=== PATIENT | female | born 1945 | race Caucasian/White ===

== ENCOUNTER → 2016-05-14 | Outpatient (CLI) | payer BC ==
[~2016-05-14] MED LIST: ACYC-251 PO; ALBU1AER9 INH; ANAS1TAB19 PO; CALC500C3; DILT120C68 PO; HYDR12.55 PO; IBUP-103 PO; LORA10TA51 PO; LOSA50TA6 PO; MOME220A INH; MOME50SP5; NORITATE TOP; NXM/40 PO; SULF5LOT2 TOP; VSK5 PO
[2016-05-14 13:24] VITALS: BP 118/78; PULSE 64; TEMP 36.8; O2SAT 98
--- NOTE | 2016-05-14 15:53 | Radiation Oncology Follow-Up ---
Radiation Oncology Follow-Up Date of Visit May 14, 2016. Reason For Visit 3 month follow-up Radiation Completion Date 10-14-2015 to chest wall , supraclavicula, and axilla area Diagnosis (1) Breast cancer of upper-outer quadrant of right female breast Status: Resolved Onset Date: 04/29/2015 Location: 04/29/2015 Histology Subtype: lobular Stage: lll (A) Permanent Comment: Right breast mass found on physical examination Status post biopsy 04/29/2015 revealing a lobular carcinoma Estrogen receptor, positive progesterone, receptor positive HER-2/jorge negative Status post right modified radical mastectomy with lymph node dissection and left total mastectomy 06/04/2015 Pathologic stage pT3 pN2 M0 Oncotype DX score of 2 Status post completion of radiation therapy to the chest wall, supraclavicular, and axilla 10/14/2015 received 6120 cGy Last Edited By: Tammy Trejo on Oct 18, 2015 14:05 History of Present Illness Ms. Montilla is a 69-year-old female with a history of breast cancer. The patient's sister was diagnosed with a salivary gland cancer and breast cancer and is alive and well following treatment. She was noted at the time of a routine examination by Dr. Zena Smith to have a right breast mass. She had previously undergone an ultrasound-guided core biopsy the right breast in 2008 and a fine-needle aspiration of the left breast in 2002 both of which were negative for malignancy. She had undergone bilateral digital screening mammograms on 06/27/2014. At that time no evidence of malignancy was noted and a one-year screening mammogram was recommended. The biopsy marker clip in the right breast at the 12 o'clock position was again noted from her prior biopsy. In April 2015 Dr. Smith palpated a 4 cm breast mass in the upper outer quadrant of the right breast. She arranged for the patient to undergo a unilateral right digital diagnostic mammogram and targeted right breast ultrasound. This was performed on 04/22/2015. A triangular skin marker was noted in the area of palpable abnormality in the upper outer middle one third of the right breast. On spot compression CC view a possible obscured mass with irregular borders was noted measuring 1.1 x 1.3 cm. This was not clearly identified on spot compression and MLO views. Real-time High-resolution sonographic evaluation was performed 10 to 10:30 position of the right breast 4 cm from the nipple. On palpation moldable firm lump was noted and an ultrasound at the 10:30 position of the right breast 2 cm from the nipple an irregular hypoechoic solid-appearing mass was noted measuring 5.5 x 4.2 x 4.8 mm. Adjacent 10:00 right breast position 3 cm from the nipple was a circumscribed oval anechoic simple cyst measuring 7.0 x 5.4 x 7.3 mm. An ultrasound-guided cyst aspiration as well as an ultrasound-guided core needle biopsy was recommended for the cystic and solid masses in the right breast at the 10:00 and 10:30 position respectively. On 04/29/2015 an ultrasound-guided cyst aspiration and an ultrasound-guided core needle biopsy was performed in the right upper outer quadrant. The ultrasound core biopsy revealed an infiltrating lobular carcinoma Nafisa grade 1 of 3. No lymphovascular or perineural invasion was seen. Estrogen receptors were positive (100%, strong). Progesterone receptors were positive ( 100%, strong). HER-2/jorge overexpression was negative (1+). Ki-67 was positive in 10% of the tumor cells. The tumor cells were assessed by FISH analysis and were also negative confirming the results obtained by IHC. Case: [id number]. The patient was seen in consultation at [facility]. They reviewed the tissue from [facility]. They agreed with the original diagnosis. Accession #: [id number]. The patient was seen by Dr. Shon Montesinos for surgical evaluation. He recommended preoperative bilateral MRIs. These were performed on 05/23/2015. In the right breast upper outer quadrant from 9 to 10:00 middle third depth a large avidly enhancing mass was noted with mixed kinetics corresponding to the biopsy-proven invasive carcinoma. Overall the tumor measured 5.7 cm x 2.6 cm 3.9 cm however there was a sonographic evidence of this larger mass on ultrasound from April 22. The mass did not involve the skin, chest wall, pectoralis muscles and is distant from the nipple. Contained within the anterior aspect of this larger mass with a smaller more avidly enhancing area with washout kinetics measuring 0.9 x 0.6 cm likely corresponding to the lesion biopsied under ultrasound. Biopsy clip susceptibility artifact was seen just anterior/inferior to the smaller area. Also within the right breast a 1.6 cm cyst is seen in the superior portion. On the sagittal post contrast images 8 was 0.5 cm enhancing focus was noted in the midsternum. No suspicious adenopathy was identified. In the left breast no suspicious masses or enhancements were seen. A nuclear medicine bone scan was suggested to further evaluate the sternal lesion. The patient discussed at length the surgical treatment options with Dr. Montesinos. This included a discussion of partial mastectomy which was felt not to be an option given the large area of abnormal enhancement seen on MRI. He discussed right breast mastectomy and was interested in pursuing contralateral prophylactic mastectomy for cosmetic considerations. Dr. Montesinos discussed the potential role for immediate reconstruction. The patient understood that she would need postoperative radiation and decided that she did not wish to proceed with consideration of reconstruction at that time. Therefore on 06/04/2015 the patient underwent a right breast modified radical mastectomy, right axillary sentinel node biopsy and left breast total mastectomy. The left breast tissue revealed benign breast parenchyma with fibrocystic change but no in situ or invasive carcinoma identified. The right axillary sentinel node biopsy revealed a metastatic carcinoma measuring 1.3 cm with 1 mm of the pericapsular invasion. Patient went on to have a right axillary dissection. An additional 13 lymph nodes were taken of which 3 contained metastatic disease. The largest was 0.7 cm. Therefore a total of 4 out of 14 nodes were positive with pericapsular invasion. The total mastectomy specimen on the right revealed an invasive lobular carcinoma Mantee grade 2 measuring 6 cm in maximal dimension. Ductal carcinoma in situ, nuclear grade 2, solid pattern with comedo necrosis was also identified. Lobular carcinoma in situ was also noted. No lymphovascular invasion was identified. The resection margins were negative for carcinoma. The invasive carcinoma was noted 0.2 cm from the nearest posterior margin. . The final stage was therefore pT3 pN2 ER positive, ME positive, HER-2/jorge negative lobular carcinoma. Patient was treated with tangential diehl to the right chest wall from 2015 to 10/01/2015 receiving a dose of 50.4 Gy. The axilla and supraclavicular nodes were treated from August 21 through 09/26/2015 with a dose of 45 Gy. The mastectomy incision was boosted from 10/02/2015 through 10/14/2015 for a dose of 10.8 Gy area of the total chest wall boost was 61.2 Gy. Interim History (3 months she continues to have problems with discomfort of the right shoulder. She has pain in the right lateral chest wall. She continues with physical therapy. She states there continues to be "cording issues" he reviewed this may be improving. She continues to have pain can be up to level V. She is followed at the lymphedema clinic and continues therapy to her arm. She continues on Arimidex which she feels may attribute to her generalized arthralgias. She had issues with dysphagia. This was evaluated with an upper GI endoscopy. She also had a CT of the neck which led to the finding of an abnormality of her thyroid. This continues to be followed and she'll be having a recheck ultrasound in [place]. She was recently hospitalized to rule out pulmonary embolism. She developed shortness of breath and pain in the right chest. CT angiography was performed and she did not have pulmonary embolism. She had a cardiac evaluation with a nuclear stress test. This was negative. She also had pulmonary function studies. She is being followed by Dr. Saldaña. She now has developed a feeling of weakness in regards to her voice. She has difficulty projecting her voice. She also has a feeling of phlegm in the throat. She has been referred by her primary care physician to ENT. She'll be seen next Wednesday by . Allergies Coded Allergies: Shrimp (Verified Allergy, Severe, THROAT CLOSING, ITCHING, 04/01/16) Shrimp Flavor (Verified Allergy, Severe, THROAT CLOSING, ITCHING, 04/01/16 ) Dust Mite Extract (Verified Allergy, Intermediate, ALLERGY TEST RESULT, ) Gluten (Verified Allergy, Intermediate, CELIAC DISEASE, 04/01/16) Gluten Meal (Verified Allergy, Intermediate, CELIAC DISEASE, 04/01/16) Latex (Verified Allergy, Intermediate, RASH, 04/01/16) Peanut (Verified Allergy, Intermediate, INCONSISTENT ALLERGY TEST RESULT , 04/01/16) Peanut-containing Drug Products (Verified Allergy, Intermediate, INCONSISTENT ALLERGY TEST RESULT, 04/01/16) Penicillins (Verified Allergy, Intermediate, RASH, 04/01/16) Sulfa Antibiotics (Verified Allergy, Intermediate, RASH, 04/01/16) Erythromycin (Verified Adverse Reaction, Mild, STOMACH PAIN, 04/01/16) Home Medications Scheduled Anastrozole (Arimidex), 1 TAB PO DAILY Calcium Carbonate (Tums), 500 MG prn Esomeprazole Magnesium (Nexium), 40 MG PO DAILY Hydrochlorothiazide (Hydrochlorothiazide), 6.25 MG PO DAILY Loratadine (Claritin), 1 TAB PO DAILY Losartan Potassium (Cozaar), 50 MG PO DAILY Mometasone Furoate (Asmanex 120 Metered Doses), 1 PUFF INH QPM Pindolol (Visken), 2.5 MG PO BID Sulfacetamide Sodium (Acne) (Sodium Sulfacetamide), 1 APPLN TOP Q2D Scheduled PRN Acyclovir (Zovirax), 800 MG PO q4-6H PRN for COLD SORES Albuterol (Proair Hfa), 2 PUFFS INH Q4 PRN for Wheezing Ibuprofen Tab (Advil), 400 MG PO Q6 PRN for Pain or Fever Mometasone Furoate (Nasonex), 2 SPRAY NA DAILY PRN for ALLERGIES [noritate], 1 APPLN TOP Q2D PRN for UNDECIDED Review of Systems Gastrointestinal: Symptoms: WNL Oral: Symptoms: Thick/Viscid/Mucid Saliva Other Oral Symptoms: weak fatigued throat and voice changes if has to talk too long or loud Respiratory: Symptoms: Dry Cough Other Respiratory: " heaviness in the upper part the chest when talks too long " Urinary: Symptoms: WNL Comments: no symptons had RBC and epith noted on report Skin: Symptoms: No Problems Breast: Right Upper Arm Measurement: 31.7 Right Mid Arm Measurement: 25.5 Right Wrist Measurement: 16.5 Left Upper Arm Measurement: 27.5 Left Mid Arm Measurement: 23.5 Left Wrist Measurement: 17.5 Arm Dominence: Right Patient Cosmetic Evaluation: Excellent Staff Cosmetic Evalaluation: Excellent Physical Exam Vital Signs Date Time Temp Pulse Resp B/P Pulse Ox O2 Delivery O2 Flow Rate FiO2 05/14/16 13:24 36.8 64 18 118/78 98 Pain: Pain Onset: since radiation therapy Pain Duration: gets worse at times Side: Bilateral Patient Pain Scale: 0 - 10 Initial Pain Intensity: 4.0 Pain Description: Aching Additional Comments: constant Fatigue: None General Appearance: no apparent distress Eyes: normal inspection, EOMI ENT: normal ENT inspection, hearing grossly normal Neck: no adenopathy, thyroid normal Respiratory/Chest: lungs clear, no respiratory distress, no accessory muscle use Breast: Status post bilateral mastectomies. Incisions are well-healed. There are no masses or tenderness no axillary adenopathy. Using the [place] score cosmesis she has a good outcome. There is no axillary adenopathy. She is no skin retractions. There is no telangiectasis. There is slight cording the area pectoralis minor. Cardiovascular: regular rate, rhythm, no gallop, no murmur Extremities: no pedal edema Neurologic/Psychiatric: no motor/sensory deficits, alert, normal mood/affect Skin: warm/dry Lymphatic: no adenopathy Laboratory Studies Test 03/04/16 15:00 04/01/16 12:55 04/01/16 13:00 04/01/16 21:00 Thyroid Stimulating Hormone (TSH) 2.420 uIu/ml (0.300-4.500) Free Thyroxine 1.06 ng/dl (0.80-1.60) Free Triiodothyronine 2.98 pg/ml (2.30-4.20) White Blood Count 4.29 K/uL (4.8-10.8) Red Blood Count 4.95 M/uL (4.2-5.4) Hemoglobin 14.1 g/dL (12.0-16.0) Hematocrit 42.5 % (37-47) Mean Corpuscular Volume 85.9 fL (80-100) Mean Corpuscular Hemoglobin 28.5 pg (25-34) Mean Corpuscular Hemoglobin Concent 33.2 g/dl (32-36) RDW Standard Deviation 44.5 fL (36.4-46.3) RDW Coefficient of Variation 14.1 % (11.5-14.5) Platelet Count 183 K/uL (130-400) Mean Platelet Volume 10.0 fL (7.4-10.4) Prothrombin Time 10.6 SECONDS (9.0-12.0) Prothrombin Time INR 1.0 (0.9-1.1) PTT 27.1 SECONDS (21.0-31.0) Partial Thromboplastin Ratio 1.0 Sodium Level 142 mmol/L (136-145) Potassium Level 3.7 mmol/L (3.5-5.1) Chloride Level 107 mmol/L (98-107) Carbon Dioxide Level 24 mmol/L (21-32) Anion Gap 11.0 mmol/L (3-11) Blood Urea Nitrogen 21 mg/dl (7-18) Creatinine 0.90 mg/dl (0.60-1.20) Est Creatinine Clear Calc Drug Dose 66.0 ml/min Estimated GFR () 76.1 Estimated GFR (Non- 65.7 BUN/Creatinine Ratio 23.1 (10-20) Random Glucose 93 mg/dl (70-99) Calcium Level 8.8 mg/dl (8.5-10.1) Total Bilirubin 0.5 mg/dl (0.2-1) Aspartate Amino Transferase (AST) 24 U/L (15-37) Alanine Aminotransferase (ALT) 40 U/L (12-78) Alkaline Phosphatase 91 U/L (45-117) Total Creatine Kinase 108 U/L (26-192) Total Protein 7.3 gm/dl (6.4-8.2) Albumin 4.0 gm/dl (3.4-5.0) Globulin 3.3 gm/dl (2.5-4.0) Albumin/Globulin Ratio 1.2 (0.9-2) POC Troponin I 0.000 ng/ml (0-0.045) Creatine Kinase MB Ratio (0-3.0) Test 04/01/16 21:06 04/02/16 05:00 04/02/16 05:02 04/02/16 09:00 Creatine Kinase MB 0.9 ng/ml (0.5-3.6) 0.9 ng/ml (0.5-3.6) Troponin I < 0.015 ng/ml (0-0.045) < 0.015 ng/ml (0-0.045) Creatine Kinase MB Ratio (0-3.0) Sodium Level 144 mmol/L (136-145) Potassium Level 3.7 mmol/L (3.5-5.1) Chloride Level 108 mmol/L (98-107) Carbon Dioxide Level 25 mmol/L (21-32) Anion Gap 11.0 mmol/L (3-11) Blood Urea Nitrogen 20 mg/dl (7-18) Creatinine 0.89 mg/dl (0.60-1.20) Est Creatinine Clear Calc Drug Dose 65.4 ml/min Estimated GFR () 77.2 Estimated GFR (Non- 66.6 BUN/Creatinine Ratio 22.6 (10-20) Random Glucose 88 mg/dl (70-99) Estimated Average Glucose 120 mg/dl Hemoglobin A1c 5.8 % (4.5-5.6) Calcium Level 8.6 mg/dl (8.5-10.1) Triglycerides Level 88 mg/dl (0-150) Cholesterol Level 213 mg/dl (0-200) HDL Cholesterol 59 mg/dl LDL Cholesterol, Calculated 136 mg/dl VLDL Cholesterol, Calculated 18 mg/dl Cholesterol/HDL Ratio 3.6 Hepatitis C Antibody Screen NEG (NEG) D-Dimer 430 ug/L FEU (0-500) Test 05/06/16 10:23 Hemoglobin 13.5 g/dL (12.0-16.0) Assessment & Plan Plan: Continue follow-up with her primary care physician as well as medical oncology. She'll be following up in [place] with recheck visit as well as thyroid evaluation and ultrasound. She is following up with Dr. Saldaña in regards to the recent hospitalization. She'll continue with the physical therapy and lymphedema therapy. We asked her to return to our office in 1 year. Total Time In Follow-Up I spent 25 minutes speaking to the patient performing examination. I spent 15 minutes reviewing information in completing this note. Copy To Jesusita Holt MD; Param Murphy Jr,D.O.
== END | disposition home or self-care (01) ==
LOC: C.ONC 13:01
PROVIDERS: ATTEND Radiology Radiation Oncology
DX: Z08 Encounter for follow-up examination after completed treatment for malignant neoplasm (principal); Z92.3 Personal history of irradiation; Z85.3 Personal history of malignant neoplasm of breast

== ENCOUNTER → 2016-05-27 | Outpatient (CLI) | payer BC ==
[~2016-05-27] MED LIST changes: -DILT120C68 PO
== END | disposition home or self-care (01) ==
LOC: C.PAPS 14:30
PROVIDERS: ATTEND Obstetrics & Gynecology
DX: Z01.419 Encounter for gynecological examination (general) (routine) without abnormal findings (principal)

== ENCOUNTER → 2016-10-16 | Outpatient (CLI) | payer BC ==
[~2016-10-16] MED LIST changes: +ACYC-223 PO; -ACYC-251 PO
[2016-10-16 13:04] LABS: BASO % 0.2 %; BASO ABS # 0.01 K/uL (0-0.2); COMPLETE YES; EOS % 7.1 %; HEMATOCRIT 41.9 % (37-47); IG% 0.2 %; LYMPH % 18.5 %; LYMPH ABS # 0.78 K/uL (1.2-3.4); MEAN CORPUSCULAR HEMOGLOBIN 27.5 pg (25-34); MEAN PLATELET VOLUME 9.6 fL (7.4-10.4); MONO % 8.3 %; NEUT % 65.7 %; PLATELET COUNT 233 K/uL (130-400); RED BLOOD COUNT 4.87 M/uL (4.2-5.4); WHITE BLOOD COUNT 4.22 K/uL (4.8-10.8)
[2016-10-16 13:15] LABS: ALT/SGPT 38 U/L (12-78); AST/SGOT 20 U/L (15-37)
[2016-10-21 11:54] LABS: ANAPLASMA PHAGOCYTOPHIL IGG <1:64 (<1:64); ANAPLASMA PHAGOCYTOPHIL IGM <1:20 (<1:20)
== END | disposition home or self-care (01) ==
LOC: C.LAB 11:14
DX: R50.9 Fever, unspecified (principal)

== ENCOUNTER → 2016-12-15 | Outpatient (CLI) | payer BC ==
[~2016-12-15] MED LIST changes: -ACYC-223 PO; +ACYC-251 PO
--- NOTE | 2016-12-15 10:59 | DIAGNOSTIC IMAGING REPORT ---
ABDOMINAL ULTRASOUND, RIGHT UPPER QUADRANT HISTORY: Right upper quadrant abdominal pain.. COMPARISON: Abdominal ultrasound 11/12/2010. Chest CT 10/30/2015. FINDINGS: Pancreas: The pancreatic tail is obscured by overlying bowel gas. The remaining portions of the pancreas are within normal limits. Liver: The liver is echogenic consistent with fatty change. Enlarged measuring 21 cm in length. Stable fatty sparing at the french hepatis. A 1.9 cm cyst within the left hepatic lobe. This is slightly increased in size. Gallbladder: No gallbladder wall thickening. No gallstones. CBD: 4 mm. Right kidney: A few peripelvic cysts. Prominent extrarenal pelvis. This remains unchanged from the [address] No definite hydronephrosis. IMPRESSION: 1. Normal gallbladder. No gallstones. 2. Hepatomegaly demonstrating fatty change. 3. A few right renal peripelvic cysts and a prominent extrarenal pelvis. This remains unchanged. No definite hydronephrosis. Electronically signed by: Jamel Mcclain M.D. 12/15/2016 10:58 AM Dictated Date/Time: 12/15/2016 10:54 AM
== END | disposition home or self-care (01) ==
LOC: C.ULTR 09:59
PROVIDERS: ATTEND Internal Medicine Gastroenterology
DX: R10.11 Right upper quadrant pain (principal); R13.10 Dysphagia, unspecified; R16.0 Hepatomegaly, not elsewhere classified; N28.1 Cyst of kidney, acquired

== ENCOUNTER → 2017-05-13 | Outpatient (CLI) | payer BC ==
[~2017-05-13] MED LIST changes: +ACYC-223 PO; -ACYC-251 PO; +MTRCR45
[2017-05-13 12:54] VITALS: BP 178/98; PULSE 67; TEMP 36.6; O2SAT 98
--- NOTE | 2017-05-13 16:14 | Radiation Oncology Follow-Up ---
Radiation Oncology Follow-Up Date of Visit May 13, 2017. Reason For Visit Annual follow-up Radiation Completion Date 10/13/16 Diagnosis (1) Breast cancer of upper-outer quadrant of right female breast Status: Resolved Onset Date: 04/29/2015 Stage: lll (A) Permanent Comment: Right breast mass found on physical examination Status post biopsy 04/29/2015 revealing a lobular carcinoma Estrogen receptor positive, positive progesterone, receptor positive HER-2/jorge negative Status post right modified radical mastectomy with lymph node dissection and left total mastectomy 06/04/2015 Pathologic stage pT3 pN2 M0 Oncotype DX score of 2 Status post completion of radiation therapy to the chest wall, supraclavicular, and axilla 10/14/2015 received 6120 cGy Last Edited By: Tammy Trejo on May 13, 2017 16:00 History of Present Illness Ms. Montilla is a 69-year-old female with a history of breast cancer. The patient's sister was diagnosed with a salivary gland cancer and breast cancer and is alive and well following treatment. She was noted at the time of a routine examination by Dr. Zena Smith to have a right breast mass. She had previously undergone an ultrasound-guided core biopsy the right breast in 2008 and a fine-needle aspiration of the left breast in 2002 both of which were negative for malignancy. She had undergone bilateral digital screening mammograms on 06/27/2014. At that time no evidence of malignancy was noted and a one-year screening mammogram was recommended. The biopsy marker clip in the right breast at the 12 o'clock position was again noted from her prior biopsy. In April 2015 Dr. Smith palpated a 4 cm breast mass in the upper outer quadrant of the right breast. She arranged for the patient to undergo a unilateral right digital diagnostic mammogram and targeted right breast ultrasound. This was performed on 04/22/2015. A triangular skin marker was noted in the area of palpable abnormality in the upper outer middle one third of the right breast. On spot compression CC view a possible obscured mass with irregular borders was noted measuring 1.1 x 1.3 cm. This was not clearly identified on spot compression and MLO views. Real-time High-resolution sonographic evaluation was performed 10 to 10:30 position of the right breast 4 cm from the nipple. On palpation moldable firm lump was noted and an ultrasound at the 10:30 position of the right breast 2 cm from the nipple an irregular hypoechoic solid-appearing mass was noted measuring 5.5 x 4.2 x 4.8 mm. Adjacent 10:00 right breast position 3 cm from the nipple was a circumscribed oval anechoic simple cyst measuring 7.0 x 5.4 x 7.3 mm. An ultrasound-guided cyst aspiration as well as an ultrasound-guided core needle biopsy was recommended for the cystic and solid masses in the right breast at the 10:00 and 10:30 position respectively. On 04/29/2015 an ultrasound-guided cyst aspiration and an ultrasound-guided core needle biopsy was performed in the right upper outer quadrant. The ultrasound core biopsy revealed an infiltrating lobular carcinoma Nafisa grade 1 of 3. No lymphovascular or perineural invasion was seen. Estrogen receptors were positive (100%, strong). Progesterone receptors were positive ( 100%, strong). HER-2/jorge overexpression was negative (1+). Ki-67 was positive in 10% of the tumor cells. The tumor cells were assessed by FISH analysis and were also negative confirming the results obtained by IHC. Case: [id number]. The patient was seen in consultation at [facility]. They reviewed the tissue from [facility]. They agreed with the original diagnosis. Accession #: [id number]. The patient was seen by Dr. Shon Montesinos for surgical evaluation. He recommended preoperative bilateral MRIs. These were performed on 05/23/2015. In the right breast upper outer quadrant from 9 to 10:00 middle third depth a large avidly enhancing mass was noted with mixed kinetics corresponding to the biopsy-proven invasive carcinoma. Overall the tumor measured 5.7 cm x 2.6 cm 3.9 cm however there was a sonographic evidence of this larger mass on ultrasound from April 22. The mass did not involve the skin, chest wall, pectoralis muscles and is distant from the nipple. Contained within the anterior aspect of this larger mass with a smaller more avidly enhancing area with washout kinetics measuring 0.9 x 0.6 cm likely corresponding to the lesion biopsied under ultrasound. Biopsy clip susceptibility artifact was seen just anterior/inferior to the smaller area. Also within the right breast a 1.6 cm cyst is seen in the superior portion. On the sagittal post contrast images 8 was 0.5 cm enhancing focus was noted in the midsternum. No suspicious adenopathy was identified. In the left breast no suspicious masses or enhancements were seen. A nuclear medicine bone scan was suggested to further evaluate the sternal lesion. The patient discussed at length the surgical treatment options with Dr. Montesinos. This included a discussion of partial mastectomy which was felt not to be an option given the large area of abnormal enhancement seen on MRI. He discussed right breast mastectomy and was interested in pursuing contralateral prophylactic mastectomy for cosmetic considerations. Dr. Montesinos discussed the potential role for immediate reconstruction. The patient understood that she would need postoperative radiation and decided that she did not wish to proceed with consideration of reconstruction at that time. Therefore on 06/04/2015 the patient underwent a right breast modified radical mastectomy, right axillary sentinel node biopsy and left breast total mastectomy. The left breast tissue revealed benign breast parenchyma with fibrocystic change but no in situ or invasive carcinoma identified. The right axillary sentinel node biopsy revealed a metastatic carcinoma measuring 1.3 cm with 1 mm of the pericapsular invasion. Patient went on to have a right axillary dissection. An additional 13 lymph nodes were taken of which 3 contained metastatic disease. The largest was 0.7 cm. Therefore a total of 4 out of 14 nodes were positive with pericapsular invasion. The total mastectomy specimen on the right revealed an invasive lobular carcinoma Nafisa grade 2 measuring 6 cm in maximal dimension. Ductal carcinoma in situ, nuclear grade 2, solid pattern with comedo necrosis was also identified. Lobular carcinoma in situ was also noted. No lymphovascular invasion was identified. The resection margins were negative for carcinoma. The invasive carcinoma was noted 0.2 cm from the nearest posterior margin. . The final stage was therefore pT3 pN2 ER positive, [place] positive, HER-2/jorge negative lobular carcinoma. Patient was treated with tangential diehl to the right chest wall from 2015 to 10/01/2015 receiving a dose of 50.4 Gy. The axilla and supraclavicular nodes were treated from August 21 through 09/26/2015 with a dose of 45 Gy. The mastectomy incision was boosted from 10/02/2015 through 10/14/2015 for a dose of 10.8 Gy area of the total chest wall boost was 61.2 Gy. 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 Ultimately with the use of local medication and patches the skin is healed well. She continues to have a sense of tightness in the right anterior chest wall region especially with raising her arms above her head. She was recently seen [place] [facility] [place]up with a performed a CT scan of the chest on 10/30/2015. There is a exam showed no definite evidence of metastatic disease. They did note a right supraclavicular lymph node that was seen on a prior exam from July where it measured 0.6 cm. On this study. Measured 0.8 cm. They did note that this was a slight increase of uncertain significance and recommended continued surveillance. The discussed with the patient a follow-up CT scan in 4 months. They also discussed a targeted ultrasound of the supraclavicular node which will be scheduled or late November or early December. Interim History The discomfort she has been having of the lateral chest wall has now resolved. She has felt a mild nodularity towards the axilla over the past 3-4 months. There is no associated pain. There is been no changes of the overlying skin. She has completed lymphedema therapy. This ended approximately 6-9 months ago. She did have laser therapy to the incision line to help decrease tightness. She has been seen in follow-up in medical oncology with Dr. Holt. She is now seen on an annual basis with recheck PET scan at that time. She has noted a discomfort in the right lower quadrant over the past several weeks. Bending forward and seems to increase the discomfort. She is planning to see the medical technologist clinical within the month. Today she brought a copy of her PET scan performed in October at [facility]. There was no evidence of FDG avid malignancy. Stable postsurgical changes of bilateral mastectomies and right axillary lymph node dissection. Stable appearance of thyroid gland which demonstrates benign appearing stable nodules ultrasound examination stable diffuse FDG avidity. Multiple liver lesions unchanged without any abnormal FDG activity. Bilateral pelvic cysts with a large left sided parapelvic cyst unchanged. Allergies Coded Allergies: Shrimp (Verified Allergy, Severe, THROAT CLOSING, ITCHING, 04/01/16) Shrimp Flavor (Verified Allergy, Severe, THROAT CLOSING, ITCHING, 04/01/16 ) Dust Mite Extract (Verified Allergy, Intermediate, ALLERGY TEST RESULT, ) Gluten (Verified Allergy, Intermediate, CELIAC DISEASE, 04/01/16) Gluten Meal (Verified Allergy, Intermediate, CELIAC DISEASE, 04/01/16) Latex (Verified Allergy, Intermediate, RASH, 04/01/16) Peanut (Verified Allergy, Intermediate, INCONSISTENT ALLERGY TEST RESULT , 04/01/16) Peanut-containing Drug Products (Verified Allergy, Intermediate, INCONSISTENT ALLERGY TEST RESULT, 04/01/16) Penicillins (Verified Allergy, Intermediate, RASH, 04/01/16) Sulfa Antibiotics (Verified Allergy, Intermediate, RASH, 04/01/16) Erythromycin (Verified Adverse Reaction, Mild, STOMACH PAIN, 04/01/16) Home Medications Scheduled Anastrozole (Arimidex), 1 TAB PO DAILY Calcium Carbonate (Tums), 500 MG prn Esomeprazole Magnesium (Nexium), 40 MG PO DAILY Hydrochlorothiazide (Hydrochlorothiazide), 6.25 MG PO DAILY Loratadine (Claritin), 1 TAB PO DAILY Losartan Potassium (Cozaar), 50 MG PO DAILY Mometasone Furoate (Asmanex 120 Metered Doses), 1 PUFF INH QPM Pindolol (Visken), 2.5 MG PO BID Sulfacetamide Sodium (Acne) (Sodium Sulfacetamide), 1 APPLN TOP Q2D Scheduled PRN Acyclovir (Zovirax), 800 MG PO q4-6H PRN for COLD SORES Albuterol (Proair Hfa), 2 PUFFS INH Q4 PRN for Wheezing Ibuprofen Tab (Advil), 400 MG PO Q6 PRN for Pain or Fever Mometasone Furoate (Nasonex), 2 SPRAY NA DAILY PRN for ALLERGIES [noritate], 1 APPLN TOP Q2D PRN for UNDECIDED Miscellaneous Medications Metronidazole Hcl (Metronidazole) Review of Systems Gastrointestinal: Symptoms: Nausea GI Comments: sometimes a little nausea Oral: Symptoms: No Problems Other Oral Symptoms: weak fatigued throat and voice changes if has to talk too long or loud Respiratory: Symptoms: WNL Respiratory Comments: gets asthma reaction from cold and other unkown triggers Other Respiratory: " heaviness in the upper part the chest when talks too long " Urinary: Symptoms: WNL Comments: small amount leakge Skin: Symptoms: No Problems Breast: Right Upper Arm Measurement: 29.0 Right Mid Arm Measurement: 25.0 Right Wrist Measurement: 17.0 Left Upper Arm Measurement: 28.0 Left Mid Arm Measurement: 25.5 Left Wrist Measurement: 16.5 Arm Dominence: Right Patient Cosmetic Evaluation: Excellent Staff Cosmetic Evalaluation: Excellent Physical Exam Vital Signs Date Time Temp Pulse Resp B/P (MAP) Pulse Ox O2 Delivery O2 Flow Rate FiO2 05/13/17 12:54 36.6 67 18 178/98 98 Fatigue: None General Appearance: no apparent distress Eyes: normal inspection, EOMI ENT: normal ENT inspection, hearing grossly normal Neck: supple, no adenopathy, thyroid normal, no JVD, + pertinent finding ( there is asymmetry with increased palpable tissue in the left supraclavicular area compared to the right.) Respiratory/Chest: lungs clear, no respiratory distress, no accessory muscle use Breast: Status post bilateral mastectomies. There are no visible or palpable lesions of either chest wall. There is no axillary adenopathy bilaterally. There is no telangiectasia. There is some asymmetry of the subcutaneous tissue and fibrous changes along the incision line on the right. These are expected postoperative changes. There are no distinct masses. Cardiovascular: regular rate, rhythm, no gallop, no murmur Abdomen: non tender, soft Extremities: no pedal edema Neurologic/Psychiatric: no motor/sensory deficits, alert, normal mood/affect Skin: warm/dry Pain Management Patient Reports Pain: Yes Side: Right Pain Location: lower right abd Patient Preferred Pain Scale: 0 - 10 Initial Pain Intensity: 2.0 Pain Management Plan 6 of the right lower quadrant and will be evaluated by gynecology. She does not require any pain management through our office. Laboratory Laboratory Results: not applicable Pathology Pathology Results: not applicable Imaging Imaging Studies: were reviewed Imaging Comments Reviewed in the interim history PET scan at [facility] October 2016. Assessment & Plan Plan: We discussed the asymmetry of the supraclavicular area on the left. We discussed possible CAT scan. She is concerned about the amount of radiation she has been exposed to over time. She was in agreement to an ultrasound to determine if there are any enlarged lymph nodes in this area. This may be benign asymmetry. She stated that the oncologist had noted this also on her last examination. PET scan at that time did not show any FDG avidity of supraclavicular nodes. She'll have a recheck visit with a PET scan at [facility] in October. She'll be notified as the results of the ultrasound. We asked her to return to our office in 1 year. She'll also see the medical technologist clinical within the next month in regards to the pelvic discomfort. I've asked her to show her a copy of the last PET scan and review the previous cysts that have been seen. Total Time In Follow-Up I spent 25 minutes speaking to the patient and performing examination. I spent 15 minutes reviewing information in completing this note. Copy To Jesusita Holt MD; Param Murphy Jr,D.O.; Zena Smith M.D. Problem Qualifiers (1) Breast cancer of upper-outer quadrant of right female breast: Estrogen receptor status: positive Qualified Codes: C50.411 - Malignant neoplasm of upper-outer quadrant of right female breast; Z17.0 - Estrogen receptor positive status [ER+]
== END | disposition home or self-care (01) ==
LOC: C.ONC 12:37
PROVIDERS: ATTEND Physician Assistant Medical
DX: Z08 Encounter for follow-up examination after completed treatment for malignant neoplasm (principal); Z92.3 Personal history of irradiation; Z85.3 Personal history of malignant neoplasm of breast

== ENCOUNTER → 2017-05-17 | Outpatient (CLI) | payer BC ==
--- NOTE | 2017-05-17 09:53 | DIAGNOSTIC IMAGING REPORT ---
THYROID ULTRASOUND HISTORY: HX BREAST CA, SYMMETRY OF NECK BILATERAL COMPARISON: Outside hospital thyroid ultrasound 02/10/2016. FINDINGS: Right lobe: 5.6 x 1.5 x 1.5 cm. Heterogeneous thyroid gland resulting in difficult evaluation for a distinct nodule. Dominant hypoechoic nodule within the interpolar region measures 1.4 x 1.0 x 0.7 cm. This is stable in size and appearance. Left lobe: 4.6 x 2 point 2 x 2 x 1 cm. Heterogeneous thyroid gland resulting in difficult evaluation for a distinct nodule. Probable 1.3 cm heterogeneous solid nodule within the interpolar region. This is also unchanged. There is a 1.3 x 1.1 cm hyperechoic possible nodule laterally within the left thyroid lobe. Isthmus: Heterogeneous and thickened measuring up to 7 mm. A 7 x 4 mm hypoechoic nodule along the left side of the isthmus. Miscellaneous: No enlarged lymph nodes identified within the neck. IMPRESSION: 1. No cervical lymphadenopathy identified. 2. Bilateral thyroid nodules as described above. The majority of these are stable in size and appearance compared to the previous study. Electronically signed by: Jamel Mcclain M.D. 05/17/2017 9:52 AM Dictated Date/Time: 05/17/2017 9:46 AM
== END | disposition home or self-care (01) ==
LOC: C.ULTR 08:51
PROVIDERS: ATTEND Physician Assistant Medical
DX: Z85.3 Personal history of malignant neoplasm of breast (principal); E04.1 Nontoxic single thyroid nodule

== ENCOUNTER → 2017-06-02 | Outpatient (CLI) | payer BC | END | disposition home or self-care (01) | LOC: C.PAPS 16:33 | PROVIDERS: ATTEND Obstetrics & Gynecology | DX: Z01.419 Encounter for gynecological examination (general) (routine) without abnormal findings (principal) ==

== ENCOUNTER 2017-06-27 20:18 | Emergency (ER) | payer BC ==
[~2017-06-27] VITALS: Ht 170.2 cm; Wt 83.0 kg
[2017-06-27 20:30] VITALS: TEMP 36.8; Ht 170.2 cm; Wt 83.0 kg
[2017-06-27] MEDS ORDERED: CEFDINIR 300 MG CAP PO STA (20:59)
[2017-06-27] MEDS ORDERED: PHENAZOPYRIDINE HCL 200 MG TAB PO STA (20:59)
--- NOTE | 2017-06-27 21:04 | EMERGENCY ROOM VISIT NOTE ---
History Report prepared by Liyah: Rupert Rosales Under the Supervision of: Dr. Felipe Louis D.O. First contact with patient: 20:51 Chief Complaint: URINARY SYMPTOMS Stated Complaint: UTI? BURNING, SLIGHT BLEEDING History of Present Illness The patient is a 71 year old female who presents to the Emergency Room with complaints of persistent urinary symptoms since this morning. She reports abdominal pain and pain with urination. She currently rates her pain a 5/10 in severity. She states there was blood present in her urine just prior to arriving to the ED for evaluation. She denies any history of UTI. She denies any back pain. She has not noticed if there is a vaginal rash, though she feels that there may be a rash present. She has a history of breast cancer, fibromyalgia, and celiac's disease. She has a history of acid reflux and she has a colonoscopy and endoscopy scheduled in the next two days. She has a history of double mastectomy. She denies any history of abdominal surgeries. Source of History: patient Onset: since this morning Position: other (global ) Symptom Intensity: 5/10 Quality: other (urinary symptoms) Timing: other (persistent) Associated Symptoms: + abdominal pain, + urinary symptoms (pain with urination and blood present), No back pain Review of Systems See HPI for pertinent positives & negatives. A total of 10 systems reviewed and were otherwise negative. Past Medical & Surgical Medical Problems: (1) Asthma (2) Stafford's esophagus (3) Breast cancer of upper-outer quadrant of right female breast (4) Celiac disease (5) Chest pain (6) Fibromyalgia (7) GERD (gastroesophageal reflux disease) (8) Hypertension (9) Melanoma Surgical Problems: (1) History of dilation and curettage Family History FHx: cancer FHx: diabetes FHx: gallbladder disease FHx: heart disease FHx: hypertension FHx: lung disease Social History Smoking Status: Never Smoker Alcohol Use: occasionally Marital Status: Housing Status: lives with significant other Occupation Status: employed Current/Historical Medications Scheduled Anastrozole (Arimidex), 1 TAB PO DAILY Calcium Carbonate (Tums), 500 MG prn Cefdinir (Omnicef), 300 MG PO Q12H Esomeprazole Magnesium (Nexium), 40 MG PO DAILY Hydrochlorothiazide (Hydrochlorothiazide), 6.25 MG PO DAILY Loratadine (Claritin), 1 TAB PO DAILY Losartan Potassium (Cozaar), 50 MG PO DAILY Mometasone Furoate (Asmanex 120 Metered Doses), 1 PUFF INH QPM Pindolol (Visken), 2.5 MG PO BID Sulfacetamide Sodium (Acne) (Sodium Sulfacetamide), 1 APPLN TOP Q2D Scheduled PRN Acyclovir (Zovirax), 800 MG PO q4-6H PRN for COLD SORES Albuterol (Proair Hfa), 2 PUFFS INH Q4 PRN for Wheezing Ibuprofen Tab (Advil), 400 MG PO Q6 PRN for Pain or Fever Mometasone Furoate (Nasonex), 2 SPRAY NA DAILY PRN for ALLERGIES Phenazopyridine HCl (Pyridium), 200 MG PO TID PRN for Burning/Frequency w/ Urination [noritate], 1 APPLN TOP Q2D PRN for UNDECIDED Miscellaneous Medications Metronidazole Hcl (Metronidazole) Allergies Coded Allergies: Shrimp (Verified Allergy, Severe, THROAT CLOSING, ITCHING, 06/27/17) Shrimp Flavor (Verified Allergy, Severe, THROAT CLOSING, ITCHING, 06/27/17) Dust Mite Extract (Verified Allergy, Intermediate, ALLERGY TEST RESULT, ) Gluten (Verified Allergy, Intermediate, CELIAC DISEASE, 06/27/17) Gluten Meal (Verified Allergy, Intermediate, CELIAC DISEASE, 06/27/17) Latex (Verified Allergy, Intermediate, RASH, 06/27/17) Peanut (Verified Allergy, Intermediate, INCONSISTENT ALLERGY TEST RESULT , 06/27/17) Peanut-containing Drug Products (Verified Allergy, Intermediate, INCONSISTENT ALLERGY TEST RESULT, 06/27/17) Penicillins (Verified Allergy, Intermediate, RASH, 06/27/17) Sulfa Antibiotics (Verified Allergy, Intermediate, RASH, 06/27/17) Erythromycin (Verified Adverse Reaction, Mild, STOMACH PAIN, 06/27/17) Physical Exam Vital Signs Date Time Temp Pulse Resp B/P (MAP) Pulse Ox O2 Delivery O2 Flow Rate FiO2 06/27/17 21:57 85 20 141/104 98 06/27/17 20:30 36.8 80 20 162/96 97 Room Air Physical Exam GENERAL: Patient is awake, alert, and in no acute distress. Patient is resting comfortably and showing no signs of anxiety EYES: The conjunctivae are clear. The pupils are round and reactive. EARS, NOSE, MOUTH AND THROAT: The nose is without any evidence of any deformity. Mucous membranes are moist tongue is midline RESPIRATORY: Normal respiratory effort is noted there is no evidence of wheezing rhonchi or rales CARDIOVASCULAR: Regular rate and rhythm noted there no murmurs rubs or gallops normal S1 normal S2 GASTROINTESTINAL: The abdomen is soft. Bowel sounds are present in all quadrants. Abdomen is nontender MUSCULOSKELETAL/EXTREMITIES: There is no evidence of gross deformity full range of motion is noted in the hips and shoulders SKIN: Trace pedal edema bilaterally. NEUROLOGIC: Patient is awake alert and oriented x3. Medical Decision & Procedures Laboratory Results Test 06/27/17 20:40 Urine Color YELLOW Urine Appearance TURBID (CLEAR) Urine pH 5.5 (4.5-7.5) Urine Specific Abrams 1.016 (1.000-1.030) Urine Protein 2+ (NEG) Urine Glucose (UA) NEG (NEG) Urine Ketones NEG (NEG) Urine Occult Blood 3+ (NEG) Urine Nitrite POS (NEG) Urine Bilirubin NEG (NEG) Urine Urobilinogen NEG (NEG) Urine Leukocyte Esterase LARGE (NEG) Urine WBC (Auto) >30 /hpf (0-5) Urine RBC (Auto) >30 /hpf (0-4) Urine Hyaline Casts (Auto) 1-5 /lpf (0-5) Urine Epithelial Cells (Auto) 20-30 /lpf (0-5) Urine Bacteria (Auto) 3+ (NEG) Laboratory results per my review. Medications Administered Medications (Trade) Dose Ordered Sig/Ras Route Start Time Stop Time Status Last Admin Dose Admin Phenazopyridine HCl (Pyridium Tab) 200 mg NOW STAT PO 06/27/17 20:59 06/27/17 21:00 DC 06/27/17 21:15 200 MG Cefdinir (Omnicef Cap) 300 mg ONE STAT PO 06/27/17 20:59 06/27/17 21:00 DC 06/27/17 21:15 300 MG ED Course 2057: The patient was evaluated in room A3. A complete history and physical examination were performed. 2058: Ordered Cefdinir 300 mg PO and Pyridium 200 mg PO 2126: I reassessed the patient at this time. She is resting comfortably. I discussed the results and treatment plan with the patient. I answered all pertaining questions that she had. She expressed understanding and verbalized agreement. The patient will be discharged home. Medical Decision Prior records/ancillary studies reviewed. Triage Nursing notes reviewed. The patient's history was concerning for abdominal pain. Differential diagnosis: Etiologies such as appendicitis, diverticulitis, PUD, biliary pathology, UTI, pancreatitis, obstruction, mesenteric ischemia, aortic pathology, infections, inflammatory bowel disease, renal colic, as well as others were entertained. The patient is a 71-year-old female who presented to the emergency department for an evaluation of dysuria and frequency. The patient was treated with antibiotics as well as Pyridium in the emergency department. I discussed patient's laboratory studies with her. She was encouraged to drink plenty clear liquids and continue all medications as prescribed. Otherwise she was encouraged to follow-up with her family doctor for reevaluation and return to the emergency department immediately if symptoms change or worsen or the need arises. Medication Reconcilliation Current Medication List: was personally reviewed by me Blood Pressure Screening Patient's blood pressure: Elevated blood pressure Blood pressure disposition: Elevated BP felt to be situational Impression Primary Impression: Hemorrhagic cystitis Additional Impression: UTI (urinary tract infection) Scribe Attestation The scribe's documentation has been prepared under my direction and personally reviewed by me in its entirety. I confirm that the note above accurately reflects all work, treatment, procedures, and medical decision making performed by me. Departure Information Dispostion Home / Self-Care Prescriptions Phenazopyridine HCl (Pyridium) 200 Mg Tab 200 MG PO TID Y for Burning/Frequency w/Urination, #6 TAB Prov: Felipe Louis, DO 06/27/17 Cefdinir (OMNICEF) 300 Mg Cap 300 MG PO Q12H, #14 CAP Prov: Felipe Louis, DO 06/27/17 Referrals No Doctor, Assigned (PCP) Forms HOME CARE DOCUMENTATION FORM, IMPORTANT VISIT INFORMATION Patient Instructions ED UTI Cystitis Female, My [facility] [place] [employer] Additional Instructions Drink plenty of clear liquids. Consider using [id number] medication for yeast infection especially in the external region. Called family doctor to schedule follow-up appointment. Problem Qualifiers Additional Impression: UTI (urinary tract infection) Urinary tract infection type: acute cystitis Hematuria presence: with hematuria Qualified Codes: N30.01 - Acute cystitis with hematuria
[2017-06-27] MEDS ORDERED: CEFD300C2 PO (21:24)
[2017-06-27] MEDS ORDERED: PHEN-876 PO (21:25)
[2017-06-27 21:57] VITALS: BP 141/104; PULSE 85; O2SAT 98
--- NOTE | 2017-06-29 15:06 | Pharmacy Progress Note ---
ED Pharmacist Culture FollowUp Date of Service: Jun 29, 2017. Patient was sent home with a prescription for cefdinir 300 mg PO Q12g, which should cover the E. coli growing from the patient's urine culture.
== END 2017-06-27 21:57 | disposition home or self-care (01) ==
LOC: C.EDB 20:19 → C.EDA 21:57
DX: N30.01 Acute cystitis with hematuria (principal); K90.0 Celiac disease; I10 Essential (primary) hypertension; J45.909 Unspecified asthma, uncomplicated; K21.9 Gastro-esophageal reflux disease without esophagitis; K22.70 Barrett's esophagus without dysplasia; Z85.3 Personal history of malignant neoplasm of breast; Z90.13 Acquired absence of bilateral breasts and nipples; Z98.890 Other specified postprocedural states; Z83.3 Family history of diabetes mellitus; Z82.49 Family history of ischemic heart disease and other diseases of the circulatory system; Z79.899 Other long term (current) drug therapy

== ENCOUNTER 2017-12-03 11:42 | Emergency (ER) | payer BC ==
[~2017-12-03] VITALS: Ht 170.2 cm; Wt 81.9 kg
[~2017-12-03 11:42] MED LIST changes: -ANAS1TAB19 PO; +ANAS1TAB59 PO; +BIOT1TAB5 PO; +CALC1CHW PO; -CALC500C3; +CLOTCRE33 TOP; -MTRCR45; +MTRCR45 TD; +OXYC-90 PO
[2017-12-03 11:45] VITALS: TEMP 36.6; Ht 170.2 cm; Wt 81.9 kg
[2017-12-03] MEDS ORDERED: DiphenhydrAMINE HCL 50 MG/ML VIAL IV STA (12:31)
[2017-12-03] MEDS ORDERED: METHYLPREDNISOLONE 125 MG VIAL IV STA (12:31)
[2017-12-03] MEDS ORDERED: ONDANSETRON INJ 2 MG/ML 2 ML VIAL IV STA (12:31)
[2017-12-03] MEDS ORDERED: MoRPHine SULFATE 10 MG/ML CARP/VIAL IV STA (12:31)
[2017-12-03] MEDS ORDERED: OXYCODONE HCL IR 5 MG TAB (IMMEDIATE RELEASE) PO STA (12:45)
[2017-12-03 13:01] LABS: ISTAT IONIZED CALCIUM 1.2 mmol/l (1.12-1.32); ISTAT POTASSIUM 3.9 mEq/L (3.3-5.0)
[2017-12-03] MEDS ORDERED: OPTIRAY 320 IV PRN (13:45)
--- NOTE | 2017-12-03 14:05 | DIAGNOSTIC IMAGING REPORT ---
CHEST CT WITH AND WITHOUT VENOUS CONTRAST CT DOSE: 607.29 mGy.cm HISTORY: Left lower rib pain/rule out metastatic disease TECHNIQUE: Multiaxial CT images of the chest were performed both before and after the intravenous administration of contrast. A dose lowering technique was utilized adhering to the principles of ALARA. COMPARISON: Chest CT 05/01/2016. FINDINGS: There are multiple small scattered lytic lesions seen throughout the visualized osseous structures. This is consistent with metastatic disease or multiple myeloma. There are few old, healed bilateral rib fractures. There is a healing left posterior ninth rib pathologic fracture. Surgical clips within the right axilla. There are suggestion of prior bilateral mastectomy. There are few scattered small hypodense lesions within the liver. These appear similar in size to the prior study and therefore likely represent cysts. The visualized spleen and adrenal glands are unremarkable. Partially visualized mild right hydronephrosis. Small to moderate amount of ascites. There appears to be a omental nodularity concerning for metastatic disease. This is only partially imaged on this study. Small right pleural effusion. No mediastinal or hilar lymphadenopathy. The heart is normal in size. The central pulmonary arteries are patent. Normal caliber thoracic aorta with no evidence for dissection. No pneumothorax. The central airways are patent. Bibasilar linear densities favor subsegmental atelectasis. IMPRESSION: 1. Healing pathologic left posterior ninth rib fracture. 2. Multiple small scattered lytic lesions seen throughout the visualized osseous structures. This is consistent with metastatic disease or multiple myeloma. 3. Small right pleural effusion. 4. Small to moderate amount of ascites. There is also omental nodularity consistent with peritoneal carcinomatosis. 5. Partially visualized mild right hydronephrosis. Electronically signed by: Jamel Mcclain M.D. 12/03/2017 2:04 PM Dictated Date/Time: 12/03/2017 1:37 PM
[2017-12-03 15:20] VITALS: BP 164/93
[2017-12-03] MEDS ORDERED: ONDA4TAB10 SL (15:46)
--- NOTE | 2017-12-03 15:48 | EMERGENCY ROOM VISIT NOTE ---
History First contact with patient: 12:00 Chief Complaint: RIB PAIN Stated Complaint: PAIN IN/ AROUND L RIB CAGE,LOWER BACK AND ABD PAIN History of Present Illness The patient is a 72 year old female who presents to the Emergency Room with complaints of left lower rib pain which radiates towards the back into the abdomen. The pain has been going on for several weeks. She was seen here on November 12 for the same and had a rib x-ray which was negative. She continued to have the pain and was seen by her PCP on Wednesday and had a repeat chest x-ray performed at [facility] which she states revealed a pleural effusion on the right and question of pulmonary nodule. The patient was then seen by oncology, Dr. Joya today and sent over for further evaluation. The patient has known metastases from a prior breast cancer which has now spread into her omentum, mesentery and also peritoneal region as noted on a PET scan CT of October 25 done at a different facility. The patient denies any shortness of breath or fever. She states the pain is definitely worse with movement she states if she is holding still there is minimal pain but if she moves it goes to an 8 out of 10. The patient denies any nausea or vomiting. The patient is currently on [place] for Femera for her cancer. She started this less than 2 weeks ago. The patient states that she does have some pain in the left upper abdomen. The patient admits to normal bowel movements. The patient denies any urinary symptoms of frequency, urgency, dysuria or hematuria. Review of Systems 10 system review was performed and was negative unless stated otherwise history of present illness. Past Medical/Surgical History Medical Problems: (1) Asthma (2) Stafford's esophagus (3) Breast cancer of upper-outer quadrant of right female breast (4) Celiac disease (5) Chest pain (6) Fibromyalgia (7) GERD (gastroesophageal reflux disease) (8) Hypertension (9) Melanoma Surgical Problems: (1) History of dilation and curettage Metastatic cancer to the omentum, mesentery and peritoneal regions of the abdomen. Family History FHx: cancer FHx: diabetes FHx: gallbladder disease FHx: heart disease FHx: hypertension FHx: lung disease Social History Smoking Status: Never Smoker Alcohol Use: occasionally Marital Status: Housing Status: lives with significant other Occupation Status: employed Current/Historical Medications Scheduled Anastrozole (Arimidex), 1 MG PO DAILY Biotin (Biotin), 1,000 MCG PO DAILY Calcium Carbonate-Vitamin D (Caltrate 600+D), 1 TAB PO BID Esomeprazole Magnesium (Nexium), 40 MG PO DAILY Hydrochlorothiazide (Hydrochlorothiazide), 6.25 MG PO DAILY Loratadine (Claritin), 10 MG PO DAILY Losartan Potassium (Cozaar), 50 MG PO DAILY Metronidazole Hcl (Metronidazole), 1 APPLN TD prn Mometasone Furoate (Asmanex 120 Metered Doses), 1 PUFF INH QPM Pindolol (Visken), 5 MG PO BID Sulfacetamide Sodium (Acne) (Sodium Sulfacetamide), 1 APPLN TOP Q2D Scheduled PRN Acyclovir (Zovirax), 800 MG PO q4-6H PRN for COLD SORES Albuterol (Proair Hfa), 2 PUFFS INH Q4 PRN for Wheezing Clotrimazole W/ Betamethasone (Lotrisone), 1 APPLN TOP DIRECTED PRN for skin irritation Ibuprofen Tab (Advil), 200-600 MG PO DIRECTED PRN for Pain or Fever Mometasone Furoate (Nasonex), 2 SPRAY NA DAILY PRN for ALLERGIES Oxycodone Ir (Roxicodone Ir), 5 MG PO Q4H PRN for Severe Pain [noritate], 1 APPLN TOP Q2D PRN for UNDECIDED Physical Exam Vital Signs Date Time Temp Pulse Resp B/P (MAP) Pulse Ox O2 Delivery O2 Flow Rate FiO2 12/03/17 15:20 84 16 164/93 97 Room Air 12/03/17 13:00 75 16 159/84 98 Room Air 12/03/17 12:18 75 12/03/17 11:45 36.6 77 18 165/94 98 Room Air Physical Exam GENERAL: 72-year-old white female appears pleasant and in no acute distress. MENTAL Status: Alert and oriented 3. NECK: Supple, no lymphadenopathy noted. No carotid bruits noted. LUNGS: Clear auscultation without wheezes rales or rhonchi. CARDIAC: Regular rate and rhythm without murmur. Pulses is full and equal throughout. CHEST WALL: No gross bony deformity noted. No erythema or edema noted. No rashes noted. The patient has tenderness to palpation over the left lower mid axilla line ribs. There is also tenderness palpation extending posterior and anterior from this region. ABDOMEN: Positive bowel sounds all 4 quadrants. Soft, tenderness palpation the left upper quadrant otherwise nontender to palpation without organomegaly or masses. LOWER EXTREMITIES: No cyanosis or edema noted. Medical Decision & Procedures ER Provider Diagnostic Interpretation: CHEST CT WITH AND WITHOUT VENOUS CONTRAST CT DOSE: 607.29 mGy.cm HISTORY: Left lower rib pain/rule out metastatic disease TECHNIQUE: Multiaxial CT images of the chest were performed both before and after the intravenous administration of contrast. A dose lowering technique was utilized adhering to the principles of ALARA. COMPARISON: Chest CT 05/01/2016. FINDINGS: There are multiple small scattered lytic lesions seen throughout the visualized osseous structures. This is consistent with metastatic disease or multiple myeloma. There are few old, healed bilateral rib fractures. There is a healing left posterior ninth rib pathologic fracture. Surgical clips within the right axilla. There are suggestion of prior bilateral mastectomy. There are few scattered small hypodense lesions within the liver. These appear similar in size to the prior study and therefore likely represent cysts. The visualized spleen and adrenal glands are unremarkable. Partially visualized mild right hydronephrosis. Small to moderate amount of ascites. There appears to be a omental nodularity concerning for metastatic disease. This is only partially imaged on this study. Small right pleural effusion. No mediastinal or hilar lymphadenopathy. The heart is normal in size. The central pulmonary arteries are patent. Normal caliber thoracic aorta with no evidence for dissection. No pneumothorax. The central airways are patent. Bibasilar linear densities favor subsegmental atelectasis. IMPRESSION: 1. Healing pathologic left posterior ninth rib fracture. 2. Multiple small scattered lytic lesions seen throughout the visualized osseous structures. This is consistent with metastatic disease or multiple myeloma. 3. Small right pleural effusion. 4. Small to moderate amount of ascites. There is also omental nodularity consistent with peritoneal carcinomatosis. 5. Partially visualized mild right hydronephrosis. Electronically signed by: Jamel Mcclain M.D. 12/03/2017 2:04 PM Laboratory Results Test 12/03/17 12:52 Bedside Hemoglobin 10.9 g/dl (12.0-16.0) Bedside Hematocrit 32 % (37-47) Bedside Sodium 141 mEq/L (135-144) Bedside Potassium 3.9 mEq/L (3.3-5.0) Bedside Chloride 105 mEq/L (101-112) Bedside Total CO2 24 mEq/l (24-31) Anion Gap 18.0 mmol/L (16-25) Bedside Blood Urea Nitrogen 20 mg/dl (7-18) Bedside Creatinine 1.0 mg/dl (0.6-1.3) Bedside Glucose (other) 131 mg/dl (70-99) Bedside Ionized Calcium (Alyssa) 1.20 mmol/l (1.12-1.32) Medications Administered Medications (Trade) Dose Ordered Sig/Ras Route Start Time Stop Time Status Last Admin Dose Admin Ondansetron HCl (Zofran Inj) 4 mg NOW STAT IV 12/03/17 12:31 12/03/17 12:36 DC 12/03/17 13:01 4 MG Methylprednisolone Sodium Succinate (Solu-Medrol IV) 125 mg NOW STAT IV 12/03/17 12:31 12/03/17 12:36 DC 12/03/17 13:01 125 MG Diphenhydramine HCl (Benadryl Inj) 50 mg NOW STAT IV 12/03/17 12:31 12/03/17 12:36 DC 12/03/17 13:00 50 MG Oxycodone HCl (Roxicodone Immediate Rel Tab) 5 mg NOW STAT PO 12/03/17 12:45 12/03/17 12:46 DC 12/03/17 13:04 5 MG ED Course The patient was evaluated. I reviewed the patient's PET scan from October 25 which she had a copy with her to the ER. I also contacted Dr. Joya to find out exactly why he sent the patient to the ER. He stated that he would like a CAT scan of the chest to rule out any metastatic disease to the chest. I informed the patient of treatment plan. The patient does have an allergy and therefore I consulted Dr. Quach about premedication. We will premedicate the patient with 50 mg of Benadryl and 125 mg of Solu-Medrol IV. IV access was obtained. I-STAT BMP was ordered and reviewed prior to sending the patient for a CAT scan. The patient was also offered morphine for pain but declined. She was given OxyIR 5 mg p.o. for pain and Zofran 4 mg IV push for associated nausea. CAT scan was interpreted by the radiologist as above with multiple lytic lesions throughout the bony structures within the chest cavity. No evidence of pulmonary nodules. There is also small to moderate amount of ascites within the abdomen noted on the upper abdomen of the CT. The patient was informed of the findings. The patient was independently evaluated by Dr. Quach who agree with treatment plan. The patient was given incentive spirometer instructions by the nurse. She was also instructed to make sure that she uses her oxycodone that she has at home for pain. I will also give her a prescription for Zofran to take in addition for nausea. She is also recommended to take MiraLAX and/or stool softener daily to prevent constipation while on the pain medication. I contacted Dr. Joya, oncology about the findings and he stated to make sure she had pain medication and that they would call her and see her in the office on Wednesday. The patient was informed of treatment plan. She also was given a CD of her CAT scan to take to her oncologist at [place]. The patient was discharged home in stable condition. Medical Decision Differential diagnosis include compression fracture, metastatic cancer, rib fracture, pleuritic chest pain [place] Drug Monitoring Program Search Results: patient reviewed within database Medication Reconcilliation Current Medication List: was personally reviewed by me Blood Pressure Screening Patient's blood pressure: Elevated blood pressure Blood pressure disposition: Elevated BP felt to be situational Impression Primary Impression: Metastatic cancer to bone Additional Impression: Ascites Departure Information Dispostion Home / Self-Care Condition GOOD Prescriptions Ondasetron Odt (ZOFRAN ODT) 4 Mg Tab 4 MG SL Q6H for Nausea, #30 TAB Prov: Beverly Jean PA-C 12/03/17 Referrals No Doctor, Assigned (PCP) Forms HOME CARE DOCUMENTATION FORM, IMPORTANT VISIT INFORMATION, WORK / SCHOOL INSTRUCTIONS Patient Instructions My [facility] [employer] Additional Instructions Take Tylenol and oxycodone as needed for pain. Do not drive while taking the oxycodone. Take Zofran as needed for associated nausea. Recommend taking MiraLAX and or stool softener daily to prevent constipation from the oxycodone. Avoid any strenuous exercise or heavy lifting to prevent fracture. Do the incentive spirometer as instructed by nursing staff. Dr. Joya's office will be calling you for a follow-up appointment on Wednesday. If symptoms worsen in the interim, return to ER. Problem Qualifiers Additional Impression: Ascites Ascites type: malignant Qualified Codes: R18.0 - Malignant ascites
[2017-12-03 16:15] VITALS: PULSE 83; O2SAT 98
--- NOTE | 2017-12-03 18:52 | EMERGENCY ROOM VISIT NOTE ---
ED Visit Note First contact with patient: 12:00 I have personally seen and evaluated the patient with the PA. I agree with the diagnosis and management decisions and have been personally involved in the case. Please see Yahaira Jean PA-C's notes for further details of the history, physical and visit.
== END 2017-12-03 16:15 | disposition home or self-care (01) ==
LOC: C.EDB 11:44 → C.EDC 16:15
DX: C79.51 Secondary malignant neoplasm of bone (principal); R18.0 Malignant ascites; M84.48XD Pathological fracture, other site, subsequent encounter for fracture with routine healing; Z85.3 Personal history of malignant neoplasm of breast; M79.7 Fibromyalgia; I10 Essential (primary) hypertension; K21.9 Gastro-esophageal reflux disease without esophagitis; Z79.899 Other long term (current) drug therapy; Z83.3 Family history of diabetes mellitus; Z82.49 Family history of ischemic heart disease and other diseases of the circulatory system; Z83.79 Family history of other diseases of the digestive system; Z80.9 Family history of malignant neoplasm, unspecified

== ENCOUNTER → 2017-12-09 | Outpatient (CLI) | payer BC ==
[~2017-12-09] MED LIST changes: +ONDA4TAB10 SL
[2017-12-09 11:42] LABS: BASO % 0.4 %; BASO ABS # 0.01 K/uL (0-0.2); EOS % 5.5 %; EOS ABS # 0.15 K/uL (0-0.5); HEMATOCRIT 35.1 % (37-47); HEMOGLOBIN 11.4 g/dL (12.0-16.0); IG# 0.01 K/uL (0.00-0.02); LYMPH % 18.7 %; LYMPH ABS # 0.51 K/uL (1.2-3.4); MEAN CELL VOLUME 85.8 fL (80-100); MEAN CORPUSCULAR HEMOGLOBIN 27.9 pg (25-34); MONO % 6.6 %; MONO ABS # 0.18 K/uL (0.11-0.59); NEUT % 68.4 %; NEUT ABS # 1.87 K/uL (1.4-6.5); PLATELET COUNT 155 K/uL (130-400); RED CELL DISTRIBUTION WIDTH SD 49.7 fL (36.4-46.3); WHITE BLOOD COUNT 2.73 K/uL (4.8-10.8)
[2017-12-09 11:49] LABS: MEAN CORPUSCULAR HGB CONC 32.5 g/dl (32-36)
== END | disposition home or self-care (01) ==
LOC: C.LAB 10:50
PROVIDERS: ATTEND Internal Medicine Hematology & Oncology
DX: C50.911 Malignant neoplasm of unspecified site of right female breast (principal)

== ENCOUNTER → 2017-12-22 | Outpatient (CLI) | payer BC ==
[~2017-12-22] MED LIST changes: -ANAS1TAB59 PO; +DOCU-94 PO; +FMR25 PO; -ONDA4TAB10 SL; -OXYC-90 PO; +PALB125C PO; +TYLOTC500 PO
[2017-12-22 13:00] LABS: BASO % 0.5 %; BASO ABS # 0.01 K/uL (0-0.2); EOS % 3.7 %; EOS ABS # 0.07 K/uL (0-0.5); HEMATOCRIT 33.6 % (37-47); IG# 0.01 K/uL (0.00-0.02); LYMPH % 24.3 %; LYMPH ABS # 0.46 K/uL (1.2-3.4); MEAN CELL VOLUME 88.2 fL (80-100); MEAN CORPUSCULAR HEMOGLOBIN 28.9 pg (25-34); MEAN CORPUSCULAR HGB CONC 32.7 g/dl (32-36); MEAN PLATELET VOLUME 9.3 fL (7.4-10.4); MONO % 12.2 %; MONO ABS # 0.23 K/uL (0.11-0.59); NEUT % 58.8 %; NEUT ABS # 1.11 K/uL (1.4-6.5); PLATELET COUNT 162 K/uL (130-400); RED CELL DISTRIBUTION WIDTH CV 17.4 % (11.5-14.5); RED CELL DISTRIBUTION WIDTH SD 55.1 fL (36.4-46.3); WHITE BLOOD COUNT 1.89 K/uL (4.8-10.8)
[2017-12-22 13:38] LABS: ALBUMIN 3.4 gm/dl (3.4-5.0); ALKALINE PHOSPHATASE 95 U/L (45-117); ALT/SGPT 35 U/L (12-78); AST/SGOT 31 U/L (15-37); BLOOD UREA NITROGEN 23 mg/dl (7-18); CALCIUM 9.2 mg/dl (8.5-10.1); CARBON DIOXIDE 26 mmol/L (21-32); CREATININE 1.15 mg/dl (0.60-1.20); GLUCOSE 88 mg/dl (70-99); POTASSIUM 4.6 mmol/L (3.5-5.1); SODIUM 138 mmol/L (136-145)
[2017-12-26 22:32] LABS: CA 27.29** TC 20123E 2838 U/ML (<38); CA15-3 BREAST ANTIGEN 5819 1563 U/mL (<32)
== END | disposition home or self-care (01) ==
LOC: C.LAB 11:01
PROVIDERS: ATTEND Internal Medicine Hematology & Oncology
DX: C50.411 Malignant neoplasm of upper-outer quadrant of right female breast (principal); Z17.0 Estrogen receptor positive status [ER+]

== ENCOUNTER 2018-09-26 14:09 | Observation (INO) ==
--- OUTSIDE RECORDS SUMMARY | 2018-09-26 14:12 | External Medical Summary | Continuity of Care Document ---
:1945 Author Name Chilo Meyers, Provider Address Unavailable Unavailable , Care Team Providers Name Role Phone Jose Quigley [email or web address] Chandu Saldaña [email or web address] Jill NAVAS JR Unavailable Unavailable Unavailable Unavailable Unavailable Assessments Assessed Problems:HypertensionPalpitationsDyspnea on exertionMetastatic breast cancer Problems Rhinitis (472.0) (J31.0) Rosacea (695.3) (L71.9) Osteopenia (733.90) (M85.80) Nontropical sprue (579.0) (K90.0) Menopausal symptoms (627.2) (N95.1) Breast cyst (610.0) (N60.09) Allergic reaction (995.3) (T78.40XA) Laryngopharyngeal reflux (478.79) (K21.9) Voice fatigue (784.49) (R49.8) Odynophonia (784.1) (R07.0) Dyspnea on exertion (786.09) (R06.09) Hypertension (401.9) (I10) Palpitations (785.1) (R00.2) Metastatic breast cancer (174.9) (C50.919) Rapid heart beat (785.0) (R00.0) BRCA negative (V82.71) (Z13.71) Encounter for routine gynecological examination (V72.31) (Z0 1.419) Chest tightness or pressure (786.59) (R07.89) Asthma (493.90) (J45.909) Infiltrating lobular carcinoma, right Stafford's esophagus (530.85) (K22.70) Chronic reflux esophagitis (530.11) (K21.0) Allergic rhinitis due to dust (477.8) (J30.89) Shortness of breath (786.05) (R06.02) Atypical chest pain (786.59) (R07.89) Cold sore (054.9) (B00.1) Allergies and Adverse Reactions Bactrim TABS (Allergy) Reaction: Rash Erythromycin TABS (Allergy) oxyCODONE HCl TABS (Allergy) Penicillins (Allergy) Reaction: Rash Sulfa Drugs (Allergy) Dust (Allergy) Gluten (Allergy) Latex (Allergy) Peanuts (Allergy) Shellfish (Allergy) Medications Sodium Sulfacetamide 10 % OINT; aPPLY ONE TIME EVERY OTHER D AY. Refills: 0 Clotrimazole 1 % External Cream; USE NEEDED Refills: 0 traMADol HCl - 50 MG Oral Tablet; TAKE 1 TABLET Every 8 hour s Start: 22-Sep-2018 Refills: 0 Lovenox 60 MG/0.6ML Subcutaneous Solution; INJECT 60 MG Twic e daily Start: 22-Sep-2018 Refills: 0 0.6 ML Syringe Aspirin 81 MG Oral Tablet Delayed Release; Take 1 tablet evita ly Start: 22-Sep-2018 Refills: 0 Lasix 20 MG Oral Tablet; TAKE ONE TABLET BY MOUTH ONCE DAILY Start: 22-Sep-2018 Refills: 0 Claritin CAPS Refills: 0 Nasonex 50 MCG/ACT Nasal Suspension Refills: 0 Pindolol 5 MG Oral Tablet; take 1 tablet by mouth twic e a day Mira Saldaña Start: 14-Apr-2016 Quantity: 180 Refills: 3 Noritate 1 % External Cream; APPLY SPARI NGLY TO THE AFFECTED AREA(S) ONCE DAILY DIRECTED. Miar Quigley Start: 21-Oct-2010 Refills: 0 ProAir HFA 108 (90 Base) MCG/ACT Inhalat ion Aerosol Solution; INHALE 2 PUFFS Every 4 hours PRN Mira Quigley Start: 21-Oct-2010 Quantity: 1 8.5 GM Inhaler Refills: 11 Asmanex 120 Metered Doses 220 MCG/INH In halation Aerosol Powder Breath Activated; INHALE 1 PUFFS Daily Mira Quigley Start: 21-Oct-2010 Refills: 0 EpiPen CHAVA Refills: 0 Tylenol TABS Refills: 0 Colace CAPS Refills: 0 Xgeva SOLN Refills: 0 Zantac CAPS Refills: 0 Benadryl TABS Refills: 0 Zofran TABS Refills: 0 Decadron SOLN Refills: 0 Taxol CONC Refills: 0 Lumigan SOLN Refills: 0 Caltrate 600+D 600-400 MG-UNIT CHEW Refills: 0 Cozaar 50 MG Oral Tablet; TAKE 1 TABLET DAILY. Mira Quigley Start: 21-Oct-2010 Refills: 0 Acyclovir 800 MG Oral Tablet; TAKE 1 TAB LET EVERY 8 HOURS, 5 TIMES DAILY FOR 2 DAYS. Refills: 0 NexIUM 40 MG Oral Capsule Delayed Release; TAKE 1 CAPS ULE Daily Mira Quigley Start: 18-Sep-2016 Quantity: 30 Refills: 5 Biotin TABS; Take 1 tablet daily Refills: 0 Procedures History of Dilation And Curettage Status : Completed History of Breast Surgery Puncture Aspiration Of Cyst Status: Completed History of Hallux Valgus (Bunion) Correction Status: Completed History of Mastectomy Bilateral Status: Completed History of Radiation Therapy Status: Com pleted Immunizations Immunizations not documented Family History Unknown Family Member Family history of Nontropical (Celiac) Sprue Status: Active Comments: Family History Family history of Asthma (V17.5) Status: Active Comment s: Family History Family history of Bladder Cancer (V16.52) Status: Active Comments: Family History Father Family history of Coronary Artery Disease Status: Active Family history of deafness or hearing loss (V19.2) (Z82.2) S tatus: Active Family history of hypertension (V17.49) (Z82.49) Status: Act odalys Grandmother Family history of Breast Cancer (V16.3) Status: Active Sister Family history of Salivary gland cancer (142.9) (C08.9) Stat us: Active Family history of malignant neoplasm of breast (V16.3) (Z80. 3) Status: Active Brother Family history of asthma (V17.5) (Z82.5) Status: Active Mother Family history of hypertension (V17.49) (Z82.49) Status: Act odalys Social History - Smoking Status Never smoker Interventions Discussion/SummaryAssessment: 1. Symptomatic premature ventricular beats. Good control with pindolol. no symptoms of asustained arrhythmia. 2. No anginal-type complaints. 3. No evidence of pulmonary vascular congestion. 4. Ascites and significant bilateral leg edema. 5. Borderline low blood pressure today. 6. No bleeding complaints on enoxaparin. Plan: 1. Continue pindolol 5 mg once daily. 2. cardiology follow-up as needed. 3. Continue follow-up with her primary care provider and oncology providers. 4. She is well aware to contact me if she d evelops any new or worsening cardiac type symptoms. Approximately 25 Minutes was spent with the patient. Greater than 50% of time with patient was spent on counseling and coordinating care. Review of her symptoms and condition since she was last seen in Cardiology Clinic. Discussion regarding her cardiac medications. Discussion regarding her ascites and peripheral edema.More than 25 minutes was spent with the patient of which greater than 50% was spent on counseling and coordinating care. Plan of Treatment Planned Observations Planned Goals not documented Results No Known Results Results not documented Vital Signs 22-Sep-2018 14:09 Systolic 100 mm[Hg] Comments: Location: E; Position: Sitting Diastolic 64 mm[Hg] Comments: Location: E; Position: Sitting BMI Calculated 29.26 kg/m2 Weight 181.3 lb BSA Calculated 1.92 m2 Heart Rate 64 /min Encounters Appointment; [facility] 23-Jun-2018 13:15 Encounter Diagnosis: Problem not documented Appointment; Zena Smith M.D. 02-Jun-2017 11:20 Encounter Diagnosis: Problem not documented Appointment; Luis Alberto Saldaña M.D. 29-Mar-2017 15:45 Encounter Diagnosis: Problem not documented Appointment; Luis Alberto Saldaña M.D. 22-Sep-2018 14:15 Encounter Diagnosis: Problem not documented
--- NOTE | 2018-09-26 14:56 | Emergency Department Note ---
ED Visit Note I have seen and examined this patient with Judi Giron and generally agree with the treatment plan as discussed. .
--- NOTE | 2018-09-26 15:07 | Emergency Department Note ---
History of Present Illness General Chief complaint: Abnormal Labs/Diagnostic Testing Stated complaint: HIGH POTASSIUM - SENT BY DR JOYA Time Seen by Provider: 09/26/18 14:34 History of Present Illness Maximum Pain Intensity: 0 This patient is a 72-year-old female presents to the emergency department per recommendations of her oncologist for abnormal lab values. The patient was due for chemotherapy this morning for history of metastatic breast cancer. Labs were drawn. She was told her potassium was high, and to come to the emergency department. She currently has no complaints. No chest pain, heart palpitations or difficulty breathing. No recent illnesses such as fever or chills. No cough. No changes in bowel movements. She is eating and drinking normally. Home Medications Home Medications Medication Instructions Recorded Confirmed Type acyclovir 800 mg PO TID PRN 01/15/18 09/26/18 History albuterol sulfate 2 puff INHALATION Q4H PRN 01/15/18 09/26/18 History biotin 1 mg PO DAILY 01/15/18 09/26/18 History clotrimazole-betamethasone 1 applic TOPICAL BID PRN 01/15/18 09/26/18 History epinephrine [EpiPen] 0.3 mg IM Q3H PRN 01/15/18 09/26/18 History pindolol 5 mg PO BID 01/15/18 09/26/18 History acetaminophen 500 mg tablet 500 mg PO Q6H PRN tab 02/11/18 09/26/18 History calcium carbonate 600 mg(1,500 1 tab PO BID 02/11/18 09/26/18 History mg)-vitamin D3 800 unit chewable tablet metronidazole 1 % topical cream 1 appln TOP Q2D gm 02/11/18 09/26/18 History tramadol 50 mg tablet 50 mg PO Q8H tab 02/11/18 09/26/18 History Asmanex HFA 1 puff INHALATION Q12H 07/18/18 09/26/18 History Lumigan 1 drp OPB DAILY 07/18/18 09/26/18 History enoxaparin [Lovenox] 60 mg SUBCUT BID 07/18/18 09/26/18 History furosemide [Lasix] 20 mg PO DAILY 07/18/18 09/26/18 History loratadine [Claritin] 10 mg PO DAILY 07/18/18 09/26/18 History aspirin 81 mg PO DAILY 07/26/18 09/26/18 History dexamethasone 12 mg PO .SEE INSTRUCTIONS 07/26/18 09/26/18 History esomeprazole magnesium [Nexium] 40 mg PO DAILY 07/26/18 09/26/18 History denosumab [Xgeva] 120 mg SUBCUT .MONTHLY 09/26/18 09/26/18 History docusate sodium 100 mg PO BID PRN 09/26/18 09/26/18 History mometasone 2 spray INTRANASAL DAILY PRN 09/26/18 09/26/18 History ondansetron HCl 8 mg PO Q8H PRN 09/26/18 09/26/18 History prochlorperazine maleate 10 mg PO Q8H PRN 09/26/18 09/26/18 History sulfacetamide sodium (acne) 1 applic TOPICAL Q2D 09/26/18 09/26/18 History [Klaron] Allergies Allergy/AdvReac Type Severity Reaction Status Date / Time oxycodone Allergy SV SHORTNESS Verified 07/29/18 09:21 OF BREATH shrimp Allergy SV THROAT Verified 07/29/18 09:21 CLOSING, ITCHING Penicillins Allergy Intermediate RASH Verified 07/29/18 09:21 Sulfa (Sulfonamide Allergy Intermediate RASH Verified 07/29/18 09:21 Antibiotics) gluten Allergy MO CELIAC Verified 07/29/18 09:21 DISEASE latex Allergy MO RASH Verified 07/29/18 09:21 peanut Allergy MO INCONSISTENT Verified 07/29/18 09:21 ALLERGY TEST RESULT azithromycin Allergy U Unknown Verified 07/29/18 09:21 Dust Mite Extract Allergy Unknown ALLERGY Verified 07/29/18 09:21 TEST RESULT erythromycin base AdvReac Mild STOMACH Verified 07/29/18 09:21 PAIN mivacurium AdvReac MO increased Verified 07/29/18 09:21 blood pressure Past Med/Surg History Medical History Pulmonary embolism Sensorineural hearing loss (SNHL) of right ear (Chronic) Vertigo (Chronic) Abdominal carcinomatosis (Chronic) Pathological fracture of rib of right side (Chronic) Right lateral fifth and eighth rib Pathological fracture of rib of left side (Chronic) Ninth posterior rib Metastatic breast cancer (Chronic) Status post mastectomy 06/04/2015 with radiation therapy completion 10/14/2015 Asthma (Chronic) Melanoma (Chronic) Celiac disease (Chronic) GERD (gastroesophageal reflux disease) (Chronic) Stafford's esophagus (Chronic) Fibromyalgia (Chronic) Bilateral pulmonary embolism (Chronic) On chronic Eliquis therapy Breast cancer of upper-outer quadrant of right female breast (Chronic 04/29/15) " Right breast mass found on physical examination Status post biopsy 04/29/2015 revealing a lobular carcinoma Estrogen receptor positive, positive progesterone, receptor positive HER- 2/jorge negative Status post right modified radical mastectomy with lymph node dissection and left total mastectomy 06/04/2015 Pathologic stage pT3 pN2 M0 Oncotype DX score of 2 Status post completion of radiation therapy to the chest wall, supraclavicular, and axilla 10/14/2015 received 6120 cGy Rib pain and healing pathologic fracture of the left ninth posterior rib PET/CT October 26, 2017 at [facility] showing peritoneal carcinomatosis/ascites. FDG avid right lateral eighth rib activity and T9 vertebral body metabolic activity Status post omental biopsy November 17, 2017 revealing metastatic lobular breast carcinoma Initiation of Ibrance and Femara. She will also start Xgeva." On 05/13/17 16:00 Tammy Trejo wrote " Right breast mass found on physical examination Status post biopsy 04/29/2015 revealing a lobular carcinoma Estrogen receptor positive, positive progesterone, receptor positive HER- 2/jorge negative Status post right modified radical mastectomy with lymph node dissection and left total mastectomy 06/04/2015 Pathologic stage pT3 pN2 M0 Oncotype DX score of 2 Status post completion of radiation therapy to the chest wall, supraclavicular, and axilla 10/14/2015 received 6120 cGy" On 10/18/15 14:05 Tammy Trejo wrote " Right breast mass found on physical examination Status post biopsy 04/29/2015 revealing a lobular carcinoma Estrogen receptor, positive progesterone, receptor positive HER-2/jorge negative Status post right modified radical mastectomy with lymph node dissection and left total mastectomy 06/04/2015 Pathologic stage pT3 pN2 M0 Oncotype DX score of 2 Status post completion of radiation therapy to the chest wall, sup raclavicular, and axilla 10/14/2015 received 6120 cGy" On 10/18/15 14:05 Tammy Trejo wrote " Right breast mass found on physical examination Status post biopsy 04/29/2015 revealing a lobular carcinoma Estrogen receptor, positive progesterone, receptor positive HER-2/jorge negative Status post right modified radical mastectomy with lymph node dissection and left total mastectomy 06/04/2015 Pathologic stage pT3 pN2 M0 Oncotype DX score of 2 Status post completion of radiation therapy to the chest wall, supraclavicular, and axilla 10/14/2015 received 6120 cGy" On 06/26/15 10:03 Tammy Trejo wrote " Right breast mass found on physical examination Status post biopsy 04/29/2015 revealing a lobular carcinoma Estrogen receptor, positive progesterone, receptor positive HER-2/jorge negative Status post right modified radical mastectomy with lymph node dissection and left total mastectomy 06/04/2015 Pathologic stage pT3 pN2 M0" On 06/26/15 09:58 Tammy Trejo wrote " Right breast mass found on physical examination Status post biopsy 04/29/2015 revealing a lobular carcinoma Estrogen receptor, positive progesterone, receptor positive HER-2/jorge negative Status post right modified radical mastectomy with lymph node dissection and left total mastectomy Pathologic stage pT3 pN2 M0" Chest pain (Chronic) Hypertension (Chronic) CVA (cerebral vascular accident) (Acute) Lymphedema (Acute) right arm Hemorrhagic cystitis (Resolved) Hypertension (Resolved) UTI (urinary tract infection) (Resolved) Vaginitis (Resolved) Surgical History History of bunionectomy H/O lymph node biopsy (Resolved) Right axilla H/O mastectomy (Resolved) History of dilation and curettage (Resolved) S/P mastectomy, bilateral Family History Other Cancer Social History Preferred Language: Namibian Communication Ability: Effective Beliefs That Will Affect Care: Spiritual Current Living Situation: Spouse Feels Safe at Home: Yes Safety Concerns: Feels Safe At This Time Smoking Status: Never smoker Second Hand Exposure: No Hx Alcohol Use: No Hx Substance Use: No Review of Systems A total of 10 systems reviewed and were otherwise negative Physical Exam Vital Signs Vital Signs - 24 hr 09/26/18 14:11 09/26/18 16:09 09/26/18 18:00 Temperature 36.6 C Temperature Source Oral Sepsis Recent Fever Within 48 Hours No Sepsis New/Unexplained Change in Mental Status No Sepsis Action Taken by Nursing No Action Required Pulse Rate 87 Pulse Rate [Apical] 99 H 99 H Respiratory Rate 18 16 16 Respiratory Effort / Characteristics Non-Labored Respiratory Depth Normal Blood Pressure 120/78 Blood Pressure [Left Arm] 112/72 114/71 Blood Pressure Mean 92 Blood Pressure Mean [Left Arm] 85 85 Blood Pressure Position Sitting Pulse Oximetry 98 98 97 Oxygen Delivery Method Room Air Room Air Room Air 09/26/18 18:07 Temperature Temperature Source Sepsis Recent Fever Within 48 Hours Sepsis New/Unexplained Change in Mental Status Sepsis Action Taken by Nursing Pulse Rate Pulse Rate [Apical] 97 H Respiratory Rate 18 Respiratory Effort / Characteristics Non-Labored Spontaneous Respiratory Depth Blood Pressure Blood Pressure [Left Arm] Blood Pressure Mean Blood Pressure Mean [Left Arm] Blood Pressure Position Pulse Oximetry 96 Oxygen Delivery Method Room Air Constitutional WD/WN, vitals as above Eyes EOM intact bilaterally ENMT Oral mucosa slightly dry Neck trachea midline Respiratory normal respiratory effort, lungs clear to auscultation Cardiovascular RRR, no murmur, no edema Gastrointestinal (Abdomen) Significant distention noted but soft. Positive ascites. Bowel sounds present. No tenderness to palpation. Musculoskeletal +2 pitting edema without any erythema or warmth appreciated in the lower extremities bilaterally. Skin no rashes, warm and dry Neurologic Alert and oriented x3. No focal motor deficits. Psychiatric Acting appropriately Course Patient was seen and examined Vital signs including blood pressure were reviewed medications list was verified with patient Labs were obtained, and a saline lock was established The patient was put on a monitor The patient's labs were reviewed. The findings were discussed with my supervising physician in addition to the patient and her family. Albuterol nebulizer treatment, calcium gluconate 1 g IV, insulin 10 units IV, dextrose 50 IV ordered EKG was performed and reviewed The case was discussed with oncology The patient was reassessed and resting comfortably. We discussed her work-up and recommendations of her oncologist. She voiced understanding, and was in agreement. I spoke with the [facility] hospitalist group. They kindly agreed to evaluate the patient for possible further inpatient management Consultations Consultation #1: Dr. Joya Consultation #2: Dr. Garcia Administered Medications Enoxaparin Sodium (Lovenox) 60 mg SQ BID JULIAN Stop: 10/26/18 20:59 Last Admin: 09/26/18 21:40 Dose: 60 mg Documented by: [id number] Mometasone Furoate (Asmanex 220mcg) 1 puffs INH Q12H JULIAN Stop: 10/26/18 20:59 Last Admin: 09/26/18 21:41 Dose: Not Given Documented by: [id number] Multivitamins/Minerals (Caltrate Plus) 1 tab PO BID JULIAN Stop: 10/26/18 20:59 Last Admin: 09/26/18 21:41 Dose: Not Given Documented by: [id number] Tramadol HCl (Ultram) 50 mg PO Q8 JULIAN Stop: 10/26/18 21:59 Last Admin: 09/26/18 21:40 Dose: 50 mg Documented by: [id number] Discontinued Medications Albuterol (Ventolin 0.083% 2.5mg/3ml) 2.5 mg NEB NOW STA Stop: 09/26/18 16:18 Last Admin: 09/26/18 18:07 Dose: 2.5 mg Documented by: [id number] Dextrose (Dextrose 50%) 50 ml IV NOW ONE Stop: 09/26/18 16:18 Last Admin: 09/26/18 16:41 Dose: 50 ml Documented by: [id number] Sodium Chloride (Nss 1000ml) 500 mls @ 999 mls/hr IV .Q31M ONE Stop: 09/26/18 16:32 Last Infusion: 09/26/18 17:00 Dose: 0 mls/hr Documented by: [id number] Admin: 09/26/18 16:14 Dose: 999 mls/hr Documented by: [id number] Calcium Gluconate 1,000 mg/ (Sodium Chloride) 60 mls @ 240 mls/hr IV NOW STA Stop: 09/26/18 16:37 Last Infusion: 09/26/18 17:58 Dose: 0 mls/hr Documented by: [id number] Admin: 09/26/18 17:39 Dose: 240 mls/hr Documented by: [id number] Albumin Human (Albumin 25%) 50 mls @ 50 mls/hr IV Q1H JULIAN Stop: 09/26/18 22:20 Last Admin: 09/26/18 22:46 Dose: 50 mls/hr Documented by: [id number] Infusion: 09/26/18 22:31 Dose: 50 mls/hr Documented by: [id number] Admin: 09/26/18 21:31 Dose: 50 mls/hr Documented by: [id number] Insulin Human Regular (Novolin R U-100 Per Unit) 10 units IV NOW STA Stop: 09/26/18 16:18 Last Admin: 09/26/18 16:42 Dose: 10 units Documented by: [id number] Cosigned by: [id number] Medical Decision Making Medical Records Attestation: I reviewed the patient's medical records. Home Medications Current Medication List: was personally reviewed by me Laboratory Data Attestation: I reviewed the patient's lab results. Result diagrams: 09/26/18 15:05 09/26/18 20:54 Lab Results 09/26/18 09/26/18 09/26/18 Range/Units 15:05 15:05 15:05 WBC 5.64 (4.8-10.8) K/uL RBC 3.17 L (4.2-5.4) M/uL Hgb 9.2 L (12.0-16.0) g/dL POC Hgb (12.0-16.0) g/dl Hct 28.8 L (37-47) % POC Hct (37-47) % MCV 90.9 (80-100) fL MCH 29.0 (25-34) pg MCHC 31.9 L (32-36) g/dL RDW Std Deviation 67.6 H (36.4-46.3) fL RDW Coeff of Rachel 20.4 H (11.5-14.5) % Plt Count 255 (130-400) K/uL MPV 8.8 (7.4-10.4) fL Immature Gran % (Auto) 0.5 % Neut % (Auto) 82.8 % Lymph % (Auto) 13.7 % [place] % (Auto) 2.5 % Eos % (Auto) 0.5 % Baso % (Auto) 0.0 % Immature Gran # (Auto) 0.03 H (0.00-0.02) K/uL Neut # (Auto) 4.67 (1.4-6.5) K/uL Lymph # (Auto) 0.77 L (1.2-3.4) K/uL [place] # (Auto) 0.14 (0.11-0.59) K/uL Eos # (Auto) 0.03 (0-0.5) K/uL Baso # (Auto) 0.00 (0-0.2) K/uL Absolute Nucleated RBC 0.00 (0-0) K/uL Nucleated RBC % (auto) 0.0 % Polychromasia 1+ Anisocytosis Present PT 12.4 H (9.0-12.0) Seconds INR 1.2 H (0.9-1.1) APTT 42.1 H (21.0-31.0) Seconds PTT Ratio 1.6 POC Sodium (135-144) mEq/L Sodium 133 L (136-145) mmol/L POC Potassium (3.3-5.0) mEq/L Potassium 5.6 H (3.5-5.1) mmol/L POC Chloride (101-112) mEq/L Chloride 104 (98-107) mmol/L Carbon Dioxide 23 (21-32) mmol/L POC Total CO2 (24-31) mEq/l Anion Gap 6.0 (3-11) POC Anion Gap (16-25) mmol/L POC BUN (7-18) mg/dl BUN 17 (7-18) mg/dl Creatinine 1.37 H (0.6-1.2) mg/dl POC Creatinine (0.6-1.3) mg/dl Est Cr Clr Drug Dosing 41.3 ml/min Est GFR ( Amer) 45.2 Est GFR (Non-Af Amer) 39.0 BUN/Creatinine Ratio 12.5 (10-20) Glucose 144 H (70-99) mg/dl POC Glucose (other) (70-99) mg/dl Calcium 7.9 L (8.5-10.1) mg/dl POC Ioniz Calcium Alyssa (1.12-1.32) mmol/l 09/26/18 Range/Units 15:08 WBC (4.8-10.8) K/uL RBC (4.2-5.4) M/uL Hgb (12.0-16.0) g/dL POC Hgb 9.2 L (12.0-16.0) g/dl Hct (37-47) % POC Hct 27 L (37-47) % MCV (80-100) fL MCH (25-34) pg MCHC (32-36) g/dL RDW Std Deviation (36.4-46.3) fL RDW Coeff of Rachel (11.5-14.5) % Plt Count (130-400) K/uL MPV (7.4-10.4) fL Immature Gran % (Auto) % Neut % (Auto) % Lymph % (Auto) % [place] % (Auto) % Eos % (Auto) % Baso % (Auto) % Immature Gran # (Auto) (0.00-0.02) K/uL Neut # (Auto) (1.4-6.5) K/uL Lymph # (Auto) (1.2-3.4) K/uL [place] # (Auto) (0.11-0.59) K/uL Eos # (Auto) (0-0.5) K/uL Baso # (Auto) (0-0.2) K/uL Absolute Nucleated RBC (0-0) K/uL Nucleated RBC % (auto) % Polychromasia Anisocytosis PT (9.0-12.0) Seconds INR (0.9-1.1) APTT (21.0-31.0) Seconds PTT Ratio POC Sodium 133 L (135-144) mEq/L Sodium (136-145) mmol/L POC Potassium 5.6 H (3.3-5.0) mEq/L Potassium (3.5-5.1) mmol/L POC Chloride 101 (101-112) mEq/L Chloride (98-107) mmol/L Carbon Dioxide (21-32) mmol/L POC Total CO2 19 L (24-31) mEq/l Anion Gap (3-11) POC Anion Gap 19.0 (16-25) mmol/L POC BUN 17 (7-18) mg/dl BUN (7-18) mg/dl Creatinine (0.6-1.2) mg/dl POC Creatinine 1.3 (0.6-1.3) mg/dl Est Cr Clr Drug Dosing ml/min Est GFR ( Amer) Est GFR (Non-Af Amer) BUN/Creatinine Ratio (10-20) Glucose (70-99) mg/dl POC Glucose (other) 153 H (70-99) mg/dl Calcium (8.5-10.1) mg/dl POC Ioniz Calcium Alyssa 1.01 L (1.12-1.32) mmol/l ECG Data Attestation: I personally reviewed and interpreted this ECG as follows: Indication: other Rate (beats per minute): 96 Rhythm: sinus rhythm Findings: + nonspecific-ST abn (Lateral) and + prolonged QT Comparison ECG Date: from (05/2018) Change: no significant change Blood Pressure Blood Pressure Findings: Normal blood pressure MDM Narrative Differential diagnosis: Dehydration, hyperkalemia, other electrolyte abnormality, renal insufficiency, among others This patient is a 72-year-old female presents to the emergency department from her oncologist office with reported hyperkalemia. On exam, the patient's vital signs were stable. She did not have any symptoms. The patient's labs reveal an elevated potassium of 5.6. Creatinine was fairly stable at her baseline at 1.37. There were no EKG changes. The patient was treated in the emergency d epartment as noted above. The case was discussed with her oncologist. He is concerned about the patient's persistent hyperkalemia. For this reason, he recommended hospitalist consultation. They will evaluate the patient for possible further inpatient management. Impression & Plan Hyperkalemia Discharge Plan Visit Data *Final* Discharge Date/Time: 09/26/18 19:40 Chief Complaint: Abnormal Labs/Diagnostic Testing Stated Complaint: HIGH POTASSIUM - SENT BY DR JOYA ED Provider: Ish Mayers ED Midlevel Provider: Judi Giron Discharge Problem: Hyperkalemia Patient Disposition: Admitted As Inpatient Condition: Fair Discharge Instructions Interventions: ED Discharge Assessment Last Done: 09/26/18 19:40
[2018-09-26 15:17] LABS: Eosinophils # (auto) 0.03 K/uL (0-0.5); Eosinophils % (auto) 0.5 %; Hematocrit (blood only) 28.8 % (37-47); Hemoglobin 9.2 g/dL (12.0-16.0); Immature Granulocytes # (auto) 0.03 K/uL (0.00-0.02); Immature Granulocytes % (auto) 0.5 %; Lymphocytes # (auto) 0.77 K/uL (1.2-3.4); Lymphocytes % (auto) 13.7 %; Mean Corpuscular Hgb Conc 31.9 g/dL (32-36); Mean Corpuscular Volume 90.9 fL (80-100); Mean Platelet Volume 8.8 fL (7.4-10.4); Monocytes # (auto) 0.14 K/uL (0.11-0.59); Monocytes % (auto) 2.5 %; Neutrophils # (auto) 4.67 K/uL (1.4-6.5); Neutrophils % (auto) 82.8 %; Platelet Count 255 K/uL (130-400); RDW Coefficient of Variation 20.4 % (11.5-14.5); RDW Standard Deviation 67.6 fL (36.4-46.3); Red Blood Count 3.17 M/uL (4.2-5.4); White Blood Count 5.64 K/uL (4.8-10.8)
[2018-09-26 15:23] LABS: iSTAT Creatinine 1.3 mg/dl (0.6-1.3); iSTAT Hemoglobin 9.2 g/dl (12.0-16.0); iSTAT Ionized Calcium 1.01 mmol/l (1.12-1.32); iSTAT Potassium 5.6 mEq/L (3.3-5.0)
[2018-09-26 15:34] LABS: Anisocytosis Present; Polychromasia 1+
[2018-09-26 15:42] LABS: BUN Creatinine Ratio 12.5 (10-20); Calcium 7.9 mg/dl (8.5-10.1); Creatinine Clr Calc Pharmacy 41.3 ml/min; Est GFR (African American) 45.2; Potassium 5.6 mmol/L (3.5-5.1)
[2018-09-26] MEDS ORDERED: SODIUM CHLORIDE 0.9% 1000ML 500 ML IV ONE (16:02)
[2018-09-26] MEDS ORDERED: DEXTROSE 50% 50 ML SYRINGE IV ONE (16:17)
[2018-09-26] MEDS ORDERED: ALBUTEROL 0.083% NEBU SOLN 3 ML VIAL NEB STA (16:17)
[2018-09-26] MEDS ORDERED: NovoLIN-R INSULIN PER UNIT CHARGE IV STA (16:17)
[2018-09-26] MEDS ORDERED: CALCIUM GLUCONATE 10% 1,000 MG in SODIUM CHLORIDE 0.9% 50 ML IV STA (16:23)
--- NOTE | 2018-09-26 19:09 | History & Physical Report ---
Date of Service September 26, 2018 Assessment & Plan (1) Hyperkalemia: K=5.6 in setting of mild elevateion of BUN and Cr from baseline. Most likely due to renal insufficiency. Patient with recent large-volume paracentesis. Fluid shifts may be contributing to elevation in BUN/Cr. Less likely tumor lysis syndrome although patient with low K as well. Breast cancer is less likely to produce TLS, however, patient with diffusely metastatic disease, presumably large tumor burden which may increase risk. -Observation to med surge with telemetry -Administer Albumin x 2 bottles -Repeat BMP -Check PO4 and Uric acid -Recommend drawing from peripheral stick vs port -If K still elevated on repeat BMP will treat with additional round of medication Present on Admission?: Yes (2) SONYA (acute kidney injury): BUN=17, Cr=1.37 which is mildly up from baseline. ?fluid shifts after large volume paracentesis + volume contraction ?ATN in setting of reported hypotension at home contributing -Albumin as above -Repeat BMP -Monitor I/Os, electrolytes, BUN and Cr -Avoid nephrotoxic agents -Renal dosing where appropriate Present on Admission?: Yes (3) Anemia: H/H=9.2/28.8. Normochromic/normocytic. No active bleeding. ?hemolysis vs bone marrow suppression vs iron deficiency vs chronic disease -Repeat CBC in AM -Peripheral smear -Check LDH Present on Admission?: Yes (4) Metastatic breast cancer: Patient follows with Oncology, currently receiving chemotherapy. Treatment on hold today due to electrolyte abnormalities -Monitor -Consider Oncology consult if TLS suspected by labs (5) Pulmonary embolism: Remote history of PE. -Lovenox 60u BID (6) Hypertension: Blood pressure presently 114/71. Patient reports hypotension at home -Hold antihypertensives for now, Lasix and Pindolol -Continue to monitor (7) GERD (gastroesophageal reflux disease): Chronic. Stable -Continue Nexium (8) Asthma: Chronic. Stable. No respiratory distress. No cough/wheeze -Continue Asmanex F/E/N - Albumin as above, would ideally avoid crystalloid given patient's degree of edema/ascites, Alb=3.3 on prior admission, monitor electrolytes - Mg, PO4 and Uric acid ordered, Low K diet as tolerated Ppx - Lovenox BID therapeutic Code - DNR Dispo - Obs to med/tele History of Present Illness Chief Complaint: Abnormal labs Primary Care Provider: Param Murphy Jr, DO Dottie Montilla is a pleasant 72yo female with history of Stage IV breast cancer presently on chemotherapy. She follows with Dr. Cesario Joya as well as Dr. Persaud in [place]. She had a therapeutic paracentesis performed on 09/23 in which 5L of fluid was removed. She reports receiving Albumin after the procedure. Patient was seen by Dr. Joya today and was to have chemotherapy treatment. Found to have hyperkalemia, K=6.1 as well as mild worsening of her renal function. Labs were [place] [facility] [place] changes noted. She was subsequently sent to the ER for additional workup and treatment. In the ER K was found to be 5.6. She was administered Albumin, Calcium gluconate, Insulin/D50 and NSS. Overall, patient with no complaints. She feels well. States that her blood pressure has been low since Wednesday. She was taking Pindolol at home which she self-discontinued because her blood pressures have been 80/50's. She has had poor appetite due to food tasting like metal but does manage to eat quite a bit. She reports stable baseline SOB. No additional complaints at this time. Allergies Allergy/AdvReac Type Severity Reaction Status Date / Time oxycodone Allergy SV SHORTNESS Verified 07/29/18 09:21 OF BREATH shrimp Allergy SV THROAT Verified 07/29/18 09:21 CLOSING, ITCHING Penicillins Allergy Intermediate RASH Verified 07/29/18 09:21 Sulfa (Sulfonamide Allergy Intermediate RASH Verified 07/29/18 09:21 Antibiotics) gluten Allergy MO CELIAC Verified 07/29/18 09:21 DISEASE latex Allergy MO RASH Verified 07/29/18 09:21 peanut Allergy MO INCONSISTENT Verified 07/29/18 09:21 ALLERGY TEST RESULT azithromycin Allergy U Unknown Verified 07/29/18 09:21 Dust Mite Extract Allergy Unknown ALLERGY Verified 07/29/18 09:21 TEST RESULT erythromycin base AdvReac Mild STOMACH Verified 07/29/18 09:21 PAIN mivacurium AdvReac MO increased Verified 07/29/18 09:21 blood pressure Home Medications Home Medications Medication Instructions Recorded Confirmed Type acyclovir 800 mg PO TID PRN 01/15/18 09/26/18 History albuterol sulfate 2 puff INHALATION Q4H PRN 01/15/18 09/26/18 History biotin 1 mg PO DAILY 01/15/18 09/26/18 History clotrimazole-betamethasone 1 applic TOPICAL BID PRN 01/15/18 09/26/18 History epinephrine [EpiPen] 0.3 mg IM Q3H PRN 01/15/18 09/26/18 History pindolol 5 mg PO BID 01/15/18 09/26/18 History acetaminophen 500 mg tablet 500 mg PO Q6H PRN tab 02/11/18 09/26/18 History calcium carbonate 600 mg(1,500 1 tab PO BID 02/11/18 09/26/18 History mg)-vitamin D3 800 unit chewable tablet metronidazole 1 % topical cream 1 appln TOP Q2D gm 02/11/18 09/26/18 History tramadol 50 mg tablet 50 mg PO Q8H tab 02/11/18 09/26/18 History Asmanex HFA 1 puff INHALATION Q12H 07/18/18 09/26/18 History Lumigan 1 drp OPB DAILY 07/18/18 09/26/18 History enoxaparin [Lovenox] 60 mg SUBCUT BID 07/18/18 09/26/18 History furosemide [Lasix] 20 mg PO DAILY 07/18/18 09/26/18 History loratadine [Claritin] 10 mg PO DAILY 07/18/18 09/26/18 History aspirin 81 mg PO DAILY 07/26/18 09/26/18 History dexamethasone 12 mg PO .SEE INSTRUCTIONS 07/26/18 09/26/18 History esomeprazole magnesium [Nexium] 40 mg PO DAILY 07/26/18 09/26/18 History denosumab [Xgeva] 120 mg SUBCUT .MONTHLY 09/26/18 09/26/18 History docusate sodium 100 mg PO BID PRN 09/26/18 09/26/18 History mometasone 2 spray INTRANASAL DAILY PRN 09/26/18 09/26/18 History ondansetron HCl 8 mg PO Q8H PRN 09/26/18 09/26/18 History prochlorperazine maleate 10 mg PO Q8H PRN 09/26/18 09/26/18 History sulfacetamide sodium (acne) 1 applic TOPICAL Q2D 09/26/18 09/26/18 History [[place]] Past Med/Surg History Medical History Pulmonary embolism Sensorineural hearing loss (SNHL) of right ear (Chronic) Vertigo (Chronic) Abdominal carcinomatosis (Chronic) Pathological fracture of rib of right side (Chronic) Right lateral fifth and eighth rib Pathological fracture of rib of left side (Chronic) Ninth posterior rib Metastatic breast cancer (Chronic) Status post mastectomy 06/04/2015 with radiation therapy completion 10/14/2015 Asthma (Chronic) Melanoma (Chronic) Celiac disease (Chronic) GERD (gastroesophageal reflux disease) (Chronic) Stafford's esophagus (Chronic) Fibromyalgia (Chronic) Bilateral pulmonary embolism (Chronic) On chronic Eliquis therapy Breast cancer of upper-outer quadrant of right female breast (Chronic 04/29/15) " Right breast mass found on physical examination Status post biopsy 04/29/2015 revealing a lobular carcinoma Estrogen receptor positive, positive progesterone, receptor positive HER- 2/jorge negative Status post right modified radical mastectomy with lymph node dissection and left total mastectomy 06/04/2015 Pathologic stage pT3 pN2 M0 Oncotype DX score of 2 Status post completion of radiation therapy to the chest wall, supraclavicular, and axilla 10/14/2015 received 6120 cGy Rib pain and healing pathologic fracture of the left ninth posterior rib PET/CT October 26, 2017 at [facility] showing peritoneal carcinomatosis/ascites. FDG avid right lateral eighth rib activity and T9 vertebral body metabolic activity Status post omental biopsy November 17, 2017 revealing metastatic lobular breast carcinoma Initiation of Ibrance and Femara. She will also start Xgeva." On 05/13/17 16:00 Tammy Trejo wrote " Right breast mass found on physical examination Status post biopsy 04/29/2015 revealing a lobular carcinoma Estrogen receptor positive, positive progesterone, receptor positive HER- 2/jorge negative Status post right modified radical mastectomy with lymph node dissection and left total mastectomy 06/04/2015 Pathologic stage pT3 pN2 M0 Oncotype DX score of 2 Status post completion of radiation therapy to the chest wall, supraclavicular, and axilla 10/14/2015 received 6120 cGy" On 10/18/15 14:05 Tammy Trejo wrote " Right breast mass found on physical examination Status post biopsy 04/29/2015 revealing a lobular carcinoma Estrogen receptor, positive progesterone, receptor positive HER-2/jorge negative Status post right modified radical mastectomy with lymph node dissection and left total mastectomy 06/04/2015 Pathologic stage pT3 pN2 M0 Oncotype DX score of 2 Status post completion of radiation therapy to the chest wall, supraclavicular, and axilla 10/14/2015 received 6120 cGy" On 10/18/15 14:05 Tammy Trejo wrote " Right breast mass found on physical examination Status post biopsy 04/29/2015 revealing a lobular carcinoma Estrogen receptor, positive progesterone, receptor positive HER-2/jorge negative Status post right modified radical mastectomy with lymph node dissection and left total mastectomy 06/04/2015 Pathologic stage pT3 pN2 M0 Oncotype DX score of 2 Status post completion of radiation therapy to the chest wall, supraclavicular, and axilla 10/14/2015 received 6120 cGy" On 06/26/15 10:03 Tammy Trejo wrote " Right breast mass found on physical examination Status post biopsy 04/29/2015 revealing a lobular carcinoma Estrogen receptor, positive progesterone, receptor positive HER-2/jorge negative Status post right modified radical mastectomy with lymph node dissection and left total mastectomy 06/04/2015 Pathologic stage pT3 pN2 M0" On 06/26/15 09:58 Tammy Trejo wrote " Right breast mass found on physical examination Status post biopsy 04/29/2015 revealing a lobular carcinoma Estrogen receptor, positive progesterone, receptor positive HER-2/jorge negative Status post right modified radical mastectomy with lymph node dissection and left total mastectomy Pathologic stage pT3 pN2 M0" Chest pain (Chronic) Hypertension (Chronic) CVA (cerebral vascular accident) (Acute) Lymphedema (Acute) right arm Hemorrhagic cystitis (Resolved) Hypertension (Resolved) UTI (urinary tract infection) (Resolved) Vaginitis (Resolved) Surgical History History of bunionectomy H/O lymph node biopsy (Resolved) Right axilla H/O mastectomy (Resolved) History of dilation and curettage (Resolved) S/P mastectomy, bilateral Family History Other Cancer Social History Preferred Language: Swedish Communication Ability: Effective Beliefs That Will Affect Care: Spiritual Current Living Situation: Spouse Feels Safe at Home: Yes Smoking Status: Never smoker Second Hand Exposure: No Hx Alcohol Use: No Hx Substance Use: No Review of Systems Review of Systems: All systems reviewed & are unremarkable except as noted in HPI & below Physical Exam Physical Exam: General: patient resting comfortably, NAD, non-toxic in appearance, AA&O x 4, chronically ill in appearance Skin: warm, dry, intact, no rashes or lesions HEENT: NC/AT, PERRL, EOMI, anicteric sclera, conjunctiva without injection, external ear normal to inspection and nontender, nares patent, moist mucus membranes, dentition intact, no oropharyngeal lesions, neck supple, trachea midline, no LAD, no thyromegaly, no JVD Heart: +S1/S2, regular with respiratory variation, no m/r/g Lungs: equal air entry bilaterally, no rales/rhonchi/wheezes Abd: +BS, soft, NT, +ascites, no masses Ext: warm, 2+ pulses in UE/LE bilaterally, no clubbing/cyanosis, 3+ pitting edema of bilateral LEs Neuro: nonfocal, patient AA&O x 4, speech intact, no facial droop, moving all extremities on command with equal strength 5/5 Results & Data Vital Signs (Past 12 Hours) Vital Signs Temp Pulse Pulse Resp BP BP Pulse Ox 09/26/18 18:07 97 H 18 96 09/26/18 18:00 99 H 16 114/71 97 09/26/18 16:09 99 H 16 112/72 98 09/26/18 14:11 36.6 C 87 18 120/78 98 Laboratory Results Lab Results 09/26/18 09/26/18 09/26/18 Range/Units 15:05 15:05 15:08 WBC 5.64 (4.8-10.8) K/uL RBC 3.17 L (4.2-5.4) M/uL Hgb 9.2 L (12.0-16.0) g/dL POC Hgb 9.2 L (12.0-16.0) g/dl Hct 28.8 L (37-47) % POC Hct 27 L (37-47) % MCV 90.9 (80-100) fL MCH 29.0 (25-34) pg MCHC 31.9 L (32-36) g/dL RDW Std Deviation 67.6 H (36.4-46.3) fL RDW Coeff of Rachel 20.4 H (11.5-14.5) % Plt Count 255 (130-400) K/uL MPV 8.8 (7.4-10.4) fL Immature Gran % (Auto) 0.5 % Neut % (Auto) 82.8 % Lymph % (Auto) 13.7 % [place] % (Auto) 2.5 % Eos % (Auto) 0.5 % Baso % (Auto) 0.0 % Immature Gran # (Auto) 0.03 H (0.00-0.02) K/uL Neut # (Auto) 4.67 (1.4-6.5) K/uL Lymph # (Auto) 0.77 L (1.2-3.4) K/uL [place] # (Auto) 0.14 (0.11-0.59) K/uL Eos # (Auto) 0.03 (0-0.5) K/uL Baso # (Auto) 0.00 (0-0.2) K/uL Polychromasia 1+ Anisocytosis Present POC Sodium 133 L (135-144) mEq/L Sodium 133 L (136-145) mmol/L POC Potassium 5.6 H (3.3-5.0) mEq/L Potassium 5.6 H (3.5-5.1) mmol/L POC Chloride 101 (101-112) mEq/L Chloride 104 (98-107) mmol/L Carbon Dioxide 23 (21-32) mmol/L POC Total CO2 19 L (24-31) mEq/l Anion Gap 6.0 (3-11) POC Anion Gap 19.0 (16-25) mmol/L POC BUN 17 (7-18) mg/dl BUN 17 (7-18) mg/dl Creatinine 1.37 H (0.6-1.2) mg/dl POC Creatinine 1.3 (0.6-1.3) mg/dl Est Cr Clr Drug Dosing 41.3 ml/min Est GFR ( Amer) 45.2 Est GFR (Non-Af Amer) 39.0 BUN/Creatinine Ratio 12.5 (10-20) Glucose 144 H (70-99) mg/dl POC Glucose (other) 153 H (70-99) mg/dl Calcium 7.9 L (8.5-10.1) mg/dl POC Ioniz Calcium Alyssa 1.01 L (1.12-1.32) mmol/l ECG Additional Comments: NSR at 96, PVC, FP=727, QRS=82, EQl=791, non-specific ST changes in anterior leads Code Status & VTE Plan Code Status DNR VTE Prophylaxis Plan VTE Prophylaxis will be ordered: Yes Critical Care Time Critical Care Time: No (1) Anemia Anemia type: unspecified type Qualified Code(s): D64.9 - Anemia, unspecified (2) Pulmonary embolism Pulmonary embolism type: unspecified Chronicity: unspecified Acute cor pulmonale presence: without acute cor pulmonale Qualified Code(s): I26.99 - Other pulmonary embolism without acute cor pulmonale (3) Hypertension Hypertension type: essential hypertension Qualified Code(s): I10 - Essential (primary) hypertension (4) GERD (gastroesophageal reflux disease) Esophagitis presence: esophagitis presence not specified Qualified Code(s): K21.9 - Gastro-esophageal reflux disease without esophagitis (5) Asthma Asthma severity: unspecified severity Asthma persistence: unspecified Asthma complication type: unspecified Qualified Code(s): J45.909 - Unspecified asthma, uncomplicated
[2018-09-26] MEDS ORDERED: ONDANSETRON INJ 2 MG/ML 2 ML VIAL IV PRN (20:21)
[2018-09-26 20:49] LABS: INR 1.2 (0.9-1.1); Partial Thromboplastin Ratio 1.6; Partial Thromboplastin Time 42.1 Seconds (21.0-31.0); Prothrombin Time 12.4 Seconds (9.0-12.0)
[2018-09-26 21:30] LABS: Albumin Level 2.4 gm/dl (3.4-5.0); BUN Creatinine Ratio 16.4 (10-20); Calcium 8.6 mg/dl (8.5-10.1); Creatinine Clr Calc Pharmacy 45.5 ml/min; Est GFR (African American) 50.5; Est GFR (Non-African American) 43.5; Magnesium 2.4 mg/dl (1.8-2.4); Potassium 5.1 mmol/L (3.5-5.1); Uric Acid 8.1 mg/dl (2.6-7.2)
[2018-09-26] MEDS: ALBUMIN 25% 50 ML IV SCH ×2 (21:31→22:46)
[2018-09-26 21:34] LABS: Bilirubin Direct 0.1 mg/dl (0-0.2); Bilirubin,Total 0.4 mg/dl (0.2-1); Phosphorus 3.5 mg/dl (2.5-4.9); Total Protein 5.8 gm/dl (6.4-8.2)
[2018-09-26] MEDS: TRAMADOL HCL 50 MG TABLET PO SCH (21:40)
[2018-09-26] MEDS: ENOXAPARIN INJ 60 MG/0.6 ML SYR SQ SCH (21:40)
[2018-09-26] MEDS: MOMETASONE FUROATE 14 PUFF/1 INHALER INH SCH (21:41)
[2018-09-26] MEDS: CALCIUM 600MG + VIT D 400 IU TAB PO SCH (21:41)
[2018-09-26 23:18] LABS: Appearance Urine Clear (Clear); Bilirubin Urine Negative (Negative); Blood Urine Negative (Negative); Color Urine Yellow; Glucose Urine UA Negative (Negative); Ketones Urine Negative (Negative); Leukocyte Esterase Urine Negative (Negative); Nitrite Urine Negative (Negative); Protein Urine Negative (Negative); Specific Gravity Urine 1.019 (1.000-1.030); Urobilinogen Urine Negative (Negative)
[2018-09-26] MEDS ORDERED: HEPARIN 100 UNIT/ML 5ML FLUSH FLUSH SCH (23:45)
[2018-09-26] MEDS ORDERED: HEPARIN 100 UNIT/ML 5ML FLUSH ONE (23:54)
[2018-09-27] MEDS ORDERED: HEPARIN 100 UNIT/ML 5ML FLUSH FLUSH PRN (01:32)
[2018-09-27] MEDS: TRAMADOL HCL 50 MG TABLET PO SCH ×3 (05:46→21:54)
[2018-09-27 06:45] LABS: Poikilocytosis Present
[2018-09-27] MEDS: CALCIUM 600MG + VIT D 400 IU TAB PO SCH ×2 (08:03→20:34)
[2018-09-27] MEDS: PANTOprazole 40 MG TAB PO SCH (08:03)
[2018-09-27] MEDS: LORATADINE 10 MG TAB PO SCH (08:03)
[2018-09-27] MEDS: ASPIRIN 81 MG CHEW PO SCH (08:03)
[2018-09-27] MEDS: MOMETASONE FUROATE 14 PUFF/1 INHALER INH SCH ×2 (08:04→20:33)
[2018-09-27] MEDS: ENOXAPARIN INJ 60 MG/0.6 ML SYR SQ SCH ×2 (08:04→20:34)
[2018-09-27] MEDS ORDERED: NON-FORMULARY MEDICATION (Biotin 1 MG) PO SCH (09:00)
[2018-09-27 09:50] LABS: Basophils # (auto) 0.01 K/uL (0-0.2); Basophils % (auto) 0.1 %; Hematocrit (blood only) 26.5 % (37-47); Hemoglobin 8.6 g/dL (12.0-16.0); Immature Granulocytes % (auto) 0.7 %; Lymphocytes # (auto) 0.93 K/uL (1.2-3.4); Lymphocytes % (auto) 6.9 %; Mean Corpuscular Hgb Conc 32.5 g/dL (32-36); Mean Corpuscular Volume 90.4 fL (80-100); Mean Platelet Volume 8.5 fL (7.4-10.4); Monocytes # (auto) 0.93 K/uL (0.11-0.59); Monocytes % (auto) 6.9 %; Neutrophils # (auto) 11.49 K/uL (1.4-6.5); Neutrophils % (auto) 85.4 %; Platelet Count 262 K/uL (130-400); RDW Coefficient of Variation 20.3 % (11.5-14.5); Red Blood Count 2.93 M/uL (4.2-5.4); White Blood Count 13.46 K/uL (4.8-10.8)
[2018-09-27 10:03] LABS: BUN Creatinine Ratio 17.3 (10-20); Calcium 8.3 mg/dl (8.5-10.1); Creatinine Clr Calc Pharmacy 42.7 ml/min; Est GFR (African American) 46.8; Est GFR (Non-African American) 40.4
[2018-09-27 10:11] LABS: Anisocytosis Present; Polychromasia 1+; Tear Drop Cells 1+; Toxic Granulation 1+
--- NOTE | 2018-09-27 13:56 | XRay Report ---
XR chest 2V routine CLINICAL HISTORY: leukocytosis in setting of chemo COMPARISON STUDY: 06/04/2018 FINDINGS: The cardiac and mediastinal contours are normal. There is no evidence of focal pulmonary co nsolidation. There is no evidence of failure. No pleural effusions are visualized.[ There is a left-s ided A-Port catheter. There are surgical clips project over the right axillary region. IMPRESSION: No active disease in the chest. Electronically signed by: Rafael Camacho M.D. 09/27/2018 1:55 PM
--- NOTE | 2018-09-27 16:51 | Family Medicine Progress Note ---
Date of Service September 27, 2018 Assessment & Plan (1) Hyperkalemia: Dottie [id number] female with a past medical history of stage IV breast cancer on chemotherapy with Paxil and recurrent malignant abdominal ascites who was referred to the hospital from oncology after she was found to be hyperkalemic to 6.1 prior to chemo treatment. Hyperkalemia She is noted to have a potassium of 6.1 prior to initiating her recent chemo treatment and was referred to the emergency department. She received albumin, calcium gluconate, insulin/D50, and normal saline in the emergency dept Improved to 5.1 today. Monitor I/os, electrolytes, BUN, creatinine daily Avoid nephrotoxins Metastatic breast cancer Paxol therapy currently on hold pending resolution of her hyperkalemia. Uric acid slightly elevated along with hyperkalemia, however this is in the setting of 5 L of paracentesis fluid removal and a slight creatinine bump suggesting a mild SONYA and clearance problem. Low suspicion for tumor lysis syndrome. We will touch base with her oncologist Dr. Joya tomorrow. May contact patient navigator Masha at [phone]. Patient has a left port in place. Per Dr. Joya would prefer peripheral access if possible, but may use if needed. Leukocytosis Patient has a leukocytosis to 13 today without a clear source of infection. Given that she has recently been neutropenic and infectious work-up is reasonable. Chest x-ray and blood cultures ordered. She is clinically well and afebrile, will defer antibiotics at this time. No signs of UTI. 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 Repeat CBC daily . History of pulmonary embolism Concern for hypercoagulopathy in the setting of known cancer. Continue Lovenox 60 units twice daily Hypertension Blood pressure currently well controlled Antihypertensives held on admission. May restart pindolol 5 mg twice daily, Lasix tomorrow pending clinical course [employer] Nexium converted to Protonix CODE STATUS: DNR DVT prophylaxis: On therapeutic Lovenox as above Supervising Physician Co-Signing Physician Notes I saw the patient concurrent with the resident physician and confirmed nieves portion of the history and physical exam. I agree with the impression and plan as noted above. Patient looks well today. She really has no complaints. Clinically she has no other signs or symptoms of infection. Will check with her outpatient oncologist to see if she has had any recent white blood cell stimulating agents. Will check chest x-ray and blood cultures today. Given how good she looks we will hold off on empiric antibiotics at this point. Belle Beltran reports she feels very well and at her normal baseline today. She notes that if we had told her that her labs were off she would feel at her normal healthy baseline. She notes that she was referred here after her chemotherapy was held in the setting of a potassium 6.1, but was asymptomatic otherwise. Denies fever, chills, sweats, chest pain, chest pressure, abdominal pressure. She notes she recently had 5 L of fluid taken off from her abdomen via paracent esis she had some problems with low blood pressure afterwards but is never had any problems with infection of her ascitic fluid. She has not had any diarrhea or constipation, has not had blood in her bowel movements, and has not had coffee-ground bowel movements. She reports that she has not had any stimulating factor injections to her knowledge, although has had one episode in the past of a sudden spike in her leukocytes which spontaneously resolved without treatment. Review of Systems Review of Systems: Constitutional: Denies fever, chills, malaise Eyes: Denies double vision, vision change, eye pain ENT: Denies ear pain, sore throat, sinus pain Cardiovascular: Denies Chest pain, chest pressure, palpitations, extremity swelling Respiratory: Denies shortness of breath, cough, sputum production, difficulty breathing Gastrointestinal: Denies abdominal pain, nausea, vomiting, constipation, diar kendall Genitourinary: Denies pain with urination, urinary urgency, urinary frequency Musculoskeletal: Denies weakness, new muscle aches/pain, joint aches/pain Integumentary:Denies rash, bruising. Endorses a 2 cm scratch on her left arm where her dog scratched her. Physical Exam Physical Exam: General: A&Ox3. NAD. Cooperative. Left port in place. Clean, well-dressed, no signs of warmth or erythema. HEENT: Atraumatic, normocephalic. Pulm: CTAB A&P. -wheezes, -rales, -rhonchi. Symmetrical chest rise. No increase work of breathing. No respiratory distress. Cardiac: RRR, -mrg. Radial pulses intact and symmetrical. Abdominal: Nontender, nondistended, soft. BS present. Extremity: Left arm with antecubital ecchymoses. 1 cm angular skin flap at site where her dog scratched her. Laying flat, well-healing, without erythema or discharge. Results & Data Vital Signs (Past 12 Hours) Vital Signs Temp Pulse Pulse Resp BP Pulse Ox 09/27/18 04:08 36.3 C L 101 H 16 105/66 98 09/27/18 00:16 36.6 C 105 H 20 112/69 95 09/26/18 23:00 105 H 09/26/18 21:05 36.3 C L 104 H 18 105/74 99 09/26/18 19:38 100 H 18 115/72 96 Resident Activity Tracking Resident Involvement: Resident Care Provided Care Provided: Adult Hospital Medicine
[2018-09-27] MEDS: DOCUSATE SODIUM 100 MG CAP PO PRN (20:34)
[2018-09-28] MEDS: TRAMADOL HCL 50 MG TABLET PO SCH ×2 (05:34→14:33)
[2018-09-28 08:11] LABS: Basophils # (auto) 0.01 K/uL (0-0.2); Basophils % (auto) 0.1 %; Eosinophils # (auto) 0.04 K/uL (0-0.5); Eosinophils % (auto) 0.5 %; Hematocrit (blood only) 26.9 % (37-47); Hemoglobin 8.7 g/dL (12.0-16.0); Immature Granulocytes # (auto) 0.05 K/uL (0.00-0.02); Immature Granulocytes % (auto) 0.6 %; Lymphocytes # (auto) 1.04 K/uL (1.2-3.4); Lymphocytes % (auto) 13.1 %; Mean Corpuscular Hgb Conc 32.3 g/dL (32-36); Mean Corpuscular Volume 90.6 fL (80-100); Mean Platelet Volume 8.1 fL (7.4-10.4); Monocytes # (auto) 0.82 K/uL (0.11-0.59); Monocytes % (auto) 10.3 %; Neutrophils # (auto) 5.99 K/uL (1.4-6.5); Neutrophils % (auto) 75.4 %; Nucleated RBC # (auto) 0.02 K/uL (0-0); Nucleated RBC % (auto) 0.3 %; Platelet Count 229 K/uL (130-400); RDW Coefficient of Variation 20.8 % (11.5-14.5); RDW Standard Deviation 68.3 fL (36.4-46.3); Red Blood Count 2.97 M/uL (4.2-5.4); White Blood Count 7.95 K/uL (4.8-10.8)
[2018-09-28 08:19] LABS: INR 1.2 (0.9-1.1); Prothrombin Time 11.8 Seconds (9.0-12.0)
[2018-09-28] MEDS: ENOXAPARIN INJ 60 MG/0.6 ML SYR SQ SCH (08:21)
[2018-09-28] MEDS: CALCIUM 600MG + VIT D 400 IU TAB PO SCH (08:21)
[2018-09-28] MEDS: LORATADINE 10 MG TAB PO SCH (08:21)
[2018-09-28] MEDS: PANTOprazole 40 MG TAB PO SCH (08:21)
[2018-09-28] MEDS: ASPIRIN 81 MG CHEW PO SCH (08:21)
[2018-09-28] MEDS: MOMETASONE FUROATE 14 PUFF/1 INHALER INH SCH (08:22)
[2018-09-28] MEDS: DOCUSATE SODIUM 100 MG CAP PO PRN (08:25)
[2018-09-28 08:38] LABS: BUN Creatinine Ratio 19.3 (10-20); Calcium 8.1 mg/dl (8.5-10.1); Creatinine Clr Calc Pharmacy 44.6 ml/min; Est GFR (Non-African American) 42.3; Potassium 4.4 mmol/L (3.5-5.1)
[2018-09-28 08:46] LABS: Uric Acid 8.6 mg/dl (2.6-7.2)
[2018-09-28 08:47] LABS: Anisocytosis Present; Tear Drop Cells 1+
[2018-09-28 11:16] VITALS: BP 109/70; TEMP 97.7; O2SAT 98
[2018-09-28] MEDS ORDERED: FUROSEMIDE 20 MG TAB PO SCH (14:00)
[2018-09-28 14:36] VITALS: PULSE 98
--- NOTE | 2018-09-28 17:05 | Discharge Summary ---
Date of Service September 28, 2018 Admission HPI Per Admitting Provider Dottie Montilla is a pleasant 72yo female with history of Stage IV breast cancer presently on chemotherapy. She follows with Dr. Cesario Joya as well as Dr. Persaud in [place]. She had a therapeutic paracentesis performed on 09/23 in which 5L of fluid was removed. She reports receiving Albumin after the procedure. Patient was seen by Dr. Joya today and was to have chemotherapy treatment. Found to have hyperkalemia, K=6.1 as well as mild worsening of her renal function. Labs were drawn from peripheral stick in [facility]. No EKG changes noted. She was subsequently sent to the ER for additional workup and treatment. In the ER K was found to be 5.6. She was administered Albumin, Calcium gluconate, Insulin/D50 and NSS. Overall, patient with no complaints. She feels well. States that her blood pressure has been low since Wednesday. She was taking Pindolol at home which she self-discontinued because her blood pressures have been 80/50's. She has had poor appetite due to food tasting like metal but does manage to eat quite a bit. She reports stable baseline SOB. No additional complaints at this time. Admission Exam Per Admitting Provider General: patient resting comfortably, NAD, non-toxic in appearance, AA&O x 4, chronically ill in appearance Skin: warm, dry, intact, no rashes or lesions HEENT: NC/AT, PERRL, EOMI, anicteric sclera, conjunctiva without injection, external ear normal to inspection and nontender, nares patent, moist mucus membranes, dentition intact, no oropharyngeal lesions, neck supple, trachea m idline, no LAD, no thyromegaly, no JVD Heart: +S1/S2, regular with respiratory variation, no m/r/g Lungs: equal air entry bilaterally, no rales/rhonchi/wheezes Abd: +BS, soft, NT, +ascites, no masses Ext: warm, 2+ pulses in UE/LE bilaterally, no clubbing/cyanosis, 3+ pitting edema of bilateral LEs Neuro: nonfocal, patient AA&O x 4, speech intact, no facial droop, moving all extremities on command with equal strength 5/5 Principal Diagnosis Hyperkalemia Discharge Exam General: A&Ox3. NAD. Cooperative. Left port in place. Clean, well-dressed, no signs of warmth or erythema. HEENT: Atraumatic, normocephalic. Pulm: CTAB A&P. -wheezes, -rales, -rhonchi. Symmetrical chest rise. No increase work of breathing. No respiratory distress. Cardiac: RRR, -mrg. Radial pulses intact and symmetrical. Abdominal: Nontender, nondistended, soft. BS present. Extremity: Left arm with antecubital ecchymoses. 1 cm angular skin flap at site where her dog scratched her. Laying flat, well-healing, without erythema or discharge. Discharge Data Allergies Allergy/AdvReac Type Severity Reaction Status Date / Time oxycodone Allergy SV SHORTNESS Verified 07/29/18 09:21 OF BREATH shrimp Allergy SV THROAT Verified 07/29/18 09:21 CLOSING, ITCHING Penicillins Allergy Intermediate RASH Verified 07/29/18 09:21 Sulfa (Sulfonamide Allergy Intermediate RASH Verified 07/29/18 09:21 Antibiotics) gluten Allergy MO CELIAC Verified 07/29/18 09:21 DISEASE latex Allergy MO RASH Verified 07/29/18 09:21 peanut Allergy MO INCONSISTENT Verified 07/29/18 09:21 ALLERGY TEST RESULT azithromycin Allergy U Unknown Verified 07/29/18 09:21 Dust Mite Extract Allergy Unknown ALLERGY Verified 07/29/18 09:21 TEST RESULT erythromycin base AdvReac Mild STOMACH Verified 07/29/18 09:21 PAIN mivacurium AdvReac MO increased Verified 07/29/18 09:21 blood pressure Consultations 09/26/18 18:08 ED Decision to Admit Stat Hospital Course (1) SONYA (acute kidney injury): Ruby is a 72-year-old female with a past medical history of stage IV breast cancer on chemotherapy with recurrent malignant abdominal ascites who was referred to [facility] after she was found to be hyperkalemic to 6.1 prior to initiating a round of chemo. Hyperkalemia Ruby had a serum potassium of 6.1 on referral to the hospital. Concern was expressed for tumor lysis syndrome as noted below, however she did not show any lab abnormalities of this. She had had 5 L of ascitic fluid taken off via paracentesis recently and it was thought that she may have had decreased clearance in the setting of prerenal SONYA. She was treated with albumin, calcium gluconate, insulin with D50, and normal saline in the emergency department. Her potassium normalized, and her creatinine which was initially elevated to a peak of 1.37 from a normal baseline down trended. She was treated with Lasix on day of discharge. She did not show any EKG abnormalities or signs of arrhythmia during her admission. Leukocytosis Ruby had a leukocytosis to 13 after admission. She was clinically well without any obvious source of infection and remained afebrile. A chest x-ray did not show any sign of pneumonia. UA did not show any sign of urinary infection. She did not appear to have any abdominal tenderness or signs of an ascitic fluid infection. She was not started on antibiotics and watched clinically given her recent immunosuppression and chemo treatment. Blood cultures were drawn but did not show any growth at 24 hours. Her leukocytosis spontaneously resolved the next day. Metastatic breast cancer with recent chemotherapy and concern for tumor lysis Ruby has a history of stage IV metastatic breast cancer with her last round of chemotherapy at the end of August. Given her hyperkalemia and chemotherapy treatment concern has been raised for tumor lysis, however her uric acid was only mildly elevated in the setting of SONYA and her overall risk is low given that she had a solid tumor type with several weeks between her last round of chemo. Her case was discussed with Dr. Joya's career services manager, no interventions or changes were made from an oncology standpoint. She was discharged well-appearing with follow-up to Dr. Joya for further management and potential reinitiation of chemotherapy. Anemia She has a history of chronic normocytic, normochromic anemia in the setting of cancer with chemotherapy treatment. Her hemoglobin remained stable at approximately 9 g/dL. No signs of active bleeding during admission. History of pulmonary embolism Ruby had a history of pulmonary embolism due to hypercoagulopathy in the setting of cancer. She is continued on therapeutic Lovenox 60 units twice daily during admission, and did not show any signs of oxygen desaturation or tachycardia during her admission. (2) Metastatic breast cancer: Total Time Total Time Spent Total Time Spent (In Minutes): 30 Discharge Plan Discharge Items Patient Disposition: Home - Self-Care Reason For Visit: ABNORMAL LABS Discharge Diagnosis: Hyperkalemia Condition: Fair Discharge Goals: Improve disease control and Therapeutic intervention Activity: Resume your previous activity Non-emergency contact: Primary Care Provider and Oncologist Call non-emergency contact if: you have any medication questions, your pain is not controlled, your pain is worsening, your pain is concerning for you and your temperature is above 100.5 Follow-up/Referrals: Param Murphy Jr, [Primary Care Provider] - Diet: Regular Addtl Provider Instructions: You were seen in the hospital for hyperkalemia prior to initiating a chemotherapy treatment. Your potassium levels returned to normal by time of discharge. You were noted to have an elevated white blood cell count during admission, however this returned to normal the next day. There were no other signs of infection and he did not require antibiotics. No new medications or antibiotics have been prescribed. An appointment is being scheduled for you with your primary care provider Dr. Murphy. He should have a follow-up appointment with his office sometime next week. You should receive a call to confirm this appointment, if you do not receive a call in the next 48 hours please call their office [phone]. Please call your oncologist Dr. Joya to schedule a follow-up appointment through their career services manager. You did not show any signs of tumor lysis syndrome, and your potassium had returned to normal at time of discharge. You may resume treatment per his recommendations. If you develop new or concerning symptoms, including shortness of breath, chest pain, fever, chills, difficulty breathing, or pain please call your primary care provider, or present to the emergency room for evaluation if you are very concerned. Prescriptions: Continued tramadol 50 mg tablet 50 mg PO Q8H RF: 0 metronidazole [Noritate] 1 % cream 1 appln TOP Q2D RF: 0 calcium carbonate-vitamin D3 [Caltrate 600 + D] 600 mg (1,500 mg)-800 unit tablet,chewable 1 tab PO BID RF: 0 acetaminophen [Tylenol Extra Strength] 500 mg tablet 500 mg PO Q6H PRN (Reason: Pain) RF: 0 esomeprazole magnesium [Nexium] 40 mg Capsule,Delayed Release(Dr/Ec) 40 mg PO DAILY RF: 0 aspirin 81 mg Tablet,Chewable 81 mg PO DAILY RF: 0 dexamethasone 4 mg Tablet 12 mg PO .SEE INSTRUCTIONS RF: 0 prochlorperazine maleate 10 mg tablet 10 mg PO Q8H PRN (Reason: Nausea And Vomiting) RF: 0 ondansetron HCl 8 mg tablet 8 mg PO Q8H PRN (Reason: Nausea And Vomiting) RF: 0 docusate sodium 100 mg Tablet 100 mg PO BID PRN (Reason: Constipation) RF: 0 mometasone 50 mcg/actuation [place],Non-Aerosol 2 spray INTRANASAL DAILY PRN (Reason: Congestion) RF: 0 sulfacetamide sodium (acne) [Klaron] 10 % Suspension 1 applic TOPICAL Q2D RF: 0 Xgeva 120 mg/1.7 mL (70 mg/mL) Solution 120 mg SUBCUT .MONTHLY RF: 0 acyclovir 800 mg Tablet 800 mg PO TID PRN (Reason: Cold Sores) RF: 0 clotrimazole-betamethasone 1-0.05 % Cream 1 applic TOPICAL BID PRN (Reason: Skin Irritation) RF: 0 epinephrine [EpiPen] 0.3 mg/0.3 mL Auto-Injector 0.3 mg IM Q3H PRN (Reason: Allergic Reaction) RF: 0 albuterol sulfate 90 mcg/actuation Hfa Aerosol Inhaler 2 puff INHALATION Q4H PRN (Reason: Shortness Of Breath) RF: 0 pindolol 5 mg Tablet 5 mg PO BID RF: 0 biotin 1 mg Capsule 1 mg PO DAILY RF: 0 furosemide [Lasix] 20 mg Tablet 20 mg PO DAILY RF: 0 loratadine [Claritin] 10 mg Tablet 10 mg PO DAILY RF: 0 enoxaparin [Lovenox] 60 mg/0.6 mL Syringe 60 mg subcut BID RF: 0 Asmanex HFA 200 mcg/actuation Hfa Aerosol Inhaler 1 puff INHALATION Q12H RF: 0 Lumigan 0.01 % Drops 1 drp OPB DAILY RF: 0 Stand-Alone Forms: [facility] Discharge Orders: Discharge Order (Routine); Ordered 09/28/18 Ordered By: Isacc Batista Admission Data Admit Date/Time: 09/26/18 19:07 Attending Provider: Luciano Cuba Admit Provider: Josephine Garcia Primary Care Provider: Param Murphy Jr Other Providers: Josephine Garcia Service: Telemetry Other Interventions: Discharge Summary Assessment (RN) Last Done: 09/28/18 14:35 DC Date/Time DO NOT enter until pt leaves facility: 09/28/18 17:00 Supervising Physician Co-Signing Physician Notes I saw the patient independent of the resident physician and confirmed nieves portions of the history and physical exam. I agree with the impression and plan as noted above. The patient feels well. She denies cough or shortness of breath. She does note that she has had some increased nasal discharge in the morning which she assumes are from her sinuses. Her potassium this morning was normal at 4.4. Her BUN was 25 and creatinine 1.28. Her white blood cell count normalized at 7.95. She has been afebrile since her admission. Upon examination today she does have some increased edema of the lower extremities, bilaterally. She tells me that this is there chronically but may be a little bit more than usual. There is minimal pitting. Agree with discharge today. I reviewed with her the signs and symptoms of look for and the fact that these may be atypical (no fever) in someone who is undergoing chemotherapy. I would recommend rechecking her potassium in about 5 days; this will coincide with her next appointment with oncology. Will resume her home Lasix dose. She had recently reduced her beta-frank to once daily due to some orthostatic symptoms; this seems reasonable since she really has a lownormal blood pressure. She has had discussions with her environmental science instructor regarding this previously. Resident Activity Tracking Resident Involvement: Resident Care Provided Care Provided: Adult Hospital Medicine
[2018-09-28] MEDS ORDERED: BIMATOPROST 0.01% OP SOLN 2.5 ML BTL OP SCH (21:00)
== END 2018-09-28 17:00 | disposition home or self-care (01) | DRG 683 ==
LOC: ED 14:09 → OBSVTOIN 19:07 → SUATTDRO 19:07 → INTOOBSV 19:07 → 4E 19:07 → 2W 23:05

== ENCOUNTER 2018-11-04 14:12 | Inpatient (IN) ==
[2018-11-04] MEDS ORDERED: SODIUM CHLORIDE 0.9% 1000ML 1,000 ML IV ONE ×2 (14:29→16:52)
[2018-11-04] MEDS ORDERED: METOCLOPRAMIDE HCL INJ 5 MG/ML 2 ML VIAL IV STA (14:29)
[2018-11-04 15:01] LABS: Basophils # (auto) 0.01 K/uL (0-0.2); Basophils % (auto) 0.2 %; Eosinophils # (auto) 0.12 K/uL (0-0.5); Eosinophils % (auto) 1.9 %; Hematocrit (blood only) 25.3 % (37-47); Hemoglobin 8.5 g/dL (12.0-16.0); Immature Granulocytes # (auto) 0.03 K/uL (0.00-0.02); Immature Granulocytes % (auto) 0.5 %; Lymphocytes # (auto) 0.71 K/uL (1.2-3.4); Lymphocytes % (auto) 11.4 %; Mean Corpuscular Hgb Conc 33.6 g/dL (32-36); Mean Corpuscular Volume 89.7 fL (80-100); Mean Platelet Volume 8.8 fL (7.4-10.4); Monocytes # (auto) 1.05 K/uL (0.11-0.59); Monocytes % (auto) 16.9 %; Neutrophils # (auto) 4.29 K/uL (1.4-6.5); Neutrophils % (auto) 69.1 %; Platelet Count 204 K/uL (130-400); RDW Coefficient of Variation 20.1 % (11.5-14.5); RDW Standard Deviation 66.6 fL (36.4-46.3); Red Blood Count 2.82 M/uL (4.2-5.4); White Blood Count 6.21 K/uL (4.8-10.8)
[2018-11-04 15:14] LABS: INR 3.3 (0.9-1.1); Prothrombin Time 31.2 Seconds (9.0-12.0)
[2018-11-04 15:17] LABS: Albumin Level 2.7 gm/dl (3.4-5.0); Calcium 7.9 mg/dl (8.5-10.1); Creatinine Clr Calc Pharmacy 19.6 ml/min; Est GFR (African American) 18.3; Est GFR (Non-African American) 15.8; Potassium 5.4 mmol/L (3.5-5.1)
[2018-11-04 15:20] LABS: Albumin Globulin Ratio 0.9 (0.9-2); Bilirubin,Total 0.6 mg/dl (0.2-1); Total Protein 5.7 gm/dl (6.4-8.2)
--- NOTE | 2018-11-04 15:40 | CT Scan Report ---
CT head/brain wo con CT DOSE: 614.27 mGy.cm HISTORY: Mental status change headache TECHNIQUE: Multiaxial CT images of the head were performed without the use of intravenous contrast. A dose lowering technique was utilized adhering to the principles of ALARA. Comparison: 06/04/2018 Findings: The paranasal sinuses and mastoid air cells are clear. Multiple calvarial or calvarial luce ncies. The described are stable. 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 Mild atrophy of the cerebellar as well as cerebral hemisphere s. The ventricular system is midline. There is no evidence for acute intracranial hemorrhage. Impression: 1. Stable multiple lucencies throughout the calvarium. 2. Findings of several small old infarcts with no acute process. The above report was generated using voice recognition software. It may contain grammatical, syntax or spelling errors. Electronically signed by: Brian Jean M.D. 11/04/2018 3:38 PM
[2018-11-04 15:46] LABS: Anisocytosis Present; Hypochromasia Present; Polychromasia 1+; Spherocytes Occasional; Tear Drop Cells Occasional
[2018-11-04 18:43] LABS: BUN Creatinine Ratio 20.3 (10-20); Calcium 7.5 mg/dl (8.5-10.1); Est GFR (Non-African American) 18.1; Potassium 5.1 mmol/L (3.5-5.1)
--- NOTE | 2018-11-04 19:32 | Emergency Department Note ---
Entered by Jojo Silveira acting as a scribe for History of Present Illness General Chief complaint: Abdominal Pain Stated complaint: KIDNEY CANCER PROBLEMS Time Seen by Provider: 11/04/18 14:19 Source: patient History of Present Illness Onset (ago): day(s) (a few days ago) Location: abdomen Pain Consistency: + other (episode) Maximum Pain Intensity: 4 Relieved By: + other (1/2 liter fluid removed from Pleurix catheter) Associated symptoms: + headaches, + nausea/vomiting and + weakness; no chest pain The patient is a 72 female w/ PMHx metastatic breast cancer, HTN, PE, GERD, and asthma who presents to the ED w/ CC of an episode of abdominal pain starting a few days ago. The patient stats that she has metastatic breast cancer that she follows at [facility] with. She states that two days ago she had a PleurX catheter placed. She reports that she is supposed to have a paracentesis and home health has been coming every other day to drain a liter. She reports that today her [facility] doctor called as they were concerned about her kidney function and Coumadin level. She notes that she is currently being transitioned from Lovenox to Coumadin. The patient complains of a headache, nausea, vomiting, and weakness The patient denies chest pain. Home Medications Home Medications Medication Instructions Recorded Confirmed Type acyclovir 800 mg PO TID PRN 01/15/18 11/04/18 History albuterol sulfate 2 puff INHALATION Q4H PRN 01/15/18 11/04/18 History biotin 1 mg PO DAILY 01/15/18 11/04/18 History clotrimazole-betamethasone 1 applic TOPICAL BID PRN 01/15/18 11/04/18 History epinephrine [EpiPen] 0.3 mg IM Q3H PRN 01/15/18 11/04/18 History pindolol 5 mg PO BID 01/15/18 11/04/18 History acetaminophen 500 mg tablet 500 mg PO Q6H PRN tab 02/11/18 11/04/18 History metronidazole 1 % topical cream 1 appln TOP Q2D gm 02/11/18 11/04/18 History tramadol 50 mg tablet 50 mg PO Q8H tab 02/11/18 11/04/18 History Asmanex HFA 1 puff INHALATION Q12H 07/18/18 11/04/18 History Lumigan 1 drp OPB HS 07/18/18 11/04/18 History loratadine [Claritin] 10 mg PO DAILY 07/18/18 11/04/18 History esomeprazole magnesium [Nexium] 40 mg PO DAILY 07/26/18 11/04/18 History Xgeva 120 mg SUBCUT MONTHLY 09/26/18 11/04/18 History docusate sodium 100 mg PO BID PRN 09/26/18 11/04/18 History mometasone 2 spray INTRANASAL DAILY PRN 09/26/18 11/04/18 History ondansetron HCl 8 mg PO Q8H PRN 09/26/18 11/04/18 History prochlorperazine maleate 10 mg PO Q8H PRN 09/26/18 11/04/18 History sulfacetamide sodium (acne) 1 applic TOPICAL Q2D 09/26/18 11/04/18 History [Klaron] calcium carbonate-vitamin D3 1 tab PO BID 10/07/18 11/04/18 History [Caltrate 600 + D] enoxaparin 80 mg SUBCUT DAILY 11/04/18 11/04/18 History warfarin 5 mg PO DAILY 11/04/18 11/04/18 History Allergies Allergy/AdvReac Type Severity Reaction Status Date / Time oxycodone Allergy SV SHORTNESS Verified 11/04/18 15:07 OF BREATH shrimp Allergy SV THROAT Verified 11/04/18 15:07 CLOSING, ITCHING Penicillins Allergy Intermediate RASH Verified 11/04/18 15:07 Sulfa (Sulfonamide Allergy Intermediate RASH Verified 11/04/18 15:07 Antibiotics) gluten Allergy MO CELIAC Verified 11/04/18 15:07 DISEASE latex Allergy MO RASH Verified 11/04/18 15:07 peanut Allergy MO INCONSISTENT Verified 11/04/18 15:07 ALLERGY TEST RESULT azithromycin Allergy U Unknown Verified 11/04/18 15:07 Dust Mite Extract Allergy Unknown ALLERGY Verified 11/04/18 15:07 TEST RESULT erythromycin base AdvReac Mild STOMACH Verified 11/04/18 15:07 PAIN mivacurium AdvReac MO increased Verified 11/04/18 15:07 blood pressure Past Med/Surg History Medical History Pulmonary embolism Sensorineural hearing loss (SNHL) of right ear (Chronic) Vertigo (Chronic) Abdominal carcinomatosis (Chronic) Pathological fracture of rib of right side (Chronic) Right lateral fifth and eighth rib Pathological fracture of rib of left side (Chronic) Ninth posterior rib Metastatic breast cancer (Chronic) Status post mastectomy 06/04/2015 with radiation therapy completion 10/14/2015 Asthma (Chronic) Melanoma (Chronic) Celiac disease (Chronic) GERD (gastroesophageal reflux disease) (Chronic) Stafford's esophagus (Chronic) Fibromyalgia (Chronic) Bilateral pulmonary embolism (Chronic) On chronic Eliquis therapy Breast cancer of upper-outer quadrant of right female breast (Chronic 04/29/15) " Right breast mass found on physical examination Status post biopsy 04/29/2015 revealing a lobular carcinoma Estrogen receptor positive, positive progesterone, receptor positive HER- 2/jorge negative Status post right modified radical mastectomy with lymph node dissection and left total mastectomy 06/04/2015 Pathologic stage pT3 pN2 M0 Oncotype DX score of 2 Status post completion of radiation therapy to the chest wall, supraclavicular, and axilla 10/14/2015 received 6120 cGy Rib pain and healing pathologic fracture of the left ninth posterior rib PET/CT October 26, 2017 at [facility] showing peritoneal carcinomatosis/ascites. FDG avid right lateral eighth rib activity and T9 vertebral body metabolic activity Status post omental biopsy November 17, 2017 revealing metastatic lobular breast carcinoma Initiation of Ibrance and Femara. She will also start Xgeva." On 05/13/17 16:00 Tammy Trejo wrote " Right breast mass found on physical examination Status post biopsy 04/29/2015 revealing a lobular carcinoma Estrogen receptor positive, positive progesterone, receptor positive HER- 2/jorge negative Status post right modified radical mastectomy with lymph node dissection and left total mastectomy 06/04/2015 Pathologic stage pT3 pN2 M0 Oncotype DX score of 2 Status post completion of radiation therapy to the chest wall, supraclavicular, and axilla 10/14/2015 received 6120 cGy" On 10/18/15 14:05 Tammy Trejo wrote " Right breast mass found on physical examination Status post biopsy 04/29/2015 revealing a lobular carcinoma Estrogen receptor, positive progesterone, receptor positive HER-2/jorge negative Status post right modified radical mastectomy with lymph node dissection and left total mastectomy 06/04/2015 Pathologic stage pT3 pN2 M0 Oncotype DX score of 2 Status post completion of radiation therapy to the chest wall, supracl avicular, and axilla 10/14/2015 received 6120 cGy" On 10/18/15 14:05 Tammy Trejo wrote " Right breast mass found on physical examination Status post biopsy 04/29/2015 revealing a lobular carcinoma Estrogen receptor, positive progesterone, receptor positive HER-2/jorge negative Status post right modified radical mastectomy with lymph node dissection and left total mastectomy 06/04/2015 Pathologic stage pT3 pN2 M0 Oncotype DX score of 2 Status post completion of radiation therapy to the chest wall, supraclavicular, and axilla 10/14/2015 received 6120 cGy" On 06/26/15 10:03 Tammy Trejo wrote " Right breast mass found on physical examination Status post biopsy 04/29/2015 revealing a lobular carcinoma Estrogen receptor, positive progesterone, receptor positive HER-2/jorge negative Status post right modified radical mastectomy with lymph node dissection and left total mastectomy 06/04/2015 Pathologic stage pT3 pN2 M0" On 06/26/15 09:58 Tammy Trejo wrote " Right breast mass found on physical examination Status post biopsy 04/29/2015 revealing a lobular carcinoma Estrogen receptor, positive progesterone, receptor positive HER-2/jorge negative Status post right modified radical mastectomy with lymph node dissection and left total mastectomy Pathologic stage pT3 pN2 M0" Chest pain (Chronic) Hypertension (Chronic) CVA (cerebral vascular accident) (Acute) Lymphedema (Acute) right arm Hemorrhagic cystitis (Resolved) Hypertension (Resolved) UTI (urinary tract infection) (Resolved) Vaginitis (Resolved) Surgical History H/O lymph node biopsy (Resolved) Right axilla H/O mastectomy (Resolved) History of dilation and curettage (Resolved) History of bunionectomy S/P mastectomy, bilateral Family History Other Cancer Social History Preferred Language: Scottish Communication Ability: Effective Beliefs That Will Affect Care: Spiritual marital status: Current Living Situation: Spouse current occupational status: retired Feels Safe at Home: Yes Smoking Status: Never smoker Second Hand Exposure: No Hx Alcohol Use: No Hx Substance Use: No Review of Systems See HPI for pertinent positives & negatives. and A total of 10 systems reviewed and were otherwise negative Physical Exam Vital Signs Vital Signs - 24 hr 11/04/18 14:14 11/04/18 14:53 11/04/18 14:58 Temperature 36.8 C Temperature Source Oral Sepsis Recent Fever Within 48 Hours No Sepsis Action Taken by Nursing No Action Required Pulse Rate 92 H 85 85 Pulse Rate from SpO2 Sensor 83 87 Pulse Rhythm Regular Pulse Strength Normal Respiratory Rate 16 19 17 Respiratory Effort / Characteristics Non-Labored Respiratory Depth Normal Respiratory Pattern Regular Blood Pressure 93/63 L 93/52 L Blood Pressure Mean 73 65 Blood Pressure Position Sitting Pulse Oximetry 100 98 98 Oxygen Delivery Method Room Air Room Air 11/04/18 15:00 11/04/18 15:39 11/04/18 15:43 Temperature Temperature Source Sepsis Recent Fever Within 48 Hours Sepsis Action Taken by Nursing Pulse Rate 88 88 89 Pulse Rate from SpO2 Sensor 88 Pulse Rhythm Pulse Strength Respiratory Rate 21 16 18 Respiratory Effort / Characteristics Respiratory Depth Respiratory Pattern Blood Pressure 95/62 L Blood Pressure Mean 73 Blood Pressure Position Pulse Oximetry 99 Oxygen Delivery Method 11/04/18 15:44 11/04/18 16:00 11/04/18 16:30 Temperature Temperature Source Sepsis Recent Fever Within 48 Hours Sepsis Action Taken by Nursing Pulse Rate 88 87 Pulse Rate from SpO2 Sensor Pulse Rhythm Pulse Strength Respiratory Rate 13 17 18 Respiratory Effort / Characteristics Respiratory Depth Respiratory Pattern Blood Pressure 93/51 L 85/63 L Blood Pressure Mean 65 70 Blood Pressure Position Pulse Oximetry Oxygen Delivery Method 11/04/18 17:01 11/04/18 17:03 11/04/18 17:30 Temperature Temperature Source Sepsis Recent Fever Within 48 Hours Sepsis Action Taken by Nursing Pulse Rate 88 90 87 Pulse Rate from SpO2 Sensor Pulse Rhythm Pulse Strength Respiratory Rate 21 17 Respiratory Effort / Characteristics Respiratory Depth Respiratory Pattern Blood Pressure 98/71 L 91/54 L Blood Pressure Mean 80 66 Blood Pressure Position Pulse Oximetry Oxygen Delivery Method 11/04/18 17:31 11/04/18 17:48 Temperature Temperature Source Sepsis Recent Fever Within 48 Hours Sepsis Action Taken by Nursing Pulse Rate 90 88 Pulse Rate from SpO2 Sensor Pulse Rhythm Pulse Strength Respiratory Rate 17 16 Respiratory Effort / Characteristics Respiratory Depth Respiratory Pattern Blood Pressure 116/62 Blood Pressure Mean 80 Blood Pressure Position Pulse Oximetry Oxygen Delivery Method GENERAL: Mildly ill in appearance. Mild distress. Nontoxic. Wearing glasses. EYE EXAM: Normal conjunctiva. PERRL, no anisocoria and EOM's grossly intact w/o pain. OROPHARYNX: Moist mucous membranes. Grossly normal dentition. NECK: Supple, no nuchal rigidity, no adenopathy, non-tender. No signs of meningismus. LUNGS: Bibasilar crackles. Normal chest wall mechanics. HEART: NSR, no MRG. CHEST: Port in left chest. CDI. ABDOMEN: Abdomen distended with positive fluid waves, PleurX catheter and bandage in place in the left abdomen, non-tender, normo-active bowel sounds, no masses, no rebound or guarding. BACK: No CVA TTP. SKIN: No rashes and no bruising. UPPER EXTREMITIES: Upper extremities are grossly normal. LOWER EXTREMITIES: 3+ bilateral lower extremity edema. Symmetric. No calf pain. NEURO EXAM: A&O x3, cranial nerves II-XII grossly intact, normal speech, moves all 4 extremities on command w/o issue. Course 1421: Past medical records reviewed. The patient was evaluated in room C12B. A complete history and physical exam was performed. 1625: I reevaluated the patient and updated her on her test results. I discussed the patient's test results with her. She verbally agrees and understands. 1642: I discussed the patient's case with Dr. Hood. He will evaluate the pa bradynt for further management. He would like another liter and her BMP rechecked. 1721: I reevaluated the patient and she wants to go home now. 1847: I reevaluated the patient and she is willing to stay. She mentioned considering hospice care. Consultations Consultation #1: I discussed the patient's case with Dr. Hood. He will evaluate the patient for further management. He would like another liter and her BMP rechecked. After BMP resulted, I rediscussed results w/ patient who was willing to stay. Dr. Hood was notified and will evaluate the patient for further management. Time: 16:42 Administered Medications Discontinued Medications Sodium Chloride (Nss 1000ml) 1,000 mls @ 999 mls/hr IV .Q1H1M ONE Stop: 11/04/18 15:29 Last Infusion: 11/04/18 15:47 Dose: 0 mls/hr Documented by: [id number] Admin: 11/04/18 14:47 Dose: 999 mls/hr Documented by: [id number] Sodium Chloride (Nss 1000ml) 1,000 mls @ 999 mls/hr IV .Q1H1M ONE Stop: 11/04/18 17:52 Last Infusion: 11/04/18 18:18 Dose: 0 mls/hr Documented by: [id number] Admin: 11/04/18 17:05 Dose: 999 mls/hr Documented by: [id number] Metoclopramide HCl (Reglan) 10 mg IV NOW STA Stop: 11/04/18 14:30 Last Admin: 11/04/18 14:47 Dose: 10 mg Documented by: [id number] Medical Decision Making Medical Records Attestation: I reviewed the patient's medical records. Home Medications Current Medication List: was personally reviewed by me Laboratory Data Attestation: I reviewed the patient's lab results. Result diagrams: 11/04/18 14:42 11/04/18 18:15 Lab Results 11/04/18 11/04/18 11/04/18 Range/Units 14:42 14:42 14:42 WBC 6.21 (4.8-10.8) K/uL RBC 2.82 L (4.2-5.4) M/uL Hgb 8.5 L (12.0-16.0) g/dL Hct 25.3 L (37-47) % MCV 89.7 (80-100) fL MCH 30.1 (25-34) pg MCHC 33.6 (32-36) g/dL RDW Std Deviation 66.6 H (36.4-46.3) fL RDW Coeff of Rachel 20.1 H (11.5-14.5) % Plt Count 204 (130-400) K/uL MPV 8.8 (7.4-10.4) fL Immature Gran % (Auto) 0.5 % Neut % (Auto) 69.1 % Lymph % (Auto) 11.4 % Graham % (Auto) 16.9 % Eos % (Auto) 1.9 % Baso % (Auto) 0.2 % Immature Gran # (Auto) 0.03 H (0.00-0.02) K/uL Neut # (Auto) 4.29 (1.4-6.5) K/uL Lymph # (Auto) 0.71 L (1.2-3.4) K/uL Graham # (Auto) 1.05 H (0.11-0.59) K/uL Eos # (Auto) 0.12 (0-0.5) K/uL Baso # (Auto) 0.01 (0-0.2) K/uL Polychromasia 1+ Hypochromasia Present Anisocytosis Present Spherocytes Occasional Tear Drop Cells Occasional PT 31.2 H (9.0-12.0) Seconds INR 3.3 H (0.9-1.1) Sodium 127 L (136-145) mmol/L Potassium 5.4 H (3.5-5.1) mmol/L Chloride 96 L (98-107) mmol/L Carbon Dioxide 21 (21-32) mmol/L Anion Gap 10.0 (3-11) BUN 55 H (7-18) mg/dl Creatinine 2.89 H (0.6-1.2) mg/dl Est Cr Clr Drug Dosing 19.6 ml/min Est GFR ( Amer) 18.3 Est GFR (Non-Af Amer) 15.8 BUN/Creatinine Ratio 19.0 (10-20) Glucose 106 H (70-99) mg/dl POC Lactic Acid Refugio (0.90-1.70) mmol/L Calcium 7.9 L (8.5-10.1) mg/dl Magnesium 3.0 H (1.8-2.4) mg/dl Total Bilirubin 0.6 (0.2-1) mg/dl AST 64 H (15-37) U/L ALT 29 (12-78) U/L Alkaline Phosphatase 76 (45-117) U/L Total Protein 5.7 L (6.4-8.2) gm/dl Albumin 2.7 L (3.4-5.0) gm/dl Globulin 3.0 (2.5-4.0) gm/dl Albumin/Globulin Ratio 0.9 (0.9-2) Lipase 248 (73-393) U/L 11/04/18 11/04/18 Range/Units 14:52 18:15 WBC (4.8-10.8) K/uL RBC (4.2-5.4) M/uL Hgb (12.0-16.0) g/dL Hct (37-47) % MCV (80-100) fL MCH (25-34) pg MCHC (32-36) g/dL RDW Std Deviation (36.4-46.3) fL RDW Coeff of Rachel (11.5-14.5) % Plt Count (130-400) K/uL MPV (7.4-10.4) fL Immature Gran % (Auto) % Neut % (Auto) % Lymph % (Auto) % Graham % (Auto) % Eos % (Auto) % Baso % (Auto) % Immature Gran # (Auto) (0.00-0.02) K/uL Neut # (Auto) (1.4-6.5) K/uL Lymph # (Auto) (1.2-3.4) K/uL Graham # (Auto) (0.11-0.59) K/uL Eos # (Auto) (0-0.5) K/uL Baso # (Auto) (0-0.2) K/uL Polychromasia Hypochromasia Anisocytosis Spherocytes Tear Drop Cells PT (9.0-12.0) Seconds INR (0.9-1.1) Sodium 131 L (136-145) mmol/L Potassium 5.1 (3.5-5.1) mmol/L Chloride 101 (98-107) mmol/L Carbon Dioxide 20 L (21-32) mmol/L Anion Gap 10.0 (3-11) BUN 53 H (7-18) mg/dl Creatinine 2.58 H D (0.6-1.2) mg/dl Est Cr Clr Drug Dosing 22.0 ml/min Est GFR ( Amer) 21.0 Est GFR (Non-Af Amer) 18.1 BUN/Creatinine Ratio 20.3 H (10-20) Glucose 95 (70-99) mg/dl POC Lactic Acid Refugio 1.53 (0.90-1.70) mmol/L Calcium 7.5 L (8.5-10.1) mg/dl Magnesium (1.8-2.4) mg/dl Total Bilirubin (0.2-1) mg/dl AST (15-37) U/L ALT (12-78) U/L Alkaline Phosphatase (45-117) U/L Total Protein (6.4-8.2) gm/dl Albumin (3.4-5.0) gm/dl Globulin (2.5-4.0) gm/dl Albumin/Globulin Ratio (0.9-2) Lipase (73-393) U/L Imaging Data Radiologist's Impression: Radiology results as stated below per my review and the radiologist's interpretation: CT head/brain wo con CT DOSE: 614.27 mGy.cm HISTORY: Mental status change headache TECHNIQUE: Multiaxial CT images of the head were performed without the use of intravenous contrast. A dose lowering technique was utilized adhering to the principles of ALARA. Comparison: 06/04/2018 Findings: The paranasal sinuses and mastoid air cells are clear. Multiple calvarial or calvarial lucencies. The described are stable. 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 Mild atrophy of the cerebellar as well as cerebral hemispheres. The ventricular system is midline. There is no evidence for acute intracranial hemorrhage. Impression: 1. Stable multiple lucencies throughout the calvarium. 2. Findings of several small old infarcts with no acute process. The above report was generated using voice recognition software. It may contain grammatical, syntax or spelling errors. Electronically signed by: Brian Jean M.D. 11/04/2018 3:38 PM Blood Pressure Blood Pressure Findings: Low blood pressure Blood Pressure Disposition: further management by hospitalist YUNIOR Narrative The patient is a 72 female w/ PMHx metastatic breast cancer, HTN, PE, GERD, and asthma who presents to the ED w/ CC of an episode of abdominal pain starting a few days ago. Differential diagnoses include renal failure, dehydration, acute kidney injury, stricture, protein malnutrition, volume overload, malignancy sequela. Patient was seen and evaluated the bedside. The patient does have metastatic breast cancer along with a history of PE remote history of stroke. The patient was presenting as concern for recent blood work that may have showed some kidney dysfunction. The patient has felt a little weak. The patient is also noticed some mild nonspecific headache. No recent trauma. Patient did a blood work completed along with a CT of the brain. Patient blood work does show SONYA mild hypo-natremia and hyperkalemia. The patient does have chronic but stable anemia. White count is within normal limits. The patient was discussed with the on-call hospitalist who recommended repeat IV fluids and recheck of a BMP. That time the patient's BNP was only slightly improved. I did discuss this further with the patient stated that she is going to stay in the hospital and she did mention she would be considering hospice. I did relate this to the hospitalist. Patient was admitted to the medicine service. Impression & Plan Dehydration, Hyperkalemia, Acute renal failure, History of breast cancer Discharge Plan Visit Data Chief Complaint: Abdominal Pain Stated Complaint: KIDNEY CANCER PROBLEMS ED Provider: Figueroa Petty Discharge Problem: Dehydration, Hyperkalemia, Acute renal failure, History of breast cancer Patient Disposition: Being Evaluated by Hospitalist Forms Stand Alone Forms: Call Back Authorization, [facility] Prescriptions Prescriptions: No Action tramadol 50 mg tablet 50 mg PO Q8H RF: 0 metronidazole [Noritate] 1 % cream 1 appln TOP Q2D RF: 0 acetaminophen [Tylenol Extra Strength] 500 mg tablet 500 mg PO Q6H PRN (Reason: Pain) RF: 0 esomeprazole magnesium [Nexium] 40 mg Capsule,Delayed Release(Dr/Ec) 40 mg PO DAILY RF: 0 prochlorperazine maleate 10 mg tablet 10 mg PO Q8H PRN (Reason: Nausea And Vomiting) RF: 0 ondansetron HCl 8 mg tablet 8 mg PO Q8H PRN (Reason: Nausea And Vomiting) RF: 0 docusate sodium 100 mg Tablet 100 mg PO BID PRN (Reason: Constipation) RF: 0 mometasone 50 mcg/actuation [place],Non-Aerosol 2 spray INTRANASAL DAILY PRN (Reason: Congestion) RF: 0 sulfacetamide sodium (acne) [Klaron] 10 % Suspension 1 applic TOPICAL Q2D RF: 0 Xgeva 120 mg/1.7 mL (70 mg/mL) Solution 120 mg SUBCUT MONTHLY RF: 0 Caltrate 600 + D 600 mg (1,500 mg)-800 unit Tablet,Chewable 1 tab PO BID RF: 0 acyclovir 800 mg Tablet 800 mg PO TID PRN (Reason: Cold Sores) RF: 0 clotrimazole-betamethasone 1-0.05 % Cream 1 applic TOPICAL BID PRN (Reason: Skin Irritation) RF: 0 epinephrine [EpiPen] 0.3 mg/0.3 mL Auto-Injector 0.3 mg IM Q3H PRN (Reason: Allergic Reaction) RF: 0 albuterol sulfate 90 mcg/actuation Hfa Aerosol Inhaler 2 puff INHALATION Q4H PRN (Reason: Shortness Of Breath) RF: 0 pindolol 5 mg Tablet 5 mg PO BID RF: 0 biotin 1 mg Capsule 1 mg PO DAILY RF: 0 loratadine [Claritin] 10 mg Tablet 10 mg PO DAILY RF: 0 Asmanex HFA 200 mcg/actuation Hfa Aerosol Inhaler 1 puff INHALATION Q12H RF: 0 Lumigan 0.01 % Drops 1 drp OPB HS RF: 0 warfarin 5 mg tablet 5 mg PO DAILY RF: 0 enoxaparin 80 mg/0.8 mL syringe 80 mg subcut DAILY RF: 0 Referrals Referrals: Param Murphy Jr, DO [Primary Care Provider] - Discharge Problem: Acute renal failure Qualifiers: Acute renal failure type: unspecified Qualified Code(s): N17.9 - Acute kidney failure, unspecified The scribe's documentation has been prepared under my direction and personally reviewed by me in its entirety. I confirm that the note above accurately reflects all work, treatment, procedures, and medical decision making performed by me.
--- NOTE | 2018-11-04 19:37 | History & Physical Report ---
Date of Service November 04, 2018 Assessment & Plan (1) Acute renal failure: Chief Complaint: 72 y/o F Hx metastatic breast CA, HTN, recent PE, recent renal impairment and hyperkalemia, anemia and neutropenia, protein malnutrition, chronic ascites - abdominal PleurX cath. She is receiving treatment in [place] and has recently had deteriorating renal function. She states she drinks plenty of fluids at home. She was told to come to the hospital based on recent labs, to receive IVF and determine if this might improve her renal function. She states that she is not urinating as much as she expects. She denies diarrhea, nausea, vomiting or fevers. 1) ARF - may be progressive as this has been a recurrent issue. It is thought that this may be due to intravascular depletion owing to 3rd spacing. She will receive IVF overnight. If this is the case, she may need scheduled IVF admini stration. We have ordered urine lytes and requested a nephrology consult. 2) Ascites - requested that nursing drain some fluids off her PleurX as she is uncomfortable. This is not likely to respond to Lasix and albumin would not help in the long-term. Therefore the only potential solution is treatment of her CA. Protein supplements provided. 3) PE - INR is therapeutic - cont Coumadin 4) Breast CA - she has requested a palliative care consult. She is set to resume a new chemo treatment in a few weeks and can f/u with her oncologist if she decides to proceed. 5) HTN - Pindolol held as her BP is low on arrival Full code, Coumadin Total time for this admit including review of labs, meds, imaging, records - discussion with pt and ER attending - 38 min Present on Admission?: Yes History of Present Illness Chief Complaint: 72 y/o F Hx metastatic breast CA, HTN, recent PE, recent renal impairment and hyperkalemia, anemia and neutropenia, protein malnutrition, chronic ascites - abdominal PleurX cath. She is receiving treatment in [place] and has recently had deteriorating renal function. She states she drinks plenty of fluids at home. She was told to come to the hospital based on recent labs, to receive IVF and determine if this might improve her renal function. She states that she is not urinating as much as she expects. She denies diarrhea, nausea, vomiting or fevers. PMH: 1) Breast CA - mets to liver and bone - diagnosed 2014 - had a BL mastectomy. Her last chemo was at the beginning of 10/2017. Additional treatment is planned. 2) PE 3) HTN 4) Anemia of chronic disease - Hb 8-9 5) Neutropenia Surgical: BL mastectomy Social: No smoking history, occasional ETOH. 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 Primary Care Provider: Param Murphy Jr, DO Allergies Allergy/AdvReac Type Severity Reaction Status Date / Time oxycodone Allergy SV SHORTNESS Verified 11/04/18 15:07 OF BREATH shrimp Allergy SV THROAT Verified 11/04/18 15:07 CLOSING, ITCHING Penicillins Allergy Intermediate RASH Verified 11/04/18 15:07 Sulfa (Sulfonamide Allergy Intermediate RASH Verified 11/04/18 15:07 Antibiotics) gluten Allergy MO CELIAC Verified 11/04/18 15:07 DISEASE latex Allergy MO RASH Verified 11/04/18 15:07 peanut Allergy MO INCONSISTENT Verified 11/04/18 15:07 ALLERGY TEST RESULT azithromycin Allergy U Unknown Verified 11/04/18 15:07 Dust Mite Extract Allergy Unknown ALLERGY Verified 11/04/18 15:07 TEST RESULT erythromycin base AdvReac Mild STOMACH Verified 11/04/18 15:07 PAIN mivacurium AdvReac MO increased Verified 11/04/18 15:07 blood pressure Home Medications Home Medications Medication Instructions Recorded Confirmed Type acyclovir 800 mg PO TID PRN 01/15/18 11/04/18 History albuterol sulfate 2 puff INHALATION Q4H PRN 01/15/18 11/04/18 History biotin 1 mg PO DAILY 01/15/18 11/04/18 History clotrimazole-betamethasone 1 applic TOPICAL BID PRN 01/15/18 11/04/18 History epinephrine [EpiPen] 0.3 mg IM Q3H PRN 01/15/18 11/04/18 History pindolol 5 mg PO BID 01/15/18 11/04/18 History acetaminophen 500 mg tablet 500 mg PO Q6H PRN tab 02/11/18 11/04/18 History metronidazole 1 % topical cream 1 appln TOP Q2D gm 02/11/18 11/04/18 History tramadol 50 mg tablet 50 mg PO Q8H tab 02/11/18 11/04/18 History Asmanex HFA 1 puff INHALATION Q12H 07/18/18 11/04/18 History Lumigan 1 drp OPB HS 07/18/18 11/04/18 History loratadine [Claritin] 10 mg PO DAILY 07/18/18 11/04/18 History esomeprazole magnesium [Nexium] 40 mg PO DAILY 07/26/18 11/04/18 History Xgeva 120 mg SUBCUT MONTHLY 09/26/18 11/04/18 History docusate sodium 100 mg PO BID PRN 09/26/18 11/04/18 History mometasone 2 spray INTRANASAL DAILY PRN 09/26/18 11/04/18 History ondansetron HCl 8 mg PO Q8H PRN 09/26/18 11/04/18 History prochlorperazine maleate 10 mg PO Q8H PRN 09/26/18 11/04/18 History sulfacetamide sodium (acne) 1 applic TOPICAL Q2D 09/26/18 11/04/18 History [Klaron] calcium carbonate-vitamin D3 1 tab PO BID 10/07/18 11/04/18 History [Caltrate 600 + D] enoxaparin 80 mg SUBCUT DAILY 11/04/18 11/04/18 History warfarin 5 mg PO DAILY 11/04/18 11/04/18 History Past Med/Surg History Medical History Pulmonary embolism Sensorineural hearing loss (SNHL) of right ear (Chronic) Vertigo (Chronic) Abdominal carcinomatosis (Chronic) Pathological fracture of rib of right side (Chronic) Right lateral fifth and eighth rib Pathological fracture of rib of left side (Chronic) Ninth posterior rib Metastatic breast cancer (Chronic) Status post mastectomy 06/04/2015 with radiation therapy completion 10/14/2015 Asthma (Chronic) Melanoma (Chronic) Celiac disease (Chronic) GERD (gastroesophageal reflux disease) (Chronic) Stafford's esophagus (Chronic) Fibromyalgia (Chronic) Bilateral pulmonary embolism (Chronic) On chronic Eliquis therapy Breast cancer of upper-outer quadrant of right female breast (Chronic 04/29/15) " Right breast mass found on physical examination Status post biopsy 04/29/2015 revealing a lobular carcinoma Estrogen receptor positive, positive progesterone, receptor positive HER- 2/jorge negative Status post right modified radical mastectomy with lymph node dissection and left total mastectomy 06/04/2015 Pathologic stage pT3 pN2 M0 Oncotype DX score of 2 Status post completion of radiation therapy to the chest wall, supraclavicular, and axilla 10/14/2015 received 6120 cGy Rib pain and healing pathologic fracture of the left ninth posterior rib PET/CT October 26, 2017 at [facility] showing peritoneal carcinomatosis/ascites. FDG avid right lateral eighth rib activity and T9 vertebral body metabolic activity Status post omental biopsy November 17, 2017 revealing metastatic lobular breast carcinoma Initiation of Ibrance and Femara. She will also start Xgeva." On 05/13/17 16:00 Tammy Trejo wrote " Right breast mass found on physical examination Status post biopsy 04/29/2015 revealing a lobular carcinoma Estrogen receptor positive, positive progesterone, receptor positive HER- 2/jorge negative Status post right modified radical mastectomy with lymph node dissection and left total mastectomy 06/04/2015 Pathologic stage pT3 pN2 M0 Oncotype DX score of 2 Status post completion of radiation therapy to the chest wall, supraclavicular, and axilla 10/14/2015 received 6120 cGy" On 10/18/15 14:05 Tammy Trejo wrote " Right breast mass found on physical examination Status post biopsy 04/29/2015 revealing a lobular carcinoma Estrogen receptor, positive progesterone, receptor positive HER-2/jorge negative Status post right modified radical mastectomy with lymph node dissection and left total mastectomy 06/04/2015 Pathologic stage pT3 pN2 M0 Oncotype DX score of 2 Status post completion of radiation therapy to the chest wall, supraclavicular, and axilla 10/14/2015 received 6120 cGy" On 10/18/15 14:05 Tammy Trejo wrote " Right breast mass found on physical examination Status post biopsy 04/29/2015 revealing a lobular carcinoma Estrogen receptor, positive progesterone, receptor positive HER-2/jorge negative Status post right modified radical mastectomy with lymph node dissection and left total mastectomy 06/04/2015 Pathologic stage pT3 pN2 M0 Oncotype DX score of 2 Status post completion of radiation therapy to the chest wall, supraclavicular, and axilla 10/14/2015 received 6120 cGy" On 06/26/15 10:03 Tammy Trejo wrote " Right breast mass found on physical examination Status post biopsy 04/29/2015 revealing a lobular carcinoma Estrogen receptor, positive progesterone, receptor positive HER-2/jorge negative Status post right modified radical mastectomy with lymph node dissection and left total mastectomy 06/04/2015 Pathologic stage pT3 pN2 M0" On 06/26/15 09:58 Tammy Trejo wrote " Right breast mass found on physical examination Status post biopsy 04/29/2015 revealing a lobular carcinoma Estrogen receptor, positive progesterone, receptor positive HER-2/jorge negative Status post right modified radical mastectomy with lymph node dissection and left total mastectomy Pathologic stage pT3 pN2 M0" Chest pain (Chronic) Hypertension (Chronic) CVA (cerebral vascular accident) (Acute) Lymphedema (Acute) right arm Hemorrhagic cystitis (Resolved) Hypertension (Resolved) UTI (urinary tract infection) (Resolved) Vaginitis (Resolved) Surgical History H/O lymph node biopsy (Resolved) Right axilla H/O mastectomy (Resolved) History of dilation and curettage (Resolved) History of bunionectomy S/P mastectomy, bilateral Family History Other Cancer Social History Preferred Language: [place] Communication Ability: Effective Beliefs That Will Affect Care: Spiritual marital status: Current Living Situation: Spouse current occupational status: retired Feels Safe at Home: Yes Smoking Status: Never smoker Second Hand Exposure: No Hx Alcohol Use: No Hx Substance Use: No Review of Systems Review of Systems: Gen: Generalized weakness ENT: Denies congestion, throat pain, hearing loss Eyes: Denies acute visual changes CV: Denies CP, palpitations Pulmonary: Denies SOB, cough, wheezing GI: Denies N/V, diarrhea, constipation - distention due to chronic large-volume ascites Neuro: Denies acute or unilateral weakness, acute gait impairment, headache or acute visual changes Musculoskeletal: Denies joint pain, inflammation. + edema Endocrine: Describes oliguria. Skin: Denies acute rashes or ulcers Physical Exam Physical Exam: General: This is a very pleasant, elderly F, AAO x 3, no distress ENT: No erythema or exudates, no thrush Eyes: TATY, EOMI Head and neck: Normocephalic, atraumatic, No JVD, neck is supple. Chest/heart: Nontender, S1,2, RRR, no murmurs, no gallops Lungs: CTAB, no wheezing or crackles Abdomen: Large, soft abdmonen - catheter in LLQ - no evidence of infection. Neuro: AAO x 3, speech is clear, no unilateral weakness or loss of sensation, coordination intact Musculoskeletal: No joint inflammation, muscle tenderness, FROM Skin: No acute rashes or ulcers Extremities: No clubbing, cyanosis. + edema Results & Data Vital Signs (Past 12 Hours) Vital Signs Temp Pulse Resp BP Pulse Ox 11/04/18 17:48 88 16 116/62 11/04/18 17:31 90 17 11/04/18 17:30 87 17 91/54 L 11/04/18 17:03 90 21 98/71 L 11/04/18 17:01 88 11/04/18 16:30 18 85/63 L 11/04/18 16:00 87 17 93/51 L 11/04/18 15:44 88 13 11/04/18 15:43 89 18 95/62 L 11/04/18 15:39 88 16 11/04/18 15:00 88 21 99 11/04/18 14:58 85 17 98 11/04/18 14:53 85 19 93/52 L 98 11/04/18 14:14 98.2 F 92 H 16 93/63 L 100 PG Care Time/CCT Total # of Minutes Spent Total Time Spent with Patient: Total time spent is greater than 50% in coordination of care (as documented) at patient's floor/unit and/or counseling patient: (1) Acute renal failure Acute renal failure type: unspecified Qualified Code(s): N17.9 - Acute kidney failure, unspecified
[2018-11-04] MEDS ORDERED: CLOTRIMAZOLE/BETAMETHASONE CR 15 GM TUBE EXT PRN (20:52)
[2018-11-04] MEDS ORDERED: ALUMINUM/MAGNESIUM SUSP 30 ML UDC PO PRN (20:52)
[2018-11-04] MEDS ORDERED: ZOLPIDEM TARTRATE 5 MG TAB PO PRN (20:52)
[2018-11-04] MEDS ORDERED: ONDANSETRON INJ 2 MG/ML 2 ML VIAL IV PRN (20:52)
[2018-11-04] MEDS ORDERED: MAGNESIUM HYDROXIDE SUSP 30 ML UDC PO PRN (20:52)
[2018-11-04] MEDS ORDERED: FLUTICASONE PROPIONATE NA SPR 16 GM BTL PRN (20:52)
[2018-11-04] MEDS ORDERED: POLYETHYLENE (MIRALAX) 17 GM PACK PO PRN (20:52)
[2018-11-04] MEDS ORDERED: ALBUTEROL HFA 8 GM INHALER INH PRN (20:52)
[2018-11-04] MEDS ORDERED: ACETAMINOPHEN 500 MG TAB PO PRN (20:52)
[2018-11-04] MEDS ORDERED: DOCUSATE SODIUM 100 MG CAP PO PRN (20:52)
[2018-11-04] MEDS: CALCIUM 600MG + VIT D 400 IU TAB PO SCH (22:27)
[2018-11-04] MEDS: BIMATOPROST 0.01% OP SOLN 2.5 ML BTL OPB SCH (22:29)
[2018-11-04] MEDS: TRAMADOL HCL 50 MG TABLET PO SCH (22:31)
[2018-11-04] MEDS: SODIUM CHLORIDE 0.9% 1000ML 1,000 ML IV SCH (22:55)
[2018-11-05] MEDS ORDERED: HEPARIN 100 UNIT/ML 5ML FLUSH FLUSH PRN (00:46)
[2018-11-05] MEDS: TRAMADOL HCL 50 MG TABLET PO SCH ×3 (06:25→22:22)
[2018-11-05] MEDS: SODIUM CHLORIDE 0.9% 1000ML 1,000 ML IV SCH ×2 (06:28→15:57)
[2018-11-05 07:12] LABS: BUN Creatinine Ratio 19.8 (10-20); Calcium 7.1 mg/dl (8.5-10.1); Est GFR (African American) 20.9; Magnesium 2.9 mg/dl (1.8-2.4)
[2018-11-05] MEDS: CALCIUM 600MG + VIT D 400 IU TAB PO SCH ×2 (08:21→20:19)
[2018-11-05] MEDS: LORATADINE 10 MG TAB PO SCH (08:22)
[2018-11-05] MEDS: PANTOprazole 40 MG TAB PO SCH (08:22)
--- NOTE | 2018-11-05 11:09 | Nephrology Consultation ---
Date of Consultation November 05, 2018 Assessment & Plan (1) Acute renal failure: -- SONYA is multifactoral. Recent Taxol administration, low intravascular volume (3rd spacing due to carcinomatosis) and possible abdominal compartment syndrome (tense ascites) are contributing factors -- Will obtain urinalysis w/ micro and UPCR -- Will order renal US -- Continue hydration w/ 0.9NS -- Will order 25 g albumin IV TID x 6 doses total -- Recommend low volume (~2 L) paracentesis to lower intraabdominal pressure -- Monitor PRP -- Discussed the possibility of ACCOUNT LIAISON w/ patient and today. Due to the extent of her malignancy and lack of vascular access she does not want heroic measures or to escalate care (no HD) (2) Hyponatremia: -- Mild, asymptomatic -- Related to low EAV -- Continue IV hydration and albumin administration as outlined under SONYA (3) Chronic kidney disease: -- Baseline creatinine ~ 1.1 (4) Abdominal carcinomatosis: -- Recommend low volume (~ 2 L ) paracentesis as outlined above (5) Metastatic breast cancer: -- Prognosis is guarded -- Recommend consultation w/ Oncology and Palliative care History of Present Illness Reason for Consultation: SONYA/CKD Attending Physician: Bear Jasso, DO History of Present Illness Mrs. Montilla is a 72 year old white female who is seen at the request of Dr. Jasso for evaluation of SONYA/CKD. Medical records in the EMR were reviewed today and are summarized as follows: Mrs. Montilla was diagnosed w/ breast CA in 2014. She underwent bilateral mastectomy, chemotherapy and radiation therapy. She did well until 05/28 when she suffered rib fractures while coughing. Evaluation revealed recurrent breast CA w/ metastasis to bone and omentum. She has been cared for at [facility]. She has developed tense abdominal ascites and has required repeated large volume paracentesis. Recently she had a Pleur-x catheter placed in the peritoneal space to allow 500 cc paracentesis every other day by home health. Mrs. Montilla was recently started on Taxol. Her last dose was ~ 10 days ago. Mrs. Montilla had blood work completed for her Oncologist. It was noted that she now has SONYA. Creatinine has risen from 1.1 to 2.5. She was advised to present to her local hospital for medical management. She currently denies fever, N/V/D, abdominal pain, NSAID use or recent exposure to IV contrast. Allergies Allergy/AdvReac Type Severity Reaction Status Date / Time oxycodone Allergy SV SHORTNESS Verified 11/04/18 15:07 OF BREATH shrimp Allergy SV THROAT Verified 11/04/18 15:07 CLOSING, ITCHING Penicillins Allergy Intermediate RASH Verified 11/04/18 15:07 Sulfa (Sulfonamide Allergy Intermediate RASH Verified 11/04/18 15:07 Antibiotics) gluten Allergy MO CELIAC Verified 11/04/18 15:07 DISEASE latex Allergy MO RASH Verified 11/04/18 15:07 peanut Allergy MO INCONSISTENT Verified 11/04/18 15:07 ALLERGY TEST RESULT azithromycin Allergy U Unknown Verified 11/04/18 15:07 Dust Mite Extract Allergy Unknown ALLERGY Verified 11/04/18 15:07 TEST RESULT erythromycin base AdvReac Mild STOMACH Verified 11/04/18 15:07 PAIN mivacurium AdvReac MO increased Verified 11/04/18 15:07 blood pressure Home Medications Home Medications Medication Instructions Recorded Confirmed Type acyclovir 800 mg PO TID PRN 01/15/18 11/04/18 History albuterol sulfate 2 puff INHALATION Q4H PRN 01/15/18 11/04/18 History biotin 1 mg PO DAILY 01/15/18 11/04/18 History clotrimazole-betamethasone 1 applic TOPICAL BID PRN 01/15/18 11/04/18 History epinephrine [EpiPen] 0.3 mg IM Q3H PRN 01/15/18 11/04/18 History pindolol 5 mg PO BID 01/15/18 11/04/18 History acetaminophen 500 mg tablet 500 mg PO Q6H PRN tab 02/11/18 11/04/18 History metronidazole 1 % topical cream 1 appln TOP Q2D gm 02/11/18 11/04/18 History tramadol 50 mg tablet 50 mg PO Q8H tab 02/11/18 11/04/18 History Asmanex HFA 1 puff INHALATION Q12H 07/18/18 11/04/18 History Lumigan 1 drp OPB HS 07/18/18 11/04/18 History loratadine [Claritin] 10 mg PO DAILY 07/18/18 11/04/18 History esomeprazole magnesium [Nexium] 40 mg PO DAILY 07/26/18 11/04/18 History Xgeva 120 mg SUBCUT MONTHLY 09/26/18 11/04/18 History docusate sodium 100 mg PO BID PRN 09/26/18 11/04/18 History mometasone 2 spray INTRANASAL DAILY PRN 09/26/18 11/04/18 History ondansetron HCl 8 mg PO Q8H PRN 09/26/18 11/04/18 History prochlorperazine maleate 10 mg PO Q8H PRN 09/26/18 11/04/18 History sulfacetamide sodium (acne) 1 applic TOPICAL Q2D 09/26/18 11/04/18 History [Klaron] calcium carbonate-vitamin D3 1 tab PO BID 10/07/18 11/04/18 History [Caltrate 600 + D] enoxaparin 80 mg SUBCUT DAILY 11/04/18 11/04/18 History warfarin 5 mg PO DAILY 11/04/18 11/04/18 History Patient History Medical History Pulmonary embolism Sensorineural hearing loss (SNHL) of right ear (Chronic) Vertigo (Chronic) Abdominal carcinomatosis (Chronic) Pathological fracture of rib of right side (Chronic) Right lateral fifth and eighth rib Pathological fracture of rib of left side (Chronic) Ninth posterior rib Metastatic breast cancer (Chronic) Status post mastectomy 06/04/2015 with radiation therapy completion 10/14/2015 Asthma (Chronic) Melanoma (Chronic) Celiac disease (Chronic) GERD (gastroesophageal reflux disease) (Chronic) Stafford's esophagus (Chronic) Fibromyalgia (Chronic) Bilateral pulmonary embolism (Chronic) On chronic Eliquis therapy Breast cancer of upper-outer quadrant of right female breast (Chronic 04/29/15) " Right breast mass found on physical examination Status post biopsy 04/29/2015 revealing a lobular carcinoma Estrogen receptor positive, positive progesterone, receptor positive HER- 2/jorge negative Status post right modified radical mastectomy with lymph node dissection and left total mastectomy 06/04/2015 Pathologic stage pT3 pN2 M0 Oncotype DX score of 2 Status post completion of radiation therapy to the chest wall, supraclavicular, and axilla 10/14/2015 received 6120 cGy Rib pain and healing pathologic fracture of the left ninth posterior rib PET/CT October 26, 2017 at [facility] showing peritoneal carcinomatosis/ascites. FDG avid right lateral eighth rib activity and T9 vertebral body metabolic activity Status post omental biopsy November 17, 2017 revealing metastatic lobular breast carcinoma Initiation of Ibrance and Femara. She will also start Xgeva." On 05/13/17 16:00 Tammy Trejo wrote " Right breast mass found on physical examination Status post biopsy 04/29/2015 revealing a lobular carcinoma Estrogen receptor positive, positive progesterone, receptor positive HER- 2/jorge negative Status post right modified radical mastectomy with lymph node dissection and left total mastectomy 06/04/2015 Pathologic stage pT3 pN2 M0 Oncotype DX score of 2 Status post completion of radiation therapy to the chest wall, supraclavicular, and axilla 10/14/2015 received 6120 cGy" On 10/18/15 14:05 Tammy Trejo wrote " Right breast mass found on physical examination Status post biopsy 04/29/2015 revealing a lobular carcinoma Estrogen receptor, positive progesterone, receptor positive HER-2/jorge negative Status post right modified radical mastectomy with lymph node dissection and left total mastectomy 06/04/2015 Pathologic stage pT3 pN2 M0 Oncotype DX score of 2 Status post completion of radiation therapy to the chest wall, supraclavicular, and axilla 10/14/2015 received 6120 cGy" On 10/18/15 14:05 Tammy Trejo wrote " Right breast mass found on physical examination Status post biopsy 04/29/2015 revealing a lobular carcinoma Estrogen receptor, positive progesterone, receptor positive HER-2/jorge negative Status post right modified radical mastectomy with lymph node dissection and left total mastectomy 06/04/2015 Pathologic stage pT3 pN2 M0 Oncotype DX score of 2 Status post completion of radiation therapy to the chest wall, supraclavicular, and axilla 10/14/2015 received 6120 cGy" On 06/26/15 10:03 Tammy Trejo wrote " Right breast mass found on physical examination Status post biopsy 04/29/2015 revealing a lobular carcinoma Estrogen receptor, positive progesterone, receptor positive HER-2/jorge negative Status post right modified radical mastectomy with lymph node dissection and left total mastectomy 06/04/2015 Pathologic stage pT3 pN2 M0" On 06/26/15 09:58 Tammy Trejo wrote " Right breast mass found on physical examination Status post biopsy 04/29/2015 revealing a lobular carcinoma Estrogen receptor, positive progesterone, receptor positive HER-2/jorge negative Status post right modified radical mastectomy with lymph node dissection and left total mastectomy Pathologic stage pT3 pN2 M0" Chest pain (Chronic) Hypertension (Chronic) CVA (cerebral vascular accident) (Acute) Lymphedema (Acute) right arm Hemorrhagic cystitis (Resolved) Hypertension (Resolved) UTI (urinary tract infection) (Resolved) Vaginitis (Resolved) Surgical History H/O lymph node biopsy (Resolved) Right axilla H/O mastectomy (Resolved) History of dilation and curettage (Resolved) History of bunionectomy S/P mastectomy, bilateral Family History Other Cancer Social History Preferred Language: Polish Communication Ability: Effective 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 Beliefs That Will Affect Care: None marital status: Current Living Situation: Spouse current occupational status: retired Other Information That Helps Us Care for You: No Feels Safe at Home: Yes Safety Concerns: Feels Safe At This Time Smoking Status: Never smoker Second Hand Exposure: No Hx Alcohol Use: No Hx Substance Use: No Review of Systems Constitutional: + weakness; no fever Respiratory: no cough and no dyspnea Cardiovascular: + edema; no chest pain and no palpitations Gastrointestinal: no abdominal pain, no vomiting and no diarrhea/loose stools Genitourinary: no dysuria and no hematuria Physical Exam Constitutional: + thin and + frail appearing Eyes: PERRL Neck: trachea midline, no thyromegaly (L subclavian a-port) Respiratory: normal respiratory effort, lungs clear to auscultation Cardiovascular: Rate/Rhythm: regular rate and regular rhythm Extremities: + edema (1+ pretibial pitting edema. Chronic lymphedema of the R arm) Gastrointestinal (Abdomen): Inspection/Auscultation: + abdomen distended and + hypoactive bowel sounds Percussion/Palpation: + ascites and + fluid wave; abdomen nontender Results & Data Vital Signs (Past 12 Hours) Vital Signs Temp Pulse Resp BP Pulse Ox 11/05/18 07:21 36.5 C 89 16 94/58 L 100 11/04/18 23:14 36.7 C 122 H 20 92/57 L 96 Laboratory Results Laboratory Tests 11/04/18 11/04/18 11/05/18 14:42 14:42 06:00 WBC 6.21 Hgb 8.5 L Hct 25.3 L Plt Count 204 Sodium 129 L Potassium 5.0 Chloride 101 Carbon Dioxide 20 L BUN 51 H Creatinine 2.59 H Glucose 97 Albumin 2.7 L Diagnostic Findings ABD CT 11/04/18: No significant abnormality within the lung bases is noted. No pneumatosis, free air or portal venous gas is present. A large amount of abdominal and pelvic ascites is noted. There is no evidence for a bowel obstruction. There is mild nodularity of the liver surface. Multiple hypodense hepatic lesions are unchanged from earlier exams. These are suboptimally assessed on this unenhanced exam but favor cysts. A large left renal cyst is noted. Mild right hydronephrosis is unchanged and CT of January 03, 2018. Unenhanced images of the spleen, adrenal glands and pancreas are unremarkable. There is no biliary or pancreatic ductal dilatation. Moderate amount of stool within the colon and rectum is noted. Mesenteric vessel origin is noted. Innumerable skeletal metastases are again noted. A few old mild pathologic compression deformities are present. There may be mild omental nodularity. (1) Acute renal failure Acute renal failure type: unspecified Qualified Code(s): N17.9 - Acute kidney failure, unspecified
--- NOTE | 2018-11-05 13:13 | Ultrasound Report ---
ULTRASOUND KIDNEYS AND BLADDER CLINICAL HISTORY: Acute renal insufficiency. COMPARISON STUDY: Abdominal CT dated 10/07/2018. TECHNIQUE: Real-time, grayscale, and color flow sonography of the kidneys and bladder is performed. I mages are reviewed in the transverse and longitudinal planes. FINDINGS: Kidneys: The kidneys demonstrate cortical atrophy. The right kidney measures 10.7 cm in length and th e left kidney measures 13.8 cm in length. There is mild/moderate right-sided hydronephrosis, similar to the 10/07/2018 CT scan. No left-sided hydronephrosis is seen. No shadowing renal calculi are identi fied. A 13.6 cm simple cyst is again seen arising from the lower pole of the left kidney. There is no sonographic evidence of renal mass lesion. No perinephric fluid is identified. Bladder: The bladder is not well-visualized.. Upper abdomen: Survey images of the liver show cirrhotic liver morphology. There is a moderate volume of abdominal ascites. A catheter is present in the pelvis. IMPRESSION: 1. The kidneys demonstrate cortical atrophy. 2. Mild to moderate right-sided hydronephrosis is similar to the 10/07/2018 CT scan. 3. No hydronephrosis is seen on the left. 4. The bladder was not visualized. 5. Cirrhotic liver morphology, abdominal ascites, and a pelvic catheter are identified. Electronically signed by: ePterson Gaffney M.D. 11/05/2018 1:10 PM
[2018-11-05 13:48] LABS: Protein Creatinine Ratio Urine 0.1 (0-0.2); Total Protein Urine Random 19.1 mg/dl (0-11.9)
[2018-11-05] MEDS: ALBUMIN 25% 100 ML IV SCH ×2 (14:04→21:49)
--- NOTE | 2018-11-05 14:58 | Hospitalist Progress Note ---
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 Isbell following patient would not be interested in [employer] B[employer] TELLER if needed (5) Hyponatremia: low at 129 but this is due to ascites would be hypervolemic hyponatremia monitor daily (6) Anemia: chronic, due to malignancy monitor (7) Hypotension: due to ascites and low intravascular volume give albumin x 6 doses hold BP medications (8) Pulmonary embolism: INR therapeutic (9) Hypoalbuminemia: give albumin x 6 doses repeat level tomorrow Subjective patient resting in bed with her family at the bedside in no distress she says she has some abdominal pain with the tense ascites home nursing was draining 500cc every other day, last time drained was 3 days ago reviewed labs, Na down at 129, albumin low at 2.7, Cr up at 2.[address] Isbell, he recommends draining fluid from abdomen he discussed any role of [employer] BANK[employer] TELLER with family and patient, she refuses she is interested in talking with palliative care on Wednesday she is unsure if she wants to try any further chemotherapy she last had Taxol three weeks ago, did not have a good response her primary oncologist is [facility] locally [facility] she [facility] leaning towards hosp[facility], family would like her to consider further treatment but they understand grim prognosis Review of Systems Review of Systems: All systems reviewed & are unremarkable except as noted in HPI & below Constitutional: + fatigue, + weakness and + anorexia; no fever, no chills and no sweats Respiratory: + dyspnea on exertion; no cough and no dyspnea Cardiovascular: + edema; no chest pain Gastrointestinal: + abdominal pain, + bloating (ascites), + nausea and + vomiting; no constipation, no diarrhea/loose stools and no blood in stools Physical Exam Constitutional: well developed, + thin, + frail appearing and + edematous (legs); no acute distress Eyes: PERRL, conjunctivae normal, anicteric sclerae ENMT: external ear and nose normal, oropharynx normal Neck: trachea midline, no thyromegaly Respiratory: normal respiratory effort, lungs clear to auscultation (decreased breath sounds in the bases) Cardiovascular: Rate/Rhythm: regular rate and regular rhythm Heart Sounds: normal S1 and normal S2 Vessels: no JVD Extremities: + edema (pitting up to the thighs bilaterally) Gastrointestinal (Abdomen): Inspection/Auscultation: + abdomen distended (tense ascites), normal bowel sounds and + abdominal edema Percussion/Palpation: + abdomen tender, abdomen soft, + ascites and + dullness to percussion Musculoskeletal: no cyanosis or clubbing, extremities motor strength 5/5 Skin: no rashes, warm and dry Neurologic: patellar DTR's 2+ bilat, sensation intact and PERRL, EOMI, accommodation nl, no face palsy, no dysarthria Psychiatric: A+Ox3, euthymic affect Lymphatic: no cervical or axillary lymphadenopathy Results & Data Vital Signs (Past 12 Hours) Vital Signs Temp Pulse Resp BP Pulse Ox 11/05/18 14:50 36.6 C 91 H 16 93/56 L 95 11/05/18 13:52 36.5 C 92 H 16 97/60 L 100 11/05/18 11:55 36.4 C L 87 16 93/57 L 98 11/05/18 07:21 36.5 C 89 16 94/58 L 100 Laboratory Results Laboratory Results - last 24 hr 11/04/18 11/04/18 11/04/18 14:42 14:42 18:15 Polychromasia 1+ Hypochromasia Present Anisocytosis Present Spherocytes Occasional Tear Drop Cells Occasional Sodium 131 L Potassium 5.1 Chloride 101 Carbon Dioxide 20 L Anion Gap 10.0 BUN 53 H Creatinine 2.58 H D Est Cr Clr Drug Dosing 22.0 Est GFR ( Amer) 21.0 Est GFR (Non-Af Amer) 18.1 BUN/Creatinine Ratio 20.3 H Glucose 95 Calcium 7.5 L Magnesium Total Bilirubin 0.6 Alkaline Phosphatase 76 Total Protein 5.7 L Globulin 3.0 Albumin/Globulin Ratio 0.9 Ur Random Creatinine U Random Total Protein Ur Random Sodium Protein/Creatinin Ratio 11/05/18 11/05/18 11/05/18 06:00 06:40 13:15 Polychromasia Hypochromasia Anisocytosis Spherocytes Tear Drop Cells Sodium 129 L Potassium 5.0 Chloride 101 Carbon Dioxide 20 L Anion Gap 8.0 BUN 51 H Creatinine 2.59 H Est Cr Clr Drug Dosing 22.0 Est GFR ( Amer) 20.9 Est GFR (Non-Af Amer) 18.0 BUN/Creatinine Ratio 19.8 Glucose 97 Calcium 7.1 L Magnesium 2.9 H Total Bilirubin Alkaline Phosphatase Total Protein Globulin Albumin/Globulin Ratio Ur Random Creatinine 191.0 175.0 U Random Total Protein 19.1 H Ur Random Sodium 10 Protein/Creatinin Ratio 0.1 Medications Administered Current Inpatient Medications Acetaminophen (Tylenol) 500 mg PO Q6H PRN PRN Reason: Pain Stop: 12/04/18 20:51 Al Hydrox/Mg Hydrox/Simethicone (Maalox) 30 ml PO Q6H PRN PRN Reason: Dyspepsia Stop: 12/04/18 20:51 Albuterol (Ventolin Hfa) 2 puffs INH Q4H PRN PRN Reason: Shortness Of Breath Stop: 12/04/18 20:51 Betamethasone/Clotrimazole (Lotrisone 1/0.5%) 1 appln EXT BID PRN PRN Reason: Rash Stop: 12/04/18 20:51 Bimatoprost (Lumigan 0.01%) 1 drops OPB HS JULIAN Stop: 12/04/18 20:59 Last Admin: 11/04/18 22:29 Dose: 1 drops Documented by: Docusate Sodium (Colace) 100 mg PO BID PRN PRN Reason: Constipation Stop: 12/04/18 20:51 Fluticasone Propionate (Flonase) 2 sprays NA DAILY PRN PRN Reason: Congestion Stop: 12/04/18 20:51 Heparin Sodium (Porcine) (Heparin Sod 100 Unit/Ml Flush) 5 ml FLUSH PRN PRN PRN Reason: Flush Stop: 12/05/18 00:59 Albumin Human (Albumin 25%) 100 mls @ 50 mls/hr IV Q8H JULIAN Stop: 11/09/18 07:59 Last Admin: 11/05/18 14:04 Dose: 50 mls/hr Documented by: Sodium Chloride (Nss 1000ml) 1,000 mls @ 100 mls/hr IV .Q10H JULIAN Stop: 12/05/18 11:44 Loratadine (Claritin) 10 mg PO DAILY JULIAN Stop: 12/05/18 08:59 Last Admin: 11/05/18 08:22 Dose: 10 mg Documented by: Magnesium Hydroxide (Milk Of Magnesia) 30 ml PO Q6H PRN PRN Reason: Constipation Stop: 12/04/18 20:51 Miscellaneous (Order Awaiting Action) 1 ea N/A QS COUNTS INCLUDE 234 BEDS AT THE [facility] Stop: 12/05/18 00:00 Last Admin: 11/05/18 08:21 Dose: Not Given Documented by: Miscellaneous (Order Awaiting Action) 1 ea N/A QS COUNTS INCLUDE 234 BEDS AT THE [facility] Stop: 12/05/18 00:00 Last Admin: 11/05/18 08:21 Dose: Not Given Documented by: Multivitamins/Minerals (Caltrate Plus) 1 tab PO BID COUNTS INCLUDE 234 BEDS AT THE [facility] Stop: 12/04/18 20:59 Last Admin: 11/05/18 08:21 Dose: Not Given Documented by: Ondansetron HCl (Zofran) 4 mg IV Q6H PRN PRN Reason: Nausea Stop: 12/04/18 20:51 Pantoprazole Sodium (Protonix) 40 mg PO DAILY COUNTS INCLUDE 234 BEDS AT THE [facility] Stop: 12/05/18 08:59 Last Admin: 11/05/18 08:22 Dose: 40 mg Documented by: Polyethylene Glycol (Miralax Powder Packet) 17 gm PO DAILY PRN PRN Reason: Constipation Stop: 12/04/18 20:51 Tramadol HCl (Ultram) 50 mg PO Q8 JULIAN Stop: 12/04/18 21:59 Last Admin: 11/05/18 14:05 Dose: 50 mg Documented by: Zolpidem Tartrate (Ambien) 5 mg PO HS PRN PRN Reason: Sleep Stop: 12/04/18 20:51 PG Care Time/CCT Total # of Minutes Spent Total Time Spent with Patient: Total time spent is greater than 50% in c oordination of care (as documented) at patient's floor/unit and/or counseling patient: (1) Acute renal failure Acute renal failure type: unspecified Qualified Code(s): N17.9 - Acute kidney failure, unspecified (2) Anemia Anemia type: unspecified type Qualified Code(s): D64.9 - Anemia, unspecified (3) Pulmonary embolism Pulmonary embolism type: unspecified Chronicity: unspecified Acute cor pulmonale presence: without acute cor pulmonale Qualified Code(s): I26.99 - Other pulmonary embolism without acute cor pulmonale
[2018-11-05 16:28] LABS: Appearance Urine Clear (Clear); Bacteria Urine Automated Negative (Negative); Bilirubin Urine Negative (Negative); Blood Urine Negative (Negative); Color Urine Dark Yellow; Epithelial Cell Urine Auto >30 /lpf (0-5); Glucose Urine UA Negative (Negative); Ketones Urine Negative (Negative); Leukocyte Esterase Urine 2+ (Negative); Nitrite Urine Negative (Negative); Protein Urine Negative (Negative); RBC Urine Automated 0-4 /hpf (0-4); Specific Gravity Urine 1.021 (1.000-1.030); Urobilinogen Urine Negative (Negative); WBC Urine Automated >30 /hpf (0-5)
[2018-11-05] MEDS: BIMATOPROST 0.01% OP SOLN 2.5 ML BTL OPB SCH (20:19)
[2018-11-06] MEDS: SODIUM CHLORIDE 0.9% 1000ML 1,000 ML IV SCH ×3 (00:39→21:28)
[2018-11-06] MEDS: TRAMADOL HCL 50 MG TABLET PO SCH ×3 (06:25→21:56)
[2018-11-06] MEDS: ALBUMIN 25% 100 ML IV SCH ×3 (06:34→23:45)
[2018-11-06 06:39] LABS: Hematocrit (blood only) 21.7 % (37-47); Hemoglobin 7.5 g/dL (12.0-16.0); Mean Corpuscular Hgb Conc 34.6 g/dL (32-36); Mean Corpuscular Volume 90.8 fL (80-100); Platelet Count 178 K/uL (130-400); RDW Coefficient of Variation 20.1 % (11.5-14.5); RDW Standard Deviation 67.3 fL (36.4-46.3); Red Blood Count 2.39 M/uL (4.2-5.4)
[2018-11-06 07:21] LABS: Albumin Level 2.8 gm/dl (3.4-5.0); Calcium 6.9 mg/dl (8.5-10.1); Creatinine Clr Calc Pharmacy 26.5 ml/min; Est GFR (African American) 25.9; Est GFR (Non-African American) 22.4; Potassium 4.8 mmol/L (3.5-5.1)
[2018-11-06 07:24] LABS: Albumin Globulin Ratio 1.3 (0.9-2); Bilirubin,Total 0.6 mg/dl (0.2-1); Globulin 2.2 gm/dl (2.5-4.0)
[2018-11-06] MEDS: PANTOprazole 40 MG TAB PO SCH (09:57)
[2018-11-06] MEDS: CALCIUM 600MG + VIT D 400 IU TAB PO SCH ×2 (09:57→21:28)
[2018-11-06] MEDS: LORATADINE 10 MG TAB PO SCH (09:57)
[2018-11-06] MEDS ORDERED: SODIUM CHLORIDE 0.9% 250 ML IV PRN (10:36)
--- NOTE | 2018-11-06 10:54 | Nephrology Progress Note ---
Date of Service November 06, 2018 Assessment & Plan (1) Acute renal failure: -- SONYA is multifactoral. Recent Taxol administration, low intravascular volume (3rd spacing due to carcinomatosis) and possible abdominal compartment syndrome (tense ascites) are contributing factors. Baseline creatinine ~ 1.1. -- Urinalysis w/ hyaline casts only. No cellular casts or evidence of infection -- Renal US w/ mild to moderate hydronephrosis unchanged from prior studies. No acute indication for stenting or Urology evaluation at this time -- Continue hydration w/ 0.9NS -- Continue SPA 25 g IV q 8 hrs x 3 more doses -- Recommend low volume (~2 L) paracentesis today to lower intraabdominal pressure -- Monitor PRP -- Discussed the possibility of STENCIL CUT[employer] MACHINE w/ patient and yesterday. Due to the extent of her malignancy and lack of vascular access she does not want heroic measures or to escalate care (no HD) (2) Anemia: -- Recommend transfusing one unit PRBC today to correct anemia and provide intravascular volume (3) Hyponatremia: -- Mild, asymptomatic -- Related to low EAV. Improving w/ IV hydration -- Continue IV hydration and albumin administration as outlined under SONYA (4) Chronic kidney disease: -- Baseline creatinine ~ 1.1 (5) Abdominal carcinomatosis: -- Recommend low volume (~ 2 L ) paracentesis as outlined above (6) Metastatic breast cancer: -- Prognosis is guarded -- Recommend consultation w/ Oncology and Palliative care Subjective Mrs. Montilla was seen & examined in her hospital room this morning. She is tolerating IV albumin and saline infusions without dyspnea. She underwent 1 L paracentesis yesterday and blood pressure remained stable. Mrs. Montilla currently denies fever, abdominal pain, dyspnea, angina or uremic symptoms. Review of Systems Constitutional: + weakness; no fever Respiratory: no dyspnea Cardiovascular: + edema; no chest pain and no palpitations Gastrointestinal: no abdominal pain, no vomiting and no diarrhea/loose stools Physical Exam Constitutional: + thin and + frail appearing Eyes: PERRL Neck: trachea midline, no thyromegaly (L subclavian a-port) Respiratory: normal respiratory effort, lungs clear to auscultation Cardiovascular: Rate/Rhythm: regular rate and regular rhythm Extremities: + edema (1+ pretibial pitting edema. Chronic lymphedema of the R arm) Gastrointestinal (Abdomen): Inspection/Auscultation: + abdomen distended and + hypoactive bowel sounds Percussion/Palpation: + ascites and + fluid wave; abdomen nontender peritoneal catheter in place. Exit site w/ clean, dry dressing Neurologic: awake; not confused Results & Data Vital Signs (Past 12 Hours) Vital Signs Temp Pulse Resp BP Pulse Ox 11/06/18 09:51 36.4 C L 84 16 99/64 L 100 11/06/18 08:59 36.5 C 90 16 106/68 100 11/06/18 07:31 36.5 C 83 16 104/71 99 11/06/18 07:20 36.4 C L 83 16 105/67 100 11/06/18 06:35 36.4 C L 83 20 109/68 100 11/06/18 03:35 36.5 C 90 16 94/55 L 96 Laboratory Results Laboratory Tests 11/06/18 11/06/18 05:30 05:30 WBC 4.10 L Hgb 7.5 L Hct 21.7 L Plt Count 178 Sodium 130 L Potassium 4.8 Chloride 103 Carbon Dioxide 19 L BUN 48 H Creatinine 2.17 H D Glucose 85 Albumin 2.8 L Laboratory Tests 11/05/18 16:10 Urine Color Dark Yellow Urine Appearance Clear Urine pH 5.0 Ur Specific [place] 1.021 Urine Protein Negative Urine Glucose (UA) Negative Urine Ketones Negative Urine Blood Negative Urine Nitrite Negative Urine Bilirubin Negative Urine Urobilinogen Negative Ur Leukocyte Esterase 2+ H Urine WBC (Auto) >30 H Urine RBC (Auto) 0-4 U Hyaline Cast (Auto) 5-10 H U Epithel Cells (Auto) >30 H Urine Bacteria (Auto) Negative (1) Acute renal failure Acute renal failure type: unspecified Qualified Code(s): N17.9 - Acute kidney failure, unspecified (2) Anemia Anemia type: unspecified type Qualified Code(s): D64.9 - Anemia, unspecified
[2018-11-06 12:21] LABS: INR 3.7 (0.9-1.1); Prothrombin Time 34.7 Seconds (9.0-12.0)
--- NOTE | 2018-11-06 15:52 | Hospitalist Progress Note ---
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 Isbell following patient would not be interested in [employer] if needed Cr down to 2.1, Dr. Isbell would be okay with discharge tomorrow should get BMP on 11/09, should follow up with nephrology in 2 weeks (5) Hyponatremia: low at 130 but this is due to ascites would be hypervolemic hyponatremia monitor daily (6) Anemia: chronic, due to malignancy Hb down to 7.5 today transfuse 1 unit, tolerated well, check Hb in the morning (7) Hypotension: due to ascites and low intravascular volume give albumin x 6 doses hold BP medications no symptoms, systolic pressures in 90-100 range (8) Pulmonary embolism: INR supratherapeutic at 3.7 continue to hold Coumadin, likely hold on discharge should get INR on 11/09 with results to PCP (9) Hypoalbuminemia: give albumin x 6 doses Alb up slightly to 2.8 Dr. Isbell discussed trying to give some Albumin as outpatient, especially with paracentesis Plan: discussed plan with patient and her , they would like to go home tomorrow afternoon they had an appt with [facility] Oncology on 11/09 but they don't think they will make the trip they have appt with Dr. Joya on 11/14 which they will keep plan to continue home nursing with draining ascites, recommend that they perform 500cc drain every day willing to drain on days that home nursing not there need to check CBC and CMP on 11/09, will need script meet with palliative care tomorrow, possible transition to hospice, patient leaning that way but not fully comitted Subjective total of 1000cc removed from abdomen yesterday and 1000cc more removed today, no real improvement d/w patient, will plan to remove 1000cc more this evening updated at the bedside reviewed labs, Hb is 7.5, d/w Dr. Isbell, he recommended transfusion Albumin low at 2.8 but up slightly Cr improved to 2.17 from 2.8 on admission, making urine, still with edema Na stable at 130 Review of Systems Review of Systems: All systems reviewed & are unremarkable except as noted in HPI & below Constitutional: + fatigue, + weakness and + anorexia (appetite getting better); no fever, no chills and no sweats Respiratory: + dyspnea on exertion; no cough and no dyspnea Cardiovascular: + edema; no chest pain Gastrointestinal: + abdominal pain and + bloating (ascites); no nausea, no vomiting, no constipation and no diarrhea/loose stools Physical Exam Constitutional: well developed, + thin, + frail appearing and + edematous (legs); no acute distress Eyes: PERRL, conjunctivae normal, anicteric sclerae ENMT: external ear and nose normal, oropharynx normal Neck: trachea midline, no thyromegaly Respiratory: normal respiratory effort, lungs clear to auscultation (decreased breath sounds in the bases) Cardiovascular: Rate/Rhythm: regular rate and regular rhythm Heart Sounds: normal S1 and normal S2 Vessels: no JVD Extremities: + edema (pitting up to the thighs bilaterally) Gastrointestinal (Abdomen): Inspection/Auscultation: + abdomen distended (tense ascites), normal bowel sounds and + abdominal edema Percussion/Palpation: + abdomen tender, abdomen soft, + ascites and + dullness to percussion Musculoskeletal: no cyanosis or clubbing, extremities motor strength 5/5 Skin: no rashes, warm and dry Neurologic: patellar DTR's 2+ bilat, sensation intact and PERRL, EOMI, accommodation nl, no face palsy, no dysarthria Psychiatric: A+Ox3, euthymic affect Lymphatic: no cervical or axillary lymphadenopathy Results & Data Vital Signs (Past 12 Hours) Vital Signs Temp Pulse Pulse Resp BP BP Pulse Ox 11/06/18 15:23 36.6 C 88 88 16 103/66 103/66 99 11/06/18 14:20 36.5 C 82 16 109/65 100 11/06/18 13:20 36.5 C 82 16 103/66 99 11/06/18 12:50 36.3 C L 81 16 104/66 100 11/06/18 12:15 103 H 20 105/61 100 11/06/18 10:59 80 99/61 L 11/06/18 09:51 36.4 C L 84 16 99/64 L 100 11/06/18 08:59 36.5 C 90 16 106/68 100 11/06/18 07:31 36.5 C 83 16 104/71 99 11/06/18 07:20 36.4 C L 83 16 105/67 100 11/06/18 06:35 36.4 C L 83 20 109/68 100 Laboratory Results Laboratory Results - last 24 hr 11/05/18 11/06/18 11/06/18 16:10 05:30 05:30 WBC 4.10 L RBC 2.39 L Hgb 7.5 L Hct 21.7 L MCV 90.8 MCH 31.4 MCHC 34.6 RDW Std Deviation 67.3 H RDW Coeff of Rachel 20.1 H Plt Count 178 MPV 9.0 PT INR Sodium 130 L Potassium 4.8 Chloride 103 Carbon Dioxide 19 L Anion Gap 8.0 BUN 48 H Creatinine 2.17 H D Est Cr Clr Drug Dosing 26.5 Est GFR ( Amer) 25.9 Est GFR (Non-Af Amer) 22.4 BUN/Creatinine Ratio 22.0 H Glucose 85 Calcium 6.9 L Total Bilirubin 0.6 AST 61 H ALT 28 Alkaline Phosphatase 60 Total Protein 5.0 L Albumin 2.8 L Globulin 2.2 L Albumin/Globulin Ratio 1.3 Urine Color Dark Yellow Urine Appearance Clear Urine pH 5.0 Ur Specific [place] 1.021 Urine Protein Negative Urine Glucose (UA) Negative Urine Ketones Negative Urine Blood Negative Urine Nitrite Negative Urine Bilirubin Negative Urine Urobilinogen Negative Ur Leukocyte Esterase 2+ H Urine WBC (Auto) >30 H Urine RBC (Auto) 0-4 U Hyaline Cast (Auto) 5-10 H U Epithel Cells (Auto) >30 H Urine Bacteria (Auto) Negative Blood Type Blood Type Recheck Antibody Screen Crossmatch 11/06/18 11/06/18 11/06/18 05:30 10:25 10:45 WBC RBC Hgb Hct MCV MCH MCHC RDW Std Deviation RDW Coeff of Rachel Plt Count MPV PT 34.7 H INR 3.7 H Sodium Potassium Chloride Carbon Dioxide Anion Gap BUN Creatinine Est Cr Clr Drug Dosing Est GFR ( Amer) Est GFR (Non-Af Amer) BUN/Creatinine Ratio Glucose Calcium Total Bilirubin AST ALT Alkaline Phosphatase Total Protein Albumin Globulin Albumin/Globulin Ratio Urine Color Urine Appearance Urine pH Ur Specific [place] Urine Protein Urine Glucose (UA) Urine Ketones Urine Blood Urine Nitrite Urine Bilirubin Urine Urobilinogen Ur Leukocyte Esterase Urine WBC (Auto) Urine RBC (Auto) U Hyaline Cast (Auto) U Epithel Cells (Auto) Urine Bacteria (Auto) Blood Type O Positive Blood Type Recheck O Positive Antibody Screen NEGATIVE Crossmatch See Detail Medications Administered Current Inpatient Medications Acetaminophen (Tylenol) 500 mg PO Q6H PRN PRN Reason: Pain Stop: 12/04/18 20:51 Al Hydrox/Mg Hydrox/Simethicone (Maalox) 30 ml PO Q6H PRN PRN Reason: Dyspepsia Stop: 12/04/18 20:51 Albuterol (Ventolin Hfa) 2 puffs INH Q4H PRN PRN Reason: Shortness Of Breath Stop: 12/04/18 20:51 Betamethasone/Clotrimazole (Lotrisone 1/0.5%) 1 appln EXT BID PRN PRN Reason: Rash Stop: 12/04/18 20:51 Bimatoprost (Lumigan 0.01%) 1 drops OPB HS JULIAN Stop: 12/04/18 20:59 Last Admin: 11/05/18 20:19 Dose: 1 drops Documented by: Docusate Sodium (Colace) 100 mg PO BID PRN PRN Reason: Constipation Stop: 12/04/18 20:51 Fluticasone Propionate (Flonase) 2 sprays NA DAILY PRN PRN Reason: Congestion Stop: 12/04/18 20:51 Heparin Sodium (Porcine) (Heparin Sod 100 Unit/Ml Flush) 5 ml FLUSH PRN PRN PRN Reason: Flush Stop: 12/05/18 00:59 Albumin Human (Albumin 25%) 100 mls @ 50 mls/hr IV Q8H JULIAN Stop: 11/09/18 15:59 Last Infusion: 11/06/18 08:45 Dose: Infused Documented by: Sodium Chloride (Nss 1000ml) 1,000 mls @ 100 mls/hr IV .Q10H JULIAN Stop: 12/05/18 11:44 Last Admin: 11/06/18 09:59 Dose: 100 mls/hr Documented by: Sodium Chloride (Nss) 250 mls @ 15 mls/hr IV .[id number] PRN PRN Reason: For Transfusion Stop: 11/06/18 23:59 Loratadine (Claritin) 10 mg PO DAILY JULIAN Stop: 12/05/18 08:59 Last Admin: 11/06/18 09:57 Dose: 10 mg Documented by: Magnesium Hydroxide (Milk Of Magnesia) 30 ml PO Q6H PRN PRN Reason: Constipation Stop: 12/04/18 20:51 Miscellaneous (Order Awaiting Action) 1 ea N/A QS JULIAN Stop: 12/05/18 00:00 Last Admin: 11/06/18 15:33 Dose: Not Given Documented by: Miscellaneous (Order Awaiting Action) 1 ea N/A QS JULIAN Stop: 12/05/18 00:00 Last Admin: 11/06/18 15:33 Dose: Not Given Documented by: Multivitamins/Minerals (Caltrate Plus) 1 tab PO BID JULIAN Stop: 12/04/18 20:59 Last Admin: 11/06/18 09:57 Dose: Not Given Documented by: Ondansetron HCl (Zofran) 4 mg IV Q6H PRN PRN Reason: Nausea Stop: 12/04/18 20:51 Pantoprazole Sodium (Protonix) 40 mg PO DAILY JULIAN Stop: 12/05/18 08:59 Last Admin: 11/06/18 09:57 Dose: 40 mg Documented by: Polyethylene Glycol (Miralax Powder Packet) 17 gm PO DAILY PRN PRN Reason: Constipation Stop: 12/04/18 20:51 Last Admin: 11/06/18 06:30 Dose: 17 gm Documented by: Tramadol HCl (Ultram) 50 mg PO Q8 JULIAN Stop: 12/04/18 21:59 Last Admin: 11/06/18 14:30 Dose: 50 mg Documented by: Zolpidem Tartrate (Ambien) 5 mg PO HS PRN PRN Reason: Sleep Stop: 12/04/18 20:51 PG Care Time/CCT Total # of Minutes Spent Total Time Spent with Patient: Total time spent is greater than 50% in coordination of care (as documented) at patient's floor/unit and/or counseling patient: (1) Acute renal failure Acute renal failure type: unspecified Qualified Code(s): N17.9 - Acute kidney failure, unspecified (2) Anemia Anemia type: unspecified type Qualified Code(s): D64.9 - Anemia, unspecified (3) Pulmonary embolism Acute cor pulmonale presence: without acute cor pulmonale Chronicity: unspecified Pulmonary embolism type: unspecified Qualified Code(s): I26.99 - Other pulmonary embolism without acute cor pulmonale
[2018-11-06] MEDS ORDERED: DOCUSATE SODIUM/SENNA 50/8.6MG TAB PO STA (16:15)
[2018-11-06] MEDS: BIMATOPROST 0.01% OP SOLN 2.5 ML BTL OPB SCH (21:56)
[2018-11-07] MEDS: TRAMADOL HCL 50 MG TABLET PO SCH ×2 (05:32→13:57)
[2018-11-07] MEDS: SODIUM CHLORIDE 0.9% 1000ML 1,000 ML IV SCH ×2 (05:40→13:58)
[2018-11-07 06:17] LABS: Hematocrit (blood only) 25.8 % (37-47); Hemoglobin 8.6 g/dL (12.0-16.0); Mean Corpuscular Hgb Conc 33.3 g/dL (32-36); Mean Corpuscular Volume 90.5 fL (80-100); Mean Platelet Volume 8.8 fL (7.4-10.4); Platelet Count 171 K/uL (130-400); RDW Coefficient of Variation 19.5 % (11.5-14.5); RDW Standard Deviation 64.8 fL (36.4-46.3); Red Blood Count 2.85 M/uL (4.2-5.4); White Blood Count 4.13 K/uL (4.8-10.8)
[2018-11-07 06:44] LABS: Albumin Level 3.3 gm/dl (3.4-5.0); Calcium 6.8 mg/dl (8.5-10.1); Creatinine Clr Calc Pharmacy 34.2 ml/min; Est GFR (African American) 35.1; Est GFR (Non-African American) 30.2; Potassium 4.9 mmol/L (3.5-5.1)
[2018-11-07 06:46] LABS: Albumin Globulin Ratio 1.5 (0.9-2); Bilirubin,Total 0.9 mg/dl (0.2-1); Globulin 2.2 gm/dl (2.5-4.0); Total Protein 5.5 gm/dl (6.4-8.2)
[2018-11-07] MEDS: PANTOprazole 40 MG TAB PO SCH (07:54)
[2018-11-07] MEDS: CALCIUM 600MG + VIT D 400 IU TAB PO SCH ×2 (07:54→07:56)
[2018-11-07] MEDS: LORATADINE 10 MG TAB PO SCH (07:54)
[2018-11-07] MEDS: ALBUMIN 25% 100 ML IV SCH ×2 (08:51→17:04)
--- NOTE | 2018-11-07 10:03 | Nephrology Progress Note ---
Date of Service November 07, 2018 Assessment & Plan (1) Acute renal failure: 72 year female with SONYA multifactoral, Recent Taxol administration, low intravascular volume (3rd spacing due to carcinomatosis) and possible abdominal compartment syndrome (tense ascites) are contributing factors. Baseline creatinine ~ 1.1. Urinalysis w/ hyaline casts only. No cellular casts or evidence of infection. Renal US w/ mild to moderate hydronephrosis unchanged from prior studies. Renal function has been improving, creatinine 5.7, electrolyte acceptable, decent UO, BP stable. -- Continue hydration w/ 0.9NS and 25 g IV q 8 hrs can be discontinued if discharge is planned for later today. -- paracentesis p.r.n. to be managed by Oncology with home visiting nurse after discharge -- okay to be discharged from nephrology standpoint, recommend outpatient lab in 2-3 days after discharge, result to be sent to Dr. Isbell. Please schedule outpatient Nephrology follow-up in 2-3 weeks after discharge. Will follow while inpatient (2) Anemia: -- Recommend transfusing one unit PRBC today to correct anemia and provide intravascular volume (3) Hyponatremia: -- Mild, asymptomatic -- Related to low EAV. Improving w/ IV hydration -- Continue IV hydration and albumin administration as outlined under SONYA (4) Chronic kidney disease: -- Baseline creatinine ~ 1.1 (5) Abdominal carcinomatosis: -- Recommend low volume (~ 2 L ) paracentesis as outlined above (6) Metastatic breast cancer: -- Prognosis is guarded -- Recommend consultation w/ Oncology and Palliative care Belle Sinclair was seen and evaluated with her Christian at bedside. Overall feeling better, denies SOB, abdomen discomfort. Renal function has been improving creatinine point electrolyte acceptable. Has been having decent urine output. Has 2 L removed with paracentesis yesterday. Blood pressure stable. Review of Systems Review of Systems: Detailed review of systems otherwise unremarkable 3 Physical Exam Physical Exam: GENERAL: elderly female, AAA x 3, not in any distress. NECK: Supple, no JVD. RESPIRATORY: clear to auscultation bilaterally, no wheezes or rales. CARDIOVASCULAR: S1, S2 normal, rate rhythm regular. ABDOMEN: Distended, tense, nontender. EXTREMITY: Trace bilateral lower extremity edema NEURO: speech fluent. PSYCHIATRY: Normal mood and judgment Results & Data Vital Signs (Past 12 Hours) Vital Signs Temp Pulse Resp BP Pulse Ox 11/07/18 08:53 86 108/63 11/07/18 07:00 36.6 C 79 16 99/64 L 99 11/07/18 02:50 36.5 C 117 H 18 101/62 97 11/06/18 22:58 36.7 C 91 H 18 108/67 94 (1) Acute renal failure Acute renal failure type: unspecified Qualified Code(s): N17.9 - Acute kidney failure, unspecified (2) Anemia Anemia type: unspecified type Qualified Code(s): D64.9 - Anemia, unspecified
--- NOTE | 2018-11-07 11:01 | Palliative Care Consultation ---
Date of Consultation November 07, 2018 Assessment & Plan (1) Palliative care encounter: This is a 72 year old pleasant female who was advised to present to the [facility] for IV fluids, decreased urine output, and electrolyte replacement. This patient has metastatic breast cancer (2014) s/p bilateral mastectomy with bone metastasis for which she received her last chemotherapy in October 2017 and has been followed by [facility] and locally by Dr. Joya for which she has an appointment on November 14. Additional PMH includes HTN, pulmonary embolism, renal impairment (baseline creatinine 2.5), hyperkalemia, protein malnutrition, chronic ascites s/p Pleur-X catheter and third spacing, likely related to carcinomatosis vs abdominal compartment syndrome. The patient has met with Nephrology and COMMUNITY RECREATION PROGRAMMER was discussed for which the patient decided that she would not want to pursue any aggressive dialysis treatments. Palliative Care was consulted to discuss Goals of Care. -I met with patient and , Praveen, in Room 403. The patient was sitting in her bed doing a crossword. -We discussed at length her current HPI and previous work-ups, treatments, hospitalizations, etc. She could not be more happy with the care she has received these last few days. She asked me to talk in detail about palliative vs hospice, which I did. The patient stated that she would like to possibly pursue aggressive alternative treatments that are to be discussed with Dr. Joya on 11/14, prior to determining if she would like to transition to Hospice. We did discuss that with her worsening kidney failure, with no hemodialysis could be challenging. She has made it clear that she does NOT want and COMMUNITY RECREATION PROGRAMMER. -We discussed code status and she stated that she would NOT want resuscitated, especially with her bone mets in her ribs. I changed her to a DNR/DNI in the computer. -The patient and discussed at length their commitment to the [employer]) and are close with their Embedded Software Manager. -Ultimately, the patient eventually envisions transitioning to Hospice, hopefully at home. The patient's was appropriately tearful during the interview and stated "I am fine draining her Pleur-x, but towards the end, I would want some help". We discussed private duty assistance and Hospice a gencies. Case management will provide lists for both. The stated that their spiritism has a program arranged that spiritism members sign up for care shifts at end of life. -We started to complete the POLST form and determined she would be willing to return to the hospital for current level of treatment, but nothing heroic. Form was left uncompleted as they would like to discuss with their son who is on his honeymoon. -The patient stated that she is not fearful for and feels she has 'completed what she needed to for her life' -From a pain standpoint, the patient takes Tramadol 50 mg Q8 scheduled and has Tylenol 500 mg Q6 PRN which she has not utilized and feels her pain is adequately controlled at this time. -We discussed her arranging an appointment with Dr. Barnes for outpatient palliative care/symptom management to continue to discuss goals of care throughout this transition. They were very receptive to this. I provided my business card and contact information as well. -PPS: 50% (2) Ascites, malignant: -Managed by Hospitalists -The patient denies pain at this time in her abdomen. -Third spacing likely due to carcinomatosis vs abdominal compartment syndrome -Her LLQ Pleur-X has been drained 11/05: 1000 mL 11/06: 2,000 mL. -Her Albumin has improved with infusion 2.4--> 3.3 (3) Chronic kidney disease: -Managed by Nephrology -Patient baseline Creatinine 1.1, now 2.5 -Lengthy discussion was held with patient and and patient declined any renal replacement therapy -Possible blood transfusion prior to discharge for chronic anemia. Last Hgb 8.6 (4) History of breast cancer: -Managed by Oncology -Diagnosed 2014 s/p bilateral mastectomy. Patient only had cancer in left breast, patient decided for double mastectomy regardless -Mets to bone (5) Pulmonary embolism: Not active, previous admission/PMH Acute cor pulmonale presence: without acute cor pulmonale Chronicity: unspecified Pulmonary embolism type: unspecified Qualified Code(s): I26.99 - Other pulmonary embolism without acute cor pulmonale Supervising Physician Co-Signing Physician Notes Chart reviewed, patient seen and examined. Patient's at bedside Collaborated with LY Li PE: NAD HEENT: EOMI, hearing within normal limits Respiratory: Unlabored, clear breath sounds CV: Regular rate, trace pedal edema Abdomen: Soft, distended, positive ascites, nontender Extremities: Full range of motion Neuro: Alert and oriented x4 Psych: Appropriate mood and affect Agree with above note, assessment and plan as per LY Li. Patient has appointment with oncology in [place] on 11/09 to discuss further chemo-including study protocols. Patient will follow-up locally with Dr. Joya. Discussed role of palliative care in helping to manage side effects of chemo as well as pain, fatigue and GI issues associated with cancer. Patient given business card with information to make an outpatient palliative clinic follow-up visit. History of Present Illness Reason for Consultation: Goals of care Requesting Physician: Dr. Hood Attending Physician: Gale Chacko MD History of Present Illness This is a 72 year old pleasant female who was advised to present to the [facility] for IV fluids, decreased urine output, and electrolyte replacement. This patient has metastatic breast cancer (2014) s/p bilateral mastectomy with bone metastasis for which she received her last chemotherapy in October 2017 and has been followed by [facility] and locally by Dr. Joya for which she has an appointment on November 14. Additional PMH includes HTN, pulmonary embolism, renal impairment (baseline creatinine 2.5), hyperkalemia, protein malnutrition, chronic ascites s/p Pleur-X catheter and third spacing, likely related to carcinomatosis vs abdominal compartment syndrome. The patient has met with Nephrology and COMMUNITY RECREATION PROGRAMMER was discussed for which the patient decided that she would not want to pursue any aggressive dialysis treatments. Palliative Care was consulted to discuss goals of care. Please see Assessment and Plan for further details. Thank you kindly for involving Palliative Care. We will continue to assist with decision making through her hospitalization. Allergies Allergy/AdvReac Type Severity Reaction Status Date / Time oxycodone Allergy SV SHORTNESS Verified 11/04/18 15:07 OF BREATH shrimp Allergy SV THROAT Verified 11/04/18 15:07 CLOSING, ITCHING Penicillins Allergy Intermediate RASH Verified 11/04/18 15:07 Sulfa (Sulfonamide Allergy Intermediate RASH Verified 11/04/18 15:07 Antibiotics) gluten Allergy MO CELIAC Verified 11/04/18 15:07 DISEASE latex Allergy MO RASH Verified 11/04/18 15:07 peanut Allergy MO INCONSISTENT Verified 11/04/18 15:07 ALLERGY TEST RESULT azithromycin Allergy U Unknown Verified 11/04/18 15:07 Dust Mite Extract Allergy Unknown ALLERGY Verified 11/04/18 15:07 TEST RESULT erythromycin base AdvReac Mild STOMACH Verified 11/04/18 15:07 PAIN mivacurium AdvReac MO increased Verified 11/04/18 15:07 blood pressure Home Medications Home Medications Medication Instructions Recorded Confirmed Type acyclovir 800 mg PO TID PRN 01/15/18 11/04/18 History albuterol sulfate 2 puff INHALATION Q4H PRN 01/15/18 11/04/18 History biotin 1 mg PO DAILY 01/15/18 11/04/18 History clotrimazole-betamethasone 1 applic TOPICAL BID PRN 01/15/18 11/04/18 History epinephrine [EpiPen] 0.3 mg IM Q3H PRN 01/15/18 11/04/18 History pindolol 5 mg PO BID 01/15/18 11/04/18 History acetaminophen 500 mg tablet 500 mg PO Q6H PRN tab 02/11/18 11/04/18 History metronidazole 1 % topical cream 1 appln TOP Q2D gm 02/11/18 11/04/18 History tramadol 50 mg tablet 50 mg PO Q8H tab 02/11/18 11/04/18 History Asmanex HFA 1 puff INHALATION Q12H 07/18/18 11/04/18 History Lumigan 1 drp OPB HS 07/18/18 11/04/18 History loratadine [Claritin] 10 mg PO DAILY 07/18/18 11/04/18 History esomeprazole magnesium [Nexium] 40 mg PO DAILY 07/26/18 11/04/18 History Xgeva 120 mg SUBCUT MONTHLY 09/26/18 11/04/18 History docusate sodium 100 mg PO BID PRN 09/26/18 11/04/18 History mometasone 2 spray INTRANASAL DAILY PRN 09/26/18 11/04/18 History ondansetron HCl 8 mg PO Q8H PRN 09/26/18 11/04/18 History prochlorperazine maleate 10 mg PO Q8H PRN 09/26/18 11/04/18 History sulfacetamide sodium (acne) 1 applic TOPICAL Q2D 09/26/18 11/04/18 History [Klaron] calcium carbonate-vitamin D3 1 tab PO BID 10/07/18 11/04/18 History [Caltrate 600 + D] enoxaparin 80 mg SUBCUT DAILY 11/04/18 11/04/18 History warfarin 5 mg PO DAILY 11/04/18 11/04/18 History Patient History Medical History Pulmonary embolism Sensorineural hearing loss (SNHL) of right ear (Chronic) Vertigo (Chronic) Abdominal carcinomatosis (Chronic) Pathological fracture of rib of right side (Chronic) Right lateral fifth and eighth rib Pathological fracture of rib of left side (Chronic) Ninth posterior rib Metastatic breast cancer (Chronic) Status post mastectomy 06/04/2015 with radiation therapy completion 10/14/2015 Asthma (Chronic) Melanoma (Chronic) Celiac disease (Chronic) GERD (gastroesophageal reflux disease) (Chronic) Stafford's esophagus (Chronic) Fibromyalgia (Chronic) Bilateral pulmonary embolism (Chronic) On chronic Eliquis therapy Breast cancer of upper-outer quadrant of right female breast (Chronic 04/29/15) " Right breast mass found on physical examination Status post biopsy 04/29/2015 revealing a lobular carcinoma Estrogen receptor positive, positive progesterone, receptor positive HER- 2/jorge negative Status post right modified radical mastectomy with lymph node dissection and left total mastectomy 06/04/2015 Pathologic stage pT3 pN2 M0 Oncotype DX score of 2 Status post completion of radiation therapy to the chest wall, supraclavicular, and axilla 10/14/2015 received 6120 cGy Rib pain and healing pathologic fracture of the left ninth posterior rib PET/CT October 26, 2017 at [facility] showing peritoneal carcinomatosis/ascites. FDG avid right lateral eighth rib activity and T9 vertebral body metabolic activity Status post omental biopsy November 17, 2017 revealing metastatic lobular breast carcinoma Initiation of Ibrance and Femara. She will also start Xgeva." On 05/13/17 16:00 Tammy Trejo wrote " Right breast mass found on physical examination Status post biopsy 04/29/2015 revealing a lobular carcinoma Estrogen receptor positive, positive progesterone, receptor positive HER- 2/jorge negative Status post right modified radical mastectomy with lymph node dissection and left total mastectomy 06/04/2015 Pathologic stage pT3 pN2 M0 Oncotype DX score of 2 Status post completion of radiation therapy to the chest wall, supracla vicular, and axilla 10/14/2015 received 6120 cGy" On 10/18/15 14:05 Tmamy Trejo wrote " Right breast mass found on physical examination Status post biopsy 04/29/2015 revealing a lobular carcinoma Estrogen receptor, positive progesterone, receptor positive HER-2/jorge negative Status post right modified radical mastectomy with lymph node dissection and left total mastectomy 06/04/2015 Pathologic stage pT3 pN2 M0 Oncotype DX score of 2 Status post completion of radiation therapy to the chest wall, supraclavicular, and axilla 10/14/2015 received 6120 cGy" On 10/18/15 14:05 Tammy Trejo wrote " Right breast mass found on physical examination Status post biopsy 04/29/2015 revealing a lobular carcinoma Estrogen receptor, positive progesterone, receptor positive HER-2/jorge negative Status post right modified radical mastectomy with lymph node dissection and left total mastectomy 06/04/2015 Pathologic stage pT3 pN2 M0 Oncotype DX score of 2 Status post completion of radiation therapy to the chest wall, supraclavicular, and axilla 10/14/2015 received 6120 cGy" On 06/26/15 10:03 Tammy Trejo wrote " Right breast mass found on physical examination Status post biopsy 04/29/2015 revealing a lobular carcinoma Estrogen receptor, positive progesterone, receptor positive HER-2/jorge negative Status post right modified radical mastectomy with lymph node dissection and left total mastectomy 06/04/2015 Pathologic stage pT3 pN2 M0" On 06/26/15 09:58 Tammy Trejo wrote " Right breast mass found on physical examination Status post biopsy 04/29/2015 revealing a lobular carcinoma Estrogen receptor, positive progesterone, receptor positive HER-2/jorge negative Status post right modified radical mastectomy with lymph node dissection and left total mastectomy Pathologic stage pT3 pN2 M0" Chest pain (Chronic) Hypertension (Chronic) CVA (cerebral vascular accident) (Acute) Lymphedema (Acute) right arm Hemorrhagic cystitis (Resolved) Hypertension (Resolved) UTI (urinary tract infection) (Resolved) Vaginitis (Resolved) Surgical History H/O lymph node biopsy (Resolved) Right axilla H/O mastectomy (Resolved) History of dilation and curettage (Resolved) History of bunionectomy S/P mastectomy, bilateral Family History Other Cancer Social History Preferred Language: Icelandic Communication Ability: Effective Reinsurance Accountant Required: No Beliefs That Will Affect Care: None marital status: Current Living Situation: Spouse current occupational status: retired Other Information That Helps Us Care for You: No Feels Safe at Home: Yes Safety Concerns: Feels Safe At This Time Smoking Status: Never smoker Second Hand Exposure: No Hx Alcohol Use: No Hx Substance Use: No Review of Systems Review of Systems: All systems reviewed & are unremarkable except as noted in HPI & below Physical Exam Constitutional: + ill appearing and + thin Eyes: PERRL, conjunctivae normal, anicteric sclerae ENMT: external ear and nose normal, oropharynx normal Neck: trachea midline, no thyromegaly Respiratory: normal respiratory effort and symmetric chest movement Auscultation: + diminished lung sounds Cardiovascular: Heart Sounds: normal S1 and normal S2 Extremities: normal capillary refill Gastrointestinal (Abdomen): Inspection/Auscultation: + abdomen distended Percussion/Palpation: + abdomen rigid and + abdomen firm Skin: no rashes, warm and dry LLQ Pleur-X catheter. Dressing C/D/I Psychiatric: A+Ox3, euthymic affect Suicidal Thoughts: denies suicidal thoughts and denies suicidal intent Homicidal Thoughts: denies homicidal thoughts Insight: good insight Judgement: good judgement Genitourinary: santoyo catheter clear yellow output Lymphatic: no cervical or axillary lymphadenopathy Results & Data Vital Signs (Past 12 Hours) Vital Signs Temp Pulse Resp BP Pulse Ox 11/07/18 08:53 86 108/63 11/07/18 07:00 36.6 C 79 16 99/64 L 99 11/07/18 02:50 36.5 C 117 H 18 101/62 97 11/06/18 22:58 36.7 C 91 H 18 108/67 94 PG Care Time/CCT Total # of Minutes Spent Total Time Spent with Patient: Total time spent is greater than 50% in coordination of care (as documented) at patient's floor/unit and/or counseling patient: 100 minutes Prolonged Care Time Prolonged Care Time: Yes Total Prolonged Care Time: 145 Time Spent Midlevel Total time spent is greater than 50% in coordination of care (as documented) at patient's floor/unit and/or counseling patient: 100 minutes Attending Spent 45 minutes in addition to the 100 minutes spent by LY Colby for a total of 145 minutes with greater than 50% of the time spent at bedside discussing patient's current status, goals of care as well as developing a plan of care.
[2018-11-07 15:21] VITALS: O2SAT 99
--- NOTE | 2018-11-07 17:00 | Discharge Summary ---
Date of Service November 07, 2018 Admission HPI Per Admitting Provider Chief Complaint: 72 y/o F Hx metastatic breast CA, HTN, recent PE, recent renal impairment and hyperkalemia, anemia and neutropenia, protein malnutrition, chronic ascites - abdominal PleurX cath. She is receiving treatment in [place] and has recently had deteriorating renal function. She states she drinks plenty of fluids at home. She was told to come to the hospital based on recent labs, to receive IVF and determine if this might improve her renal function. She states that she is not urinating as much as she expects. She denies diarrhea, nausea, vomiting or fevers. PMH: 1) Breast CA - mets to liver and bone - diagnosed 2014 - had a BL mastectomy. Her last chemo was at the beginning of 10/2017. Additional treatment is planned. 2) PE 3) HTN 4) Anemia of chronic disease - Hb 8-9 5) Neutropenia Surgical: BL mastectomy Social: No smoking history, occasional ETOH. 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 Principal Diagnosis Acute kidney injury, malignant ascites Discharge Exam Constitutional average body habitus (Appears chronically ill); no acute distress Eyes PERRL, conjunctivae normal, anicteric sclerae ENMT external ear and nose normal, oropharynx normal Neck trachea midline, no thyromegaly Respiratory normal respiratory effort, lungs clear to auscultation Cardiovascular Rate/Rhythm: regular rate and regular rhythm Extremities: + edema (2+ pitting edema of the legs to the thighs bilaterally) Gastrointestinal (Abdomen) Inspection/Auscultation: + abdomen distended and normal bowel sounds; + abdomen abnormal to inspection Percussion/Palpation: + fluid wave; abdomen nontender Musculoskeletal Extremities: extremities normal to inspection; no cyanosis and no clubbing Skin no rashes, warm and dry Neurologic moves all extremities and awake; no focal motor deficits Psychiatric A+Ox3, euthymic affect Discharge Data Allergies Allergy/AdvReac Type Severity Reaction Status Date / Time oxycodone Allergy SV SHORTNESS Verified 11/04/18 15:07 OF BREATH shrimp Allergy SV THROAT Verified 11/04/18 15:07 CLOSING, ITCHING Penicillins Allergy Intermediate RASH Verified 11/04/18 15:07 Sulfa (Sulfonamide Allergy Intermediate RASH Verified 11/04/18 15:07 Antibiotics) gluten Allergy MO CELIAC Verified 11/04/18 15:07 DISEASE latex Allergy MO RASH Verified 11/04/18 15:07 peanut Allergy MO INCONSISTENT Verified 11/04/18 15:07 ALLERGY TEST RESULT azithromycin Allergy U Unknown Verified 11/04/18 15:07 Dust Mite Extract Allergy Unknown ALLERGY Verified 11/04/18 15:07 TEST RESULT erythromycin base AdvReac Mild STOMACH Verified 11/04/18 15:07 PAIN mivacurium AdvReac MO increased Verified 11/04/18 15:07 blood pressure Consultations Nephrology Palliative care Ordered Studies 11/04/18 14:30 CT head/brain wo con Stat 11/05/18 10:59 US renal/blad retro comp Routine Hospital Course (1) Metastatic breast cancer: With diffuse mets to the bones, suspected abdominal carcinomatosis with her ascites last course of treatment was Taxol oncologist at [facility] said that there was another option they could discuss at next visit which is on 11/09 patient is unsure she wants any further treatment, but is interested in hearing the options palliative care consulted to discuss goals of care-appreciated, thinks that she will eventually pursue hospice care but for now, does not want to do this (2) Abdominal carcinomatosis: causing abdominal pain and ascites not currently getting any chemotherapy (3) Ascites, malignant: has a Pleurx drain in place for therapeutic drainage home nursing was draining 500mL every other day drained 1000cc on 11/05, 2000cc total drained on 11/06 tolerated well She received albumin x 6 doses and albumin levels did rise recommend draining daily, 500cc, when she goes home for pain relief-this can be accomplished between her receiving teaching here at the hospital as well as the visiting nurses (4) Acute renal failure: progressive worsening of renal function the past few weeks Cr was up to 2.5, baseline used to be 1.0 likely due to intravascular volume depletion most of her fluid is third spacing with ascites and edema Repeat creatinine after receiving albumin is down to 1.69 on the day of discharge Nephrology was following while here patient would not be interested in DISTRICT SALES REPRESENTATIVE if needed She can get blood work done at the oncologist office on 11/09 when she has her appointment Recommended to follow-up with nephrology in 2 to 3 weeks as per the recommendations (5) Hyponatremia: low at 131 but this is due to ascites would be hypervolemic hyponatremia Monitor as an outpatient (6) Anemia: chronic, due to malignancy Hb did drop down to 7.5 while here and she received a blood transfusion Hemoglobin was appropriately increased to 8.6 on the day of discharge -Continue to follow CBC with oncology at next appointment in 2 days (7) Hypotension: due to ascites and low intravascular volume Improved after being given IV fluids and albumin x 6 doses Continue to hold BP medications after discharge including her pindolol (8) Pulmonary embolism: Diagnosed initially in March/2018 and was started on Eliquis. She then had a recurrence in the last few months and she had been on Lovenox. She was recently converted to Coumadin as an outpatient by her oncologist in [place]. Her INR was then supratherapeutic at 3.7 during this admission and Coumadin was held on 11/06 and 11/07 -Continue to hold Coumadin, she has a follow-up appointment at the anticoagulation clinic on 11/08-she will await further instructions from them as far as what dosing of Coumadin to begin taking tomorrow (9) Hypoalbuminemia: Received albumin x 6 doses Alb up slightly to 3.3 Dr. Isbell discussed trying to give some Albumin as outpatient, especially with paracentesis Plan: Stable for discharge to home. She does plan on keeping her appointment in anticoagulation clinic on 11/08, oncology appointment at [facility] on 11/09 Total Time Total Time Spent Total Time Spent (In Minutes): Greater than 30 minutes Total Time Includes: Examination of the Patient, Discharge Planning and Medication Reconciliation Discharge Plan Discharge Items Patient Disposition: Home - Home Health Services Reason For Visit: ARF Discharge Diagnosis: Acute renal failure Condition: Fair Discharge Goals: Decrease discomfort, Diagnostic testing, Improve disease control, Learn about illness and Therapeutic intervention Activity: Resume your previous activity Bathing: No limitations Exercise/Sports: As tolerated Non-emergency contact: Primary Care Provider and Oncologist Call non-emergency contact if: you have any medication questions and your symptoms worsen Follow-up/Referrals: [facility] [Provider Group] - 11/08/18 10:45 am (Please, follow up at [facility] TOMORROW, WednesdayNovember AT 11:00 AM (arrive 10:45 am). *The clinic is located in the rear of this reading hospital. Park BEHIND the hospital in [address] and enter via the [facility]. If you have any questions, call Central Scheduling at [phone]. ) Binh Isbell MD [Physician] - (Please call Dr. Isbell's office to schedule an appointment in 2 to 3 weeks for follow-up on your kidneys.) Param Murphy Jr, DO [Primary Care Provider] - Diet: Regular Addtl Provider Instructions: Please keep your appointment with the anticoagulation clinic tomorrow to check your INR. Do not take Coumadin today and await instructions from the anticoagulation clinic physician tomorrow as far as what dose of Coumadin to take and when. The visiting nurses and your can continue to drain fluid from your abdomen and the amount of 500 mL's per day. Please follow-up with the kidney doctor (merchandising coordinator) in 3 weeks as requested by them. Please keep all of your upcoming oncology appointments in [facility]. Prescriptions: Continued tramadol 50 mg tablet 50 mg PO Q8H RF: 0 metronidazole [Noritate] 1 % cream 1 appln TOP Q2D RF: 0 acetaminophen [Tylenol Extra Strength] 500 mg tablet 500 mg PO Q6H PRN (Reason: Pain) RF: 0 esomeprazole magnesium [Nexium] 40 mg Capsule,Delayed Release(Dr/Ec) 40 mg PO DAILY RF: 0 prochlorperazine maleate 10 mg tablet 10 mg PO Q8H PRN (Reason: Nausea And Vomiting) RF: 0 ondansetron HCl 8 mg tablet 8 mg PO Q8H PRN (Reason: Nausea And Vomiting) RF: 0 docusate sodium 100 mg Tablet 100 mg PO BID PRN (Reason: Constipation) RF: 0 mometasone 50 mcg/actuation [place],Non-Aerosol 2 spray INTRANASAL DAILY PRN (Reason: Congestion) RF: 0 sulfacetamide sodium (acne) [Klaron] 10 % Suspension 1 applic TOPICAL Q2D RF: 0 Xgeva 120 mg/1.7 mL (70 mg/mL) Solution 120 mg SUBCUT MONTHLY RF: 0 Caltrate 600 + D 600 mg (1,500 mg)-800 unit Tablet,Chewable 1 tab PO BID RF: 0 acyclovir 800 mg Tablet 800 mg PO TID PRN (Reason: Cold Sores) RF: 0 clotrimazole-betamethasone 1-0.05 % Cream 1 applic TOPICAL BID PRN (Reason: Skin Irritation) RF: 0 epinephrine [EpiPen] 0.3 mg/0.3 mL Auto-Injector 0.3 mg IM Q3H PRN (Reason: Allergic Reaction) RF: 0 albuterol sulfate 90 mcg/actuation Hfa Aerosol Inhaler 2 puff INHALATION Q4H PRN (Reason: Shortness Of Breath) RF: 0 biotin 1 mg Capsule 1 mg PO DAILY RF: 0 loratadine [Claritin] 10 mg Tablet 10 mg PO DAILY RF: 0 Asmanex HFA 200 mcg/actuation Hfa Aerosol Inhaler 1 puff INHALATION Q12H RF: 0 Lumigan 0.01 % Drops 1 drp OPB HS RF: 0 Discontinued pindolol 5 mg Tablet 5 mg PO BID RF: 0 warfarin 5 mg tablet 5 mg PO DAILY RF: 0 enoxaparin 80 mg/0.8 mL syringe 80 mg subcut DAILY RF: 0 Stand-Alone Forms: Call Back Authorization, [facility] Discharge Orders: Discharge Order (Routine); Ordered 11/07/18 Ordered By: Gale Chacko Admission Data Admit Date/Time: 11/04/18 19:30 Attending Provider: Gale Chacko Admit Provider: Babatunde Hood Primary Care Provider: Param Murphy Jr Other Providers: Babatunde Hood ; Betsy Barnes ; Binh Isbell Service: Medical Other Pending Studies at Discharge: No
[2018-11-07 17:40] VITALS: BP 110/71; PULSE 61; TEMP 97.5
== END 2018-11-07 17:40 | disposition home health service (06) | DRG 844 ==
LOC: ED 14:12 → 4E 19:30 → SUATTDRO 19:30 → 4E 20:26

== ENCOUNTER 2018-12-04 10:37 | Inpatient (IN) ==
[2018-12-04] MEDS ORDERED: ALBUMIN 25% 50 ML IV ONE (11:09)
[2018-12-04] MEDS ORDERED: SODIUM CHLORIDE 0.9% 1000ML 1,000 ML IV SCH (11:11)
[2018-12-04 11:33] LABS: Eosinophils # (auto) 0.05 K/uL (0-0.5); Hematocrit (blood only) 32.8 % (37-47); Hemoglobin 11.3 g/dL (12.0-16.0); Immature Granulocytes # (auto) 0.01 K/uL (0.00-0.02); Immature Granulocytes % (auto) 0.2 %; Lymphocytes # (auto) 0.72 K/uL (1.2-3.4); Lymphocytes % (auto) 13.9 %; Mean Corpuscular Hemoglobin 29.8 pg (25-34); Mean Corpuscular Hgb Conc 34.5 g/dL (32-36); Mean Corpuscular Volume 86.5 fL (80-100); Monocytes # (auto) 0.69 K/uL (0.11-0.59); Monocytes % (auto) 13.3 %; Neutrophils % (auto) 71.6 %; Platelet Count 104 K/uL (130-400); RDW Coefficient of Variation 17.9 % (11.5-14.5); RDW Standard Deviation 56.4 fL (36.4-46.3); Red Blood Count 3.79 M/uL (4.2-5.4); White Blood Count 5.17 K/uL (4.8-10.8)
[2018-12-04 11:37] LABS: iSTAT Creatinine 2.6 mg/dl (0.6-1.3); iSTAT Hemoglobin 11.9 g/dl (12.0-16.0); iSTAT Ionized Calcium 1.3 mmol/l (1.12-1.32); iSTAT Potassium 6.5 mEq/L (3.3-5.0)
--- NOTE | 2018-12-04 11:37 | XRay Report ---
XR chest 1V portable HISTORY: Sepsis COMPARISON: Chest 10/07/2018. FINDINGS: No pneumothorax. No pleural effusions. The lungs are clear. The heart is normal in size. Le ft jugular Port-A-Cath terminates at the SVC. Old, healed bilateral rib fractures. Bilateral axillary surgical clips are again noted. Skeletal lesions are better appreciated on the prior CT examination. IMPRESSION: No significant change compared to the prior study. No acute process. Electronically signed by: Jamel Mcclain M.D. 12/04/2018 11:36 AM
[2018-12-04 11:52] LABS: Albumin Level 2.6 gm/dl (3.4-5.0); BUN Creatinine Ratio 23.7 (10-20); Calcium 9.9 mg/dl (8.5-10.1); Creatinine Clr Calc Pharmacy 19.7 ml/min; Est GFR (African American) 21.9; Est GFR (Non-African American) 18.9; Potassium 6.4 mmol/L (3.5-5.1)
[2018-12-04 11:53] LABS: Albumin Globulin Ratio 0.8 (0.9-2); Bilirubin,Total 0.6 mg/dl (0.2-1); Globulin 3.1 gm/dl (2.5-4.0); Total Protein 5.7 gm/dl (6.4-8.2)
[2018-12-04 11:54] LABS: INR 1.4 (0.9-1.1); Partial Thromboplastin Ratio 1.9; Prothrombin Time 14.3 Seconds (9.0-12.0)
[2018-12-04] MEDS ORDERED: ALBUTEROL 0.083% NEBU SOLN 3 ML VIAL NEB STA (11:59)
[2018-12-04] MEDS ORDERED: DEXTROSE 50% 50 ML SYRINGE IV STA (11:59)
[2018-12-04] MEDS ORDERED: NovoLIN-R INSULIN PER UNIT CHARGE IV STA (11:59)
[2018-12-04] MEDS ORDERED: SODIUM BICARB 8.4% INJ 50 MEQ/50 ML SYR IV STA (11:59)
[2018-12-04] MEDS ORDERED: CALCIUM GLUCONATE 10% 1,000 MG in SODIUM CHLORIDE 0.9% 50 ML IV STA (11:59)
[2018-12-04] MEDS ORDERED: CALCIUM GLUCONATE 10% 10 ML VIAL IV ONE (12:09)
[2018-12-04] MEDS ORDERED: SODIUM POLYSTYRENE SULFONATE 15G/60ML SUSP PO STA (13:09)
--- NOTE | 2018-12-04 13:10 | History & Physical Report ---
Date of Service December 04, 2018 Assessment & Plan (1) Hyperkalemia: Admit telemetry K was 6.4 on admission Given 10 units regular insulin and dextrose in ED Will give 15 g kayexalate q8h prp (2) Hyponatremia: Sodium 121 While patient is third spacing in her legs, this is likely more nutritional and due to lymphedema than volume overload. NSS @ 80 ml/hr 1200 ml FR Urine osmo pending, serum osmo was low at 267 q8h prp (3) Hypotension: Secondary to ascites drainage and possibly infection BC drawn Lactic was 2.2 Culture peritoneal fluid Cipro, Flagyl IV Albumin provided in ED NSS (4) Lymphedema: Hold lasix due to dehydration (5) Pulmonary embolism: history of with CVA while on Eliquis resulting in switch to Lovenox Continue home Lovenox (6) Abdominal carcinomatosis: Pleurx draining abdominal ascites - no more than 1L daily (7) Metastatic breast cancer: Sees [facility] and Dr. Joya at [facility] Last chemo about a month ago, plans to follow up on Wednesday in [place] to start new chemo treatment Consult palliative for goals of care Continue home tramadol for pain control (8) Chronic kidney disease: Kidney function worsening since October and has been about where it is now at 2.48 since then Had renal US 12/01: IMPRESSION: 1. Moderate right-sided hydronephrosis without obstructing calculus or lesion identified. 2. Partial distention of the urinary bladder with wall thickening. Correlate with urinalysis. 3. Unremarkable sonographic appearance of the left kidney. 4. Cirrhotic morphology of the liver with abdominal pelvic ascites. (9) Celiac disease: gluten free diet (10) DVT prophylaxis: Lovenox (11) Anorexia: with malnutrition and cachexia start Marinol (12) Asthma: Continue home inhalers prn duonebs History of Present Illness Ms. Montilla presents to the ED today with her . She was experiencing hypotension over the last 24 hours or so and has been feeling very weak. She has had little appetite and has been vomiting. She has a history of metastatic breast cancer with carcinomatosis. She has a Pluerx draining abdominal ascites and has been draining about a liter a day from it. Her last chemo was about a month ago. It was discontinued because of injury to her kidneys as well as not seeing very good results. She sees [facility] in [place] and was scheduled to start a new type of chemo on Wednesday. Locally she sees Dr. Joya at [facility] for oncology. Primary Care Provider: Param Murphy Jr, DO Allergies Allergy/AdvReac Type Severity Reaction Status Date / Time oxycodone Allergy SV SHORTNESS Verified 12/04/18 12:04 OF BREATH shrimp Allergy SV THROAT Verified 12/04/18 12:04 CLOSING, ITCHING Penicillins Allergy Intermediate RASH Verified 12/04/18 12:04 Sulfa (Sulfonamide Allergy Intermediate RASH Verified 12/04/18 12:04 Antibiotics) gluten Allergy MO CELIAC Verified 12/04/18 12:04 DISEASE latex Allergy MO RASH Verified 12/04/18 12:04 peanut Allergy MO INCONSISTENT Verified 12/04/18 12:04 ALLERGY TEST RESULT azithromycin Allergy U Unknown Verified 12/04/18 12:04 Dust Mite Extract Allergy Unknown ALLERGY Verified 12/04/18 12:04 TEST RESULT erythromycin base AdvReac Mild STOMACH Verified 12/04/18 12:04 PAIN mivacurium AdvReac MO increased Verified 12/04/18 12:04 blood pressure Home Medications Home Medications Medication Instructions Recorded Confirmed Type acyclovir 800 mg PO TID PRN 01/15/18 12/04/18 History albuterol sulfate 2 puff INHALATION Q4H PRN 01/15/18 12/04/18 History biotin 1 mg PO DAILY 01/15/18 12/04/18 History clotrimazole-betamethasone 1 applic TOPICAL BID PRN 01/15/18 12/04/18 History epinephrine [EpiPen] 0.3 mg IM Q3H PRN 01/15/18 12/04/18 History acetaminophen 500 mg tablet 500 mg PO Q6H PRN tab 02/11/18 12/04/18 History metronidazole 1 % topical cream 1 appln TOP Q2D gm 02/11/18 12/04/18 History tramadol 50 mg tablet 50 mg PO Q8H tab 02/11/18 12/04/18 History Asmanex HFA 1 puff INHALATION Q12H 07/18/18 12/04/18 History Lumigan 1 drp OPB HS 07/18/18 12/04/18 History loratadine [Claritin] 10 mg PO DAILY 07/18/18 12/04/18 History esomeprazole magnesium [Nexium] 40 mg PO DAILY 07/26/18 12/04/18 History Xgeva 120 mg SUBCUT MONTHLY 09/26/18 12/04/18 History docusate sodium 100 mg PO BID PRN 09/26/18 12/04/18 History mometasone 2 spray INTRANASAL DAILY PRN 09/26/18 12/04/18 History ondansetron HCl 8 mg PO Q8H PRN 09/26/18 12/04/18 History prochlorperazine maleate 10 mg PO Q8H PRN 09/26/18 12/04/18 History sulfacetamide sodium (acne) 1 applic TOPICAL Q2D 09/26/18 12/04/18 History [Klaron] Caltrate 600 + D 1 tab PO BID 10/07/18 12/04/18 History aspirin 81 mg PO DAILY 12/04/18 12/04/18 History enoxaparin [Lovenox] 50 mg SUBCUT Q12H 12/04/18 12/04/18 History furosemide [Lasix] 20 mg PO DAILY 12/04/18 12/04/18 History pindolol 2.5 mg PO DAILY 12/04/18 12/04/18 History Past Med/Surg History Medical History Pulmonary embolism Sensorineural hearing loss (SNHL) of right ear (Chronic) Vertigo (Chronic) Abdominal carcinomatosis (Chronic) Pathological fracture of rib of right side (Chronic) Right lateral fifth and eighth rib Pathological fracture of rib of left side (Chronic) Ninth posterior rib Metastatic breast cancer (Chronic) Status post mastectomy 06/04/2015 with radiation therapy completion 10/14/2015 Asthma (Chronic) Melanoma (Chronic) Celiac disease (Chronic) GERD (gastroesophageal reflux disease) (Chronic) Stafford's esophagus (Chronic) Fibromyalgia (Chronic) Bilateral pulmonary embolism (Chronic) On chronic Eliquis therapy Breast cancer of upper-outer quadrant of right female breast (Chronic 04/29/15) " Right breast mass found on physical examination Status post biopsy 04/29/2015 revealing a lobular carcinoma Estrogen receptor positive, positive progesterone, receptor positive HER- 2/jorge negative Status post right modified radical mastectomy with lymph node dissection and left total mastectomy 06/04/2015 Pathologic stage pT3 pN2 M0 Oncotype DX score of 2 Status post completion of radiation therapy to the chest wall, supraclavicular, and axilla 10/14/2015 received 6120 cGy Rib pain and healing pathologic fracture of the left ninth posterior rib PET/CT October 26, 2017 at [facility] showing peritoneal carcinomatosis/ascites. FDG avid right lateral eighth rib activity and T9 vertebral body metabolic activity Status post omental biopsy November 17, 2017 revealing metastatic lobular breast carcinoma Initiation of Ibrance and Femara. She will also start Xgeva." On 05/13/17 16:00 Tammy Trejo wrote " Right breast mass found on physical examination Status post biopsy 04/29/2015 revealing a lobular carcinoma Estrogen receptor positive, positive progesterone, receptor positive HER- 2/jorge negative Status post right modified radical mastectomy with lymph node dissection and left total mastectomy 06/04/2015 Pathologic stage pT3 pN2 M0 Oncotype DX score of 2 Status post completion of radiation therapy to the chest wall, supraclavicular, and axilla 10/14/2015 received 6120 cGy" On 10/18/15 14:05 Tammy Trejo wrote " Right breast mass found on physical examination Status post biopsy 04/29/2015 revealing a lobular carcinoma Estrogen receptor, positive progesterone, receptor positive HER-2/jorge negative Status post right modified radical mastectomy with lymph node dissection and left total mastectomy 06/04/2015 Pathologic stage pT3 pN2 M0 Oncotype DX score of 2 Status post completion of radiation therapy to the chest wall, supraclavicular, and axilla 10/14/2015 received 6120 cGy" On 10/18/15 14:05 Tammy Trejo wrote " Right breast mass found on physical examination Status post biopsy 04/29/2015 revealing a lobular carcinoma Estrogen receptor, positive progesterone, receptor positive HER-2/jorge negative Status post right modified radical mastectomy with lymph node dissection and left total mastectomy 06/04/2015 Pathologic stage pT3 pN2 M0 Oncotype DX score of 2 Status post completion of radiation therapy to the chest wall, supraclavicular, and axilla 10/14/2015 received 6120 cGy" On 06/26/15 10:03 Tammy Trejo wrote " Right breast mass found on physical examination Status post biopsy 04/29/2015 revealing a lobular carcinoma Estrogen receptor, positive progesterone, receptor positive HER-2/jorge negative Status post right modified radical mastectomy with lymph node dissection and left total mastectomy 06/04/2015 Pathologic stage pT3 pN2 M0" On 06/26/15 09:58 Tammy Trejo wrote " Right breast mass found on physical examination Status post biopsy 04/29/2015 revealing a lobular carcinoma Estrogen receptor, positive progesterone, receptor positive HER-2/jorge negative Status post right modified radical mastectomy with lymph node dissection and left total mastectomy Pathologic stage pT3 pN2 M0" Chest pain (Chronic) Hypertension (Chronic) CVA (cerebral vascular accident) (Acute) Lymphedema (Acute) right arm Hemorrhagic cystitis (Resolved) Hypertension (Resolved) UTI (urinary tract infection) (Resolved) Vaginitis (Resolved) Family History Other Cancer Social History Preferred Language: Kiswahili Communication Ability: Effective Beliefs That Will Affect Care: None marital status: Current Living Situation: Spouse current occupational status: retired Feels Safe at Home: Yes Smoking Status: Never smoker Second Hand Exposure: No Hx Alcohol Use: No Hx Substance Use: No Review of Systems Review of Systems: All systems reviewed & are unremarkable except as noted in HPI & below Physical Exam Physical Exam: General: frail appearing Eyes: normal inspection, PERLL Respiratory: chest non tender, clear to auscultation, normal breath sounds, no respiratory distress, no accessory muscle use Cardiac: regular rate and rhythm, no rub or gallop, no murmur, no edema, no jvd GI/: active bowel sounds, no abd pain or tenderness, soft, non distended Extremities: normal range of motion, normal strength, non tender Neuro:oriented x 3, moves all extremities Psych: alert, normal mood and affect Skin: normal color, dry Results & Data Vital Signs (Past 12 Hours) Vital Signs Temp Pulse Pulse Resp BP Pulse Ox 12/04/18 12:31 111 H 14 91/54 L 100 12/04/18 12:30 110 H 112 H 13 99 12/04/18 12:15 108 H 14 100/63 99 12/04/18 12:00 108 H 19 100/62 100 12/04/18 11:57 108 H 15 94/58 L 100 12/04/18 11:30 79/52 L 100 12/04/18 11:07 108 H 24 100 12/04/18 11:01 109 H 19 91/57 L 12/04/18 10:52 36.4 C L 94 H 18 66/43 L 96 Code Status & VTE Plan Code Status DNR VTE Prophylaxis Plan VTE Prophylaxis will be ordered: Yes PG Care Time/CCT Total # of Minutes Spent Total Time Spent with Patient: Total time spent is greater than 50% in coordination of care (as documented) at patient's floor/unit and/or counseling patient: (1) Pulmonary embolism Acute cor pulmonale presence: without acute cor pulmonale Chronicity: unspecified Pulmonary embolism type: unspecified Qualified Code(s): I26.99 - Other pulmonary embolism without acute cor pulmonale (2) Asthma Asthma severity: unspecified severity Asthma persistence: unspecified Asthma complication type: unspecified Qualified Code(s): J45.909 - Unspecified asthma, uncomplicated
--- NOTE | 2018-12-04 14:10 | Emergency Department Note ---
Entered by Kait Vieira acting as a scribe for History of Present Illness General Chief complaint: Hypotension Stated complaint: LOW BP Time Seen by Provider: 12/04/18 10:59 Source: patient and family () History of Present Illness Onset (ago): day(s) 1 Location: head Pain Consistency: + other (episode) Maximum Pain Intensity: 7 Quality: + other (hypotension) Associated symptoms: + other (vomiting, loss of appetite, sluggishness, instability) The patient is a 73 year old female hospice patient with a history of metastatic breast cancer that is presenting to the Emergency Room with complaints of an episode of hypotension that started yesterday evening. The patient reports that she was in the hospital three weeks ago for kidney failure and received a Pleurx drainage port in her abdomen along with a saline and albumin infusion. She states that she has been draining around 1 liter of fluid from her abdomen daily using the port. Her reports that the patients blood pressure generally drops while the fluid is being drained but notes that it generally recovers on its own. Her states that the patients blood pressure continued to drop throughout the night into the 70 systolic range and did not improve this morning. Her states that the patient has become sluggish and unstable since her symptoms began with some associated vomiting and loss of appetite. Her notes that the patient took Compazine this morning around 0700. Her notes that the patient needed saline albumin after receiving paracentesis in the past at [facility]. Her states that the patient used to have 5-7 liters of fluid drained every 10 days prior to the Pleurx placement. Her denies replacing the patients albumin at home. The patient notes that she has an appointment with her oncologist in 3 days in [place]. She states that she has a port in place. Home Medications Home Medications Medication Instructions Recorded Confirmed Type acyclovir 800 mg PO TID PRN 01/15/18 12/04/18 History albuterol sulfate 2 puff INHALATION Q4H PRN 01/15/18 12/04/18 History biotin 1 mg PO DAILY 01/15/18 12/04/18 History clotrimazole-betamethasone 1 applic TOPICAL BID PRN 01/15/18 12/04/18 History epinephrine [EpiPen] 0.3 mg IM Q3H PRN 01/15/18 12/04/18 History acetaminophen 500 mg tablet 500 mg PO Q6H PRN tab 02/11/18 12/04/18 History metronidazole 1 % topical cream 1 appln TOP Q2D gm 02/11/18 12/04/18 History tramadol 50 mg tablet 50 mg PO Q8H tab 02/11/18 12/04/18 History Asmanex HFA 1 puff INHALATION Q12H 07/18/18 12/04/18 History Lumigan 1 drp OPB HS 07/18/18 12/04/18 History loratadine [Claritin] 10 mg PO DAILY 07/18/18 12/04/18 History esomeprazole magnesium [Nexium] 40 mg PO DAILY 07/26/18 12/04/18 History Xgeva 120 mg SUBCUT MONTHLY 09/26/18 12/04/18 History docusate sodium 100 mg PO BID PRN 09/26/18 12/04/18 History mometasone 2 spray INTRANASAL DAILY PRN 09/26/18 12/04/18 History ondansetron HCl 8 mg PO Q8H PRN 09/26/18 12/04/18 History prochlorperazine maleate 10 mg PO Q8H PRN 09/26/18 12/04/18 History sulfacetamide sodium (acne) 1 applic TOPICAL Q2D 09/26/18 12/04/18 History [Klaron] Caltrate 600 + D 1 tab PO BID 10/07/18 12/04/18 History aspirin 81 mg PO DAILY 12/04/18 12/04/18 History enoxaparin [Lovenox] 50 mg SUBCUT Q12H 12/04/18 12/04/18 History furosemide [Lasix] 20 mg PO DAILY 12/04/18 12/04/18 History pindolol 2.5 mg PO DAILY 12/04/18 12/04/18 History Allergies Allergy/AdvReac Type Severity Reaction Status Date / Time oxycodone Allergy SV SHORTNESS Verified 12/04/18 12:04 OF BREATH shrimp Allergy SV THROAT Verified 12/04/18 12:04 CLOSING, ITCHING Penicillins Allergy Intermediate RASH Verified 12/04/18 12:04 Sulfa (Sulfonamide Allergy Intermediate RASH Verified 12/04/18 12:04 Antibiotics) gluten Allergy MO CELIAC Verified 12/04/18 12:04 DISEASE latex Allergy MO RASH Verified 12/04/18 12:04 peanut Allergy MO INCONSISTENT Verified 12/04/18 12:04 ALLERGY TEST RESULT azithromycin Allergy U Unknown Verified 12/04/18 12:04 Dust Mite Extract Allergy Unknown ALLERGY Verified 12/04/18 12:04 TEST RESULT erythromycin base AdvReac Mild STOMACH Verified 12/04/18 12:04 PAIN mivacurium AdvReac MO increased Verified 12/04/18 12:04 blood pressure Past Med/Surg History Medical History Pulmonary embolism Sensorineural hearing loss (SNHL) of right ear (Chronic) Vertigo (Chronic) Abdominal carcinomatosis (Chronic) Pathological fracture of rib of right side (Chronic) Right lateral fifth and eighth rib Pathological fracture of rib of left side (Chronic) Ninth posterior rib Metastatic breast cancer (Chronic) Status post mastectomy 06/04/2015 with radiation therapy completion 10/14/2015 Asthma (Chronic) Melanoma (Chronic) Celiac disease (Chronic) GERD (gastroesophageal reflux disease) (Chronic) Stafford's esophagus (Chronic) Fibromyalgia (Chronic) Bilateral pulmonary embolism (Chronic) On chronic Eliquis therapy Breast cancer of upper-outer quadrant of right female breast (Chronic 04/29/15) " Right breast mass found on physical examination Status post biopsy 04/29/2015 revealing a lobular carcinoma Estrogen receptor positive, positive progesterone, receptor positive HER- 2/jorge negative Status post right modified radical mastectomy with lymph node dissection and left total mastectomy 06/04/2015 Pathologic stage pT3 pN2 M0 Oncotype DX score of 2 Status post completion of radiation therapy to the chest wall, supraclavicular, and axilla 10/14/2015 received 6120 cGy Rib pain and healing pathologic fracture of the left ninth posterior rib PET/CT October 26, 2017 at [facility] showing peritoneal carcinomatosis/ascites. FDG avid right lateral eighth rib activity and T9 vertebral body metabolic activity Status post omental biopsy November 17, 2017 revealing metastatic lobular breast carcinoma Initiation of Ibrance and Femara. She will also start Xgeva." On 05/13/17 16:00 Tammy Trejo wrote " Right breast mass found on physical examination Status post biopsy 04/29/2015 revealing a lobular carcinoma Estrogen receptor positive, positive progesterone, receptor positive HER- 2/jorge negative Status post right modified radical mastectomy with lymph node dissection and left total mastectomy 06/04/2015 Pathologic stage pT3 pN2 M0 Oncotype DX score of 2 Status post completion of radiation therapy to the chest wall, supraclavicu lar, and axilla 10/14/2015 received 6120 cGy" On 10/18/15 14:05 Tammy Trejo wrote " Right breast mass found on physical examination Status post biopsy 04/29/2015 revealing a lobular carcinoma Estrogen receptor, positive progesterone, receptor positive HER-2/jorge negative Status post right modified radical mastectomy with lymph node dissection and left total mastectomy 06/04/2015 Pathologic stage pT3 pN2 M0 Oncotype DX score of 2 Status post completion of radiation therapy to the chest wall, supraclavicular, and axilla 10/14/2015 received 6120 cGy" On 10/18/15 14:05 Tammy Trejo wrote " Right breast mass found on physical examination Status post biopsy 04/29/2015 revealing a lobular carcinoma Estrogen receptor, positive progesterone, receptor positive HER-2/jorge negative Status post right modified radical mastectomy with lymph node dissection and left total mastectomy 06/04/2015 Pathologic stage pT3 pN2 M0 Oncotype DX score of 2 Status post completion of radiation therapy to the chest wall, supraclavicular, and axilla 10/14/2015 received 6120 cGy" On 06/26/15 10:03 Tammy Terjo wrote " Right breast mass found on physical examination Status post biopsy 04/29/2015 revealing a lobular carcinoma Estrogen receptor, positive progesterone, receptor positive HER-2/jorge negative Status post right modified radical mastectomy with lymph node dissection and left total mastectomy 06/04/2015 Pathologic stage pT3 pN2 M0" On 06/26/15 09:58 Tammy Trejo wrote " Right breast mass found on physical examination Status post biopsy 04/29/2015 revealing a lobular carcinoma Estrogen receptor, positive progesterone, receptor positive HER-2/jorge negative Status post right modified radical mastectomy with lymph node dissection and left total mastectomy Pathologic stage pT3 pN2 M0" Chest pain (Chronic) Hypertension (Chronic) CVA (cerebral vascular accident) (Acute) Lymphedema (Acute) right arm Hemorrhagic cystitis (Resolved) Hypertension (Resolved) UTI (urinary tract infection) (Resolved) Vaginitis (Resolved) Family History Other Cancer Social History Preferred Language: Rwand[place] Communication Ability: Effective Beliefs That Will Affect Care: None marital status: Current Living Situation: Spouse current occupational status: retired Feels Safe at Home: Yes Smoking Status: Never smoker Second Hand Exposure: No Hx Alcohol Use: No Hx Substance Use: No Review of Systems See HPI for pertinent positives & negatives. and A total of 10 systems reviewed and were otherwise negative Physical Exam Vital Signs Vital Signs - 24 hr 12/04/18 10:52 12/04/18 11:01 12/04/18 11:07 Temperature 36.4 C L Temperature Source Oral Sepsis Recent Fever Within 48 Hours No Sepsis New/Unexplained Change in Mental Status No Sepsis Action Taken by Nursing No Action Required Pulse Rate 94 H 109 H 108 H Pulse Rate [Apical] Pulse Rate from SpO2 Sensor 109 H Respiratory Rate 18 19 24 Respiratory Effort / Characteristics Non-Labored Spontaneous Respiratory Depth Normal Respiratory Pattern Regular Blood Pressure 66/43 L 91/57 L Blood Pressure Mean 50 68 Blood Pressure Position Sitting Pulse Oximetry 96 100 Oxygen Delivery Method Room Air 12/04/18 11:30 12/04/18 11:57 12/04/18 12:00 Temperature Temperature Source Sepsis Recent Fever Within 48 Hours Sepsis New/Unexplained Change in Mental Status Sepsis Action Taken by Nursing Pulse Rate 108 H 108 H Pulse Rate [Apical] Pulse Rate from SpO2 Sensor 109 H 107 H 108 H Respiratory Rate 15 19 Respiratory Effort / Characteristics Respiratory Depth Respiratory Pattern Blood Pressure 79/52 L 94/58 L 100/62 Blood Pressure Mean 61 70 74 Blood Pressure Position Pulse Oximetry 100 100 100 Oxygen Delivery Method 12/04/18 12:15 12/04/18 12:30 12/04/18 12:31 Temperature Temperature Source Sepsis Recent Fever Within 48 Hours Sepsis New/Unexplained Change in Mental Status Sepsis Action Taken by Nursing Pulse Rate 108 H 110 H 111 H Pulse Rate [Apical] 112 H Pulse Rate from SpO2 Sensor 109 H 109 H 111 H Respiratory Rate 14 13 14 Respiratory Effort / Characteristics Spontaneous Respiratory Depth Respiratory Pattern Blood Pressure 100/63 91/54 L Blood Pressure Mean 75 66 Blood Pressure Position Pulse Oximetry 99 99 100 Oxygen Delivery Method Room Air 12/04/18 12:45 12/04/18 13:00 12/04/18 13:15 Temperature Temperature Source Sepsis Recent Fever Within 48 Hours Sepsis New/Unexplained Change in Mental Status Sepsis Action Taken by Nursing Pulse Rate 113 H 92 H 91 H Pulse Rate [Apical] Pulse Rate from SpO2 Sensor 113 H 92 H 91 H Respiratory Rate 16 22 19 Respiratory Effort / Characteristics Respiratory Depth Respiratory Pattern Blood Pressure 91/50 L 90/54 L 89/50 L Blood Pressure Mean 63 66 63 Blood Pressure Position Pulse Oximetry 98 99 100 Oxygen Delivery Method 12/04/18 13:30 Temperature Temperature Source Sepsis Recent Fever Within 48 Hours Sepsis New/Unexplained Change in Mental Status Sepsis Action Taken by Nursing Pulse Rate 89 Pulse Rate [Apical] Pulse Rate from SpO2 Sensor 89 Respiratory Rate 13 Respiratory Effort / Characteristics Respiratory Depth Respiratory Pattern Blood Pressure 92/55 L Blood Pressure Mean 67 Blood Pressure Position Pulse Oximetry 100 Oxygen Delivery Method GENERAL: Awake, alert, pale and cachectic in appearance, in no acute distress. Port in place. HENT: Normocephalic, atraumatic. Oropharynx unremarkable. EYES: Normal conjunctiva. Sclera non-icteric. NECK: Supple. No nuchal rigidity. FROM. No JVD. RESPIRATORY: Clear to auscultation. CARDIAC: Regular rate, normal rhythm. Extremities warm and well perfused. Pulses equal. ABDOMEN: Soft but slightly distended. No tenderness to palpation. No rebound or guarding. No masses. RECTAL: Deferred. MUSCULOSKELETAL: Chest examination reveals no tenderness. The back is symmetri obey on inspection without obvious abnormality. There is no CVA tenderness to palpation. No joint edema. LOWER EXTREMITIES: Calves are equal size bilaterally and non-tender. No edema. No discoloration. NEURO: Normal sensorium. No sensory or motor deficits noted. SKIN: No rash or jaundice noted. Course 1103:The patient was evaluated in room C06. A complete history and physical examination was performed. 1144: I updated the patient on her current lab and imaging results. She agrees to being evaluated the hospitalist after some discussion. 1158: I discussed the patients case with Dr. Boyer [facility], who will evaluate the patient for further management and care. 1205: Upon reevaluation, the patient is resting comfortably. I discussed labora tory and radiographic results with the patient. She verbalized agreement of the treatment plan. The patient will be evaluated for further management and care. Administered Medications Discontinued Medications Albuterol (Ventolin 0.083% 2.5mg/3ml) 2.5 mg NEB NOW STA Stop: 12/04/18 12:00 Last Admin: 12/04/18 12:30 Dose: 2.5 mg Documented by: [id number] Calcium Gluconate (Calcium Gluconate 10%) Confirm Administered Dose 1,000 mg IV .STK-MED ONE Stop: 12/04/18 12:10 Last Admin: 12/04/18 12:12 Dose: 1,000 mg Documented by: [id number] Dextrose (Dextrose 50%) 50 ml IV NOW STA Stop: 12/04/18 12:00 Last Admin: 12/04/18 12:11 Dose: 50 ml Documented by: [id number] Albumin Human (Albumin 25%) 50 mls @ 50 mls/hr IV ONE ONE Stop: 12/04/18 12:08 Last Infusion: 12/04/18 12:36 Dose: 0 mls/hr Documented by: [id number] Admin: 12/04/18 11:34 Dose: 50 mls/hr Documented by: [id number] Sodium Chloride (Nss 1000ml) 1,000 mls @ 999 mls/hr IV .Q1H1M JULIAN Stop: 12/04/18 12:11 Last Infusion: 12/04/18 12:36 Dose: 0 mls/hr Documented by: [id number] Admin: 12/04/18 11:26 Dose: 999 mls/hr Documented by: [id number] Calcium Gluconate 1,000 mg/ (Sodium Chloride) 60 mls @ 240 mls/hr IV NOW STA Stop: 12/04/18 12:13 Last Admin: 12/04/18 12:13 Dose: Not Given Documented by: [id number] Insulin Human Regular (Novolin R U-100 Per Unit) 10 units IV NOW STA Stop: 12/04/18 12:00 Last Admin: 12/04/18 12:12 Dose: 10 units Documented by: [id number] Cosigned by: [id number] Sodium Bicarbonate (Sodium Bicarbonate 8.4%) 50 meq IV NOW STA Stop: 12/04/18 12:00 Last Admin: 12/04/18 12:11 Dose: 50 meq Documented by: [id number] Sodium Polystyrene Sulfonate (Kayexalate) 15 gm PO NOW STA Stop: 12/04/18 13:10 Last Admin: 12/04/18 13:16 Dose: 15 gm Documented by: [id number] Medical Decision Making Differential Diagnosis Differential diagnosis: Etiologies such as sepsis, UTI, pneumonia, metabolic, electrolyte abnormalities, cardiac sources, intracerebral event, toxicologic, neurologic, as well as others were entertained. Medical Records Attestation: I reviewed the patient's medical records. Home Medications Current Medication List: was personally reviewed by me Laboratory Data Attestation: I reviewed the patient's lab results. Result diagrams: 12/04/18 11:17 12/04/18 11:17 Lab Results 12/04/18 12/04/18 12/04/18 Range/Units 11:09 11:17 11:17 WBC 5.17 (4.8-10.8) K/uL RBC 3.79 L (4.2-5.4) M/uL Hgb 11.3 L (12.0-16.0) g/dL POC Hgb (12.0-16.0) g/dl Hct 32.8 L (37-47) % POC Hct (37-47) % MCV 86.5 (80-100) fL MCH 29.8 (25-34) pg MCHC 34.5 (32-36) g/dL RDW Std Deviation 56.4 H (36.4-46.3) fL RDW Coeff of Rachel 17.9 H (11.5-14.5) % Plt Count 104 L (130-400) K/uL MPV 9.0 (7.4-10.4) fL Immature Gran % (Auto) 0.2 % Neut % (Auto) 71.6 % Lymph % (Auto) 13.9 % Wirt % (Auto) 13.3 % Eos % (Auto) 1.0 % Baso % (Auto) 0.0 % Immature Gran # (Auto) 0.01 (0.00-0.02) K/uL Neut # (Auto) 3.70 (1.4-6.5) K/uL Lymph # (Auto) 0.72 L (1.2-3.4) K/uL Wirt # (Auto) 0.69 H (0.11-0.59) K/uL Eos # (Auto) 0.05 (0-0.5) K/uL Baso # (Auto) 0.00 (0-0.2) K/uL PT 14.3 H (9.0-12.0) Seconds INR 1.4 H (0.9-1.1) APTT 51.0 H* (21.0-31.0) Seconds PTT Ratio 1.9 POC Sodium (135-144) mEq/L Sodium (136-145) mmol/L POC Potassium (3.3-5.0) mEq/L Potassium (3.5-5.1) mmol/L POC Chloride (101-112) mEq/L Chloride (98-107) mmol/L Carbon Dioxide (21-32) mmol/L POC Total CO2 (24-31) mEq/l Anion Gap (3-11) POC Anion Gap (16-25) mmol/L POC BUN (7-18) mg/dl BUN (7-18) mg/dl Creatinine (0.6-1.2) mg/dl POC Creatinine (0.6-1.3) mg/dl Est Cr Clr Drug Dosing ml/min Est GFR ( Amer) Est GFR (Non-Af Amer) BUN/Creatinine Ratio (10-20) Glucose (70-99) mg/dl POC Glucose (other) (70-99) mg/dl Osmolality 267 L (280-300) mOsm/kg Lactate (0.4-2.0) mmol/L Calcium (8.5-10.1) mg/dl POC Ioniz Calcium Alyssa (1.12-1.32) mmol/l Total Bilirubin (0.2-1) mg/dl AST (15-37) U/L ALT (12-78) U/L Alkaline Phosphatase (45-117) U/L Total Protein (6.4-8.2) gm/dl Albumin (3.4-5.0) gm/dl Globulin (2.5-4.0) gm/dl Albumin/Globulin Ratio (0.9-2) 12/04/18 12/04/18 12/04/18 Range/Units 11:17 11:17 11:25 WBC (4.8-10.8) K/uL RBC (4.2-5.4) M/uL Hgb (12.0-16.0) g/dL POC Hgb 11.9 L (12.0-16.0) g/dl Hct (37-47) % POC Hct 35 L (37-47) % MCV (80-100) fL MCH (25-34) pg MCHC (32-36) g/dL RDW Std Deviation (36.4-46.3) fL RDW Coeff of Rachel (11.5-14.5) % Plt Count (130-400) K/uL MPV (7.4-10.4) fL Immature Gran % (Auto) % Neut % (Auto) % Lymph % (Auto) % Wirt % (Auto) % Eos % (Auto) % Baso % (Auto) % Immature Gran # (Auto) (0.00-0.02) K/uL Neut # (Auto) (1.4-6.5) K/uL Lymph # (Auto) (1.2-3.4) K/uL Wirt # (Auto) (0.11-0.59) K/uL Eos # (Auto) (0-0.5) K/uL Baso # (Auto) (0-0.2) K/uL PT (9.0-12.0) Seconds INR (0.9-1.1) APTT (21.0-31.0) Seconds PTT Ratio POC Sodium 118 L* (135-144) mEq/L Sodium 121 L (136-145) mmol/L POC Potassium 6.5 H* (3.3-5.0) mEq/L Potassium 6.4 H* (3.5-5.1) mmol/L POC Chloride 95 L (101-112) mEq/L Chloride 95 L (98-107) mmol/L Carbon Dioxide 16 L (21-32) mmol/L POC Total CO2 17 L (24-31) mEq/l Anion Gap 11.0 (3-11) POC Anion Gap 13.0 L (16-25) mmol/L POC BUN 50 H (7-18) mg/dl BUN 59 H (7-18) mg/dl Creatinine 2.48 H (0.6-1.2) mg/dl POC Creatinine 2.6 H (0.6-1.3) mg/dl Est Cr Clr Drug Dosing 19.7 ml/min Est GFR ( Amer) 21.9 Est GFR (Non-Af Amer) 18.9 BUN/Creatinine Ratio 23.7 H (10-20) Glucose 106 H (70-99) mg/dl POC Glucose (other) 110 H (70-99) mg/dl Osmolality (280-300) mOsm/kg Lactate 2.2 H* (0.4-2.0) mmol/L Calcium 9.9 (8.5-10.1) mg/dl POC Ioniz Calcium Alyssa 1.30 (1.12-1.32) mmol/l Total Bilirubin 0.6 (0.2-1) mg/dl AST 114 H (15-37) U/L ALT 78 (12-78) U/L Alkaline Phosphatase 86 (45-117) U/L Total Protein 5.7 L (6.4-8.2) gm/dl Albumin 2.6 L (3.4-5.0) gm/dl Globulin 3.1 (2.5-4.0) gm/dl Albumin/Globulin Ratio 0.8 L (0.9-2) Imaging Data Radiologist's Impression: Radiology results as stated below per my review and the radiologist's interpretation: XR chest 1V portable HISTORY: Sepsis COMPARISON: Chest 10/07/2018. FINDINGS: No pneumothorax. No pleural effusions. The lungs are clear. The heart is normal in size. Left jugular Port-A-Cath terminates at the SVC. Old, healed bilateral rib fractures. Bilateral axillary surgical clips are again noted. Skeletal lesions are better appreciated on the prior CT examination. IMPRESSION: No significant change compared to the prior study. No acute process. Electronically signed by: Jamel Mcclain M.D. 12/04/2018 11:36 AM ECG Data Attestation: I personally reviewed and interpreted this ECG as follows: Indication: weakness Rate (beats per minute): 108 Rhythm: sinus tachycardia Findings: no ST depression, no ST elevation and no acute ischemic change Blood Pressure Blood Pressure Findings: Low blood pressure MDM Narrative This is a 73-year-old female who presents emergency department complaining of hypotension. The patient had recently had a Pleurx catheter placed and has been draining ascites off her abdomen approximately 1 L a day. Laboratory work was obtained which was concerning for hyponatremia as well as hyperkalemia. Patient was given a normal saline bolus as well as albumin. She was also started on calcium insulin with dextrose and bicarbonate to protect her heart. Repeat examination revealed improvement the patient's symptoms. I did discuss her case with the hospitalist service who agreed to admit the patient. Patient and are in agreement with the treatment plan. Impression & Plan Hyperkalemia, SONYA (acute kidney injury), Anemia, Hyponatremia, Hypotension Critical Care Time Critical Care Time: Yes Total Critical Care Time: 30 I have personally spent 30 minutes of critical care time in the direct management of this patient. This includes bedside care, interpretation of diagnostic studies, and testing, discussion with consultants, patient, and family members, and other required patient management activities. This 30 minutes is in excess of all separately billable procedures. Discharge Plan Visit Data Chief Complaint: Hypotension Stated Complaint: LOW BP ED Provider: Ish Mayers Discharge Problem: Hyperkalemia, SONYA (acute kidney injury), Anemia, Hyponatremia, Hypotension Patient Disposition: Being Evaluated by Hospitalist Discharge Instructions Interventions: ED Discharge Assessment Last Done: 12/04/18 13:36 The scribe's documentation has been prepared under my direction and personally reviewed by me in its entirety. I confirm that the note above accurately reflects all work, treatment, procedures, and medical decision making performed by me.
[2018-12-04] MEDS ORDERED: ACETAMINOPHEN 325 MG TAB PO PRN (14:21)
[2018-12-04] MEDS ORDERED: CLOTRIMAZOLE/BETAMETHASONE CR 15 GM TUBE EXT PRN (14:21)
[2018-12-04] MEDS ORDERED: ALBUTEROL HFA 8 GM INHALER INH PRN (14:21)
[2018-12-04] MEDS ORDERED: POLYETHYLENE (MIRALAX) 17 GM PACK PO PRN (14:21)
[2018-12-04] MEDS ORDERED: ALBUT/IPRATROP 3MG/0.5MG NEB 3 ML VIAL NEB PRN (14:21)
[2018-12-04] MEDS ORDERED: DOCUSATE SODIUM 100 MG CAP PO PRN (14:21)
[2018-12-04] MEDS ORDERED: ONDANSETRON 8 MG TABLET PO PRN (14:21)
[2018-12-04] MEDS: SODIUM CHLORIDE 0.9% 1000ML 1,000 ML IV SCH (14:46)
[2018-12-04] MEDS: metroNIDAZOLE 500 MG/100 ML BAG IV SCH ×2 (14:46→21:48)
[2018-12-04] MEDS ORDERED: FLUTICASONE PROPIONATE NA SPR 16 GM BTL PRN (15:00)
[2018-12-04] MEDS: TRAMADOL HCL 50 MG TABLET PO PRN ×2 (15:21→21:47)
[2018-12-04] MEDS: CIPROFLOXACIN 400 MG/200 ML BAG IV SCH (15:54)
[2018-12-04 19:35] LABS: Appearance Urine Cloudy (Clear); Bacteria Urine Automated Negative (Negative); Bilirubin Urine Negative (Negative); Blood Urine Trace (Negative); Color Urine Yellow; Glucose Urine UA Negative (Negative); Ketones Urine Negative (Negative); Leukocyte Esterase Urine 3+ (Negative); Nitrite Urine Negative (Negative); Protein Urine Negative (Negative); Specific Gravity Urine 1.021 (1.000-1.030); Urobilinogen Urine Negative (Negative); WBC Urine Automated >30 /hpf (0-5)
[2018-12-04 19:50] LABS: BUN Creatinine Ratio 25.2 (10-20); Calcium 8.8 mg/dl (8.5-10.1); Creatinine Clr Calc Pharmacy 22.7 ml/min; Est GFR (African American) 25.9; Est GFR (Non-African American) 22.3
[2018-12-04 19:51] LABS: Potassium 4.6 mmol/L (3.5-5.1)
[2018-12-04] MEDS: CALCIUM 600MG + VIT D 400 IU TAB PO SCH (20:58)
[2018-12-04] MEDS: BIMATOPROST 0.01% OP SOLN 2.5 ML BTL OPB SCH (20:58)
[2018-12-04] MEDS: DRONABINOL 2.5 MG CAP PO SCH (20:58)
[2018-12-04] MEDS: MOMETASONE FUROATE 14 PUFF/1 INHALER INH SCH (20:59)
[2018-12-04] MEDS ORDERED: BIMATOPROST 0.01% OP SOLN 2.5 ML BTL OPB SCH (21:00)
[2018-12-04] MEDS ORDERED: MOMETASONE FUROATE 14 PUFF/1 INHALER INH SCH (21:00)
--- NOTE | 2018-12-04 21:08 | Progress Note ---
Date of Service December 04, 2018 Subjective to , Received a call regarding patients beta frank, Pindolol. Not in the formulary. Patient is hypotensive, will hold off on adding replacement. Results & Data Vital Signs (Past 12 Hours) Vital Signs Temp Pulse Pulse Resp BP BP Pulse Ox 12/04/18 18:58 36.5 C 84 19 90/50 L 99 12/04/18 14:49 36.4 C L 96 H 18 91/52 L 98 12/04/18 14:31 36.3 C L 100 H 18 94/60 L 100 12/04/18 13:30 89 13 92/55 L 100 12/04/18 13:15 91 H 19 89/50 L 100 12/04/18 13:00 92 H 22 90/54 L 99 12/04/18 12:45 113 H 16 91/50 L 98 12/04/18 12:31 111 H 14 91/54 L 100 12/04/18 12:30 110 H 112 H 13 99 12/04/18 12:15 108 H 14 100/63 99 12/04/18 12:00 108 H 19 100/62 100 12/04/18 11:57 108 H 15 94/58 L 100 12/04/18 11:30 79/52 L 100 12/04/18 11:07 108 H 24 100 12/04/18 11:01 109 H 19 91/57 L 12/04/18 10:52 36.4 C L 94 H 18 66/43 L 96 PG Care Time/CCT Total # of Minutes Spent Total Time Spent with Patient: Total time spent is greater than 50% in coordination of care (as documented) at patient's floor/unit and/or counseling patient:
[2018-12-05] MEDS ORDERED: HEPARIN 100 UNIT/ML 5ML FLUSH FLUSH PRN (02:17)
[2018-12-05] MEDS: SODIUM CHLORIDE 0.9% 1000ML 1,000 ML IV SCH ×2 (03:31→14:59)
[2018-12-05 03:40] LABS: Hematocrit (blood only) 29.3 % (37-47); Hemoglobin 9.9 g/dL (12.0-16.0); Mean Corpuscular Hemoglobin 29.6 pg (25-34); Mean Corpuscular Hgb Conc 33.8 g/dL (32-36); Mean Corpuscular Volume 87.5 fL (80-100); RDW Coefficient of Variation 17.8 % (11.5-14.5); RDW Standard Deviation 56.9 fL (36.4-46.3); Red Blood Count 3.35 M/uL (4.2-5.4); White Blood Count 5.07 K/uL (4.8-10.8)
[2018-12-05 03:56] LABS: Calcium 9.1 mg/dl (8.5-10.1); Creatinine Clr Calc Pharmacy 23.7 ml/min; Est GFR (African American) 26.5; Est GFR (Non-African American) 22.8; Potassium 4.9 mmol/L (3.5-5.1)
[2018-12-05 04:18] LABS: Mean Platelet Volume 8.2 fL (7.4-10.4); Platelet Count 83 K/uL (130-400)
[2018-12-05 04:19] LABS: Eosinophils # (auto) 0.09 K/uL (0-0.5); Eosinophils % (auto) 1.8 %; Immature Granulocytes # (auto) 0.02 K/uL (0.00-0.02); Immature Granulocytes % (auto) 0.4 %; Lymphocytes # (auto) 0.76 K/uL (1.2-3.4); Monocytes # (auto) 0.71 K/uL (0.11-0.59); Neutrophils # (auto) 3.49 K/uL (1.4-6.5); Neutrophils % (auto) 68.8 %
[2018-12-05] MEDS: metroNIDAZOLE 500 MG/100 ML BAG IV SCH (06:10)
[2018-12-05] MEDS: ENOXAPARIN INJ 60 MG/0.6 ML SYR SQ SCH (07:37)
[2018-12-05] MEDS: CALCIUM 600MG + VIT D 400 IU TAB PO SCH ×2 (07:38→20:44)
[2018-12-05] MEDS: MOMETASONE FUROATE 14 PUFF/1 INHALER INH SCH ×2 (07:38→20:44)
[2018-12-05] MEDS: ASPIRIN 81 MG ECTAB PO SCH (07:38)
[2018-12-05] MEDS: PANTOprazole 40 MG TAB PO SCH (07:38)
--- NOTE | 2018-12-05 07:42 | Hospitalist Progress Note ---
Date of Service December 05, 2018 Assessment & Plan (1) Hyperkalemia: Potassium is improved with treatment we will continue to follow (2) Hyponatremia: Sodium 125 has improved somewhat While patient is third spacing in her legs, this is likely more nutritional and due to lymphedema than volume overload. NSS @ 80 ml/hr 1200 ml fluid restriction (3) Hypotension: Secondary to ascites drainage and possibly infection primary concern for gram-positive we will continue Cipro and stop Flagyl BC drawn Lactic was 2.2 Albumin provided in ED Was cautiously remove fluid given her hypotension (4) Lymphedema: Continue to hold lasix (5) Pulmonary embolism: history of with CVA while on Eliquis resulting in switch to Lovenox Continue home Lovenox (6) Abdominal carcinomatosis: Pleurx draining abdominal ascites - no more than 1L daily (7) Metastatic breast cancer: Sees [facility] and Dr. Joya at [facility] after discussion with palliative care patient is considering transitioning to comfort measures Dr. Joya will see the patient on [phone] (8) Chronic kidney disease: Kidney function worsening since October and has been about where it is now at 2.48 since then Had renal US 12/01: IMPRESSION: 1. Moderate right-sided hydronephrosis without obstructing calculus or lesion identified. 2. Partial distention of the urinary bladder with wall thickening. Correlate with urinalysis. 3. Unremarkable sonographic appearance of the left kidney. 4. Cirrhotic morphology of the liver with abdominal pelvic ascites. (9) Celiac disease: gluten free diet (10) DVT prophylaxis: Lovenox (11) Anorexia: with malnutrition and cachexia We did begin Marinol (12) Asthma: Continue home inhalers prn duonebs Subjective Patient feels somewhat improved her blood pressure still significantly low there is some concern that her ascitic fluid is growing a gram-positive cocci. Final speciation is not complete she is on ciprofloxacin was has an 80% she has a covering a non-MRSA staph. Family and I had a discussion of the hallway we are considering transitioning to palliative care comfort care oncology will speak to the patient today I believe her overall functional status is declined where she would not tolerate further chemotherapeutic treatments without significant morbidity mortality. I am supportive of transitioning towards comfort care measures Review of Systems Review of Systems: ROS: Patient is extremely thin and malnourished No double vision blurry vision No problems with speech or swallowing No palpitations, chest pain or pressure No Wheezing or breathing issues No abdominal pain she does have distention and dullness to percussion No burning urine urine frequency or changes in color No focal joint pain or muscle pain No skin rashes or oral lesions No unusual bruising or bleeding some minor peripheral swelling consistent with her protein deficient state No focused back pain or numbness or loss of strength No changes in memory or confusion Physical Exam Physical Exam: The patient appeared cachectic and cytopenic Vital signs as documented. Head exam is unremarkable. normocephalic, atraumatic Neck is without jugular venous distension, trachea is midline Lungs are clear mentioned the bases patient has bilateral mastectomies Cardiac exam reveals Rhythm is regular. First and second heart sounds normal. Abdominal exam reveals distended dull protuberant nontender Pleurx in the left abdomen Extremities are moderately edematous Neurologic exam is A&Ox3, no focal deficits, strength is weakened bilaterally Results & Data Vital Signs (Past 12 Hours) Vital Signs Temp Pulse Pulse Resp BP Pulse Ox 12/05/18 07: 91 H 88/52 L 12/05/18 06:59 36.4 C L 99 H 18 92/56 L 98 12/05/18 03:32 36.5 C 99 H 16 88/56 L 95 12/05/18 02:49 36.6 C 98 H 18 99/56 L 98 12/04/18 23:16 36.4 C L 94 H 18 92/56 L 99 12/04/18 23:15 94 H PG Care Time/CCT Total # of Minutes Spent Total Time Spent with Patient: Total time spent is greater than 50% in coordination of care (as documented) at patient's floor/unit and/or counseling patient: (1) Pulmonary embolism Acute cor pulmonale presence: without acute cor pulmonale Chronicity: unspecified Pulmonary embolism type: unspecified Qualified Code(s): I26.99 - Other pulmonary embolism without acute cor pulmonale (2) Asthma Asthma complication type: unspecified Asthma persistence: unspecified Asthma severity: unspecified severity Qualified Code(s): J45.909 - Unspecified asthma, uncomplicated
[2018-12-05] MEDS: DRONABINOL 2.5 MG CAP PO SCH ×2 (07:52→20:44)
[2018-12-05] MEDS: TRAMADOL HCL 50 MG TABLET PO PRN ×4 (07:59→22:09)
[2018-12-05] MEDS ORDERED: NON-FORMULARY MEDICATION (Biotin 1 MG) PO SCH (09:00)
[2018-12-05] MEDS ORDERED: KETOROLAC 30 MG/ML VIAL IV ONE (10:14)
--- NOTE | 2018-12-05 10:20 | Palliative Care Consultation ---
Date of Consultation December 05, 2018 Assessment & Plan (1) Palliative care encounter: This is a 72 year old pleasant female known to the palliative care service and was a patient of ours during her last admission with a discharge date of 11/07/18. This patient was admitted for similar symptoms compared to her last admission for IV fluids, decreased urine output, and electrolyte imbalance. This patient has metastatic breast cancer (2014) s/p bilateral mastectomy with bone metastasis for which she received her last chemotherapy in October 2017 and has been followed by [facility] and locally by Dr. Joya for which she has an appointment on November 14. Additional PMH includes HTN, pulmonary embolism, renal impairment (baseline creatinine 2.5), hyperkalemia, protein malnutrition, chronic ascites s/p Pleur-X catheter and third spacing, likely related to carcinomatosis vs abdominal compartment syndrome. The patient has met with Nephrology and MATERIALS HANDLING EQUIPMENT OPERATOR was discussed for which the patient decided that she would not want to pursue any aggressive dialysis treatments. Palliative Care was consulted to discuss Goals of Care. -I met with the patient in room 215. We saw this patient during her last admission. -Initially, I spoke only with the patient at the bedside, who indicated "I just feel weaker and weaker" -Her and Home Health nurses through [facility] have been draining her abdominal fluid via the Pleur-X daily or every other day with volumes ranging from 800mL - 1000mL, causing fluid shift and overall hypotension, B/P ranging 80-90 systolic. -She is to attend an appointment with Dr. Vilchis on 12/[address] [facility] in [place] to discuss treatment options. She did say that at her last dameon ointment with him he did comment that she is weaker and tolerating additional chemotherapy may not be an option, so she imagines that he will say she is not a candidate for chemotherapy. She did say "I want to try chemo one more time if I am able" -She said that over the last month at home, she has been more nauseated, increasingly weaker, and having more aversion to foods. -In the middle of our conversation, her , son Mark and [id number] Julia, came in the room. -We had a lengthy discussion regarding options including: having oncology see her here while she is inpatient, the option of going home with hospice and all of the details that hospice entails (including terminating hospice if she would eventually get stronger for an additional round of chemotherapy), home health [facility] hospice if she is a chemo candidate and wanting to try chemo again, outpatient palliative care, and medical marijuana for symptom management. -The patient states that her main concerns are nausea and bone pain. Appetite aversion is her husbands main symptom focus. She does take Marinol 2.5 mg po BID currently. We talked at length about disease progression and appetite regression. -From a pain standpoint, the patient does say that she has bone pain in her limbs. She has Tramadol ordered 50 mg po Q8 PRN and has taken 3 doses over the past 24 hours. We did talk about trialing a Fentanyl patch. Will discuss Methadone with Dr. Barnes. -We discussed code status and as reflecting on our last admission conversation, she will be a DNR/DNI which I changed. -We did discuss a POLST form, but will complete at another encounter after heme/onc sees patient. -All questions answered to family and patient to their satisfaction. -I spoke with the Nurse Navigator to possibly have heme/onc eval today in order to move forward with cancelling their appointment in [place]. -Will continue to follow patient and assist with decision making -PPS: 30% (2) Ascites, malignant: (3) Chronic kidney disease: (4) Metastatic breast cancer: (5) Dehydration: History of Present Illness Reason for Consultation: Goals of Care Requesting Physician: Leida MODI Attending Physician: Romero Boyer MD History of Present Illness This is a 72 year old pleasant female who was advised to present to the [facility] for IV fluids, decreased urine output, and electrolyte replacement. This patient has metastatic breast cancer (2014) s/p bilateral mastectomy with bone metastasis for which she received her last chemotherapy in October 2017 and has been followed by [facility] and locally by Dr. Joya for which she has an appointment on November 14. Additional PMH includes HTN, pulmonary embolism, renal impairment (baseline creatinine 2.5), hyperkalemia, protein malnutrition, chronic ascites s/p Pleur-X catheter and third spacing, likely related to carcinomatosis vs abdominal compartment syndrome. The patient has met with Nephrology and MATERIALS HANDLING EQUIPMENT OPERATOR was discussed for which the patient decided that she would not want to pursue any aggressive dialysis treatments. Palliative Care was consulted to discuss Goals of Care. Please see A/P for further details. Thank you kindly for re-involving Palliative Care to continue aiding this patient and family with decision-making. Allergies Allergy/AdvReac Type Severity Reaction Status Date / Time oxycodone Allergy SV SHORTNESS Verified 12/04/18 12:04 OF BREATH shrimp Allergy SV THROAT Verified 12/04/18 12:04 CLOSING, ITCHING Penicillins Allergy Intermediate RASH Verified 12/04/18 12:04 Sulfa (Sulfonamide Allergy Intermediate RASH Verified 12/04/18 12:04 Antibiotics) gluten Allergy MO CELIAC Verified 12/04/18 12:04 DISEASE latex Allergy MO RASH Verified 12/04/18 12:04 peanut Allergy MO INCONSISTENT Verified 12/04/18 12:04 ALLERGY TEST RESULT azithromycin Allergy U Unknown Verified 12/04/18 12:04 Dust Mite Extract Allergy Unknown ALLERGY Verified 12/04/18 12:04 TEST RESULT erythromycin base AdvReac Mild STOMACH Verified 12/04/18 12:04 PAIN mivacurium AdvReac MO increased Verified 12/04/18 12:04 blood pressure Home Medications Home Medications Medication Instructions Recorded Confirmed Type acyclovir 800 mg PO TID PRN 01/15/18 12/04/18 History albuterol sulfate 2 puff INHALATION Q4H PRN 01/15/18 12/04/18 History biotin 1 mg PO DAILY 01/15/18 12/04/18 History clotrimazole-betamethasone 1 applic TOPICAL BID PRN 01/15/18 12/04/18 History epinephrine [EpiPen] 0.3 mg IM Q3H PRN 01/15/18 12/04/18 History acetaminophen 500 mg tablet 500 mg PO Q6H PRN tab 02/11/18 12/04/18 History metronidazole 1 % topical cream 1 appln TOP Q2D gm 02/11/18 12/04/18 History tramadol 50 mg tablet 50 mg PO Q8H tab 02/11/18 12/04/18 History Asmanex HFA 1 puff INHALATION Q12H 07/18/18 12/04/18 History Lumigan 1 drp OPB HS 07/18/18 12/04/18 History loratadine [Claritin] 10 mg PO DAILY 07/18/18 12/04/18 History esomeprazole magnesium [Nexium] 40 mg PO DAILY 07/26/18 12/04/18 History Xgeva 120 mg SUBCUT MONTHLY 09/26/18 12/04/18 History docusate sodium 100 mg PO BID PRN 09/26/18 12/04/18 History mometasone 2 spray INTRANASAL DAILY PRN 09/26/18 12/04/18 History ondansetron HCl 8 mg PO Q8H PRN 09/26/18 12/04/18 History prochlorperazine maleate 10 mg PO Q8H PRN 09/26/18 12/04/18 History sulfacetamide sodium (acne) 1 applic TOPICAL Q2D 09/26/18 12/04/18 History [Klaron] Caltrate 600 plus D 1 tab PO BID 10/07/18 12/04/18 History aspirin 81 mg PO DAILY 12/04/18 12/04/18 History enoxaparin [Lovenox] 80 mg SUBCUT Q24H 12/04/18 12/04/18 History furosemide [Lasix] 20 mg PO DAILY 12/04/18 12/04/18 History pindolol 2.5 mg PO DAILY 12/04/18 12/04/18 History Patient History Medical History Pulmonary embolism Sensorineural hearing loss (SNHL) of right ear (Chronic) Vertigo (Chronic) Abdominal carcinomatosis (Chronic) Pathological fracture of rib of right side (Chronic) Right lateral fifth and eighth rib Pathological fracture of rib of left side (Chronic) Ninth posterior rib Metastatic breast cancer (Chronic) Status post mastectomy 06/04/2015 with radiation therapy completion 10/14/2015 Asthma (Chronic) Melanoma (Chronic) Celiac disease (Chronic) GERD (gastroesophageal reflux disease) (Chronic) Stafford's esophagus (Chronic) Fibromyalgia (Chronic) Bilateral pulmonary embolism (Chronic) On chronic Eliquis therapy Breast cancer of upper-outer quadrant of right female breast (Chronic 04/29/15) " Right breast mass found on physical examination Status post biopsy 04/29/2015 revealing a lobular carcinoma Estrogen receptor positive, positive progesterone, receptor positive HER- 2/jorge negative Status post right modified radical mastectomy with lymph node dissection and left total mastectomy 06/04/2015 Pathologic stage pT3 pN2 M0 Oncotype DX score of 2 Status post completion of radiation therapy to the chest wall, kelly praclavicular, and axilla 10/14/2015 received 6120 cGy Rib pain and healing pathologic fracture of the left ninth posterior rib PET/CT October 26, 2017 at [facility] showing peritoneal carc inomatosis/ascites. FDG avid right lateral eighth rib activity and T9 vertebral body metabolic activity Status post omental biopsy November 17, 2017 revealing metastatic lobular breast carcinoma Initiation of Ibrance and Femara. She will also start Xgeva." On 05/13/17 16:00 Tammy Trejo wrote " Right breast mass found on physical examination Status post biopsy 04/29/2015 revealing a lobular carcinoma Estrogen receptor positive, positive progesterone, receptor positive HER- 2/jorge negative Status post right modified radical mastectomy with lymph node dissection and left total mastectomy 06/04/2015 Pathologic stage pT3 pN2 M0 Oncotype DX score of 2 Status post completion of radiation therapy to the chest wall, supraclavicular, and axilla 10/14/2015 received 6120 cGy" On 10/18/15 14:05 Tammy Trejo wrote " Right breast mass found on physical examination Status post biopsy 04/29/2015 revealing a lobular carcinoma Estrogen receptor, positive progesterone, receptor positive HER-2/jorge negative Status post right modified radical mastectomy with lymph node dissection and left total mastectomy 06/04/2015 Pathologic stage pT3 pN2 M0 Oncotype DX score of 2 Status post completion of radiation therapy to the chest wall, supraclavicular, and axilla 10/14/2015 received 6120 cGy" On 10/18/15 14:05 Tammy Trejo wrote " Right breast mass found on physical examination Status post biopsy 04/29/2015 revealing a lobular carcinoma Estrogen receptor, positive progesterone, receptor positive HER-2/jorge negative Status post right modified radical mastectomy with lymph node dissection and left total mastectomy 06/04/2015 Pathologic stage pT3 pN2 M0 Oncotype DX score of 2 Status post completion of radiation therapy to the chest wall, kelly praclavicular, and axilla 10/14/2015 received 6120 cGy" On 06/26/15 10:03 Tammy Trejo wrote " Right breast mass found on physical examination Status post biopsy 04/29/2015 revealing a lobular carcinoma Estrogen receptor, positive progesterone, receptor positive HER-2/jorge negative Status post right modified radical mastectomy with lymph node dissection and left total mastectomy 06/04/2015 Pathologic stage pT3 pN2 M0" On 06/26/15 09:58 Tammy Trejo wrote " Right breast mass found on physical examination Status post biopsy 04/29/2015 revealing a lobular carcinoma Estrogen receptor, positive progesterone, receptor positive HER-2/jorge negative Status post right modified radical mastectomy with lymph node dissection and left total mastectomy Pathologic stage pT3 pN2 M0" Chest pain (Chronic) Hypertension (Chronic) CVA (cerebral vascular accident) (Acute) Lymphedema (Acute) right arm Hemorrhagic cystitis (Resolved) Hypertension (Resolved) UTI (urinary tract infection) (Resolved) Vaginitis (Resolved) Surgical History H/O lymph node biopsy (Resolved) Right axilla H/O mastectomy (Resolved) History of dilation and curettage (Resolved) History of bunionectomy S/P mastectomy, bilateral Family History Other Cancer Social History Preferred Language: Tajik Communication Ability: Effective [facility] Manager Required: No Beliefs That Will Affect Care: None marital status: Current Living Situation: Spouse current occupational status: retired Feels Safe at Home: Yes Safety Concerns: Feels Safe At This Time Smoking Status: Unknown if ever smoked Hx Alcohol Use: No Hx Substance Use: No Review of Systems Review of Systems: All systems reviewed & are unremarkable except as noted in HPI & below Patient notes she has intermittent nausea Physical Exam Constitutional: + ill appearing, + thin, + cachectic, cooperative, comfortable and + malnourished Eyes: PERRL, conjunctivae normal, anicteric sclerae ENMT: external ear and nose normal, oropharynx normal Neck: trachea midline, no thyromegaly Respiratory: normal respiratory effort and symmetric chest movement Auscultation: + diminished lung sounds Cardiovascular: Rate/Rhythm: regular rate and regular rhythm Heart Sounds: normal S1 and normal S2; no murmur and no cardiac rub Vessels: no JVD Extremities: normal capillary refill; no edema Gastrointestinal (Abdomen): Inspection/Auscultation: + abdomen distended and + abdominal surgical drain present (Pleur-X) Percussion/Palpation: + abdomen rigid and + ascites Skin: normal turgor Pressure on sacral area per patient Psychiatric: A+Ox3, euthymic affect Insight: good insight Judgement: good judgement Lymphatic: no cervical or axillary lymphadenopathy Results & Data Vital Signs (Past 12 Hours) Vital Signs Temp Pulse Pulse Resp BP Pulse Ox 12/05/18 07: 91 H 88/52 L 12/05/18 06:59 36.4 C L 99 H 18 92/56 L 98 12/05/18 03:32 36.5 C 99 H 16 88/56 L 95 12/05/18 02:49 36.6 C 98 H 18 99/56 L 98 12/04/18 23:16 36.4 C L 94 H 18 92/56 L 99 12/04/18 23:15 94 H PG Care Time/CCT Total # of Minutes Spent Total Time Spent with Patient: Total time spent is greater than 50% in coordination of care (as documented) at patient's floor/unit and/or counseling patient: 100 Prolonged Care Time Prolonged Care Time: Yes Total Prolonged Care Time: 100 Time Spent Midlevel Total time spent 100 minutes with > 50% of that time spent assessing the patient, discussing goals of care and code status.
[2018-12-05 11:54] LABS: BUN Creatinine Ratio 25.2 (10-20); Calcium 9.1 mg/dl (8.5-10.1); Creatinine Clr Calc Pharmacy 23.7 ml/min; Est GFR (African American) 26.5; Est GFR (Non-African American) 22.8; Potassium 4.8 mmol/L (3.5-5.1)
[2018-12-05] MEDS: CIPROFLOXACIN 400 MG/200 ML BAG IV SCH (15:04)
--- NOTE | 2018-12-05 16:54 | Oncology Consultation ---
Date of Consultation December 05, 2018 Assessment & Plan (1) Metastatic breast cancer: 73-year-old female, - Right breast carcinoma initially diagnosed in 2014, S/P right mastectomy, large primary tumor measuring 6 cm, significant lymph cora involvement (08/21 ), hormonal receptor positive, Her2/Arsh--> negative, - While on anastrozole, she developed a recurrent disease involving the omentum, peritoneum, bones in November 2017. This is version noted while on 2nd line hormonal treatment with Faslodex and Palbociclib. Now since June 2018 she is on paclitaxel chemotherapy, last treatment was received in October 2018, lately she is not doing quite well, has worsening ascites, S/P peritoneal catheter placement with the drainage of the fluid almost every day by about 1 L, worsening kidney for service, hyperkalemia, required hospitalization. Now once again she is admitted for the low blood pressure, hyperkalemia, worsening kidney function test, significant declining performance status noted, I reviewed her blood workup, platelet count has dropped to around 80,000. She is on Lovenox for thrombotic complications. No new bleeding complications bed I reviewed with the patient as well as family members who were at bedside regarding her overall clinical condition, overall treatment goal which would be palliative, I do not think she will derive any meaningful benefit of any kind of systemic chemotherapy. I suggested that they should not make a trip to visit medical oncologist at [facility] as she is not a good candidate for systemic chemotherapy and I would focus on supportive and symptomatic treatment. Discussed with them regarding hospice treatment that can be considered to provide comfort care at home. Will follow-up. Thanks. Cesario Joya MD Hem/Onc History of Present Illness Attending Physician: Romero Boyer MD 73-year-old female, Oncology diagnosis: Right breast infiltrating ductal carcinoma diagnosed in April 2015. She opted for right mastectomy, 6 cm primary tumor, 08/21 lymph node positive for metastatic disease, Oncotype DX recurrence score 4, ER and IL receptor positive, Her2/Arsh-->negative. T3 N2 M0, stage IIIA While on anastrozole noticed to have recurrent disease involving the omentum, peritoneum and bone in November 2017. 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 Malignant ascites. Pulmonary embolism, on Lovenox. Current treatment: - Weekly paclitaxel started in June 2018, last treatment received on 10/11/2018. - She was in and out of the hospital for symptomatic ascites, hyperkalemia worsening kidney function test and so she could not receive additional treatment. - She also follows up with medical oncologist at [facility]. she has indwelling peripheral catheter, peritoneal fluid has been removed almost every day about 1 L per day, at home, following removal of the fluid, noticed to have low blood pressure, she came to the ER, found to have worsening kidney function test, elevated potassium level, hypertension, admitted in hospital. I saw her at bedside, her , son and [id number] was also in the hospital. Feeling weak and tired, significant declining performance was noted, recently she had imaging studies, she has an appointment Dr. Pratt at [facility] this week. Has some bilateral discomfort, chronic back pain present, she takes tramadol 3 times a day, feels nauseous, no vomiting, previously noted leg edema has improved, abdominal discomfort and distention has also improved, no bleeding fr om any sites. ECOG PS 3. Allergies Allergy/AdvReac Type Severity Reaction Status Date / Time oxycodone Allergy SV SHORTNESS Verified 12/04/18 12:04 OF BREATH shrimp Allergy SV THROAT Verified 12/04/18 12:04 CLOSING, ITCHING Penicillins Allergy Intermediate RASH Verified 12/04/18 12:04 Sulfa (Sulfonamide Allergy Intermediate RASH Verified 12/04/18 12:04 Antibiotics) gluten Allergy MO CELIAC Verified 12/04/18 12:04 DISEASE latex Allergy MO RASH Verified 12/04/18 12:04 peanut Allergy MO INCONSISTENT Verified 12/04/18 12:04 ALLERGY TEST RESULT azithromycin Allergy U Unknown Verified 12/04/18 12:04 Dust Mite Extract Allergy Unknown ALLERGY Verified 12/04/18 12:04 TEST RESULT erythromycin base AdvReac Mild STOMACH Verified 12/04/18 12:04 PAIN mivacurium AdvReac MO increased Verified 12/04/18 12:04 blood pressure Home Medications Home Medications Medication Instructions Recorded Confirmed Type acyclovir 800 mg PO TID PRN 01/15/18 12/04/18 History albuterol sulfate 2 puff INHALATION Q4H PRN 01/15/18 12/04/18 History biotin 1 mg PO DAILY 01/15/18 12/04/18 History clotrimazole-betamethasone 1 applic TOPICAL BID PRN 01/15/18 12/04/18 History epinephrine [EpiPen] 0.3 mg IM Q3H PRN 01/15/18 12/04/18 History acetaminophen 500 mg tablet 500 mg PO Q6H PRN tab 02/11/18 12/04/18 History metronidazole 1 % topical cream 1 appln TOP Q2D gm 02/11/18 12/04/18 History tramadol 50 mg tablet 50 mg PO Q8H tab 02/11/18 12/04/18 History Asmanex HFA 1 puff INHALATION Q12H 07/18/18 12/04/18 History Lumigan 1 drp OPB HS 07/18/18 12/04/18 History loratadine [Claritin] 10 mg PO DAILY 07/18/18 12/04/18 History esomeprazole magnesium [Nexium] 40 mg PO DAILY 07/26/18 12/04/18 History Xgeva 120 mg SUBCUT MONTHLY 09/26/18 12/04/18 History docusate sodium 100 mg PO BID PRN 09/26/18 12/04/18 History mometasone 2 spray INTRANASAL DAILY PRN 09/26/18 12/04/18 History ondansetron HCl 8 mg PO Q8H PRN 09/26/18 12/04/18 History prochlorperazine maleate 10 mg PO Q8H PRN 09/26/18 12/04/18 History sulfacetamide sodium (acne) 1 applic TOPICAL Q2D 09/26/18 12/04/18 History [Klaron] Caltrate 600 + D 1 tab PO BID 10/07/18 12/04/18 History aspirin 81 mg PO DAILY 12/04/18 12/04/18 History enoxaparin [Lovenox] 80 mg SUBCUT Q24H 12/04/18 12/04/18 History furosemide [Lasix] 20 mg PO DAILY 12/04/18 12/04/18 History pindolol 2.5 mg PO DAILY 12/04/18 12/04/18 History Patient History Medical History Pulmonary embolism Sensorineural hearing loss (SNHL) of right ear (Chronic) Vertigo (Chronic) Abdominal carcinomatosis (Chronic) Pathological fracture of rib of right side (Chronic) Right lateral fifth and eighth rib Pathological fracture of rib of left side (Chronic) Ninth posterior rib Metastatic breast cancer (Chronic) Status post mastectomy 06/04/2015 with radiation therapy completion 10/14/2015 Asthma (Chronic) Melanoma (Chronic) Celiac disease (Chronic) GERD (gastroesophageal reflux disease) (Chronic) Stafford's esophagus (Chronic) Fibromyalgia (Chronic) Bilateral pulmonary embolism (Chronic) On chronic Eliquis therapy Breast cancer of upper-outer quadrant of right female breast (Chronic 04/29/15) " Right breast mass found on physical examination Status post biopsy 04/29/2015 revealing a lobular carcinoma Estrogen receptor positive, positive progesterone, receptor positive HER- 2/arsh negative Status post right modified radical mastectomy with lymph node dissection and left total mastectomy 06/04/2015 Pathologic stage pT3 pN2 M0 Oncotype DX score of 2 Status post completion of radiation therapy to the chest wall, supraclavicular, and axilla 10/14/2015 received 6120 cGy Rib pain and healing pathologic fracture of the left ninth posterior rib PET/CT October 26, 2017 at [facility] showing peritoneal carcinomatosis/ascites. FDG avid right lateral eighth rib activity and T9 vertebral body metabolic activity Status post omental biopsy November 17, 2017 revealing metastatic lobular breast carcinoma Initiation of Ibrance and Femara. She will also start Xgeva." On 05/13/17 16:00 Tammy Trejo wrote " Right breast mass found on physical examination Status post biopsy 04/29/2015 revealing a lobular carcinoma Estrogen receptor positive, positive progesterone, receptor positive HER- 2/arsh negative Status post right modified radical mastectomy with lymph node dissection and left total mastectomy 06/04/2015 Pathologic stage pT3 pN2 M0 Oncotype DX score of 2 Status post completion of radiation therapy to the chest wall, supraclavicular, and axilla 10/14/2015 received 6120 cGy" On 10/18/15 14:05 Tammy Trejo wrote " Right breast mass found on physical examination Status post biopsy 04/29/2015 revealing a lobular carcinoma Estrogen receptor, positive progesterone, receptor positive HER-2/arsh negative Status post right modified radical mastectomy with lymph node dissection and left total mastectomy 06/04/2015 Pathologic stage pT3 pN2 M0 Oncotype DX score of 2 Status post completion of radiation therapy to the chest wall, supraclavic ular, and axilla 10/14/2015 received 6120 cGy" On 10/18/15 14:05 Tammy Trejo wrote " Right breast mass found on physical examination Status post biopsy 04/29/2015 revealing a lobular carcinoma Estrogen receptor, positive progesterone, receptor positive HER-2/arsh negative Status post right modified radical mastectomy with lymph node dissection and left total mastectomy 06/04/2015 Pathologic stage pT3 pN2 M0 Oncotype DX score of 2 Status post completion of radiation therapy to the chest wall, supraclavicular, and axilla 10/14/2015 received 6120 cGy" On 06/26/15 10:03 Tammy Trejo wrote " Right breast mass found on physical examination Status post biopsy 04/29/2015 revealing a lobular carcinoma Estrogen receptor, positive progesterone, receptor positive HER-2/arsh negative Status post right modified radical mastectomy with lymph node dissection and left total mastectomy 06/04/2015 Pathologic stage pT3 pN2 M0" On 06/26/15 09:58 Tammy Trejo wrote " Right breast mass found on physical examination Status post biopsy 04/29/2015 revealing a lobular carcinoma Estrogen receptor, positive progesterone, receptor positive HER-2/arsh neg ative Status post right modified radical mastectomy with lymph node dissection and left total mastectomy Pathologic stage pT3 pN2 M0" Chest pain (Chronic) Hypertension (Chronic) CVA (cerebral vascular accident) (Acute) Lymphedema (Acute) right arm Hemorrhagic cystitis (Resolved) Hypertension (Resolved) UTI (urinary tract infection) (Resolved) Vaginitis (Resolved) Surgical History H/O lymph node biopsy (Resolved) Right axilla H/O mastectomy (Resolved) History of dilation and curettage (Resolved) History of bunionectomy S/P mastectomy, bilateral Family History Other Cancer Social History Preferred Language: Maltese Communication Ability: Effective Food Sampler Required: No Beliefs That Will Affect Care: None marital status: Current Living Situation: Spouse current occupational status: retired Feels Safe at Home: Yes Safety Concerns: Feels Safe At This Time Smoking Status: Unknown if ever smoked Hx Alcohol Use: No Hx Substance Use: No Review of Systems Review of Systems: GENERAL: weight loss noted, feeling weak and tired, ECOG PS 3, no fever or chills. SKIN: No skin rash, no bruising. HEAD: No new/increasing headache, no dizziness. EYES: No recent change in the vision, no diplopia, EARS: No earache ,no tinnitus, NOSE: No epistaxis, No nasal discharge or stuffiness, MOUTH: No sores, no dysphagia, no hoarseness of voice, NECK: No lumps, No swelling in thyroid area. No stiffness. PULMONARY: No cough, shortness of breath on minimal exertion present, no hemoptysis, no chest pain, No wheezing. CARDIOVASCULAR: No anginal chest pain, no PND, no orthopnea. No palpitation, previously noted leg edema has improved , No syncope. GASTRIINTESTINAL: No abdominal pain, no nausea or vomiting. Some diarrhea after Kayexalate treatment for hyperkalemia, No constipation. No blood in stool or black tarry stools. Abdominal distention noted but it is better. UROLOGIC: No burning urination. No hematuria. MUSCULOSKELETAL: back pain present, flank pain present.. HEMATOLOGIC: anemia present, no bleeding disorder, No bruising. NEUROLOGIC: No seizures, no focal weakness, no speech difficulty, No memory disturbances. Mild tingling and numbness of extremities present.. PSYCHRIATRIC: No depression. No anxiety. No psychosis. Physical Exam Physical Exam: On exam: - Alert and oriented x3, thin built woman, not in any distress. - HEENT: no icterus, pallor noted, Throat: Normal. Bitemporal wasting noted. - Neck: No palpable cervical lymphadenopathy. - Chest: clear to auscultation. - Abdomen: signs of free fluid noted. - No focal neuro deficit. - Extremities: no finger clubbing, previously noted leg edema has improved.. Results & Data Vital Signs (Past 12 Hours) Vital Signs Temp Pulse Resp BP Pulse Ox 12/05/18 15:18 36.7 C 90 19 89/53 L 100 12/05/18 11:36 36.2 C L 93 H 22 88/55 L 97 12/05/18 11:19 94 H 94/60 L 12/05/18 07:19 91 H 88/52 L 12/05/18 06:59 36.4 C L 99 H 18 92/56 L 98 Blood workup done on 12/04/2018: - WBC 5100, H&H of 11.3/32.8, Platelet count of 104,000. - WBC 5000, H&H of 9.9/29.3, MCV 87, Platelet count of 83,000 (12/05/2018) - Potassium level on admission of 6.4 which BUN/creatinine: 59/2.4, now potassium level dropped down to around 4.8, serum creatinine level is around 2.1 mg/dL. - AST 114, ALT 78, alkaline phosphatase 86, Total bilirubin: 0.6. - Peritoneal fluid culture > Staphylococcus species. (12/04/2018). Blood culture negative so far. IMAGING: CT scan of the chest, abdomen and pelvis (11/23/2018) - Large volume ascites noted, non-obstructive bowel pattern noted - Diffuse bony metastatic disease unchanged. - Right hydronephrosis unchanged noted. - No evidence of lung metastatic disease noted. - Liver morphology consistent with cirrhosis of liver noted.
[2018-12-05] MEDS: PROCHLORPERAZINE MALEATE 10 MG TAB PO PRN (17:50)
[2018-12-05 19:18] LABS: BUN Creatinine Ratio 24.3 (10-20); Calcium 8.9 mg/dl (8.5-10.1); Creatinine Clr Calc Pharmacy 23.6 ml/min; Est GFR (African American) 26.3; Est GFR (Non-African American) 22.7
[2018-12-05] MEDS: BIMATOPROST 0.01% OP SOLN 2.5 ML BTL OPB SCH (20:44)
[2018-12-06] MEDS: SODIUM CHLORIDE 0.9% 1000ML 1,000 ML IV SCH ×2 (04:08→16:17)
[2018-12-06 06:15] LABS: Hematocrit (blood only) 28.7 % (37-47); Hemoglobin 9.8 g/dL (12.0-16.0); Mean Corpuscular Hemoglobin 29.7 pg (25-34); Mean Corpuscular Hgb Conc 34.1 g/dL (32-36); RDW Coefficient of Variation 17.9 % (11.5-14.5); White Blood Count 4.29 K/uL (4.8-10.8)
[2018-12-06 06:17] LABS: Mean Platelet Volume 9.1 fL (7.4-10.4); Platelet Count 94 K/uL (130-400)
[2018-12-06 06:52] LABS: Echinocytes 2+; Eosinophils # (auto) 0.14 K/uL (0-0.5); Eosinophils % (auto) 3.3 %; Immature Granulocytes # (auto) 0.01 K/uL (0.00-0.02); Immature Granulocytes % (auto) 0.2 %; Monocytes # (auto) 0.61 K/uL (0.11-0.59); Monocytes % (auto) 14.2 %; Neutrophils # (auto) 2.93 K/uL (1.4-6.5); Neutrophils % (auto) 68.3 %
[2018-12-06] MEDS: CALCIUM 600MG + VIT D 400 IU TAB PO SCH ×2 (08:58→20:45)
[2018-12-06] MEDS: DRONABINOL 2.5 MG CAP PO SCH ×2 (08:58→21:00)
[2018-12-06] MEDS: MOMETASONE FUROATE 14 PUFF/1 INHALER INH SCH ×2 (08:58→21:02)
[2018-12-06] MEDS: ASPIRIN 81 MG ECTAB PO SCH (08:58)
[2018-12-06] MEDS: PANTOprazole 40 MG TAB PO SCH (08:58)
[2018-12-06] MEDS: ENOXAPARIN INJ 60 MG/0.6 ML SYR SQ SCH (08:59)
[2018-12-06] MEDS: TRAMADOL HCL 50 MG TABLET PO PRN ×2 (09:01→21:00)
[2018-12-06 09:04] LABS: BUN Creatinine Ratio 23.8 (10-20); Calcium 8.9 mg/dl (8.5-10.1); Creatinine Clr Calc Pharmacy 22.4 ml/min; Est GFR (African American) 24.8; Est GFR (Non-African American) 21.4; Potassium 5.1 mmol/L (3.5-5.1)
--- NOTE | 2018-12-06 15:36 | Palliative Care Progress Note ---
Date of Service December 06, 2018 Assessment & Plan (1) Palliative care encounter: -Patient is feeling well today. Her is at bedside. -Dr. Joya came and spoke with patient and family yesterday evening. It was discussed that patient is not a candidate for further chemotherapy. Patient and family decided to forego their appointment at [facility]. -Plan is for home with hospice. Continue medical treatment while in hospital. Updated hospitalist and patient case coordinator about patient's wishes. Case management will set up hospice. -Patient currently has no nausea or pain. Does have intermittent nausea. -Discussed hospice care in detail with patient and her . Answered their questions. -Palliative care will continue to follow as needed. (2) Ascites, malignant: (3) Chronic kidney disease: (4) Metastatic breast cancer: (5) Dehydration: Subjective Met with patient and in room 215. Patient is feeling fairly well Review of Systems Review of Systems: C/o weakness, intermittent nausea. No vomiting, CP or SOB. Physical Exam Constitutional: + ill appearing (chronically) and + cachectic ENMT: Ears: no hearing impairment Neck: normal visual inspection Respiratory: normal respiratory effort, lungs clear to auscultation Cardiovascular: RRR, no murmur, no edema Gastrointestinal (Abdomen): Pleur-x in left abdomen Skin: no rashes, warm and dry Neurologic: moves all extremities and awake Psychiatric: A+Ox3, euthymic affect Results & Data Vital Signs (Past 12 Hours) Vital Signs Temp Pulse Resp BP Pulse Ox 12/06/18 11:03 36.5 C 92 H 22 91/55 L 98 12/06/18 09:44 77/50 L 12/06/18 09:37 88 77/50 L 12/06/18 09:17 88/52 L 12/06/18 09:12 89/52 L 12/06/18 06:48 36.5 C 91 H 16 90/53 L 95 PG Care Time/CCT Total # of Minutes Spent Total Time Spent with Patient: Total time spent is greater than 50% in coordination of care (as documented) at patient's floor/unit and/or counseling patient: Time Spent Midlevel 40 minutes with >50% of the time spent at bedside with patient and family discussing condition and GOC.
[2018-12-06] MEDS: CIPROFLOXACIN 400 MG/200 ML BAG IV SCH (16:18)
[2018-12-06 17:56] LABS: Base Excess VBG -7.5 mEq/L; Oxygen Saturation VBG 78.9 %; pH VBG 7.41 (7.36-7.41)
[2018-12-06] MEDS: ONDANSETRON INJ 2 MG/ML 2 ML VIAL IV PRN (21:00)
[2018-12-06] MEDS: BIMATOPROST 0.01% OP SOLN 2.5 ML BTL OPB SCH (21:02)
--- NOTE | 2018-12-06 23:37 | Hospitalist Progress Note ---
Date of Service December 06, 2018 Assessment & Plan (1) Metabolic acidosis: Patient as metabolic acidosis with lactic acidosis. Patient has severe electrolyte abnormalities. Patient appears to be end stage in regards to her cancer. Unsure if patient can recover during this hospital stay. is leaning towards hospice but is undecided. Her friend apears to be suggesting against hospice. and patient though gave permission for friend to be in room for discussion. At s moemnt, will obtain a VBG. May consider starting bicarb drip. Will also obtain a consult with nephrology. For the moment, patient is a DNR, but patient wants everything else done. This though will likely change tomorrow. (2) Hyperkalemia: Potassium is improved with treatment we will continue to follow (3) Hyponatremia: Sodium remains low. While patient is third spacing in her legs, this is likely more nutritional and due to lymphedema than volume overload. NSS @ 80 ml/hr 1200 ml fluid restriction (4) Hypotension: Secondary to ascites drainage and possibly infection primary concern for gram-positive we will continue Cipro and stop Flagyl BC drawn Lactic has worsened. Poor prognosis. Albumin provided in ED Was cautiously remove fluid given her hypotension (5) Lymphedema: Continue to hold lasix (6) Pulmonary embolism: history of with CVA while on Eliquis resulting in switch to Lovenox Continue home Lovenox (7) Abdominal carcinomatosis: Pleurx draining abdominal ascites - no more than 1L daily (8) Metastatic breast cancer: Sees [facility] with [facility] and Dr. Joya at [facility] after discussion with palliative care patient is considering transitioning to comfort measures Dr. Toan ornelas agreees with [facility]. Awaiting final decision with family. (9) Chronic kidney disease: Kidney function worsening since October and has been about where it is now at 2.48 since then Had renal US 12/01: IMPRESSION: 1. Moderate right-sided hydronephrosis without obstructing calculus or lesion identified. 2. Partial distention of the urinary bladder with wall thickening. Correlate with urinalysis. 3. Unremarkable sonographic appearance of the left kidney. 4. Cirrhotic morphology of the liver with abdominal pelvic ascites. (10) Celiac disease: gluten free diet (11) DVT prophylaxis: Lovenox (12) Anorexia: with malnutrition and cachexia We did begin Marinol (13) Asthma: Continue home inhalers prn petar Spent 55 minutes in managemnet of patient. Subjective Patient reports feeling better. She staes she is eating more. And she feels like she has more strength. Her friend is at bedside. She currently is unsure if she wants to have hospice. She has questions between the difference of palliative care and hospice. Explained that Dr. Joya recommended hospice but will respect her wishes at this time. Had a discussion with who states he is leaning toward hospice care, and will discuss this with his overnight. Review of Systems Review of Systems: All systems reviewed & are unremarkable except as noted in HPI & below Physical Exam Physical Exam: The patient appeared cachectic and cytopenic Vital signs as documented. Head exam is unremarkable. normocephalic, atraumatic Neck is without jugular venous distension, trachea is midline Lungs are clear mentioned the bases patient has bilateral mastectomies Cardiac exam reveals Rhythm is regular. First and second heart sounds normal. Abdominal exam reveals distended dull protuberant nontender Pleurx in the left abdomen Extremities are moderately edematous Neurologic exam is A&Ox3, no focal deficits, strength is weakened bilaterally Results & Data Vital Signs (Past 12 Hours) Vital Signs Temp Pulse Resp BP BP Pulse Ox 12/06/18 23:25 36.5 C 94 H 16 86/49 L 96 12/06/18 19:04 36.5 C 91 H 18 93/57 L 98 12/06/18 16:27 36.6 C 87 16 91/56 L 99 PG Care Time/CCT Total # of Minutes Spent Total Time Spent with Patient: Total time spent is greater than 50% in coordination of care (as documented) at patient's floor/unit and/or counseling patient: (1) Pulmonary embolism Acute cor pulmonale presence: without acute cor pulmonale Chronicity: unspecified Pulmonary embolism type: unspecified Qualified Code(s): I26.99 - Other pulmonary embolism without acute cor pulmonale (2) Asthma Asthma complication type: unspecified Asthma persistence: unspecified Asthma severity: unspecified severity Qualified Code(s): J45.909 - Unspecified asthma, uncomplicated
[2018-12-07] MEDS: SODIUM CHLORIDE 0.9% 1000ML 1,000 ML IV SCH ×2 (05:57→17:27)
[2018-12-07 06:37] LABS: Eosinophils # (auto) 0.15 K/uL (0-0.5); Eosinophils % (auto) 3.2 %; Hematocrit (blood only) 30.8 % (37-47); Hemoglobin 10.2 g/dL (12.0-16.0); Immature Granulocytes # (auto) 0.01 K/uL (0.00-0.02); Immature Granulocytes % (auto) 0.2 %; Lymphocytes # (auto) 0.68 K/uL (1.2-3.4); Lymphocytes % (auto) 14.3 %; Mean Corpuscular Hemoglobin 29.4 pg (25-34); Mean Corpuscular Hgb Conc 33.1 g/dL (32-36); Mean Corpuscular Volume 88.8 fL (80-100); Mean Platelet Volume 8.7 fL (7.4-10.4); Monocytes # (auto) 0.51 K/uL (0.11-0.59); Monocytes % (auto) 10.7 %; Neutrophils % (auto) 71.6 %; Platelet Count 103 K/uL (130-400); RDW Standard Deviation 58.7 fL (36.4-46.3); Red Blood Count 3.47 M/uL (4.2-5.4); White Blood Count 4.75 K/uL (4.8-10.8)
[2018-12-07 07:02] LABS: Anisocytosis Present; Echinocytes 1+; Poikilocytosis Present
[2018-12-07 07:06] LABS: BUN Creatinine Ratio 24.5 (10-20); Creatinine Clr Calc Pharmacy 22.8 ml/min; Est GFR (African American) 25.3; Est GFR (Non-African American) 21.8; Potassium 5.7 mmol/L (3.5-5.1)
[2018-12-07] MEDS: DRONABINOL 2.5 MG CAP PO SCH ×2 (09:25→21:48)
[2018-12-07] MEDS: TRAMADOL HCL 50 MG TABLET PO PRN ×2 (09:25→17:28)
[2018-12-07] MEDS: ENOXAPARIN INJ 60 MG/0.6 ML SYR SQ SCH (09:26)
[2018-12-07] MEDS: MOMETASONE FUROATE 14 PUFF/1 INHALER INH SCH ×2 (09:26→21:47)
[2018-12-07] MEDS: PANTOprazole 40 MG TAB PO SCH (09:26)
[2018-12-07] MEDS: CALCIUM 600MG + VIT D 400 IU TAB PO SCH ×3 (09:26→21:48)
[2018-12-07] MEDS: ASPIRIN 81 MG ECTAB PO SCH (09:26)
--- NOTE | 2018-12-07 11:52 | Nephrology Consultation ---
Date of Consultation December 07, 2018 Assessment & Plan (1) Metabolic acidosis: Associated with advanced illness and malignancy complicated by advanced CKD. Will start oral NaHCO3 replacement with 650 mg TID. (2) Hyperkalemia: Dietary consult to review low potassium dietary options. HCO3 replacement (3) Hyponatremia: Chronic, moderate. Associated with poor solute intake and low intravascular volume. (4) Hypotension: Albumin provided in the ED on admission. Improved slightly. (5) Abdominal carcinomatosis: Malignant ascites draining <1 L/d via catheter. (6) Metastatic breast cancer: (7) Chronic kidney disease: Given frailty and medical comorbidities, hemodialysis would not be consider therapeutically beneficial. (8) Anorexia: Reported some improvement with Marinol History of Present Illness Reason for Consultation: CKD/multiple electrolyte abnormalities Requesting Physician: Chris Roca Attending Physician: Chris Roca History of Present Illness Mrs. Montilla is a 73 year-old female who is seen at the request of Dr. Patino for evaluation of renal insufficiency and electrolyte disorders. Medical records in the EMR were reviewed today and are summarized as follows: Mrs. Montilla was diagnosed w/ breast CA in 2014. She underwent bilateral mastectomy, chemotherapy and radiation therapy. She did well until 05/28 when she suffered rib fractures while coughing. Evaluation revealed recurrent breast CA w/ metastasis to bone and omentum. She has developed tense abdominal ascites and has required repeated large volume paracentesis. Recently she had a Pleur-x catheter placed in the peritoneal space to allow recurrent paracentesis. Mrs. Montilla was started on Taxol complicated by SONYA. Creatinine has been stable at 2.1-2.5 mg/dL. Unfortunately, malignancy has progressed with treatment. Due to frailty and current condition, she is aware that she is no longer a candidate for additional chemotherapy. The patient and her family are exploring options for continued palliative and hospice care. They had multiple questions today regarding management of volume and electrolyte abnormalities. Mrs. Montilla's appetite has been very poor. This improved slightly with george l. She has been tolerating fluids and soft foods. She does not regularly use any protein supplements at home. Recent dietary food choices include mostly watermelon, mashed potatoes, bananas, V8 juice. She drains 500-1000 ml of ascitic fluid via her catheter daily. Furosemide 20 mg daily has been provided to help with fluid retention. Coag negative staph is growing from a culture obtained yesterday. Ruby has developed an early sacral decubitus. Her activity tolerance is limited. Laboratory studies are notable for chronic hyponatremia with a serum sodium of 123 mmol/L. Creatinine is stable at 2.2 mg/dL. HCO3 is low and lactate elevated at 2.6. Serum potassium was 6.4 mmol/L on admission and has improved to 5.2 mmol/L following a dose of Kayexalate. Allergies Allergy/AdvReac Type Severity Reaction Status Date / Time oxycodone Allergy SV SHORTNESS Verified 12/04/18 12:04 OF BREATH shrimp Allergy SV THROAT Verified 12/04/18 12:04 CLOSING, ITCHING Penicillins Allergy Intermediate RASH Verified 12/04/18 12:04 Sulfa (Sulfonamide Allergy Intermediate RASH Verified 12/04/18 12:04 Antibiotics) gluten Allergy MO CELIAC Verified 12/04/18 12:04 DISEASE latex Allergy MO RASH Verified 12/04/18 12:04 peanut Allergy MO INCONSISTENT Verified 12/04/18 12:04 ALLERGY TEST RESULT azithromycin Allergy U Unknown Verified 12/04/18 12:04 Dust Mite Extract Allergy Unknown ALLERGY Verified 12/04/18 12:04 TEST RESULT erythromycin base AdvReac Mild STOMACH Verified 12/04/18 12:04 PAIN mivacurium AdvReac MO increased Verified 12/04/18 12:04 blood pressure Home Medications Home Medications Medication Instructions Recorded Confirmed Type acyclovir 800 mg PO TID PRN 01/15/18 12/04/18 History albuterol sulfate 2 puff INHALATION Q4H PRN 01/15/18 12/04/18 History biotin 1 mg PO DAILY 01/15/18 12/04/18 History clotrimazole-betamethasone 1 applic TOPICAL BID PRN 01/15/18 12/04/18 History epinephrine [EpiPen] 0.3 mg IM Q3H PRN 01/15/18 12/04/18 History acetaminophen 500 mg tablet 500 mg PO Q6H PRN tab 02/11/18 12/04/18 History metronidazole 1 % topical cream 1 appln TOP Q2D gm 02/11/18 12/04/18 History tramadol 50 mg tablet 50 mg PO Q8H tab 02/11/18 12/04/18 History Asmanex HFA 1 puff INHALATION Q12H 07/18/18 12/04/18 History Lumigan 1 drp OPB HS 07/18/18 12/04/18 History loratadine [Claritin] 10 mg PO DAILY 07/18/18 12/04/18 History esomeprazole magnesium [Nexium] 40 mg PO DAILY 07/26/18 12/04/18 History Xgeva 120 mg SUBCUT MONTHLY 09/26/18 12/04/18 History docusate sodium 100 mg PO BID PRN 09/26/18 12/04/18 History mometasone 2 spray INTRANASAL DAILY PRN 09/26/18 12/04/18 History ondansetron HCl 8 mg PO Q8H PRN 09/26/18 12/04/18 History prochlorperazine maleate 10 mg PO Q8H PRN 09/26/18 12/04/18 History sulfacetamide sodium (acne) 1 applic TOPICAL Q2D 09/26/18 12/04/18 History [Klaron] Caltrate 600 plus D 1 tab PO BID 10/07/18 12/04/18 History aspirin 81 mg PO DAILY 12/04/18 12/04/18 History enoxaparin [Lovenox] 80 mg SUBCUT Q24H 12/04/18 12/04/18 History furosemide [Lasix] 20 mg PO DAILY 12/04/18 12/04/18 History pindolol 2.5 mg PO DAILY 12/04/18 12/04/18 History Patient History Medical History Pulmonary embolism Sensorineural hearing loss (SNHL) of right ear (Chronic) Vertigo (Chronic) Abdominal carcinomatosis (Chronic) Pathological fracture of rib of right side (Chronic) Right lateral fifth and eighth rib Pathological fracture of rib of left side (Chronic) Ninth posterior rib Metastatic breast cancer (Chronic) Status post mastectomy 06/04/2015 with radiation therapy completion 10/14/2015 Asthma (Chronic) Melanoma (Chronic) Celiac disease (Chronic) GERD (gastroesophageal reflux disease) (Chronic) Stafford's esophagus (Chronic) Fibromyalgia (Chronic) Bilateral pulmonary embolism (Chronic) On chronic Eliquis therapy Breast cancer of upper-outer quadrant of right female breast (Chronic 04/29/15) " Right breast mass found on physical examination Status post biopsy 04/29/2015 revealing a lobular carcinoma Estrogen receptor positive, positive progesterone, receptor positive HER- 2/jorge negative Status post right modified radical mastectomy with lymph node dissection and left total mastectomy 06/04/2015 Pathologic stage pT3 pN2 M0 Oncotype DX score of 2 Status post completion of radiation therapy to the chest wall, supraclavicular, and axilla 10/14/2015 received 6120 cGy Rib pain and healing pathologic fracture of the left ninth posterior rib PET/CT October 26, 2017 at [facility] showing peritoneal carcinomatosis/ascites. FDG avid right lateral eighth rib activity and T9 vertebral body metabolic activity Status post omental biopsy November 17, 2017 revealing metastatic lobular breast carcinoma Initiation of Ibrance and Femara. She will also start Xgeva." On 05/13/17 16:00 Tammy Trejo wrote " Right breast mass found on physical examination Status post biopsy 04/29/2015 revealing a lobular carcinoma Estrogen receptor positive, positive progesterone, receptor positive HER- 2/jorge negative Status post right modified radical mastectomy with lymph node dissection and left total mastectomy 06/04/2015 Pathologic stage pT3 pN2 M0 Oncotype DX score of 2 Status post completion of radiation therapy to the chest wall, supraclav icular, and axilla 10/14/2015 received 6120 cGy" On 10/18/15 14:05 Tammy Trejo wrote " Right breast mass found on physical examination Status post biopsy 04/29/2015 revealing a lobular carcinoma Estrogen receptor, positive progesterone, receptor positive HER-2/jorge negative Status post right modified radical mastectomy with lymph node dissection and left total mastectomy 06/04/2015 Pathologic stage pT3 pN2 M0 Oncotype DX score of 2 Status post completion of radiation therapy to the chest wall, supraclavicular, and axilla 10/14/2015 received 6120 cGy" On 10/18/15 14:05 Tammy Trejo wrote " Right breast mass found on physical examination Status post biopsy 04/29/2015 revealing a lobular carcinoma Estrogen receptor, positive progesterone, receptor positive HER-2/jorge negative Status post right modified radical mastectomy with lymph node dissection and left total mastectomy 06/04/2015 Pathologic stage pT3 pN2 M0 Oncotype DX score of 2 Status post completion of radiation therapy to the chest wall, supraclavicular, and axilla 10/14/2015 received 6120 cGy" On 06/26/15 10:03 Tammy Trejo wrote " Right breast mass found on physical examination Status post biopsy 04/29/2015 revealing a lobular carcinoma Estrogen receptor, positive progesterone, receptor positive HER-2/jorge negative Status post right modified radical mastectomy with lymph node dissection and left total mastectomy 06/04/2015 Pathologic stage pT3 pN2 M0" On 06/26/15 09:58 Tammy Trejo wrote " Right breast mass found on physical examination Status post biopsy 04/29/2015 revealing a lobular carcinoma Estrogen receptor, positive progesterone, receptor positive HER-2/jorge negative Status post right modified radical mastectomy with lymph node dissection and left total mastectomy Pathologic stage pT3 pN2 M0" Chest pain (Chronic) Hypertension (Chronic) CVA (cerebral vascular accident) (Acute) Lymphedema (Acute) right arm Hemorrhagic cystitis (Resolved) Hypertension (Resolved) UTI (urinary tract infection) (Resolved) Vaginitis (Resolved) Surgical History H/O lymph node biopsy (Resolved) Right axilla H/O mastectomy (Resolved) History of dilation and curettage (Resolved) History of bunionectomy S/P mastectomy, bilateral Family History Other Cancer Social History Preferred Language: Armenian Communication Ability: Effective Stone Rougher Required: No Beliefs That Will Affect Care: None marital status: Current Living Situation: Spouse current occupational status: retired Feels Safe at Home: Yes Safety Concerns: Feels Safe At This Time Smoking Status: Unknown if ever smoked Hx Alcohol Use: No Hx Substance Use: No Review of Systems Constitutional: + fatigue, + weakness, + anorexia and + weight loss; no fever and no chills Eyes: no problem reported Ear, Nose, Mouth, Throat: + epistaxis; no dysphagia nasal dryness and discomfort Respiratory: no problem reported Cardiovascular: no problem reported Gastrointestinal: + constipation; no nausea, no vomiting and no dysphagia Genitourinary: no problem reported Psychiatric: no problem reported Hematologic / Lymphatic: no easy bleeding and no easy bruising Physical Exam Constitutional: + thin and + frail appearing Eyes: no scleral abnormality and no corneal abnormality ENMT: Mouth: no oral mucosal abnormality and oral mucous membranes not dry Neck: normal visual inspection and trachea midline Respiratory: normal respiratory effort; no respiratory distress Auscultation: lungs clear to auscultation bilaterally Cardiovascular: Heart Sounds: normal S1 and normal S2; no murmur Extremities: no edema Gastrointestinal (Abdomen): Inspection/Auscultation: + abdomen distended Percussion/Palpation: abdomen nontender peritoneal catheter with clean exit site Musculoskeletal: Extremities: no cyanosis and no clubbing Skin: normal turgor; no rashes Neurologic: Motor/Sensory: no tremor and no asterixis Psychiatric: Orientation: alert and oriented x 3 Affect: euthymic affect Results & Data Vital Signs (Past 12 Hours) Vital Signs Temp Pulse Pulse Resp BP Pulse Ox 12/07/18 09:34 93/59 L 12/07/18 06:49 36.4 C L 110 H 22 92/62 L 99 12/07/18 03:10 36.2 C L 94 H 16 90/55 L 96 12/06/18 23:59 94 H Laboratory Results Laboratory Results - last 24 hr 12/06/18 12/07/18 12/07/18 17:40 06:24 06:24 WBC RBC Hgb Hct MCV MCH MCHC RDW Std Deviation RDW Coeff of Rachel Plt Count MPV Immature Gran % (Auto) Neut % (Auto) Lymph % (Auto) [place] % (Auto) Eos % (Auto) Baso % (Auto) Immature Gran # (Auto) Neut # (Auto) Lymph # (Auto) [place] # (Auto) Eos # (Auto) Baso # (Auto) Poikilocytosis Anisocytosis Echinocytes VBG pH 7.41 VBG pCO2 25 L VBG pO2 44 VBG HCO3 16 VBG O2 Saturation 78.9 VBG Base Excess -7.5 Barometric Pressure 731.6 Sodium 123 L Potassium 5.7 H Chloride 97 L Carbon Dioxide 16 L Anion Gap 11.0 BUN 54 H Creatinine 2.20 H Est Cr Clr Drug Dosing 22.8 Est GFR ( Amer) 25.3 Est GFR (Non-Af Amer) 21.8 BUN/Creatinine Ratio 24.5 H Glucose 113 H Lactate 2.6 H* Calcium 9.0 12/07/18 06:24 WBC 4.75 L RBC 3.47 L Hgb 10.2 L Hct 30.8 L MCV 88.8 MCH 29.4 MCHC 33.1 RDW Std Deviation 58.7 H RDW Coeff of Rachel 18.0 H Plt Count 103 L MPV 8.7 Immature Gran % (Auto) 0.2 Neut % (Auto) 71.6 Lymph % (Auto) 14.3 [place] % (Auto) 10.7 Eos % (Auto) 3.2 Baso % (Auto) 0.0 Immature Gran # (Auto) 0.01 Neut # (Auto) 3.40 Lymph # (Auto) 0.68 L [place] # (Auto) 0.51 Eos # (Auto) 0.15 Baso # (Auto) 0.00 Poikilocytosis Present Anisocytosis Present Echinocytes 1+ VBG pH VBG pCO2 VBG pO2 VBG HCO3 VBG O2 Saturation VBG Base Excess Barometric Pressure Sodium Potassium Chloride Carbon Dioxide Anion Gap BUN Creatinine Est Cr Clr Drug Dosing Est GFR ( Amer) Est GFR (Non-Af Amer) BUN/Creatinine Ratio Glucose Lactate Calcium
--- NOTE | 2018-12-07 12:12 | Palliative Care Progress Note ---
Date of Service December 07, 2018 Assessment & Plan (1) Palliative care encounter: -Patient is feeling well today. Her is at bedside. -Patient is not a candidate for further chemotherapy. The patient does have this peritoneal infection, that is likely to return quickly, even if it does respond to treatment. The patient's Potassium is 5.7 today. We talked at length treatment of the hyperkalemia including K+exalate and the patient indicated she did not like taking it before, and was unsure if she wanted to take it again. -Patient family is becoming overwhelmed with decision making. Initially, the patient , in front of the friend did state that the friend thought that Palliative Care was a smoke screen with ill intensions. The family had a lot of questions regarding hospice and their capabilities. The patients/family close friend Annalise, came yesterday and pointed some concerns regarding hospice and suggested Home Health. Annalise indicated that they "just aren't there yet". We talked at length on multiple occasions with the patients friend in the room and other times with just the patient and her . -I did state how it is natural for a family member or friend to step up to be a 'hero' and push for 'aggressive' measures (IV antibiotics, readmission, addition al specialty consultation) when the patient enters a transition period to 'help the family and not give up' because at times, those friends do not want to lose the patient either. The patient has stated on multiple occasions to me today and previous days that she does not want to come back to the hospital and would like more conservative treatment. I provided some tools and verbage to use with the patients friend indicating their appreciation of her involvement, but requesting her to respect their immediate families decision with whatever they choose. -In lengthy conversation, they both feel comfortable with going through an agency that does both Home Health and Hospice. I spoke with case management and a referral will be placed to [facility] Home health with an eventual hospice transition. -We did complete a POLST form with the patient and in the room, they wish to discuss further with the patients son, Mark, who did call in while I was in the room. The patient did state that she does not want any feeding tube and would like to remain DNR. -We did discuss her prognosis which is weeks to a few months. I did have lengthy conversation with Hospitalist following patient as well. Hopeful plan is to discharge patient home by Wednesday. -Patient currently has no nausea or pain. Pt feels that she has responded well to the Marinol and does have an appetite today. Nephrology did make some suggestions with renal boost, etc. -I did answer all of their questions and will continue to follow with decision making. -Palliative care will continue to follow as needed -PPS: 30%. (2) Ascites, malignant: (3) Chronic kidney disease: (4) Metastatic breast cancer: (5) Dehydration: Subjective patient states she is feeling a little bit better today and has an appetite patient Praveen, and friend Annalise, were at the bedside during my initial visit. Patient states she has not gotten out of bed recently and feels sore on her bottom Please see A/P for further details. Review of Systems Review of Systems: Main complaint is weakness and intermittent nausea. No vomiting, CP or SOB. Physical Exam Constitutional: + ill appearing, + thin, + cachectic, cooperative, comfortable and + malnourished Eyes: PERRL, conjunctivae normal, anicteric sclerae ENMT: external ear and nose normal, oropharynx normal Neck: trachea midline, no thyromegaly Respiratory: normal respiratory effort and symmetric chest movement Auscultation: + diminished lung sounds Cardiovascular: Rate/Rhythm: regular rate and regular rhythm Heart Sounds: normal S1 and normal S2; no murmur and no cardiac rub Vessels: no JVD Extremities: normal capillary refill; no edema Gastrointestinal (Abdomen): Inspection/Auscultation: + abdomen distended and + abdominal surgical drain present (Pleur-X) Percussion/Palpation: + abdomen rigid and + ascites Skin: normal turgor Psychiatric: A+Ox3, euthymic affect Insight: good insight Judgement: good judgement Lymphatic: no cervical or axillary lymphadenopathy Results & Data Vital Signs (Past 12 Hours) Vital Signs Temp Pulse Resp BP Pulse Ox 12/07/18 09:34 93/59 L 12/07/18 06:49 36.4 C L 110 H 22 92/62 L 99 12/07/18 03:10 36.2 C L 94 H 16 90/55 L 96 PG Care Time/CCT Total # of Minutes Spent Total Time Spent: 65 Total Time Spent with Patient: Total time spent is greater than 50% in coordination of care (as documented) at patient's floor/unit and/or counseling patient: 65 Prolonged Care Time Prolonged Care Time: Yes Total Prolonged Care Time: 65 Time Spent Midlevel Total time spent 65 minutes with > 50% of that time spent assessing the patient, discussing goals of care and a POLST form.
[2018-12-07] MEDS ORDERED: DAPTOmycin 500 MG VIAL IV SCH (12:30)
[2018-12-07] MEDS ORDERED: DAPTOmycin 250 MG in SYRINGE 0 ML IV SCH (13:00)
--- NOTE | 2018-12-07 13:16 | Hospitalist Progress Note ---
Date of Service December 07, 2018 Assessment & Plan (1) Peritonitis: Pt's reports cloudy ascites fluid for about 5-7 days. Gram stain of fluid from 12/04 with GPC and culture with coag negative staph. I believe she indeed has peritonitis and probably seeded because of her palliative pleurX catheter itself. d/c cipro. change to IV daptomycin 6mg/kg daily. much of her GI symptomatology (nausea, emesis, etc) could be due to peritonitis. Cont to drain the catheter as necessary for comfort. Present on Admission?: Yes (2) Candidiasis of mouth and esophagus: severe. nystatin 5cc ac/hs swish/swallow. Present on Admission?: No (3) Metabolic acidosis: likely combination of lactic acidosis (due to peritonitis?) and SONYA. former likely the bigger player. appreciate nephrology consult. oral sodium bicarb started TID per Dr Colbert. cont supportive care but will not escalate her care beyond what we are already doing. Present on Admission?: Yes (4) Hyperkalemia: Ongoing issue in the face of her acidotic state. Started sodium bicarb therapy. We had lengthy discussion about significance of the high K and, if left untreated, the ramifications. Pt stated she was not ready to simply leave the high K untreated. We discussed a 1-time dose of kayexalate today. In light of no bowel movement since the weekend she wanted to take the kayexalate. 15gm x 1 ordered. BMP am. Of note - cortisol level acceptable making adrenal insufficiency less likely as cause. Present on Admission?: Yes (5) Hyponatremia: Ongoing. Chronic, but with acute worsening. Some of the worsening likely due to SONYA. BMP am. Present on Admission?: Yes (6) Hypotension: Suspect 2nd to sepsis and acidosis due to peritonitis. Cortisol level >10. No signs of bleeding. She is also likely intravascularly volume depleted with 3rd spacing. She remains on basal fluids. Very poor prognostic sign. 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 (9) Metastatic breast cancer: Sees [facility] with [facility] and Dr. Cesario Joya at [facility] locally. Stage 4 breast ca is extensive/progressive. She has severe failure to thrive. She is NOT a candidate to pursue additional palliative chemo. See HPI re: my discussions with her & today. APPRECIATE palliative care assistance. If she worsens in the next 24 hours start comfort care measures. See HPI re: goals of care. (10) Chronic kidney disease: CKD stage 3 at baseline with SONYA. BMP am. appreciate nephrology assistance. (11) Celiac disease: gluten free diet (12) Anorexia: 2nd to stage 4 breast ca with malnutrition and cachexia cont marinol (13) Asthma: no exacerbation at this time (14) Pancytopenia: bone marrow involvement of breast ca? other cause? nutritional deficiency?? (15) SONYA (acute kidney injury): ongoing in face of peritonitis, etc (16) DVT prophylaxis: Lovenox care d/w palliative care and nephrology total time today spent on all activities including 60+ min conversation w/ pt --- 75 minutes Subjective 60+ minute bedside discussion with palliative care (for first 20 minutes) and the patient with her . we discussed current issues (hyperkalemia, peritonitis, extensive/progressive cancer). we discussed and tried to refine her goals for care. pt and her stated they had been confused about the differences between hospice and palliative care -- they now understand. patient states she is getting tired of the in/out of the hospital and the back/forth nature of her visits to [place] for cancer care. they talk alot about their only child, a son who lives in [place], and their son's . apparently their son got earlier this spring in [place]. towards the conclusion of my visit they -- 1) wanted to treat the high potassium; 2) change the abx for the peritonitis; 3) go home with home health with transition to hospice (but NOT pursue hospice right now) patient reports no BM since Wednesday and also her mouth has been very uncomforta ble. denies abdominal pain. tele with sinus tach overnight. Review of Systems Constitutional: + fatigue, + malaise, + weakness and + anorexia; no fever Ear, Nose, Mouth, Throat: + mouth lesions and + dry mouth Respiratory: no dyspnea Cardiovascular: no chest pain Gastrointestinal: + bloating, + nausea and + vomiting (this am); no abdominal pain Physical Exam Constitutional: + ill appearing and + frail appearing; + not well developed, + not well nourished, no acute distress and no altered mental status ENMT: Mouth: + oral mucosal abnormality (extensive thrush plaques) Respiratory: no respiratory distress Auscultation: + diminished lung sounds (bases); no crackles and no wheezes Cardiovascular: Rate/Rhythm: regular rhythm and + tachycardic Heart Sounds: normal S1 and normal S2; no murmur Vessels: posterior tibial pulses present and dorsalis pedis pulses present; no JVD Extremities: + edema Gastrointestinal (Abdomen): Inspection/Auscultation: + abdomen distended (with ascites) Percussion/Palpation: abdomen nontender and no hepatosplenomegaly catheter in place Skin: + pallor Psychiatric: Orientation: alert and oriented x 3 Affect: + flat affect Results & Data Vital Signs (Past 12 Hours) Vital Signs Temp Pulse Resp BP Pulse Ox 12/07/18 09:34 93/59 L 12/07/18 06:49 36.4 C L 110 H 22 92/62 L 99 12/07/18 03:10 36.2 C L 94 H 16 90/55 L 96 Laboratory Results Laboratory Results - last 24 hr 12/06/18 12/07/18 12/07/18 17:40 06:24 06:24 WBC RBC Hgb Hct MCV MCH MCHC RDW Std Deviation RDW Coeff of Rachel Plt Count MPV Immature Gran % (Auto) Neut % (Auto) Lymph % (Auto) Brooke % (Auto) Eos % (Auto) Baso % (Auto) Immature Gran # (Auto) Neut # (Auto) Lymph # (Auto) Brooke # (Auto) Eos # (Auto) Baso # (Auto) Poikilocytosis Anisocytosis Echinocytes VBG pH 7.41 VBG pCO2 25 L VBG pO2 44 VBG HCO3 16 VBG O2 Saturation 78.9 VBG Base Excess -7.5 Barometric Pressure 731.6 Sodium 123 L Potassium 5.7 H Chloride 97 L Carbon Dioxide 16 L Anion Gap 11.0 BUN 54 H Creatinine 2.20 H Est Cr Clr Drug Dosing 22.8 Est GFR ( Amer) 25.3 Est GFR (Non-Af Amer) 21.8 BUN/Creatinine Ratio 24.5 H Glucose 113 H Lactate 2.6 H* Calcium 9.0 12/07/18 06:24 WBC 4.75 L RBC 3.47 L Hgb 10.2 L Hct 30.8 L MCV 88.8 MCH 29.4 MCHC 33.1 RDW Std Deviation 58.7 H RDW Coeff of Rachel 18.0 H Plt Count 103 L MPV 8.7 Immature Gran % (Auto) 0.2 Neut % (Auto) 71.6 Lymph % (Auto) 14.3 Brooke % (Auto) 10.7 Eos % (Auto) 3.2 Baso % (Auto) 0.0 Immature Gran # (Auto) 0.01 Neut # (Auto) 3.40 Lymph # (Auto) 0.68 L Brooke # (Auto) 0.51 Eos # (Auto) 0.15 Baso # (Auto) 0.00 Poikilocytosis Present Anisocytosis Present Echinocytes 1+ VBG pH VBG pCO2 VBG pO2 VBG HCO3 VBG O2 Saturation VBG Base Excess Barometric Pressure Sodium Potassium Chloride Carbon Dioxide Anion Gap BUN Creatinine Est Cr Clr Drug Dosing Est GFR ( Amer) Est GFR (Non-Af Amer) BUN/Creatinine Ratio Glucose Lactate Calcium PG Care Time/CCT Total # of Minutes Spent Total Time Spent with Patient: Total time spent is greater than 50% in coordination of care (as documented) at patient's floor/unit and/or counseling patient: (1) Hypotension Hypotension type: other hypotension type Qualified Code(s): I95.89 - Other hypotension (2) Pulmonary embolism Pulmonary embolism type: unspecified Chronicity: unspecified Acute cor pulmonale presence: without acute cor pulmonale Qualified Code(s): I26.99 - Other pulmonary embolism without acute cor pulmonale (3) Chronic kidney disease Chronic kidney disease stage: stage 3 (moderate) Qualified Code(s): N18.3 - Chronic kidney disease, stage 3 (moderate) (4) Asthma Asthma severity: unspecified severity Asthma persistence: unspecified Asthma complication type: unspecified Qualified Code(s): J45.909 - Unspecified asthma, uncomplicated
[2018-12-07] MEDS ORDERED: SODIUM POLYSTYRENE SULFONATE 15G/60ML SUSP PO ONE (13:30)
[2018-12-07] MEDS: SODIUM BICARBONATE 650 MG TAB PO SCH ×3 (14:08→21:48)
[2018-12-07] MEDS: NYSTATIN SUSP 500,000 U/5 ML UDC PO SCH ×3 (14:34→21:47)
[2018-12-07] MEDS: PROCHLORPERAZINE MALEATE 10 MG TAB PO PRN (14:36)
[2018-12-07] MEDS: BIMATOPROST 0.01% OP SOLN 2.5 ML BTL OPB SCH (21:48)
[2018-12-07] MEDS: ONDANSETRON INJ 2 MG/ML 2 ML VIAL IV PRN (21:48)
[2018-12-08] MEDS: SODIUM CHLORIDE 0.9% 1000ML 1,000 ML IV SCH (04:32)
[2018-12-08] MEDS: TRAMADOL HCL 50 MG TABLET PO PRN ×2 (04:32→16:58)
[2018-12-08 05:58] LABS: Basophils # (auto) 0.01 K/uL (0-0.2); Basophils % (auto) 0.1 %; Eosinophils # (auto) 0.04 K/uL (0-0.5); Eosinophils % (auto) 0.5 %; Hematocrit (blood only) 30.4 % (37-47); Hemoglobin 10.5 g/dL (12.0-16.0); Immature Granulocytes # (auto) 0.02 K/uL (0.00-0.02); Immature Granulocytes % (auto) 0.3 %; Lymphocytes # (auto) 0.49 K/uL (1.2-3.4); Lymphocytes % (auto) 6.6 %; Mean Corpuscular Hemoglobin 29.9 pg (25-34); Mean Corpuscular Hgb Conc 34.5 g/dL (32-36); Mean Corpuscular Volume 86.6 fL (80-100); Mean Platelet Volume 8.4 fL (7.4-10.4); Monocytes # (auto) 0.86 K/uL (0.11-0.59); Monocytes % (auto) 11.6 %; Neutrophils # (auto) 5.98 K/uL (1.4-6.5); Neutrophils % (auto) 80.9 %; Platelet Count 101 K/uL (130-400); RDW Coefficient of Variation 18.1 % (11.5-14.5); RDW Standard Deviation 57.1 fL (36.4-46.3); Red Blood Count 3.51 M/uL (4.2-5.4)
[2018-12-08 06:28] LABS: Albumin Level 2.3 gm/dl (3.4-5.0); BUN Creatinine Ratio 23.9 (10-20); Creatinine Clr Calc Pharmacy 20.4 ml/min; Est GFR (African American) 22.1; Est GFR (Non-African American) 19.1; Potassium 5.4 mmol/L (3.5-5.1)
[2018-12-08 06:29] LABS: Phosphorus 4.4 mg/dl (2.5-4.9)
[2018-12-08] MEDS: MOMETASONE FUROATE 14 PUFF/1 INHALER INH SCH ×2 (08:09→21:05)
[2018-12-08] MEDS: SODIUM BICARBONATE 650 MG TAB PO SCH ×3 (08:09→21:04)
[2018-12-08] MEDS: ASPIRIN 81 MG ECTAB PO SCH (08:10)
[2018-12-08] MEDS: NYSTATIN SUSP 500,000 U/5 ML UDC PO SCH ×4 (08:10→21:04)
[2018-12-08] MEDS: ENOXAPARIN INJ 60 MG/0.6 ML SYR SQ SCH (08:10)
[2018-12-08] MEDS: PANTOprazole 40 MG TAB PO SCH (08:10)
[2018-12-08] MEDS: CALCIUM 600MG + VIT D 400 IU TAB PO SCH ×2 (08:11→21:04)
[2018-12-08] MEDS: DRONABINOL 2.5 MG CAP PO SCH ×2 (08:18→21:11)
[2018-12-08] MEDS ORDERED: SODIUM BICARBONATE 650 MG TAB PO ONE (08:45)
[2018-12-08] MEDS: ONDANSETRON INJ 2 MG/ML 2 ML VIAL IV PRN (09:38)
--- NOTE | 2018-12-08 09:48 | Nephrology Progress Note ---
Date of Service December 08, 2018 Assessment & Plan (1) Metabolic acidosis: Associated with advanced illness and malignancy complicated by advanced CKD. Increase oral NaHCO3 replacement to 1300 mg TID, as tolerated. (2) Hyperkalemia: Low potassium dietary options. HCO3 replacement. (3) Hyponatremia: Chronic, moderate. Associated with poor solute intake and low intravascular volume. (4) Hypotension: Encourage increased dietary protein and sodium intake (5) Abdominal carcinomatosis: Malignant ascites, fluid growing GPC (6) Metastatic breast cancer: (7) Chronic kidney disease: Given frailty and medical comorbidities, hemodialysis would not be consider therapeutically beneficial. (8) Anorexia: Reported some improvement with Marinol Subjective No acute events overnight. Dottie remains very tired. She states that she slept well. Appetite slightly improved. Small bowel movement following Kayexalate yesterday. No fevers or chills. Denies significant abdominal discomfort. Tole rating oral NaHCO3 but no without some distaste. The patient was seen and evaluated with her and friend at the bedside. Review of Systems Review of Systems: All systems reviewed & are unremarkable except as noted in HPI & below Physical Exam Constitutional: + thin and + frail appearing Eyes: no scleral abnormality and no corneal abnormality ENMT: Mouth: no oral mucosal abnormality and oral mucous membranes not dry Neck: normal visual inspection and trachea midline Respiratory: normal respiratory effort; no respiratory distress Auscultation: lungs clear to auscultation bilaterally Cardiovascular: Heart Sounds: normal S1 and normal S2; no murmur Extremities: no edema Gastrointestinal (Abdomen): Inspection/Auscultation: + abdomen distended Percussion/Palpation: abdomen nontender Musculoskeletal: Extremities: no cyanosis and no clubbing Skin: normal turgor; no rashes Neurologic: Motor/Sensory: no tremor and no asterixis Psychiatric: Orientation: alert and oriented x 3 Affect: euthymic affect Results & Data Vital Signs (Past 12 Hours) Vital Signs Temp Pulse Pulse Pulse Resp BP Pulse Ox 12/08/18 06:59 36.4 C L 99 H 20 82/49 L 96 12/08/18 04:39 36.3 C L 99 H 16 79/45 L 97 12/08/18 00:10 99 H 12/07/18 23:49 36.6 C 102 H 18 82/50 L 98 Laboratory Results Laboratory Results - last 24 hr 12/07/18 12/08/18 12/08/18 13:12 05:42 05:42 WBC 7.40 RBC 3.51 L Hgb 10.5 L Hct 30.4 L MCV 86.6 MCH 29.9 MCHC 34.5 RDW Std Deviation 57.1 H RDW Coeff of Rachel 18.1 H Plt Count 101 L MPV 8.4 Immature Gran % (Auto) 0.3 Neut % (Auto) 80.9 Lymph % (Auto) 6.6 [place] % (Auto) 11.6 Eos % (Auto) 0.5 Baso % (Auto) 0.1 Immature Gran # (Auto) 0.02 Neut # (Auto) 5.98 Lymph # (Auto) 0.49 L [place] # (Auto) 0.86 H Eos # (Auto) 0.04 Baso # (Auto) 0.01 Sodium 124 L Potassium 5.4 H Chloride 98 Carbon Dioxide 16 L Anion Gap 11.0 BUN 59 H Creatinine 2.46 H Est Cr Clr Drug Dosing 20.4 Est GFR ( Amer) 22.1 Est GFR (Non-Af Amer) 19.1 BUN/Creatinine Ratio 23.9 H Glucose 110 H Calcium 9.0 Phosphorus 4.4 Albumin 2.3 L Random Cortisol 12.41 PG Care Time/CCT Total # of Minutes Spent Total Time Spent with Patient: Total time spent is greater than 50% in coordination of care (as documented) at patient's floor/unit and/or counseling patient: (1) Hypotension Hypotension type: other hypotension type Qualified Code(s): I95.89 - Other hypotension (2) Chronic kidney disease Chronic kidney disease stage: stage 3 (moderate) Qualified Code(s): N18.3 - Chronic kidney disease, stage 3 (moderate)
--- NOTE | 2018-12-08 16:56 | Palliative Care Progress Note ---
Date of Service December 08, 2018 Assessment & Plan (1) Palliative care encounter: -Patient's condition is deteriorating. Creatinine is worsening, more drowsy/lethargic. -Patient's friend Annalise fed her breakfast and tried giving patient her bicarb pill in yogurt, and patient vomited everything back up. Her nausea has now subsided. -Long discussion on multiple visits with patient and her family. Plan is for patient to go home with hospice. They have chosen [facility]. merchandise manager to make referral tomorrow. They will need some equipment. -POLST form completed with [facility] , Dileep: DNR, limited add'l interventions, abx with comfort as the goal, no artificial hydration/nutrition. -Discussed the abdominal pleur-x: only drain if patient is feeling bloating and uncomfortable. Otherwise, do not drain due to hypotension. -NO pain at this time. (2) Ascites, malignant: (3) Chronic kidney disease: (4) Metastatic breast cancer: (5) Dehydration: Subjective Patient is more drowsy/lethargic today. Hypotensive overnight and today. Long discussions during multiple visits with patient and her , and patient, her and son. Review of Systems Review of Systems: C/O episode of vomiting earlier, no nausea at this time. No SOB or abdominal pain. Some pain in sacrum Physical Exam Constitutional: + ill appearing (chronically) and + cachectic ENMT: Ears: no hearing impairment Neck: normal visual inspection Respiratory: normal respiratory effort, lungs clear to auscultation Cardiovascular: RRR, no murmur, no edema Skin: no rashes, warm and dry Neurologic: moves all extremities and awake (drowsy) Results & Data Vital Signs (Past 12 Hours) Vital Signs Temp Pulse Pulse Resp BP Pulse Ox 12/08/18 15:07 36.4 C L 98 H 19 90/52 L 99 12/08/18 11:04 36.3 C L 107 H 18 83/51 L 98 12/08/18 08:00 97 H 12/08/18 06:59 36.4 C L 99 H 20 82/49 L 96 PG Care Time/CCT Prolonged Care Time Prolonged Care Time: Yes Total Prolonged Care Time: 80 Time Spent Midlevel 80 minutes with >50% of time spent at bedside with patient and family discussing hospice, POC, EOL issues. (1) Chronic kidney disease Chronic kidney disease stage: stage 3 (moderate) Qualified Code(s): N18.3 - Chronic kidney disease, stage 3 (moderate)
[2018-12-08] MEDS: TRAMADOL HCL 50 MG TABLET PO SCH (21:04)
[2018-12-08] MEDS: BIMATOPROST 0.01% OP SOLN 2.5 ML BTL OPB SCH (21:05)
--- NOTE | 2018-12-08 21:06 | Hospitalist Progress Note ---
Date of Service December 08, 2018 Assessment & Plan (1) Peritonitis: ascites culture with coag negative staph. I believe she indeed has peritonitis and probably seeded because of her palliative pleurX catheter itself. day #2 of daptomycin 6mg/kg daily. will continue this as "palliative treatment". much of her GI symptomatology (nausea, emesis, etc) could be due to peritonitis. Cont to drain the catheter on PRN basis as necessary for comfort. (2) Candidiasis of mouth and esophagus: severe, but already improving. nystatin 5cc ac/hs swish/swallow. (3) Metabolic acidosis: likely combination of lactic acidosis (due to peritonitis) and SONYA. ongoing. on bicarb by mouth, but will stop at d/c due to transition to hospice. (4) Hyperkalemia: Ongoing issue in the face of her acidotic state. Cortisol normal. Level 5.4 today. Transitioning to hospice - will not repeat the kayexalate. (5) Hyponatremia: Ongoing. Chronic, but with acute worsening. Some of the worsening likely due to SONYA. (6) Hypotension: Suspect 2nd to sepsis and acidosis due to peritonitis. Cortisol level >10. No signs of bleeding. She is also likely intravascularly volume depleted with 3rd spacing. No response to IVF - stop them today. (7) Pulmonary embolism: Continue home Lovenox 60mg daily today but stop at d/c. 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 treat pain tramadol 50 TID (9) Metastatic breast cancer: Previously followed by [facility] with [facility] and Dr. Cesario Joya at [facility] locally. Stage 4 breast ca is extensive/progressive. She has severe failure to thrive. She is NOT a candidate to pursue additional palliative chemo. Transition to home hospice. (10) Chronic kidney disease: CKD stage 3 at baseline with SONYA. (11) Celiac disease: gluten free diet (12) Anorexia: 2nd to stage 4 breast ca with malnutrition and cachexia cont marinol as palliative Rx if desired may help w/ nausea as well (13) Asthma: no exacerbation at this time (14) Pancytopenia: bone marrow involvement of breast ca? other cause? nutritional deficiency?? no Rx at this time (15) SONYA (acute kidney injury): ongoing in face of peritonitis, etc worse today d/c fluids (16) DVT prophylaxis: Lovenox but stop at d/c appreciate palliative care assistance appreciate social work assistance total time today over 2 visits -- 65 minutes Subjective 2 visits to pt's room today. first visit was in AM. was at bedside. Had decent night; mainly comfortable. sacral area "sore". mouth feels better. had vomiting when she took the bicarb tablet. 2nd visit - afternoon - met with Kendra from palliative care, pt's on, pt, and pt's . we had lengthy discussion (45 minutes) discussing transition to hospice and that, based on labs and clinical picture, our opportunity to get her home is narrow - probably 1-2 day "window." son w/ numerous questions about hospice, palliative care, what she needs at home, etc at conclusion of 2nd visit all persons present agreeable with hospice at home. patient declining a santoyo at this time. tele - NSR or sinus tach. Review of Systems Constitutional: + fatigue and + anorexia; no fever Respiratory: no dyspnea Cardiovascular: no chest pain Gastrointestinal: + nausea and + vomiting; no abdominal pain Physical Exam Constitutional: + ill appearing and + frail appearing; + not well developed, + not well nourished, no acute distress and no altered mental status ENMT: Mouth: + oral mucosal abnormality (extensive thrush plaques improved toda) and + dry oral mucous membranes Respiratory: no respiratory distress Auscultation: + diminished lung sounds (bases); no crackles and no wheezes Cardiovascular: Rate/Rhythm: regular rhythm and + tachycardic Heart Sounds: normal S1 and normal S2; no murmur Vessels: posterior tibial pulses present and dorsalis pedis pulses present; no JVD Extremities: + edema (2-3+ b/l) Gastrointestinal (Abdomen): Inspection/Auscultation: + abdomen distended (with ascites) Percussion/Palpation: abdomen nontender and no hepatosplenomegaly Skin: + pallor Psychiatric: Orientation: alert and oriented x 3 Affect: + flat affect Results & Data Vital Signs (Past 12 Hours) Vital Signs Temp Pulse Pulse Resp BP Pulse Ox 12/08/18 18:56 36.4 C L 96 H 19 80/40 L 96 12/08/18 16:00 100 H 12/08/18 15:07 36.4 C L 98 H 19 90/52 L 99 12/08/18 11:04 36.3 C L 107 H 18 83/51 L 98 Laboratory Results Laboratory Results - last 24 hr 12/08/18 12/08/18 12/08/18 05:42 05:42 11:53 WBC 7.40 RBC 3.51 L Hgb 10.5 L Hct 30.4 L MCV 86.6 MCH 29.9 MCHC 34.5 RDW Std Deviation 57.1 H RDW Coeff of Rachel 18.1 H Plt Count 101 L MPV 8.4 Immature Gran % (Auto) 0.3 Neut % (Auto) 80.9 Lymph % (Auto) 6.6 [place]ingo % (Auto) 11.6 Eos % (Auto) 0.5 Baso % (Auto) 0.1 Immature Gran # (Auto) 0.02 Neut # (Auto) 5.98 Lymph # (Auto) 0.49 L [place]ingo # (Auto) 0.86 H Eos # (Auto) 0.04 Baso # (Auto) 0.01 Heparin Anti-Xa, LM Wt 1.01 Sodium 124 L Potassium 5.4 H Chloride 98 Carbon Dioxide 16 L Anion Gap 11.0 BUN 59 H Creatinine 2.46 H Est Cr Clr Drug Dosing 20.4 Est GFR ( Amer) 22.1 Est GFR (Non-Af Amer) 19.1 BUN/Creatinine Ratio 23.9 H Glucose 110 H Calcium 9.0 Phosphorus 4.4 Albumin 2.3 L PG Care Time/CCT Total # of Minutes Spent Total Time Spent with Patient: Total time spent is greater than 50% in coordination of care (as documented) at patient's floor/unit and/or counseling patient: (1) Chronic kidney disease Chronic kidney disease stage: stage 3 (moderate) Qualified Code(s): N18.3 - Chronic kidney disease, stage 3 (moderate) (2) Pulmonary embolism Acute cor pulmonale presence: without acute cor pulmonale Chronicity: unspecified Pulmonary embolism type: unspecified Qualified Code(s): I26.99 - Other pulmonary embolism without acute cor pulmonale (3) Hypotension Hypotension type: other hypotension type Qualified Code(s): I95.89 - Other hypotension (4) Asthma Asthma complication type: unspecified Asthma persistence: unspecified Asthma severity: unspecified severity Qualified Code(s): J45.909 - Unspecified asthma, uncomplicated
[2018-12-09 05:55] LABS: Hemoglobin 10.6 g/dL (12.0-16.0); Mean Corpuscular Hemoglobin 29.6 pg (25-34); Mean Corpuscular Hgb Conc 34.2 g/dL (32-36); Mean Corpuscular Volume 86.6 fL (80-100); Mean Platelet Volume 8.7 fL (7.4-10.4); Platelet Count 111 K/uL (130-400); RDW Coefficient of Variation 18.1 % (11.5-14.5); Red Blood Count 3.58 M/uL (4.2-5.4); White Blood Count 6.65 K/uL (4.8-10.8)
[2018-12-09] MEDS: TRAMADOL HCL 50 MG TABLET PO SCH ×2 (05:58→13:23)
[2018-12-09 06:33] LABS: Est GFR (African American) 17.7; Est GFR (Non-African American) 15.3
[2018-12-09] MEDS: NYSTATIN SUSP 500,000 U/5 ML UDC PO SCH ×2 (07:56→11:07)
[2018-12-09] MEDS: ASPIRIN 81 MG ECTAB PO SCH (07:57)
[2018-12-09] MEDS: MOMETASONE FUROATE 14 PUFF/1 INHALER INH SCH (07:58)
[2018-12-09] MEDS: PANTOprazole 40 MG TAB PO SCH (08:00)
[2018-12-09] MEDS: DRONABINOL 2.5 MG CAP PO SCH (08:11)
[2018-12-09] MEDS ORDERED: metroNIDAZOLE 0.75% TOPICAL GEL 45 GM TUBE TOP SCH (09:00)
[2018-12-09 11:23] VITALS: TEMP 97.5; O2SAT 99
[2018-12-09 12:30] VITALS: BP 86/49; PULSE 99
[2018-12-09] MEDS ORDERED: DAPTOmycin 375 MG in SYRINGE 0 ML IV SCH (14:00)
--- NOTE | 2018-12-09 15:39 | Palliative Care Progress Note ---
Date of Service December 09, 2018 Assessment & Plan (1) Palliative care encounter: This is a 72 year old pleasant female known to the palliative care service and was a patient of ours during her last admission with a discharge date of 11/07/18. This patient was admitted for dehydration with decreased urine output, and electrolyte imbalance. This patient has metastatic breast cancer (2014) s/p bilateral mastectomy with bone metastasis for which she received her last chemotherapy in October 2017 and has been followed by [facility] and locally by Dr. Joya for which she has an appointment on November 14. Oncology saw patient during this hospitalization-not a candidate for further treatment. Additional PMH includes HTN, pulmonary embolism, renal impairment (baseline creatinine 2.5), hyperkalemia, protein malnutrition, chronic ascites s/p Pleur-X catheter and third spacing, likely related to carcinomatosis vs abdominal compartment syndrome. The patient has met with Nephrology and [employer] was discussed for which the patient decided that she would not want to pursue any aggressive dialysis treatments. Plan is for discharge home on hospice. Patient creatinine continues to rise-it was 2.9 today, 2.48 on admission (2) Peritonitis: Patient to continue on p.o. antibiotics (3) Ascites, malignant: Pleurx catheter in place-drain PRN for comfort (4) Chronic kidney disease: Worsening renal function-goal is comfort care (5) Abdominal carcinomatosis: No further treatment-discharge home on hospice care Subjective Patient seen and examined, patient's and longtime friend, Annalise, at bedside. Patient awake alert, no acute distress. Patient comfortable-awaiting return home. Review of Systems Review of Systems: Patient denies fever, chills, chest pain, increased shortness of breath, or abdominal pain Physical Exam Physical Exam: PE: Awake and alert, no acute distress HEENT: EOMI, hearing within normal limits Respirations: Unlabored CV: Tachycardic Abdomen: Distended, soft Results & Data Vital Signs (Past 12 Hours) Vital Signs Temp Pulse Pulse Pulse Resp BP BP 12/09/18 12:27 97.5 F L 99 H 105 H 15 90/58 L 86/49 L 12/09/18 11:20 97.5 F L 105 H 15 90/58 L 12/09/18 08:00 97 H 12/09/18 07:06 97.3 F L 94 H 18 95/60 L Pulse Ox 12/09/18 12:27 99 12/09/18 11:20 99 12/09/18 08:00 12/09/18 07:06 96 PG Care Time/CCT Total # of Minutes Spent Total Time Spent with Patient: Total time spent is greater than 50% in coordination of care (as documented) at patient's floor/unit and/or counseling patient: Time Spent Attending Total time spent 35 minutes with greater than 50% of the time spent at bedside answering questions regarding medications and hospice care at home. (1) Chronic kidney disease Chronic kidney disease stage: stage 3 (moderate) Qualified Code(s): N18.3 - Chronic kidney disease, stage 3 (moderate)
--- NOTE | 2018-12-15 05:45 | Discharge Summary ---
Date of Service date of admission - 12/04/18 date of discharge - 12/09/18 Admission HPI Per Admitting Provider Ms. Montilla is a very pleasant 73yo female with stage 4 breast cancer with carcinomatosis. She had been experiencing hypotension over the last 24 hours or so and had been feeling very weak. She had had little appetite and had been vomiting. She has a Pluerx draining abdominal ascites and has been draining about a liter a day from it. Her last chemo was about a month ago. It was discontinued because of injury to her kidneys as well as not seeing very good results. She sees [facility] in [place] and was scheduled to start a new type of chemo on Wednesday. Locally she sees Dr. Joya at [facility] for oncology. Principal Diagnosis peritonitis 2nd to indwelling abdominal catheter Discharge Exam Constitutional + ill appearing and + frail appearing; + not well developed, + not well nourished, no acute distress and no altered mental status ENMT Mouth: + oral mucosal abnormality (thrush plaques improved) and + dry oral mucous membranes Respiratory no respiratory distress Auscultation: + diminished lung sounds (bases); no crackles and no wheezes Cardiovascular Rate/Rhythm: regular rhythm and + tachycardic Heart Sounds: normal S1 and normal S2; no murmur Vessels: posterior tibial pulses present and dorsalis pedis pulses present; no JVD Extremities: + edema (2-3+ b/l) Gastrointestinal (Abdomen) Inspection/Auscultation: + abdomen distended (with ascites) Percussion/Palpation: abdomen nontender and no hepatosplenomegaly pleurX catheter in place over abdomen Skin + pallor Psychiatric Orientation: alert and oriented x 3 Affect: + flat affect Discharge Data Allergies Allergy/AdvReac Type Severity Reaction Status Date / Time oxycodone Allergy SV SHORTNESS Verified 12/04/18 12:04 OF BREATH shrimp Allergy SV THROAT Verified 12/04/18 12:04 CLOSING, ITCHING Penicillins Allergy Intermediate RASH Verified 12/04/18 12:04 Sulfa (Sulfonamide Allergy Intermediate RASH Verified 12/04/18 12:04 Antibiotics) gluten Allergy MO CELIAC Verified 12/04/18 12:04 DISEASE latex Allergy MO RASH Verified 12/04/18 12:04 peanut Allergy MO INCONSISTENT Verified 12/04/18 12:04 ALLERGY TEST RESULT azithromycin Allergy U Unknown Verified 12/04/18 12:04 Dust Mite Extract Allergy Unknown ALLERGY Verified 12/04/18 12:04 TEST RESULT erythromycin base AdvReac Mild STOMACH Verified 12/04/18 12:04 PAIN mivacurium AdvReac MO increased Verified 12/04/18 12:04 blood pressure Consultations palliative care nephrology hematology/oncology Procedures Performed renal u/s chest x-ray Hospital Course (1) Peritonitis: ascites culture with coag negative staph. peritonitis likely occurred as a result of her palliative pleurX catheter itself. received 3 days of IV daptomycin 6mg/kg daily. antibiotics were continued as a "palliative treatment". much of her GI symptomatology (nausea, emesis, etc) could have been due to peritonitis. family will continue to drain the catheter on a PRN basis as necessary for comfort. she was given 3 additional days of PO clindamycin at discharge for the peritonitis. (2) Candidiasis of mouth and esophagus: severe initially but improved with nystatin 5cc ac/hs swish/swallow. (3) Metabolic acidosis: likely combination of lactic acidosis (due to peritonitis) and SONYA. ongoing. on bicarb by mouth, but stopped at d/c due to transition to hospice. (4) Hyperkalemia: Ongoing issue in the face of her acidotic state. Cortisol was normal. Treated with several doses of kayexalate and bicarbonate. Due to transitioning to hospice all treatment for the hyperkalemia was stopped. (5) Hyponatremia: Ongoing. Chronic, but with acute worsening. Some of the worsening likely due to SONYA. (6) Hypotension: Suspect 2nd to sepsis and acidosis due to peritonitis. Cortisol level >10. No signs of bleeding. She was also likely intravascularly volume depleted with 3rd spacing. Had no response to IVF during the stay. (7) Pulmonary embolism: Lovenox stopped at discharge in light of transition to hospice. 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 treat pain. tramadol 50 TID. roxanol prn. (9) Metastatic breast cancer: Previously followed by [facility] and Dr. Cesario Joya at [facility] locally. Stage 4 breast ca is extensive/progressive. She has had severe failure to thrive. She is NOT a candidate to pursue additional palliative chemo. Transitioned to home hospice at discharge. (10) Chronic kidney disease: CKD stage 3 at baseline with SONYA. (11) Celiac disease: gluten free diet (12) Anorexia: 2nd to stage 4 breast ca with malnutrition and cachexia cont marinol as palliative Rx if desired may help w/ nausea as well (13) Asthma: no exacerbation while here (14) Pancytopenia: bone marrow involvement of breast ca? other cause? nutritional deficiency?? no Rx at this time (15) SONYA (acute kidney injury): ongoing in face of peritonitis, etc discharge Cr was 2.9 (16) Discharge planning issues: palliative care team was consulted while here. patient and family ultimately agreeable to hospice. patient returning home with [facility] in place. Total Time Total Time Spent Total Time Spent (In Minutes): 45 Total Time Includes: Examination of the Patient, Discharge Planning, Medication Reconciliation and Communication With Other Providers Discharge Plan Discharge Items Patient Disposition: Hospice - Home Reason For Visit: HYPOTENSION,ELECTROLYTE ABNORMALITIES Discharge Diagnosis: 1. peritonitis (infection of ascites fluid) 2. hypotension (low blood pressure) 3. high potassium 4. high creatinine (kidney function level) 5. breast cancer Discharge Goals: Diagnostic testing and Therapeutic intervention Activity: As commented below Activity Comment: enjoy being home ! Non-emergency contact: Primary Care Provider Call non-emergency contact if: you have any medication questions, your symptoms worsen, your pain is not controlled and your pain is worsening Follow-up/Referrals: Param Murphy Jr, DO [Primary Care Provider] - Diet: Gluten Free Addtl Provider Instructions: Mrs Montilla, When you arrive home we have the following medications to treat various symptoms including - 1. pain or shortness of breath - * you can continue your tramadol 3 times a day as previous * if you need additional pain control or you are having shortness of breath you can take roxanol liquid (morphine liquid) every 3 hours as needed 2. nausea or vomiting - * ondansetron (zofran) tablet - place 1 on tongue or in cheek every 6 hours as needed 3. for nausea and appetite - * marinol (dronabinol) 2.5mg twice a day 4. for yeast infection in mouth - * nystatin solution - 5cc every 6 hours * you can swish and swallow this * if it gets too difficult to swallow it you can simply spit it out * I would treat for another 4-5 days then stop 5. for anxiety, sleep, or agitation - * ativan (lorazepam) 0.5mg under the tongue every 6 hours as needed/desired 6. for infection in ascites fluid - * clindamycin 150mg three times a day for 3 days only * if the antibiotic makes your stomach upset, gives you diarrhea, or you simply don't want to take it for ANY reason it is OK to stop at any time In terms of your ascites and the catheter -- I would ONLY drain the fluid if your belly is uncomfortable/painful or the fluid is making it hard to breath. Otherwise you can skip the draining. Do not worry about checking blood pressures at home around the time of the drainage procedure. I have stopped medications that would not provide comfort or would treat symptoms. Please see the medication list. For any needs, questions, concerns, problems, worsening pain, ANYTHING -- please call the hospice agency FIRST. They will be able to address the majority of your needs over the phone or during a visit to your home. It was a pleasure caring for you this week. Enjoy being at home! Dr Abelino Brooks Prescriptions: New dronabinol 2.5 mg Capsule 2.5 mg PO BID Qty: 30 RF: 0 lorazepam [Ativan] 0.5 mg tablet 0.5 mg SL Q6H PRN (Reason: anxiety, sleep, agitation) Qty: 20 RF: 0 morphine 20 mg/5 mL (4 mg/mL) solution 5 mg PO Q3H PRN (Reason: pain or shortness of breath) Qty: 100 RF: 0 ondansetron 4 mg tablet,disintegrating 4 mg PO Q6H PRN (Reason: nausea and vomiting) Qty: 14 RF: 0 Continued tramadol 50 mg tablet 50 mg PO Q8H RF: 0 metronidazole [Noritate] 1 % cream 1 appln TOP Q2D RF: 0 acetaminophen [Tylenol Extra Strength] 500 mg tablet 500 mg PO Q6H PRN (Reason: Pain) RF: 0 esomeprazole magnesium [Nexium] 40 mg Capsule,Delayed Release(Dr/Ec) 40 mg PO DAILY RF: 0 mometasone 50 mcg/actuation [place],Non-Aerosol 2 spray INTRANASAL DAILY PRN (Reason: Congestion) RF: 0 sulfacetamide sodium (acne) [Klaron] 10 % Suspension 1 applic TOPICAL Q2D RF: 0 acyclovir 800 mg Tablet 800 mg PO TID PRN (Reason: Cold Sores) RF: 0 clotrimazole-betamethasone 1-0.05 % Cream 1 applic TOPICAL BID PRN (Reason: Skin Irritation) RF: 0 epinephrine [EpiPen] 0.3 mg/0.3 mL Auto-Injector 0.3 mg IM Q3H PRN (Reason: Allergic Reaction) RF: 0 albuterol sulfate 90 mcg/actuation Hfa Aerosol Inhaler 2 puff INHALATION Q4H PRN (Reason: Shortness Of Breath) RF: 0 Asmanex HFA 200 mcg/actuation Hfa Aerosol Inhaler 1 puff INHALATION Q12H RF: 0 Lumigan 0.01 % Drops 1 drp OPB HS RF: 0 Changed loratadine [Claritin] 10 mg Tablet 10 mg PO DAILY PRN (Reason: Allergy Symptoms) Qty: 0 RF: 0 Discontinued prochlorperazine maleate 10 mg tablet 10 mg PO Q8H PRN (Reason: Nausea And Vomiting) RF: 0 docusate sodium 100 mg Tablet 100 mg PO BID PRN (Reason: Constipation) RF: 0 Xgeva 120 mg/1.7 mL (70 mg/mL) Solution 120 mg SUBCUT MONTHLY RF: 0 Caltrate 600 plus D 600 mg (1,500 mg)-800 unit Tablet,Chewable 1 tab PO BID RF: 0 biotin 1 mg Capsule 1 mg PO DAILY RF: 0 aspirin 81 mg Tablet,Delayed Release (Dr/Ec) 81 mg PO DAILY RF: 0 furosemide [Lasix] 20 mg Tablet 20 mg PO DAILY RF: 0 pindolol 5 mg Tablet 2.5 mg PO DAILY RF: 0 enoxaparin [Lovenox] 80 mg/0.8 mL Syringe 80 mg SUBCUT Q24H RF: 0 Stand-Alone Forms: My [facility]/Other Patient Handouts: Lorazepam Oral tablet, Dronabinol Oral capsule liquid filled, Ondansetron Hydrochloride Oral tablet, Clindamycin Hydrochloride Oral capsule, Nystatin Oral suspension, Morphine Sulfate Oral tablet Discharge Orders: Discharge Order (Routine); Ordered 12/09/18 Ordered By: Chris Roca Admission Data Admit Date/Time: 12/04/18 13:20 Attending Provider: Chris Roca Admit Provider: Covaleski,Romero E. Primary Care Provider: Param Murphy Jr Other Providers: Romero Boyer ; Betsy Barnes ; Cesario Joya ; Ish Colbert Service: Telemetry Other Interventions: Discharge Summary Assessment (RN) Last Done: 12/09/18 12:27 DC Date/Time DO NOT enter until pt leaves facility: 12/09/18 13:40
--- NOTE | 2018-12-16 06:10 | Coding Query ---
SEPSIS To promote full compliance with coding requirements relating to patient care, physician participation is requested in all cases of cattle sprayer uncertainty. Please assist us with the question(s) below: Throughout the medical record, you have clearly documented a localized infection and your patient has clinical evidence of a generalized sepsis or severe sepsis. The term urosepsis is a nonspecific entity and is coded as an UTI. If the patient has sepsis, severe sepsis, from an urinary source or some other source, please clarify in your response below. The medical record reflects the following clinical findings: Patient admitted with electrolyte imbalances and peritonitis in the setting of malignant ascites. Patient with prior history of breast cancer. 12/08 progress note and DS mention hypotension due to sepsis . Please check below the diagnosis that was treated and responsible for this Inpatient Stay if applicable. Thanks for your help! ARLYN Aldridge [facility] ____ ( )Bacteremia (Nonspecific laboratory finding of bacteria in the blood) Specify Organism ( ) Present on Admission ( ) Not present on admission ( ) Unable to clinically determine ( ) Septicemia (Systemic disease associated with the presence of pathogenic microorganisms in the blood): Specify Organism ( ) Present on Admission ( ) Not present on admission ( ) Unable to clinically determine ( ) Sepsis Specify Organism Specify Associated Condition/Diagnosis ( ) Present on Admission ( ) Not present on admission ( ) Unable to clinically determine ( x) Severe Sepsis (Sepsis associated with acute organ dysfunction) Specify Organism Specify Associated Condition/Diagnosis (x ) Present on Admission ( ) Not present on admission ( ) Unable to clinically determine ( ) Septic Shock (Severe sepsis with acute circulatory failure, unexplained by other causes) ( ) Present on Admission ( ) Not present on admission ( ) Unable to clinically determine ( ) Other, patient has: MTDD
== END 2018-12-09 13:40 | disposition hospice, home (50) | DRG 871 ==
LOC: ED 10:37 → 2S 13:20 → SUATTDRO 13:20 → 2S 13:36
DX: Z85.3 Personal history of malignant neoplasm of breast; E87.5 Hyperkalemia; K74.60 Unspecified cirrhosis of liver; R64 Cachexia; Z91.048 Other nonmedicinal substance allergy status; K90.0 Celiac disease; I89.0 Lymphedema, not elsewhere classified; B95.8 Unspecified staphylococcus as the cause of diseases classified elsewhere; M84.58XA Pathological fracture in neoplastic disease, other specified site, initial encounter for fracture; N17.9 Acute kidney failure, unspecified; K65.8 Other peritonitis; A41.9 Sepsis, unspecified organism; E86.0 Dehydration; N32.89 Other specified disorders of bladder; Z86.73 Personal history of transient ischemic attack (TIA), and cerebral infarction without residual deficits; N13.30 Unspecified hydronephrosis; C79.51 Secondary malignant neoplasm of bone; N18.3 Chronic kidney disease, stage 3 (moderate); Z91.013 Allergy to seafood; Z88.1 Allergy status to other antibiotic agents; Z91.040 Latex allergy status; J45.909 Unspecified asthma, uncomplicated; R18.0 Malignant ascites; D61.818 Other pancytopenia; Z88.0 Allergy status to penicillin; Z51.5 Encounter for palliative care; Z88.2 Allergy status to sulfonamides; E87.1 Hypo-osmolality and hyponatremia; I27.82 Chronic pulmonary embolism; Z92.3 Personal history of irradiation